=== PATIENT | male | born 1945 | race Caucasian/White ===

== ENCOUNTER 2020-11-02 14:18 | Outpatient (REF) | payer OTHER, SELFPAY ==
--- NOTE | ~2020-11-02 | US_ITS ---
EXAMINATION: US VENOUS ULTRASOUND WITH DOPPLER LOWER EXTREMITY, RIGHT CLINICAL INFORMATION: I83.90 - Asymptomatic varicose veins of unspecified lower extremity COMPARISON: None TECHNIQUE: Ultrasound of the deep veins is performed from the hip to the calf with compression sonography and color and pulse Doppler assessment. Spectral analysis with color-flow imaging is performed. FINDINGS: There is normal venous compression and respiratory variation and augmented flow. The visualized common femoral vein, superficial femoral vein, profunda femoral vein, popliteal vein, and the trifurcation region shows no evidence of deep venous thrombosis. There are prominent varicose veins right calf which are compressible and show intraluminal color flow. No superficial thrombophlebitis. No popliteal fossa cyst or fluid tracking in soft tissue planes. US/US venous duplex LE RT IMPRESSION: 1. No DVT right lower extremity. 2. Varicose veins calf. No superficial thrombophlebitis.
== END 2020-11-02 14:19 | disposition home or self-care (01) ==
LOC: HO.US 14:18
PROVIDERS: Visit Provider Nurse Practitioner Family
DX: I83.90 Asymptomatic varicose veins of unspecified lower extremity (principal)
CPT/HCPCS: 93971

== ENCOUNTER → 2020-11-07 13:51 | Outpatient (BNVA) | payer OTHER, SELFPAY | PROVIDERS: PCP Internal Medicine; Visit Provider Internal Medicine | DX: Q23.1 Congenital insufficiency of aortic valve (principal); I71.2 Thoracic aortic aneurysm, without rupture; I10 Essential (primary) hypertension; D68.9 Coagulation defect, unspecified; T45.7X1A Poisoning by anticoagulant antagonists, vitamin K and other coagulants, accidental (unintentional), initial encounter | CPT/HCPCS: 93005 ==

== ENCOUNTER → 2020-12-14 09:22 | Outpatient (REF) | payer OTHER, SELFPAY ==
--- NOTE | 2020-12-14 09:29 | CA_ITS ---
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 - Normal right ventricular cavity size and systolic function. - There is a bicuspid aortic valve. - There is mild to moderate aortic valve stenosis. - There is mild dilatation of the sinuses of Valsalva measuring 4.40 cm and severe dilatation of the ascending aorta measuring 5.30 cm. Findings Left Ventricle Normal left ventricular size, thickness, and systolic function. The visually estimated ejection fraction is between 65-70%. There is no evidence of regional wall motion abnormalities. Diastolic function is normal for age. Right Ventricle Normal right ventricular cavity size and systolic function. Atria The left atrium is normal in size. Aortic Valve There is a bicuspid aortic valve. There is severe calcification of the aortic valve. There is moderate thickening of the aortic valve. There is mild to moderate aortic valve stenosis. There is no aortic valve regurgitation. Mitral Valve Normal mitral valve structure and function. There is trace mitral valve regurgitation. There is no mitral valve stenosis. Pulmonic Valve The pulmonic valve is likely normal. Tricuspid Valve Normal tricuspid valve structure and function. There is trace tricuspid valve regurgitation. Normal right atrial pressure. There is no evidence of pulmonary hypertension. Great Vessels The pulmonary artery was not well visualized. There is mild dilatation of the sinuses of Valsalva measuring 4.40 cm and severe dilatation of the ascending aorta measuring 5.30 cm. Venous The inferior vena cava is normal in size and collapses greater than 50% with inspiration. Pericardium/Pleural There is no evidence of pericardial effusion. Prior Study Comparison Significant changes compared to prior study dated: 05/02/2006. Ascending aorta size has increased to 5.3 cm. Bicuspid aortic valve with mild to moderate . Measurements 2D Linear Measurements IVSd: 1.00 0.6-0.9/0.6-1.0 cm LVIDd: 5.33 3.9-5.3/4.2-5.9 cm LVIDd Index: 3.05 2.4-3.2/2.2-3.1 cm/m2 LVIDs: 3.03 2.0-3.6 cm LVPWd: 1.02 0.7-1.1 cm Ao Root: 4.40 2.1-3.5 cm LA Diam: 3.80 2.7-3.8/3.0-4.0 cm LAIDs Index: 2.17 1.5-2.3 cm/m2 LV Mass: 255.47 67-162/88-224 g LV Mass Index: 145.98 43-95/49-115 g/m2 LVOT Diam: 2.40 3.0+(-)1.3 cm 2D Systolic Function EF 4C: 70.10 >55% EF 2C: 70.10 >55% EF BiP: 67.40 >55% Mitral Valve MV Pk E: 0.65 MV PK A: 0.80 MV Decel Time: 254.00 E/A: 0.80 E'Lateral: 9.68 E'Medial: 8.38 E/E' Med: 7.70 E/E' Lat: 6.70 PHT: 74.00 MVA PHT: 2.97 Decel Cassia: 2.56 Aortic Valve AoV Pk Cosme: 2.73 AoV Mn Cosme: 1.95 AoV VTI: 0.74 AoV Pk Grad: 30.00 Aov Mn Grad: 17.00 ANTONY Cont.VTI: 1.56 LVOT LVOT Pk Cosme: 0.97 LVOT Mn Cosme: 0.73 LVOT VTI: 0.25 LVOT Pk Grad: 4.00 LVOT Mn Grad: 3.00 LVOT Diam: 2.40 LVOT Area: 4.52 Diastolic Function MV Pk E: 0.65 MV Pk A: 0.80 E/A: 0.80 E'Medial: 8.38 E/E' Med: 7.70 E' Laterial: 9.68 E/E' Lat: 6.70 Tricuspid Valve TR Pk Cosme: 2.69 TR Pk Grad: 29.00 RVSP: 32.00 Great Vessels Aorta Ao Root-2D: 4.40 2.0-3.7 cm Sinus of Valsalva: 4.40 2.0-3.5 cm Ao Asc: 5.30 2.1-3.4 cm Ao Arch: 3.20 Updated in Other Vendor System with Status of Final Maykel Burk MD electronically signed on 12/17/2020 11:48:42 AM with status of Final
== END ==
LOC: HO.CARD 09:22
PROVIDERS: Visit Provider Internal Medicine
DX: I71.2 Thoracic aortic aneurysm, without rupture (principal); Q23.1 Congenital insufficiency of aortic valve
CPT/HCPCS: 93306

== ENCOUNTER → 2020-12-18 10:44 | Outpatient (BNVA) | payer OTHER, SELFPAY | PROVIDERS: PCP Internal Medicine; Visit Provider Internal Medicine ==

== ENCOUNTER 2021-01-25 07:52 | Outpatient (REF) | payer OTHER, SELFPAY ==
--- NOTE | ~2021-01-25 | US_ITS ---
EXAMINATION: US RETROPERITONEAL LIMITED (AORTA) CLINICAL INFORMATION: Abdominal aortic aneurysm, without rupture. COMPARISON: None. TECHNIQUE: Grayscale, color Doppler and spectral Doppler evaluation of the abdominal aorta. FINDINGS: There is scattered atherosclerotic plaque without evidence of abdominal aortic aneurysm. The measurements of the aorta in maximum AP and transverse dimensions respectively are as follows: PROXIMAL: 2.6 x 2.7 cm. MID: 2.1 x 1.9 cm. PSV: 88 cm/sec. DISTAL: 2.1 x 1.7 cm. The measurements of the common iliac arteries are as follows: AP: Right: 1.3 cm. Left: 1.3 cm. TRANS: Right: 1.3 cm. Left: 1.3 cm. US/US abdominal aortic aneurysm IMPRESSION: There is scattered atherosclerotic plaque without evidence of abdominal aortic aneurysm.
== END 2021-01-25 07:53 | disposition home or self-care (01) ==
LOC: HO.US 07:52
PROVIDERS: Visit Provider Internal Medicine
DX: I71.4 Abdominal aortic aneurysm, without rupture (principal)
CPT/HCPCS: 76706

== ENCOUNTER → 2021-01-29 12:42 | Outpatient (BNVA) | payer OTHER, SELFPAY | PROVIDERS: PCP Internal Medicine; Visit Provider Internal Medicine ==

== ENCOUNTER 2021-02-06 08:55 | Outpatient (REF) | payer OTHER, SELFPAY ==
--- NOTE | ~2021-02-06 | CT_ITS ---
EXAMINATION: CT ANGIOGRAM CHEST CLINICAL INFORMATION: Thoracic aortic aneurysm COMPARISON: None TECHNIQUE: Multiple axial images were obtained through the chest after the administration of 70 mL of Omnipaque 350 intravenous contrast. MIPS images were performed at the workstation. This CT examination was performed using dose optimization techniques as appropriate, variously including the following: *Automated exposure control *Adjustment of mA and/or kV according to patient size (this includes techniques or standardized protocols for targeted exams where dose is matched to indication/reason for exam; i.e. extremities or head) *Use of iterative reconstruction technique DLP: 123 mGy-cm FINDINGS: Heart/Aorta: The heart is globally normal in size. The coronary arteries arise from the expected coronary sinuses; there is no anomaly of coronary arterial origin. There are coronary artery calcifications. The thoracic aorta is enlarged measuring up to 5.3 cm. Aortic root is also dilated measuring up to 4.8 cm. There is minimal calcification of the aortic valve. The descending thoracic aorta is normal in caliber. There is no evidence of aortic dissection, intramural hematoma, or atherosclerotic penetrating ulcer. Other Cardiovascular: The main pulmonary artery is normal in caliber. The well opacified portions of the pulmonary arterial system are patent. There is no pericardial effusion or pericardial thickening. Mediastinum/Yolanda: There are no pathologically enlarged mediastinal or hilar lymph nodes. Pleura: The pleural surfaces are normal bilaterally. There is no pleural effusion. There is no pneumothorax. Lungs: The lung parenchyma is normal bilaterally. There is no pulmonary parenchymal mass, consolidation, ground-glass attenuation, or discrete suspicious pulmonary nodule. Airways: The central airways are patent. The peripheral airways are normal. There is no bronchiectasis. Upper Abdomen: The incompletely imaged upper abdomen is unremarkable. Musculoskeletal: There is no aggressive osseous lesion. The structures of the chest wall, including the bones, are normal for age. CT/CT angio chest IMPRESSION: 5.3 cm ascending thoracic aortic aneurysm with aortic root dilatation.
[2021-02-06 09:51] LABS: Anion Gap 13 (12-20); Blood Urea Nitrogen 19 mg/dL (9-16); Calcium 9.2 mg/dL (8.4-10.2); Carbon Dioxide 26 mmol/L (22-29); Chloride 104 mmol/L (96-108); Estimated Glomerular Filt Rate > 60; Glucose Random 94 mg/dL (60-115); Potassium 4.7 mmol/L (3.3-5.1); Sodium 138 mmol/L (135-145)
[2021-02-06] MEDS: iohexoL 350 MG/ML 100 ML INFUS..BTL IV (11:23)
== END 2021-02-06 08:56 | disposition home or self-care (01) ==
LOC: HO.CT 08:55
PROVIDERS: PCP Internal Medicine; Visit Provider Internal Medicine
DX: I71.2 Thoracic aortic aneurysm, without rupture (principal); Q23.1 Congenital insufficiency of aortic valve
CPT/HCPCS: 36415; 71275; 80048; Q9967

== ENCOUNTER → 2021-02-12 11:03 | Outpatient (BNVA) | payer OTHER, SELFPAY | PROVIDERS: PCP Internal Medicine; Referring Provider Internal Medicine; Visit Provider Internal Medicine ==

== ENCOUNTER 2021-02-27 12:22 | Outpatient (REF) | payer OTHER, SELFPAY ==
[2021-02-27 13:03] LABS: Hematocrit 33.9 % (42-52); Hemoglobin 11.4 g/dl (14.0-18.0); Mean Corpuscular HGB Conc 33.6 g/dl (31.0-36.0); Mean Corpuscular Hemoglobin 31.6 pg (27.0-33.0); Mean Corpuscular Volume 93.9 fL (80-98); Mean Platelet Volume 10.2 fL (9.4-12.4); Platelet Count 370 X10*3/uL (160-400); Red Blood Count 3.61 X10*6/uL (4.60-5.80); Red Cell Distribution Width 15.3 % (11.0-16.0); White Blood Count 7.7 X10*3/uL (4.8-10.8)
[2021-02-27 13:08] LABS: INTERNATIONAL NORM RATIO 0.8 (0.9-1.1)
[2021-02-27 13:27] LABS: Anion Gap 12 (12-20); Blood Urea Nitrogen 26 mg/dL (9-16); Calcium 9.1 mg/dL (8.4-10.2); Carbon Dioxide 25 mmol/L (22-29); Chloride 103 mmol/L (96-108); Estimated Glomerular Filt Rate > 60; Glucose Random 86 mg/dL (60-115); Potassium 4.7 mmol/L (3.3-5.1); Sodium 135 mmol/L (135-145)
== END 2021-02-27 12:23 | disposition home or self-care (01) ==
LOC: HO.LAB 12:22
PROVIDERS: PCP Internal Medicine; Visit Provider Internal Medicine
DX: I71.2 Thoracic aortic aneurysm, without rupture (principal)
CPT/HCPCS: 36415; 80048; 85027; 85610

== ENCOUNTER → 2021-03-20 13:55 | Outpatient (BNVA) | payer OTHER, SELFPAY | PROVIDERS: PCP Internal Medicine; Referring Provider Internal Medicine; Visit Provider Internal Medicine ==

== ENCOUNTER 2022-07-28 15:38 | Outpatient (REF) | payer BC, SELFPAY ==
--- NOTE | ~2022-07-28 | US_ITS ---
EXAMINATION: US EXTRACRANIAL CAROTID DUPLEX, BILATERAL CLINICAL INFORMATION: TIA COMPARISON: 09/26/2011 TECHNIQUE: Real-time ultrasound and Doppler techniques (integrating B-mode 2-D vascular images, Doppler spectral analysis and color-flow Doppler imaging) were utilized to interrogate the extracranial carotid arteries, the vertebral arteries and proximal subclavian arteries bilaterally. The degree of stenosis is determined by criteria similar to NASCET. FINDINGS: Right Side: 1. There is mild atherosclerotic plaque seen in the bifurcation/proximal ICA region. 2. The common carotid artery PSV proximally is 101 cm/s and distally 79 cm/s. 3. The proximal internal carotid artery velocities are 78 cm/s systolic and 28 cm/s diastolic. 4. The proximal external carotid artery PSV is 74 cm/s. 5. The vertebral artery shows after flow. 6. The subclavian artery waveforms are normal. Left Side: 1. There is mild atherosclerotic plaque seen in the bifurcation/proximal ICA region. 2. The common carotid artery PSV proximally is 98 cm/s and distally 82 cm/s. 3. The proximal internal carotid artery velocities are 107 cm/s systolic and 34 cm/s diastolic. 4. The proximal external carotid artery PSV is 57 cm/s. 5. The vertebral artery shows antegrade flow. 6. The subclavian artery waveforms are normal. US/US carotid duplex BI IMPRESSION: 1. RIGHT: Minimal, non-hemodynamically significant stenosis of the proximal right internal carotid artery corresponding to a 0-49% stenosis by velocity criteria. 2. LEFT: Minimal, non-hemodynamically significant stenosis of the proximal left internal carotid artery corresponding to a 0-49% stenosis by velocity criteria. 3. There is no change in the category severity of disease when compared to the previous study dated 09/26/2011.
== END 2022-07-28 15:39 | disposition home or self-care (01) ==
LOC: HO.US 15:38
PROVIDERS: Visit Provider Internal Medicine
DX: G45.9 Transient cerebral ischemic attack, unspecified (principal)
CPT/HCPCS: 93880

== ENCOUNTER 2022-08-14 16:12 | Outpatient (REF) | payer BC, SELFPAY ==
[2022-08-14 16:40] LABS: MANUAL DIFF FLAG NO
[2022-08-14 17:20] LABS: Basophils Absolute Auto 0.1 X10*3/uL (0.0-0.2); Basophils Percent Auto 1.3 % (0-2); Eosinophils Absolute Auto 0.2 X10*3/uL (0.0-0.4); Eosinophils Percent Auto 2.9 % (0-4); Hematocrit 33.2 % (42.0-52.0); Hemoglobin 11.2 g/dl (14.0-18.0); Imm Gran Abs Auto 0.01 X10*3/uL (0.00-0.03); Imm Gran Pct Auto 0.1 % (0.0-0.4); Lymphocytes Absolute Auto 0.9 X10*3/uL (1.2-4.9); Lymphocytes Percent Auto 12.4 % (20-40); Mean Corpuscular HGB Conc 33.7 g/dl (31.0-36.0); Mean Corpuscular Hemoglobin 32.4 pg (27.0-33.0); Mean Platelet Volume 10.2 fL (9.4-12.4); Monocytes Absolute Auto 1.1 X10*3/uL (0.1-1.2); Monocytes Percent Auto 16.2 % (2-11); Neutrophils Absolute Auto 4.6 x10*3/uL (2.0-8.3); Neutrophils Percent Auto 67.1 % (45-73); Platelet Count 376 X10*3/uL (160-400); Red Blood Count 3.46 X10*6/uL (4.60-5.80); Red Cell Distribution Width 13.5 % (11.0-16.0); White Blood Count 6.9 X10*3/uL (4.8-10.8)
[2022-08-14 17:21] LABS: Appearance Urine Clear; Color Urine Yellow; Glucose Urine UA Negative (Negative); Leukocyte Esterase Urine Negative (Negative); Nitrite Urine Negative (Negative); Urine Blood Negative (Negative); Urine Ketones Negative (Negative); Urine Protein Negative (Neg-Trace)
[2022-08-14 17:24] LABS: INTERNATIONAL NORM RATIO 0.9 (0.9-1.1); Prothrombin Time 10.1 SEC (10.0-13.1)
[2022-08-14 17:27] LABS: Estimated Average Glucose 94 mg/dL; Hemoglobin A1c % 4.9 %; Partial Thromboplastin Time 32.6 SEC (26.0-36.4)
[2022-08-14 17:49] LABS: Alanine Aminotransferase 16 U/L (0-40); Albumin Level 4.1 g/dL (3.5-5.0); Alkaline Phosphatase 82 U/L (39-117); Anion Gap 11 (12-20); Aspartate Amino Transferase 29 U/L (5-37); Bilirubin Total 0.5 mg/dL (0.0-1.0); Blood Urea Nitrogen 23 mg/dL (9-16); Calcium 9.4 mg/dL (8.4-10.2); Carbon Dioxide 26 mmol/L (22-29); Chloride 98 mmol/L (96-108); Estimated Glomerular Filt Rate > 60; Glucose Random 93 mg/dL (60-115); Magnesium 1.7 mg/dL (1.6-2.6); Potassium 5.1 mmol/L (3.3-5.1); Sodium 130 mmol/L (135-145); Total Protein 6.8 g/dL (6.5-8.0)
== END 2022-08-14 16:13 | disposition home or self-care (01) ==
LOC: HO.LAB 16:12
PROVIDERS: PCP Internal Medicine; Visit Provider Thoracic Surgery (Cardiothoracic Vascular Surgery)
DX: Z01.818 Encounter for other preprocedural examination (principal)
CPT/HCPCS: 36415; 80053; 81003; 83036; 83735; 84550; 85025; 85610; 85730; 87086

== ENCOUNTER → 2022-09-05 11:34 | Outpatient (BNVA) | payer BC, SELFPAY | PROVIDERS: PCP Internal Medicine; Visit Provider Internal Medicine Cardiovascular Disease | DX: I48.19 Other persistent atrial fibrillation (principal); Z98.890 Other specified postprocedural states; Z86.79 Personal history of other diseases of the circulatory system; Z95.2 Presence of prosthetic heart valve | CPT/HCPCS: 93005 ==

== ENCOUNTER → 2022-09-25 09:57 | Outpatient (BNVA) | payer OTHER, SELFPAY | PROVIDERS: PCP Internal Medicine; Visit Provider Internal Medicine | DX: Z95.2 Presence of prosthetic heart valve (principal); Z51.81 Encounter for therapeutic drug level monitoring; Z79.01 Long term (current) use of anticoagulants | CPT/HCPCS: 85610; 99202 ==

== ENCOUNTER → 2022-09-30 09:29 | Outpatient (BNVA) | payer OTHER, SELFPAY | PROVIDERS: PCP Internal Medicine; Visit Provider Internal Medicine | DX: Z95.2 Presence of prosthetic heart valve (principal); Z51.81 Encounter for therapeutic drug level monitoring; Z79.01 Long term (current) use of anticoagulants | CPT/HCPCS: 85610; 99211 ==

== ENCOUNTER → 2022-10-03 09:25 | Outpatient (BNVA) | payer OTHER, SELFPAY | PROVIDERS: PCP Internal Medicine; Visit Provider Internal Medicine | DX: Z95.2 Presence of prosthetic heart valve (principal); Z51.81 Encounter for therapeutic drug level monitoring; Z79.01 Long term (current) use of anticoagulants | CPT/HCPCS: 85610; 99211 ==

== ENCOUNTER → 2022-10-07 10:40 | Outpatient (BNVA) | payer OTHER, SELFPAY | PROVIDERS: PCP Internal Medicine; Visit Provider Internal Medicine | DX: Z95.2 Presence of prosthetic heart valve (principal); Z51.81 Encounter for therapeutic drug level monitoring; Z79.01 Long term (current) use of anticoagulants | CPT/HCPCS: 85610; 99211 ==

== ENCOUNTER → 2022-10-10 09:53 | Outpatient (BNVA) | payer OTHER, SELFPAY | PROVIDERS: PCP Internal Medicine; Visit Provider Internal Medicine | DX: Z95.2 Presence of prosthetic heart valve (principal); Z51.81 Encounter for therapeutic drug level monitoring; Z79.01 Long term (current) use of anticoagulants | CPT/HCPCS: 85610; 99211 ==

== ENCOUNTER → 2022-10-14 10:03 | Outpatient (BNVA) | payer OTHER, SELFPAY | PROVIDERS: PCP Internal Medicine; Visit Provider Internal Medicine | DX: Z95.2 Presence of prosthetic heart valve (principal); Z51.81 Encounter for therapeutic drug level monitoring; Z79.01 Long term (current) use of anticoagulants | CPT/HCPCS: 85610; 99211 ==

== ENCOUNTER → 2022-10-21 13:07 | Outpatient (BNVA) | payer OTHER, SELFPAY | PROVIDERS: PCP Internal Medicine; Visit Provider Internal Medicine | DX: Z95.2 Presence of prosthetic heart valve (principal); Z51.81 Encounter for therapeutic drug level monitoring; Z79.01 Long term (current) use of anticoagulants | CPT/HCPCS: 85610; 99211 ==

== ENCOUNTER → 2022-10-28 11:26 | Outpatient (BNVA) | payer OTHER, SELFPAY | PROVIDERS: PCP Internal Medicine; Visit Provider Internal Medicine | DX: Z95.2 Presence of prosthetic heart valve (principal); Z51.81 Encounter for therapeutic drug level monitoring; Z79.01 Long term (current) use of anticoagulants | CPT/HCPCS: 85610; 99211 ==

== ENCOUNTER → 2022-11-04 13:20 | Outpatient (BNVA) | payer OTHER, SELFPAY | PROVIDERS: PCP Internal Medicine; Visit Provider Internal Medicine | DX: Z95.2 Presence of prosthetic heart valve (principal); Z51.81 Encounter for therapeutic drug level monitoring; Z79.01 Long term (current) use of anticoagulants | CPT/HCPCS: 85610; 99211 ==

== ENCOUNTER → 2022-11-11 10:32 | Outpatient (BNVA) | payer OTHER, SELFPAY | PROVIDERS: PCP Internal Medicine; Visit Provider Internal Medicine | DX: Z95.2 Presence of prosthetic heart valve (principal); Z51.81 Encounter for therapeutic drug level monitoring; Z79.01 Long term (current) use of anticoagulants | CPT/HCPCS: 85610; 99211 ==

== ENCOUNTER → 2022-11-18 10:30 | Outpatient (BNVA) | payer OTHER, SELFPAY | PROVIDERS: PCP Internal Medicine; Visit Provider Internal Medicine | DX: Z95.2 Presence of prosthetic heart valve (principal); Z51.81 Encounter for therapeutic drug level monitoring; Z79.01 Long term (current) use of anticoagulants | CPT/HCPCS: 85610; 99211 ==

== ENCOUNTER → 2022-11-25 09:47 | Outpatient (BNVA) | payer OTHER, SELFPAY | PROVIDERS: PCP Internal Medicine; Visit Provider Internal Medicine | DX: Z95.2 Presence of prosthetic heart valve (principal); Z51.81 Encounter for therapeutic drug level monitoring; Z79.01 Long term (current) use of anticoagulants | CPT/HCPCS: 85610; 99211 ==

== ENCOUNTER → 2022-12-02 09:41 | Outpatient (BNVA) | payer OTHER, SELFPAY | PROVIDERS: PCP Internal Medicine; Visit Provider Internal Medicine | DX: Z95.2 Presence of prosthetic heart valve (principal); Z51.81 Encounter for therapeutic drug level monitoring; Z79.01 Long term (current) use of anticoagulants | CPT/HCPCS: 85610; 99211 ==

== ENCOUNTER → 2022-12-09 09:46 | Outpatient (BNVA) | payer OTHER, SELFPAY | PROVIDERS: PCP Internal Medicine; Visit Provider Internal Medicine | DX: Z95.2 Presence of prosthetic heart valve (principal); Z51.81 Encounter for therapeutic drug level monitoring; Z79.01 Long term (current) use of anticoagulants | CPT/HCPCS: 85610; 99211 ==

== ENCOUNTER → 2022-12-23 09:55 | Outpatient (BNVA) | payer OTHER, SELFPAY | PROVIDERS: PCP Internal Medicine; Visit Provider Internal Medicine | DX: Z95.2 Presence of prosthetic heart valve (principal); Z51.81 Encounter for therapeutic drug level monitoring; Z79.01 Long term (current) use of anticoagulants | CPT/HCPCS: 85610; 99211 ==

== ENCOUNTER → 2023-01-06 10:04 | Outpatient (BNVA) | payer OTHER, SELFPAY | PROVIDERS: PCP Internal Medicine; Visit Provider Internal Medicine | DX: Z95.2 Presence of prosthetic heart valve (principal); Z51.81 Encounter for therapeutic drug level monitoring; Z79.01 Long term (current) use of anticoagulants | CPT/HCPCS: 85610; 99211 ==

== ENCOUNTER → 2023-01-20 09:55 | Outpatient (BNVA) | payer OTHER, SELFPAY | PROVIDERS: PCP Internal Medicine; Visit Provider Internal Medicine | DX: Z95.2 Presence of prosthetic heart valve (principal); Z51.81 Encounter for therapeutic drug level monitoring; Z79.01 Long term (current) use of anticoagulants | CPT/HCPCS: 85610; 99211 ==

== ENCOUNTER → 2023-02-03 10:00 | Outpatient (BNVA) | payer OTHER, SELFPAY | PROVIDERS: PCP Internal Medicine; Visit Provider Internal Medicine | DX: Z51.81 Encounter for therapeutic drug level monitoring (principal); Z79.01 Long term (current) use of anticoagulants; Z95.2 Presence of prosthetic heart valve | CPT/HCPCS: 85610; 99211 ==

== ENCOUNTER → 2023-02-17 09:50 | Outpatient (BNVA) | payer OTHER, SELFPAY | PROVIDERS: PCP Internal Medicine; Visit Provider Internal Medicine | DX: Z51.81 Encounter for therapeutic drug level monitoring (principal); Z79.01 Long term (current) use of anticoagulants; Z95.2 Presence of prosthetic heart valve | CPT/HCPCS: 85610; 99211 ==

== ENCOUNTER → 2023-03-02 10:29 | Outpatient (BNVA) | payer OTHER, SELFPAY | PROVIDERS: PCP Internal Medicine; Visit Provider Internal Medicine | DX: Z95.2 Presence of prosthetic heart valve (principal); Z51.81 Encounter for therapeutic drug level monitoring; Z79.01 Long term (current) use of anticoagulants | CPT/HCPCS: 85610; 99211 ==

== ENCOUNTER 2023-03-23 14:11 | Outpatient (AMB) | payer OTHER, SELFPAY ==
--- NOTE | 2023-03-23 14:17 | MHC.OFFVISCO ---
Intake Intake Visit Reasons: Anticoagulation Allergies No Known Allergies Allergy (Verified 03/23/23 14:13) Medication List - Last Reconciled 03/23/23 by Lilian Qureshi RN acetaminophen 325 mg PO QID PRN allopurinol 150 mg (1/2 x 300 mg) PO DAILY aspirin 81 mg PO DAILY atorvastatin 20 mg PO DAILY dupilumab (Dupixent Pen) every 2 weeks furosemide 20 mg PO DAILY metoprolol succinate ER mg PO omeprazole 20 mg PO DAILY sildenafil mg PO triamcinolone acetonide 0.1% 1 appl topical BID-TID warfarin 2 mg See Protocol PO DAILY Nursing Note INR: 2.5- in therapeutic range Medications and supplements reviewed No changes in health, diet, medications, or supplements, Denies any signs and symptoms of bleeding or bruising or clotting. 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
[2023-03-24 15:40] LABS: ~PT, ~INR - Anti Coag Clinic 2.5 (0.9-1.1)
== END 2023-03-23 14:25 | disposition home or self-care (01) ==
LOC: HO.ACS 14:11
PROVIDERS: PCP Internal Medicine; Visit Provider Internal Medicine
DX: Z79.01 Long term (current) use of anticoagulants (principal)

== ENCOUNTER → 2023-03-23 14:11 | Outpatient (BNVA) | payer OTHER, SELFPAY | PROVIDERS: PCP Internal Medicine; Visit Provider Internal Medicine | DX: Z51.81 Encounter for therapeutic drug level monitoring (principal); Z79.01 Long term (current) use of anticoagulants; Z95.2 Presence of prosthetic heart valve | CPT/HCPCS: 85610; 99211 ==

== ENCOUNTER 2023-04-14 10:08 | Outpatient (AMB) | payer OTHER, SELFPAY ==
--- NOTE | 2023-04-14 10:14 | MHC.OFFVISCO ---
Intake Intake Visit Reasons: Anticoagulation Allergies No Known Allergies Allergy (Verified 04/14/23 10:11) Medication List - Last Reconciled 04/14/23 by Lilian Qureshi RN acetaminophen 325 mg PO QID PRN allopurinol 150 mg (1/2 x 300 mg) PO DAILY aspirin 81 mg PO DAILY atorvastatin 20 mg PO DAILY dupilumab (Dupixent Pen) every 2 weeks furosemide 20 mg PO DAILY metoprolol succinate ER mg PO omeprazole 20 mg PO DAILY sildenafil mg PO triamcinolone acetonide 0.1% 1 appl topical BID-TID warfarin 2 mg See Protocol PO DAILY Nursing Note INR: 2.7- in therapeutic range Medications and supplements reviewed No changes in health, diet, medications, or supplements, Denies any signs and symptoms of bleeding or bruising or clotting. 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 Illness/Depression: No Coding Level of Care Code Est Patient Level 1 Diagnoses Current use of anticoagulant therapy Z79.01 Assessment & Plan Assessment & Plan (1) Current use of anticoagulant therapy: Code(s): Z79.01 - skilled nursing (current) use of anticoagulants Category: Medical
[2023-04-14 10:16] LABS: Prothrombin Time Whole Bld POC 32.7 sec (11.1-13.5); ~PT, ~INR - Anti Coag Clinic 2.7 (0.9-1.1)
== END 2023-04-14 10:20 | disposition home or self-care (01) ==
LOC: HO.ACS 10:08
PROVIDERS: PCP Internal Medicine; Visit Provider Internal Medicine
DX: Z79.01 Long term (current) use of anticoagulants (principal)

== ENCOUNTER → 2023-04-14 10:08 | Outpatient (BNVA) | payer OTHER, SELFPAY | PROVIDERS: PCP Internal Medicine; Visit Provider Internal Medicine | DX: Z51.81 Encounter for therapeutic drug level monitoring (principal); Z79.01 Long term (current) use of anticoagulants; Z95.2 Presence of prosthetic heart valve | CPT/HCPCS: 85610; 99211 ==

== ENCOUNTER 2023-05-05 10:29 | Outpatient (AMB) | payer OTHER, SELFPAY ==
[2023-05-05 10:35] LABS: ~PT, ~INR - Anti Coag Clinic 3.2 (0.9-1.1)
--- NOTE | 2023-05-05 10:47 | MHC.OFFVISCO ---
Intake Intake Visit Reasons: Anticoagulation Allergies No Known Allergies Allergy (Verified 05/05/23 10:30) Medication List - Last Reconciled 05/05/23 by Marcia De Leon RN acetaminophen 325 mg PO QID PRN allopurinol 150 mg (1/2 x 300 mg) PO DAILY aspirin 81 mg PO DAILY atorvastatin 20 mg PO DAILY dupilumab (Dupixent Pen) every 2 weeks furosemide 20 mg PO DAILY metoprolol succinate ER mg PO omeprazole 20 mg PO DAILY sildenafil mg PO triamcinolone acetonide 0.1% 1 appl topical BID-TID warfarin 2 mg See Protocol PO DAILY Nursing Note NO CP,SOB,DIET/MED CHANGES,FALLS OR SX OF BBLEEDING. CONTINUE PRESENT DOSE AND FOLLOW-UP IN 3 WEEKS. GOOD UNDERSTANDING OFDOSING INSTR. 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
== END 2023-05-05 10:49 | disposition home or self-care (01) ==
LOC: HO.ACS 10:29
PROVIDERS: PCP Internal Medicine; Visit Provider Internal Medicine
DX: Z79.01 Long term (current) use of anticoagulants (principal)

== ENCOUNTER → 2023-05-05 10:29 | Outpatient (BNVA) | payer OTHER, SELFPAY | PROVIDERS: PCP Internal Medicine; Visit Provider Internal Medicine | DX: Z95.2 Presence of prosthetic heart valve (principal); Z51.81 Encounter for therapeutic drug level monitoring; Z79.01 Long term (current) use of anticoagulants | CPT/HCPCS: 85610; 99211 ==

== ENCOUNTER 2023-05-26 10:06 | Outpatient (AMB) | payer OTHER, SELFPAY ==
--- NOTE | 2023-05-26 10:19 | MHC.OFFVISCO ---
Intake Intake Visit Reasons: Anticoagulation Allergies No Known Allergies Allergy (Verified 05/26/23 10:14) Medication List - Last Reconciled 05/26/23 by Lilian Qureshi RN acetaminophen 325 mg PO QID PRN allopurinol 150 mg (1/2 x 300 mg) PO DAILY aspirin 81 mg PO DAILY atorvastatin 20 mg PO DAILY dupilumab (Dupixent Pen) every 2 weeks furosemide 20 mg PO DAILY metoprolol succinate ER mg PO omeprazole 20 mg PO DAILY sildenafil mg PO triamcinolone acetonide 0.1% 1 appl topical BID-TID warfarin 2 mg See Protocol PO DAILY Nursing Note INR: 2.9- in therapeutic range Medications and supplements reviewed No changes in health, diet, medications, or supplements, Denies any signs and symptoms of bleeding or bruising or clotting. Bleeding, bruising, clotting discussed - skin tear left forearm- dressing dry and intact. pt states had bleeding for several days. 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
[2023-05-26 10:20] LABS: Prothrombin Time Whole Bld POC 34.2 sec (11.1-13.5); ~PT, ~INR - Anti Coag Clinic 2.9 (0.9-1.1)
== END 2023-05-26 10:26 | disposition home or self-care (01) ==
LOC: HO.ACS 10:06
PROVIDERS: PCP Internal Medicine; Visit Provider Internal Medicine
DX: Z79.01 Long term (current) use of anticoagulants (principal)

== ENCOUNTER → 2023-05-26 10:06 | Outpatient (BNVA) | payer OTHER, SELFPAY | PROVIDERS: PCP Internal Medicine; Visit Provider Internal Medicine | DX: Z95.2 Presence of prosthetic heart valve (principal); Z51.81 Encounter for therapeutic drug level monitoring; Z79.01 Long term (current) use of anticoagulants | CPT/HCPCS: 85610; 99211 ==

== ENCOUNTER 2023-06-10 12:00 | Outpatient (REF) | payer OTHER, SELFPAY ==
[2023-06-10 12:20] LABS: MANUAL DIFF FLAG NO
[2023-06-10 12:42] LABS: Basophils Absolute Auto 0.1 X10*3/uL (0.0-0.2); Basophils Percent Auto 1.4 % (0-2); Eosinophils Absolute Auto 0.4 X10*3/uL (0.0-0.4); Eosinophils Percent Auto 5.2 % (0-4); Hematocrit 26.3 % (42.0-52.0); Hemoglobin 8.1 g/dl (14.0-18.0); Imm Gran Abs Auto 0.03 X10*3/uL (0.00-0.03); Imm Gran Pct Auto 0.4 % (0.0-0.4); Lymphocytes Absolute Auto 0.8 X10*3/uL (1.2-4.9); Lymphocytes Percent Auto 11.8 % (20-40); Mean Corpuscular HGB Conc 30.8 g/dl (31.0-36.0); Mean Corpuscular Hemoglobin 22.9 pg (27.0-33.0); Mean Corpuscular Volume 74.3 fL (80.0-98.0); Mean Platelet Volume 10.9 fL (9.4-12.4); Monocytes Absolute Auto 1.1 X10*3/uL (0.1-1.2); Monocytes Percent Auto 15.7 % (2-11); Neutrophils Absolute Auto 4.7 x10*3/uL (2.0-8.3); Neutrophils Percent Auto 65.5 % (45-73); Platelet Count 316 X10*3/uL (160-400); Red Blood Count 3.54 X10*6/uL (4.60-5.80); Red Cell Distribution Width 20.1 % (11.0-16.0)
[2023-06-10 12:43] LABS: White Blood Count 7.1 X10*3/uL (4.8-10.8)
== END 2023-06-10 12:01 | disposition home or self-care (01) ==
LOC: HO.LAB 12:00
PROVIDERS: PCP Internal Medicine; Visit Provider Internal Medicine
DX: D64.9 Anemia, unspecified (principal)
CPT/HCPCS: 36415; 85025

== ENCOUNTER 2023-06-16 10:08 | Outpatient (AMB) | payer OTHER, SELFPAY ==
--- NOTE | 2023-06-16 10:15 | MHC.OFFVISCO ---
Intake Intake Visit Reasons: Anticoagulation Allergies No Known Allergies Allergy (Verified 06/16/23 10:11) Medication List - Last Reconciled 06/16/23 by Lilian Qureshi RN acetaminophen 325 mg PO QID PRN allopurinol 150 mg (1/2 x 300 mg) PO DAILY aspirin 81 mg PO DAILY atorvastatin 20 mg PO DAILY dupilumab (Dupixent Pen) every 2 weeks furosemide 20 mg PO DAILY metoprolol succinate ER mg PO omeprazole 20 mg PO DAILY sildenafil mg PO triamcinolone acetonide 0.1% 1 appl topical BID-TID warfarin 2 mg See Protocol PO DAILY Nursing Note INR 3.3- out of therapeutic range Medications and supplements reviewed Patient status: no c.o Medications or supplements: no changes Diet: same Denies any signs and symptoms of bleeding or clotting or unusual bruising Bleeding, bruising, clotting discussed Nutritional guidance given: eat greens to lower inr pt has had peanut butter and fresh tomatoes Dose: 2mg today then cont 4mg x 2, 3mg x 5 F/U INR Date : 2 weeks?? Patient verbalizing understanding of instructions given. 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 Illness/Depression: No Coding Level of Care Code Est Patient Level 1 Diagnoses Current use of anticoagulant therapy Z79.01 Assessment & Plan Assessment & Plan (1) Current use of anticoagulant therapy: Code(s): Z79.01 - [facility] (current) use of anticoagulants Category: Medical
[2023-06-16 10:16] LABS: Prothrombin Time Whole Bld POC 39.5 sec (11.1-13.5); ~PT, ~INR - Anti Coag Clinic 3.3 (0.9-1.1)
== END 2023-06-16 10:22 | disposition home or self-care (01) ==
LOC: HO.ACS 10:08
PROVIDERS: PCP Internal Medicine; Visit Provider Internal Medicine
DX: Z79.01 Long term (current) use of anticoagulants (principal)

== ENCOUNTER → 2023-06-16 10:08 | Outpatient (BNVA) | payer OTHER, SELFPAY | PROVIDERS: PCP Internal Medicine; Visit Provider Internal Medicine | DX: Z95.2 Presence of prosthetic heart valve (principal); Z51.81 Encounter for therapeutic drug level monitoring; Z79.01 Long term (current) use of anticoagulants | CPT/HCPCS: 85610; 99211 ==

== ENCOUNTER 2023-06-22 08:29 | Outpatient (AMB) | payer OTHER, SELFPAY ==
[2023-06-22 08:35] VITALS: BP 106/62; PULSE 71; O2SAT 98; BMI 22.2
--- NOTE | 2023-06-22 08:35 | MHC.PC.OV ---
Vital Signs 06/22/23 08:35 Height 5 ft 8 in Weight 146 lb BMI 22.2 BP 106/62 Blood Pressure Location Lt brachial Position Sitting Pulse 71 Pulse Source Pulse Oximeter Pulse Oximetry (%) 98 Oxygen Delivery Method Room Air Intake Visit Reasons: F/u anemia Allergies No Known Allergies Allergy (Verified 06/22/23 08:35) Medication List - Last Reconciled 06/22/23 by Robbie Ferrer MD acetaminophen 325 mg PO QID PRN allopurinol 150 mg (1/2 x 300 mg) PO DAILY aspirin 81 mg PO DAILY atorvastatin 20 mg PO DAILY dupilumab (Dupixent Pen) every 2 weeks ferrous sulfate (FeroSul) 325 mg PO DAILY furosemide 20 mg PO DAILY metoprolol succinate ER mg PO omeprazole 20 mg PO DAILY sildenafil mg PO triamcinolone acetonide 0.1% 1 appl topical BID-TID warfarin 2 mg See Protocol PO DAILY Tobacco use date assessed: 09/29/22 Fall risk assessment: No Falls in past year Last assessed Fall Risk: 06/22/23 Dental Screening Dental Screen Date: 06/22/23 Did you have a dental visit in the last 12 months?: Yes Did you have a dental problem in the last 6 months where you did not have access to dental care?: No Was dental information given to patient?: Patient has dentist HPI F/u anemia HPI Details fatigue since his heart surgery last Aug; sees cardiology and doing well; has been anemic since surgery and last hct 26.4. No BM changes but on warfarin PFSH Medical History (Updated 06/22/23 @ 09:25 by Robbie Ferrer MD) Ascending aortic aneurysm Bicuspid aortic valve Varicose vein of leg Hemorrhage secondary to anti-coagulation Bleeding Hx of skin malignancy Gastroesophageal reflux disease Erectile dysfunction Carotid stenosis Allergic rhinitis Gout Hypertension Surgical History Aortic valve replaced History of inguinal hernia repair (~09/2019) History of tonsillectomy Status post ascending aortic aneurysm repair Family History Father No problems noted. Mother No problems noted. 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 1. Little interest or pleasure in doing things: not at all 2. Feeling down, depressed, or hopeless: not at all 3. Trouble falling or staying asleep, or sleeping too much: not at all 4. Feeling tired or having little energy: not at all 5. Poor appetite or overeating: not at all 6. Feeling bad about yourself - or that you are a failure or have let yourself or your family down: not at all 7. Trouble concentrating on things, such as reading the newspaper or watching television: not at all 8. Moving or speaking so slowly that other people could have noticed. Or the opposite - being so fidgety or restless that you have been moving around a lot more than usual: not at all 9. Thoughts that you would be better off or of hurting yourself in some way: not at all Total score: 0 Depression Screening Interpretation: Negative Depression Screening Done: Yes 57481 - PHQ-9 Billing: Yes Source: Developed by Drs. Jean Carlos Rodríguez, Mikala Way, Blas Scott and colleagues, with an educational erika from [employer]. Thrive Questionnaire Date Thrive assessed: 09/29/22 AUDIT C Alcohol Use Questionnaire (AUDIT-C) 1. How often do you have a drink containing alcohol?: 4 or more times a week 2. How many drinks containing alcohol do you have on a typical day when you are drinking?: 1 or 2 Total Score: 4 Score Reviewed/Action Taken: Yes ZA-7 AMB Questionnaire ZA-7 Date ZA - 7 assessed: 09/29/22 Source: Developed by Drs. Jean Carlos Rodríguez, Mikala Way, Blas Scott and colleagues, with an educational erika from [employer]. Review of Systems Const Denies chills, Denies headache(s) and Denies weight loss ENT Denies headache(s) Card Denies chest pain, Denies syncope, Denies irregular heart rhythm and Denies dyspnea Resp Denies chest congestion, Denies cough and Denies dyspnea GI Denies abdominal pain, Denies change in stool character, Denies nausea and Denies vomiting Musc Denies deformity and Denies joint swelling Neuro Denies syncope and Denies headache(s) Physical exam (Primary Care) Vital Signs: Last Vital Signs Pulse 71 06/22/23 08:35 BP 106/62 06/22/23 08:35 Pulse Ox 98 06/22/23 08:35 Oxygen Delivery Method Room Air 06/22/23 08:35 BMI result Body Mass Index 22.2 Tobacco/Smoking Status: Tobacco use Status Tobacco use date assessed 09/29/22 06/22/23 08:41 Patient Tobacco Use Status Never used Tobacco 06/22/23 08:41 e-Cigarette/Vaping Use Never Used 06/22/23 08:41 PHQ-9: PHQ-9 Score PHQ-9: Total score 0 06/22/23 08:42 Depression Screening Interpretation: Negative Thrive Assessment: Date of Thrive Assessment Date Thrive assessed 09/29/22 06/22/23 08:41 Const General: cooperative, comfortable, no acute distress and alert Neck Neck: Yes no lymphadenopathy Thyroid: Thyroid normal Resp Effort & Inspection: normal respiratory effort Auscultation: clear to auscultation bilaterally Percussion: percussion normal Cardio Jugular venous distension: no JVD Palpation: normal PMI Rate: regular rate Rhythm: regular rhythm Heart sounds: S1 normal heart sound present and S2 normal heart sound present GI Inspection: Yes normal to inspection Palpation (GI): No hepatosplenomegaly present Skin General skin exam: no rashes or lesions noted Extrem General: Yes no clubbing, cyanosis or edema Office Procedures Flu Questionnaire Does the patient have a severe egg allergy?: No Does the patient have severe life threatening allergies?: No Does the patient have a fever or illness today?: No Has the patient ever had Guillain-Lacassine Syndrome?: No Has the patient ever had any past reaction to a flu shot?: No Immunizations flu vacc [id number] 6mos up(PF) 60 mcg(15 mcgx4)/0.5 mL IM syringe Performing Provider: Robbie Ferrer MD [facility] Documented (not given) by: Abril Montero, WELFARE OFFICER on 06/22/23 08:42 Reason Not Given: Patient Refused Assessment and Plan Assessment & Plan (1) Anemia: Code(s): D64.9 - Anemia, unspecified Plan: has low mcv; prb fe def; will chech iron studies; will need gi w/u after Orders: Orders Influenza [id number] Immunization Today Z23 - Encounter for immunization Ferritin Today D64.9 - Anemia, unspecified IRON PROFILE Today E61.1 - Iron deficiency Coding Level of Care Code Est Pt Level 3 (82830) Diagnoses Anemia D64.9
== END 2023-06-22 09:05 | disposition home or self-care (01) ==
PROVIDERS: PCP Internal Medicine; Visit Provider Internal Medicine
DX: Z23 Encounter for immunization (principal); D64.9 Anemia, unspecified
CPT/HCPCS: 99213

== ENCOUNTER 2023-06-22 09:18 | Outpatient (REF) | payer OTHER, SELFPAY ==
[2023-06-22 10:30] LABS: Iron 18 mcg/dL (45-160); Percent Iron Saturation 6 % (15-50); Total Iron Binding Capacity 325 mcg/dL (228-428); Unsaturated Iron Binding 307 ug/dL
[2023-06-22 10:48] LABS: Ferritin 45 ng/mL (20-250)
== END 2023-06-22 09:19 | disposition home or self-care (01) ==
LOC: HO.LAB 09:18
PROVIDERS: PCP Internal Medicine; Visit Provider Internal Medicine
DX: D64.9 Anemia, unspecified (principal); E61.1 Iron deficiency
CPT/HCPCS: 36415; 82728; 83540

== ENCOUNTER 2023-06-29 14:53 | Outpatient (AMB) | payer OTHER, SELFPAY ==
[2023-06-29 15:11] LABS: Prothrombin Time Whole Bld POC 39.1 sec (11.1-13.5); ~PT, ~INR - Anti Coag Clinic 3.3 (0.9-1.1)
--- NOTE | 2023-06-29 15:24 | MHC.OFFVISCO ---
Intake Intake Visit Reasons: Anticoagulation Allergies No Known Allergies Allergy (Verified 06/22/23 08:35) Nursing Note INR 3.3?? out of therapeutic range Medications and supplements reviewed Patient status: States he is anemic, and started iron supplements, he was enc to take iron supplements with OJ or lemon water, and to eat green with a little lemon to abosrb the iron better, He states his stools are dark - possibly r/t to Iron to have a GI f/u appt He has a bioprosthetic valve question if breaking RBC's He has been on alf use of omeprazole - it is possible it could also be contributing to the Anemia Medications or supplements: started Iron about 2 weeks ago Diet: he has been eating less meat and less greens Denies any signs and symptoms of bleeding or clotting or unusual bruising Bleeding, bruising, clotting discussed Nutritional guidance given: increase protein and greens and take eat with citrus Dose: decrease slightly 2mg today then 4mg x 1 day/ 3mg x 6 days F/U INR Date : 10 days, 07/09/23 ?? do not take omeprazole with any of your medications and ask Md about contributing to Anemia Patient verbalizing understanding of instructions given. 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 Illness/Depression: No Coding Level of Care Code Est Patient Level 1 Diagnoses Current use of anticoagulant therapy Z79.01 Results AMB INR Fingerstick AMB INR Fingerstick 3.3 Last Edit by Gloria Villalobos RN on 06/29/23 15:40 delayed interfacing manual entry Assessment & Plan Assessment & Plan (1) Current use of anticoagulant therapy: Code(s): Z79.01 - [facility] (current) use of anticoagulants Category: Medical
== END 2023-06-29 15:46 | disposition home or self-care (01) ==
LOC: HO.ACS 14:53
PROVIDERS: PCP Internal Medicine; Visit Provider Internal Medicine
DX: Z79.01 Long term (current) use of anticoagulants (principal)

== ENCOUNTER → 2023-06-29 14:53 | Outpatient (BNVA) | payer OTHER, SELFPAY | PROVIDERS: PCP Internal Medicine; Visit Provider Internal Medicine | DX: Z95.2 Presence of prosthetic heart valve (principal); Z51.81 Encounter for therapeutic drug level monitoring; Z79.01 Long term (current) use of anticoagulants | CPT/HCPCS: 85610; 99211 ==

== ENCOUNTER 2023-07-07 09:22 | Outpatient (REF) | payer OTHER, SELFPAY ==
[2023-07-07 09:50] LABS: MANUAL DIFF FLAG NO
[2023-07-07 10:41] LABS: Basophils Absolute Auto 0.1 X10*3/uL (0.0-0.2); Eosinophils Absolute Auto 0.5 X10*3/uL (0.0-0.4); Eosinophils Percent Auto 8.1 % (0-4); Hematocrit 33.1 % (42.0-52.0); Hemoglobin 10.1 g/dl (14.0-18.0); Imm Gran Abs Auto 0.02 X10*3/uL (0.00-0.03); Imm Gran Pct Auto 0.4 % (0.0-0.4); Lymphocytes Absolute Auto 0.7 X10*3/uL (1.2-4.9); Lymphocytes Percent Auto 12.9 % (20-40); Mean Corpuscular HGB Conc 30.5 g/dl (31.0-36.0); Mean Corpuscular Hemoglobin 25.2 pg (27.0-33.0); Mean Corpuscular Volume 82.5 fL (80.0-98.0); Mean Platelet Volume 11.4 fL (9.4-12.4); Monocytes Absolute Auto 0.9 X10*3/uL (0.1-1.2); Monocytes Percent Auto 15.2 % (2-11); Neutrophils Absolute Auto 3.4 x10*3/uL (2.0-8.3); Neutrophils Percent Auto 61.4 % (45-73); Platelet Count 356 X10*3/uL (160-400); Red Blood Count 4.01 X10*6/uL (4.60-5.80); Red Cell Distribution Width 29.9 % (11.0-16.0); White Blood Count 5.6 X10*3/uL (4.8-10.8)
== END 2023-07-07 09:23 | disposition home or self-care (01) ==
LOC: HO.LAB 09:22
PROVIDERS: PCP Internal Medicine; Visit Provider Internal Medicine
DX: D50.9 Iron deficiency anemia, unspecified (principal)
CPT/HCPCS: 36415; 85025

== ENCOUNTER 2023-07-09 10:37 | Outpatient (AMB) | payer OTHER, SELFPAY ==
[2023-07-09 10:59] LABS: Prothrombin Time Whole Bld POC 34.7 sec (11.1-13.5); ~PT, ~INR - Anti Coag Clinic 2.9 (0.9-1.1)
--- NOTE | 2023-07-09 10:59 | MHC.OFFVISCO ---
Intake Intake Visit Reasons: Anticoagulation Allergies No Known Allergies Allergy (Verified 07/09/23 10:40) Medication List - Last Reconciled 07/09/23 by Gloria Villalobos RN acetaminophen 325 mg PO QID PRN allopurinol 150 mg (1/2 x 300 mg) PO DAILY aspirin 81 mg PO DAILY atorvastatin 20 mg PO DAILY dupilumab (Dupixent Pen) every 2 weeks ferrous sulfate (FeroSul) 325 mg PO DAILY furosemide 20 mg PO DAILY metoprolol succinate ER mg PO omeprazole 20 mg PO DAILY sildenafil mg PO triamcinolone acetonide 0.1% 1 appl topical BID-TID warfarin 2 mg See Protocol PO DAILY Nursing Note INR: 2.9 in therapeutic range Medications and supplements reviewed iron level improving now taking citrus with iron supplement and he stated he is only taking omeprazole prn - enc to discuss with PCP and his labs Denies any signs and symptoms of bleeding or bruising or clotting. 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 Illness/Depression: No Coding Level of Care Code Est Patient Level 1 Diagnoses Current use of anticoagulant therapy Z79.01 Results AMB INR Fingerstick AMB INR Fingerstick 2.9 Last Edit by Gloria Villalobos RN on 07/09/23 10:56 manual entry interface expanse failure Assessment & Plan Assessment & Plan (1) Current use of anticoagulant therapy: Code(s): Z79.01 - medical terminologist (current) use of anticoagulants Category: Medical
== END 2023-07-09 11:01 | disposition home or self-care (01) ==
LOC: HO.ACS 10:37
PROVIDERS: PCP Internal Medicine; Visit Provider Internal Medicine
DX: Z79.01 Long term (current) use of anticoagulants (principal)

== ENCOUNTER → 2023-07-09 10:37 | Outpatient (BNVA) | payer OTHER, SELFPAY | PROVIDERS: PCP Internal Medicine; Visit Provider Internal Medicine | DX: Z95.2 Presence of prosthetic heart valve (principal); Z51.81 Encounter for therapeutic drug level monitoring; Z79.01 Long term (current) use of anticoagulants | CPT/HCPCS: 85610; 99211 ==

== ENCOUNTER 2023-07-10 | Outpatient (REF) | payer OTHER, SELFPAY ==
[2023-07-13 15:45] LABS: OBS Int Ctl Valid YES; OBS1 NEGATIVE (NEGATIVE); OBS2 NEGATIVE (NEGATIVE); OBS3 NEGATIVE (NEGATIVE)
== END 2023-07-10 00:01 | disposition home or self-care (01) ==
LOC: HO.LNP
PROVIDERS: Visit Provider Internal Medicine
DX: D60.9 Acquired pure red cell aplasia, unspecified (principal)
CPT/HCPCS: 82270

== ENCOUNTER 2023-07-23 09:42 | Outpatient (AMB) | payer OTHER, SELFPAY ==
[2023-07-23 10:04] LABS: Prothrombin Time Whole Bld POC 36.4 sec (11.1-13.5)
--- NOTE | 2023-07-23 10:13 | MHC.OFFVISCO ---
Intake Intake Visit Reasons: Anticoagulation Allergies No Known Allergies Allergy (Verified 07/23/23 09:57) Medication List - Last Reconciled 07/23/23 by Gloria Villalobos RN acetaminophen 325 mg PO QID PRN allopurinol 150 mg (1/2 x 300 mg) PO DAILY aspirin 81 mg PO DAILY atorvastatin 20 mg PO DAILY dupilumab (Dupixent Pen) every 2 weeks ferrous sulfate (FeroSul) 325 mg PO DAILY furosemide 20 mg PO DAILY metoprolol succinate ER mg PO omeprazole 20 mg PO DAILY sildenafil mg PO triamcinolone acetonide 0.1% 1 appl topical BID-TID warfarin 2 mg See Protocol PO DAILY Nursing Note INR: 3.0 in therapeutic range Medications and supplements reviewed WANTS TO EAT MORE GRAPES FOR A SNACK Denies any signs and symptoms of bleeding or bruising or clotting. Bleeding, bruising, clotting discussed Nutritional guidance given INCREASE COOKED GREENS X 2 SERVINGS / WEEK Dose: KEEP SAME FOR NOW 4MG X 1 DAY3MG X 6 DAYS F/U INR: 2 WEEKS PRIOR TO LEAVING FOR VACATION Patient verbalizes understanding of instructions given Anti-Coag Initial Assessment Social Hx Patient Tobacco Use Status: Never used Tobacco alcohol intake: current Alcohol intake frequency: 0-2 drinks per day Cardiovascular Hx: HTN, Arrhythmias (AFIB, AORTIC VALVE REPLACEMENT ) and Varicose Veins (HX OF BLEEDING FROM VEINS ) Musculoskeletal Hx: Gout (X 1) Blood Disorder Hx: Hyperlipidemia Neurological Hx: 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 Illness/Depression: No Coding Level of Care Code Est Patient Level 1 Diagnoses Current use of anticoagulant therapy Z79.01 Assessment & Plan Assessment & Plan (1) Current use of anticoagulant therapy: Code(s): Z79.01 - [facility] (current) use of anticoagulants Category: Medical
== END 2023-07-23 10:15 | disposition home or self-care (01) ==
LOC: HO.ACS 09:42
PROVIDERS: PCP Internal Medicine; Visit Provider Internal Medicine
DX: Z79.01 Long term (current) use of anticoagulants (principal)

== ENCOUNTER → 2023-07-23 09:42 | Outpatient (BNVA) | payer OTHER, SELFPAY | PROVIDERS: PCP Internal Medicine; Visit Provider Internal Medicine | DX: Z95.2 Presence of prosthetic heart valve (principal); Z51.81 Encounter for therapeutic drug level monitoring; Z79.01 Long term (current) use of anticoagulants | CPT/HCPCS: 85610; 99211 ==

== ENCOUNTER 2023-08-03 10:08 | Outpatient (AMB) | payer OTHER, SELFPAY ==
[2023-08-03 10:50] LABS: ~PT, ~INR - Anti Coag Clinic 2.9 (0.9-1.1)
--- NOTE | 2023-08-03 10:55 | MHC.OFFVISCO ---
Intake Intake Visit Reasons: Anticoagulation Allergies No Known Allergies Allergy (Verified 08/03/23 10:41) Medication List - Last Reconciled 08/03/23 by Gloria Villalobos, RN acetaminophen 325 mg PO QID PRN allopurinol 150 mg (1/2 x 300 mg) PO DAILY aspirin 81 mg PO DAILY atorvastatin 20 mg PO DAILY dupilumab (Dupixent Pen) every 2 weeks ferrous sulfate (FeroSul) 325 mg PO DAILY furosemide 20 mg PO DAILY metoprolol succinate ER mg PO omeprazole 20 mg PO DAILY sildenafil mg PO triamcinolone acetonide 0.1% 1 appl topical BID-TID warfarin 2 mg See Protocol PO DAILY Nursing Note INR: 2.9 in therapeutic range Medications and supplements reviewed PT states occ feels so tiered - he wants md to chk his Iron levels to see if better and or other prn labs, he is on lasix- states he eats a banana daily, has not been taking potassium enc to stay hydrated Denies any signs and symptoms of bleeding or bruising or clotting. Bleeding, bruising, clotting discussed Nutritional guidance given cont to eat greens weekly,along with a mix of fruits and vegetables Dose: 4mg x 1 day/ 3mg x 6 days F/U INR: 2 weeks Patient verbalizes understanding of instructions given colonoscopy with Dr Kaur, will pt need lovneox bridge ? 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 Illness/Depression: No Coding Level of Care Code Est Patient Level 1
== END 2023-08-03 11:02 | disposition home or self-care (01) ==
LOC: HO.ACS 10:08
PROVIDERS: PCP Internal Medicine; Visit Provider Internal Medicine
DX: Z79.01 Long term (current) use of anticoagulants (principal)

== ENCOUNTER → 2023-08-03 10:08 | Outpatient (BNVA) | payer OTHER, SELFPAY | PROVIDERS: PCP Internal Medicine; Visit Provider Internal Medicine | DX: Z95.2 Presence of prosthetic heart valve (principal); Z51.81 Encounter for therapeutic drug level monitoring; Z79.01 Long term (current) use of anticoagulants | CPT/HCPCS: 85610; 99211 ==

== ENCOUNTER 2023-08-17 09:38 | Outpatient (REF) | payer OTHER, SELFPAY ==
[2023-08-17 09:53] LABS: MANUAL DIFF FLAG NO
[2023-08-17 10:34] LABS: Basophils Absolute Auto 0.1 X10*3/uL (0.0-0.2); Basophils Percent Auto 0.9 % (0-2); Eosinophils Absolute Auto 0.2 X10*3/uL (0.0-0.4); Eosinophils Percent Auto 2.6 % (0-4); Hematocrit 35.3 % (42.0-52.0); Hemoglobin 11.5 g/dl (14.0-18.0); Imm Gran Abs Auto 0.02 X10*3/uL (0.00-0.03); Imm Gran Pct Auto 0.2 % (0.0-0.4); Lymphocytes Absolute Auto 0.7 X10*3/uL (1.2-4.9); Lymphocytes Percent Auto 7.6 % (20-40); Mean Corpuscular HGB Conc 32.6 g/dl (31.0-36.0); Mean Corpuscular Hemoglobin 29.9 pg (27.0-33.0); Mean Corpuscular Volume 91.7 fL (80.0-98.0); Mean Platelet Volume 11.7 fL (9.4-12.4); Monocytes Absolute Auto 1.3 X10*3/uL (0.1-1.2); Monocytes Percent Auto 14.8 % (2-11); Neutrophils Absolute Auto 6.5 x10*3/uL (2.0-8.3); Neutrophils Percent Auto 73.9 % (45-73); Platelet Count 284 X10*3/uL (160-400); Red Blood Count 3.85 X10*6/uL (4.60-5.80); White Blood Count 8.8 X10*3/uL (4.8-10.8)
[2023-08-17 11:06] LABS: Iron 29 mcg/dL (45-160); Percent Iron Saturation 13 % (15-50); Total Iron Binding Capacity 225 mcg/dL (228-428); Unsaturated Iron Binding 196 ug/dL
[2023-08-17 11:22] LABS: Ferritin 136 ng/mL (20-250)
== END 2023-08-17 09:39 | disposition home or self-care (01) ==
LOC: HO.LAB 09:38
PROVIDERS: PCP Internal Medicine; Visit Provider Internal Medicine
DX: D50.9 Iron deficiency anemia, unspecified (principal); Z95.2 Presence of prosthetic heart valve; Z51.81 Encounter for therapeutic drug level monitoring; Z79.01 Long term (current) use of anticoagulants
CPT/HCPCS: 36415; 82728; 83540; 85025; 85610; 99211

== ENCOUNTER 2023-08-17 09:58 | Outpatient (AMB) | payer OTHER, SELFPAY ==
--- NOTE | 2023-08-17 10:11 | MHC.OFFVISCO ---
Intake Intake Visit Reasons: Anticoagulation Allergies No Known Allergies Allergy (Verified 08/17/23 10:05) Medication List - Last Reconciled 08/17/23 by Lilian Qureshi RN acetaminophen 325 mg PO QID PRN allopurinol 150 mg (1/2 x 300 mg) PO DAILY aspirin 81 mg PO DAILY atorvastatin 20 mg PO DAILY dupilumab (Dupixent Pen) every 2 weeks ferrous sulfate (FeroSul) 325 mg PO DAILY furosemide 20 mg PO DAILY metoprolol succinate ER mg PO omeprazole 20 mg PO DAILY sildenafil mg PO triamcinolone acetonide 0.1% 1 appl topical BID-TID warfarin 2 mg See Protocol PO DAILY Nursing Note INR 3.3-? out of therapeutic range of 2-3 Medications and supplements reviewed Patient status: pt to have colonoscopy with 5 day hold of warfarin- will check with cardiology re lovenox Medications or supplements: no changes, occ tylenol Diet: same Denies any signs and symptoms of bleeding or clotting or unusual bruising Bleeding, bruising, clotting discussed Nutritional guidance given: eat greens to lower inr Dose: 2mg today then cont reg 3mg x 6, 4mg x 1 F/U INR Date : 2 weeks?? Patient verbalizing understanding of instructions given. 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 Illness/Depression: No Coding Level of Care Code Est Patient Level 1 Diagnoses Current use of anticoagulant therapy Z79.01 Assessment & Plan Assessment & Plan (1) Current use of anticoagulant therapy: Code(s): Z79.01 - [facility] ([facility] use of anticoagulants Category: Medical
[2023-08-17 10:13] LABS: Prothrombin Time Whole Bld POC 39.3 sec (11.1-13.5); ~PT, ~INR - Anti Coag Clinic 3.3 (0.9-1.1)
== END 2023-08-17 10:19 | disposition home or self-care (01) ==
LOC: HO.ACS 09:58
PROVIDERS: PCP Internal Medicine; Visit Provider Internal Medicine
DX: Z79.01 Long term (current) use of anticoagulants (principal)

== ENCOUNTER 2023-08-20 11:25 | Outpatient (AMB) | payer OTHER, SELFPAY ==
[2023-08-20 11:27] VITALS: BP 132/74; PULSE 65; O2SAT 95
--- NOTE | 2023-08-20 11:27 | MHC.PC.OV ---
Vital Signs 08/20/23 11:27 Height 5 ft 8 in BP 132/74 Blood Pressure Location Lt brachial Position Sitting Pulse 65 Pulse Source Pulse Oximeter Pulse Oximetry (%) 95 Oxygen Delivery Method Room Air Intake Visit Reasons: feeling very tired lately Service Or Work Dispatcher Chief Required: No Clinic Nurse: Not Required per policy Accompanied by: Self / Same As Patient Allergies No Known Allergies Allergy (Verified 08/20/23 11:27) Tobacco use date assessed: 09/29/22 Fall risk assessment: No Falls in past year Last assessed Fall Risk: 08/20/23 Dental Screening Dental Screen Date: 08/20/23 Did you have a dental visit in the last 12 months?: Yes Did you have a dental problem in the last 6 months where you did not have access to dental care?: No Was dental information given to patient?: Patient has dentist HPI feeling very tired lately HPI Details less energetic than usual for a few weeks [facility] Medical History Ascending aortic aneurysm Bicuspid aortic valve Varicose vein of leg Hemorrhage secondary to anti-coagulation Bleeding Hx of skin malignancy Gastroesophageal reflux disease Erectile dysfunction Carotid stenosis Allergic rhinitis Gout Hypertension Surgical History Status post ascending aortic aneurysm repair Aortic valve replaced History of inguinal hernia repair (~09/2019) History of tonsillectomy Family History Father No problems noted. Mother No problems noted. 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 Jean Carlos Rodríguez, Mikala Way, Blas Scott and colleagues, with an educational erika from [employer]. Review of Systems Const Denies chills, Denies headache(s) and Denies weight loss ENT Denies headache(s) Card Denies chest pain, Denies syncope, Denies irregular heart rhythm and Denies dyspnea Resp Denies chest congestion, Denies cough and Denies dyspnea GI Denies abdominal pain, Denies change in stool character, Denies nausea and Denies vomiting Musc Denies deformity and Denies joint swelling Neuro Denies syncope and Denies headache(s) Physical exam (Primary Care) Vital Signs: Last Vital Signs Pulse 65 08/20/23 11:27 BP 132/74 08/20/23 11:27 Pulse Ox 95 08/20/23 11:27 Oxygen Delivery Method Room Air 08/20/23 11:27 Tobacco/Smoking Status: Tobacco use Status Tobacco use date assessed 09/29/22 08/20/23 11:29 Patient Tobacco Use Status Never used Tobacco 08/20/23 11:29 e-Cigarette/Vaping Use Never Used 08/20/23 11:29 Thrive Assessment: Date of Thrive Assessment Date Thrive assessed 09/29/22 08/20/23 11:29 Const General: cooperative, comfortable, no acute distress and alert Neck Neck: Yes no lymphadenopathy Thyroid: Thyroid normal Resp Effort & Inspection: normal respiratory effort Auscultation: clear to auscultation bilaterally Percussion: percussion normal Cardio Jugular venous distension: no JVD Palpation: normal PMI Rate: regular rate Rhythm: regular rhythm Heart sounds: S1 normal heart sound present and S2 normal heart sound present GI Inspection: Yes normal to inspection Palpation (GI): No hepatosplenomegaly present Skin General skin exam: no rashes or lesions noted Extrem General: Yes no clubbing, cyanosis or edema Assessment and Plan Assessment & Plan (1) Fatigue: Code(s): R53.83 - Other fatigue Plan: labbs ekg and cxr Orders: Orders Complete Blood Count Auto Diff Today D64.9 - Anemia, unspecified ECG 12 lead EKG Today R06.00 - Dyspnea, unspecified Basic Metabolic Panel Today R06.00 - Dyspnea, unspecified XR chest 2V Today R06.00 - Dyspnea, unspecified Coding Level of Care Code Est Pt Level 3 (05209) Diagnoses Fatigue R53.83
== END 2023-08-20 11:54 | disposition home or self-care (01) ==
PROVIDERS: PCP Internal Medicine; Visit Provider Internal Medicine
DX: R53.83 Other fatigue (principal)
CPT/HCPCS: 99213

== ENCOUNTER → 2023-08-20 14:59 | Outpatient (REF) | payer OTHER, SELFPAY ==
--- NOTE | 2023-08-20 15:05 | ECG_ITS ---
Test Reason : dyspnea Blood Pressure : / mmHG Vent. Rate : 064 BPM Atrial Rate : 256 BPM P-R Int : 000 ms QRS Dur : 080 ms QT Int : 410 ms P-R-T Axes : 083 048 -87 degrees QTc Int : 422 ms Atrial flutter with 4:1 A-V conduction Nonspecific ST and T wave abnormality Abnormal ECG When compared with ECG of 28-SEP-2019 14:49, Atrial flutter has replaced Sinus rhythm Referred By: Robbie Ferrer Electronically Signed By:LIONEL RANKIN
== END ==
LOC: HO.CARD 14:59
PROVIDERS: PCP Internal Medicine; Visit Provider Internal Medicine
DX: R06.00 Dyspnea, unspecified (principal)
CPT/HCPCS: 93005

== ENCOUNTER → 2023-08-20 15:05 | Outpatient (BNV) | payer OTHER, SELFPAY | PROVIDERS: PCP Internal Medicine; Visit Provider Internal Medicine | DX: I48.92 Unspecified atrial flutter (principal); R94.31 Abnormal electrocardiogram [ECG] [EKG] | CPT/HCPCS: 93010 ==

== ENCOUNTER 2023-08-24 13:59 | Outpatient (REF) | payer OTHER, SELFPAY ==
--- NOTE | ~2023-08-24 | XR_ITS ---
EXAMINATION: XR CHEST CLINICAL INFORMATION: Dyspnea, unspecified COMPARISON: Chest 10/06/2019 TECHNIQUE: 2 views of the chest were obtained. FINDINGS: The patient is status post median sternotomy for interval CABG surgery and cardiac valve replacement. The lungs are well expanded. No focal consolidation, interstitial pulmonary edema or pneumothorax. Interval enlargement of the cardiac silhouette which is now mildly enlarged. No pleural effusion. The bones are diffusely demineralized with mild compression of mid thoracic vertebral body. XR/XR chest 2V IMPRESSION: 1. No acute cardiopulmonary disease. 2. Interval enlargement of the cardiac silhouette which is now mildly enlarged.
[2023-08-24 14:11] LABS: MANUAL DIFF FLAG NO
[2023-08-24 14:35] LABS: Basophils Absolute Auto 0.1 X10*3/uL (0.0-0.2); Basophils Percent Auto 1.5 % (0-2); Eosinophils Absolute Auto 0.4 X10*3/uL (0.0-0.4); Eosinophils Percent Auto 5.4 % (0-4); Hematocrit 37.3 % (42.0-52.0); Hemoglobin 12.1 g/dl (14.0-18.0); Imm Gran Abs Auto 0.03 X10*3/uL (0.00-0.03); Imm Gran Pct Auto 0.5 % (0.0-0.4); Lymphocytes Absolute Auto 0.9 X10*3/uL (1.2-4.9); Mean Corpuscular HGB Conc 32.4 g/dl (31.0-36.0); Mean Corpuscular Hemoglobin 29.4 pg (27.0-33.0); Mean Corpuscular Volume 90.8 fL (80.0-98.0); Mean Platelet Volume 10.6 fL (9.4-12.4); Monocytes Absolute Auto 1.1 X10*3/uL (0.1-1.2); Monocytes Percent Auto 16.8 % (2-11); Neutrophils Absolute Auto 4.1 x10*3/uL (2.0-8.3); Neutrophils Percent Auto 61.8 % (45-73); Platelet Count 401 X10*3/uL (160-400); Red Blood Count 4.11 X10*6/uL (4.60-5.80); White Blood Count 6.7 X10*3/uL (4.8-10.8)
[2023-08-24 15:05] LABS: Anion Gap 15 (12-20); Blood Urea Nitrogen 25 mg/dL (9-16); Calcium 9.5 mg/dL (8.4-10.2); Carbon Dioxide 29 mmol/L (22-29); Chloride 100 mmol/L (96-108); Estimated Glomerular Filt Rate 57; Glucose Random 101 mg/dL (60-115); Potassium 3.8 mmol/L (3.3-5.1); Sodium 140 mmol/L (135-145)
== END 2023-08-24 14:00 | disposition home or self-care (01) ==
LOC: HO.XRAY 13:59
PROVIDERS: PCP Internal Medicine; Visit Provider Internal Medicine
DX: R06.00 Dyspnea, unspecified (principal); D64.9 Anemia, unspecified
CPT/HCPCS: 36415; 71046; 80048; 85025

== ENCOUNTER 2023-08-31 09:52 | Outpatient (AMB) | payer OTHER, SELFPAY ==
--- NOTE | 2023-08-31 10:22 | MHC.OFFVISCO ---
Intake Intake Visit Reasons: Anticoagulation Allergies No Known Allergies Allergy (Verified 08/31/23 10:04) Medication List - Last Reconciled 08/31/23 by Fariha Zuniga RN acetaminophen 325 mg PO QID PRN allopurinol 150 mg (1/2 x 300 mg) PO DAILY aspirin 81 mg PO DAILY atorvastatin 20 mg PO DAILY dupilumab (Dupixent Pen) every 2 weeks ferrous sulfate (FeroSul) 325 mg PO DAILY furosemide 20 mg PO DAILY metoprolol succinate ER mg PO omeprazole 20 mg PO DAILY sildenafil mg PO triamcinolone acetonide 0.1% 1 appl topical BID-TID warfarin 2 mg See Protocol PO DAILY Nursing Note Amb to [facility] feeling ok, tired sts he is back in Afib/flutter, colonoscopy for 09/09 has been cancelled and he is scheduled for cardioversion 09/03 Medications and supplements reviewed No other changes in health, diet, medications, or supplements Denies any unusual signs and symptoms of bruising, bleeding Denies any new Chest pain, SOB, or clotting INR: 4.1 above therapeutic range Nutritional guidance given: moderate green today then balance greens and reds in diet Dose: hold warfarin today only the continue usual dosing;3mg x 6 days and 4mg x 1 day F/U INR:CALL US WITH INR FROM PROCEDURE 09/03, CLINIC INR FOLLOW UP 09/08 Patient verbalizes understanding of instructions given with accurate read back/ teach back of dosing Anti-Coag Initial Assessment Social Hx Patient Tobacco Use Status: Never used Tobacco alcohol intake: current Alcohol intake frequency: 0-2 drinks per day Cardiovascular Hx: HTN, Arrhythmias and Varicose Veins Musculoskeletal Hx: Gout Blood Disorder Hx: Hyperlipidemia Neurological Hx: Stroke/TIA and Aneurysm Cancer HX: Yes (SKIN CANCER HX, 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 Illness/Depression: No Coding Level of Care Code Est Patient Level 1 Diagnoses Current use of anticoagulant therapy Z79.01 Time Spent (min) 15 Results AMB INR Fingerstick AMB INR Fingerstick 4.1 Last Edit by Fariha Zuniga RN on 08/31/23 10:19 interface failure Assessment & Plan Assessment & Plan (1) Current use of anticoagulant therapy: Code(s): Z79.01 - adjunct faculty for medical terminology (current) use of anticoagulants Category: Medical
[2023-08-31 12:12] LABS: Prothrombin Time Whole Bld POC 49.7 sec (11.1-13.5); ~PT, ~INR - Anti Coag Clinic 4.1 (0.9-1.1)
== END 2023-08-31 11:58 | disposition home or self-care (01) ==
LOC: HO.ACS 09:52
PROVIDERS: PCP Internal Medicine; Visit Provider Internal Medicine
DX: Z79.01 Long term (current) use of anticoagulants (principal)

== ENCOUNTER → 2023-08-31 09:52 | Outpatient (BNVA) | payer OTHER, SELFPAY | PROVIDERS: PCP Internal Medicine; Visit Provider Internal Medicine | DX: Z95.2 Presence of prosthetic heart valve (principal); Z51.81 Encounter for therapeutic drug level monitoring; Z79.01 Long term (current) use of anticoagulants | CPT/HCPCS: 85610; 99211 ==

== ENCOUNTER 2023-09-11 09:54 | Outpatient (AMB) | payer OTHER, SELFPAY ==
[2023-09-11 10:09] LABS: Prothrombin Time Whole Bld POC 39.9 sec (11.1-13.5); ~PT, ~INR - Anti Coag Clinic 3.3 (0.9-1.1)
--- NOTE | 2023-09-11 10:19 | MHC.OFFVISCO ---
Intake Intake Visit Reasons: Anticoagulation Allergies No Known Allergies Allergy (Verified 09/11/23 10:02) Medication List - Last Reconciled 09/11/23 by Marcia De Leon RN acetaminophen 325 mg PO QID PRN allopurinol 150 mg (1/2 x 300 mg) PO DAILY aspirin 81 mg PO DAILY atorvastatin 20 mg PO DAILY dupilumab (Dupixent Pen) every 2 weeks ferrous sulfate (FeroSul) 325 mg PO DAILY furosemide 20 mg PO DAILY metoprolol succinate ER mg PO omeprazole 20 mg PO DAILY sildenafil mg PO triamcinolone acetonide 0.1% 1 appl topical BID-TID warfarin 2 mg See Protocol PO DAILY Nursing Note PT.HAD SUCCESSFUL CARDIOVERSION ON 09/03. HE DENIES ANY CP,SOB OR SX OF BLEEDING. NO NEW MEDS. HOLD WARFARIN TODAY THEN REDUCE WEEKLY DOSE SLIGHTLY AND FOLLOW-UP IN 10 DAYS GOOD UNDERSTANDING OF DOSING INSTR. 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 Illness/Depression: No Coding Level of Care Code Est Patient Level 1 Diagnoses Current use of anticoagulant therapy Z79.01 Assessment & Plan Assessment & Plan (1) Current use of anticoagulant therapy: Code(s): Z79.01 - intermediate (current) use of anticoagulants Category: Medical
== END 2023-09-11 10:21 | disposition home or self-care (01) ==
LOC: HO.ACS 09:54
PROVIDERS: PCP Internal Medicine; Visit Provider Internal Medicine
DX: Z79.01 Long term (current) use of anticoagulants (principal)

== ENCOUNTER → 2023-09-11 09:54 | Outpatient (BNVA) | payer OTHER, SELFPAY | PROVIDERS: PCP Internal Medicine; Visit Provider Internal Medicine | DX: Z95.2 Presence of prosthetic heart valve (principal); Z51.81 Encounter for therapeutic drug level monitoring; Z79.01 Long term (current) use of anticoagulants | CPT/HCPCS: 85610; 99211 ==

== ENCOUNTER 2023-09-22 10:09 | Outpatient (AMB) | payer OTHER, SELFPAY ==
--- NOTE | 2023-09-22 10:19 | MHC.OFFVISCO ---
Intake Intake Visit Reasons: Anticoagulation Allergies No Known Allergies Allergy (Verified 09/22/23 10:12) Medication List - Last Reconciled 09/22/23 by Lilian Qureshi RN acetaminophen 325 mg PO QID PRN allopurinol 150 mg (1/2 x 300 mg) PO DAILY aspirin 81 mg PO DAILY atorvastatin 20 mg PO DAILY dupilumab (Dupixent Pen) every 2 weeks ferrous sulfate (FeroSul) 325 mg PO DAILY furosemide 20 mg PO DAILY metoprolol succinate ER mg PO omeprazole 20 mg PO DAILY sildenafil mg PO triamcinolone acetonide 0.1% 1 appl topical BID-TID warfarin 2 mg See Protocol PO DAILY Nursing Note INR: 3.0- in therapeutic range of 2-3 Medications and supplements reviewed no changes No changes in health, diet, medications, or supplements, Denies any signs and symptoms of bleeding or bruising or clotting. Bleeding, bruising, clotting discussed Nutritional guidance given - eat a green today Dose: 3mg daily F/U INR: 2 weeks Patient verbalizes understanding of instructions given Anti-Coag Initial Assessment Social Hx Patient Tobacco Use Status: Never used Tobacco alcohol intake: current Alcohol intake frequency: 0-2 drinks per day Cardiovascular Hx: HTN, Arrhythmias and Varicose Veins Musculoskeletal Hx: Gout Blood Disorder Hx: Hyperlipidemia Neurological Hx: Stroke/TIA and Aneurysm Cancer HX: Yes (SKIN CANCER HX, 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 Illness/Depression: No Coding Level of Care Code Est Patient Level 1 Diagnoses Current use of anticoagulant therapy Z79.01 Assessment & Plan Assessment & Plan (1) Current use of anticoagulant therapy: Code(s): Z79.01 - buttermaker (current) use of anticoagulants Category: Medical
[2023-09-22 10:20] LABS: Prothrombin Time Whole Bld POC 36.3 sec (11.1-13.5)
== END 2023-09-22 10:28 | disposition home or self-care (01) ==
LOC: HO.ACS 10:09
PROVIDERS: PCP Internal Medicine; Visit Provider Internal Medicine
DX: Z79.01 Long term (current) use of anticoagulants (principal)

== ENCOUNTER → 2023-09-22 10:09 | Outpatient (BNVA) | payer OTHER, SELFPAY | PROVIDERS: PCP Internal Medicine; Visit Provider Internal Medicine | DX: Z95.2 Presence of prosthetic heart valve (principal); Z51.81 Encounter for therapeutic drug level monitoring; Z79.01 Long term (current) use of anticoagulants | CPT/HCPCS: 85610; 99211 ==

== ENCOUNTER 2023-09-25 16:33 | Emergency (ER) | payer OTHER, SELFPAY ==
--- NOTE | ~2023-09-25 | XR_ITS ---
EXAMINATION: XR RIBS, LEFT CLINICAL INFORMATION: Fall, pain. COMPARISON: Chest radiograph 08/24/2023. TECHNIQUE: 3 views of the left ribs were obtained. FINDINGS: Stable prominence of the cardiomediastinal silhouette. Midline sternotomy wires. Cardiac valve replacement. Again noted hiatal hernia. Unchanged diffuse increased interstitial markings. No focal consolidation, pleural effusion or pneumothorax. No acute osseous findings. Visualized upper abdomen is within normal limits. XR/XR ribs LT min 3V w CXR1V IMPRESSION: 1. Stable nonspecific diffuse interstitial prominence. 2. No acutely displaced rib fractures. 3. Again noted hiatal hernia.
--- NOTE | ~2023-09-25 | CT_ITS ---
EXAMINATION: CT CERVICAL SPINE without contrast CLINICAL INFORMATION: Reason for Exam fall, head injury COMPARISON: No prior CT available, TECHNIQUE: Computed axial sagittal and coronal images acquired using department's standard protocol. This CT examination was performed using dose optimization techniques as appropriate, variously including the following: *Automated exposure control *Adjustment of mA and/or kV according to patient size (this includes techniques or standardized protocols for targeted exams where dose is matched to indication/reason for exam; i.e. extremities or head) *Use of iterative reconstruction technique CONTRAST: None DLP: 533 mGy-cm FINDINGS: SKULL BASE: Visualized structures at skull base are normal, Included facial sinuses are clear, CERVICAL VERTEBRAE: Seven cervical vertebrae identified maintaining proper height and alignment, DISCS: Loss of disc height and developed osteophyte from the edges of endplates suggest degenerative disc disease noticed at C3-C4, C4-C5, C5-C6 and C6-C7. C1-C2: No fracture or dislocation. C2-C3: No fracture or dislocation. C3-C4: No fracture or dislocation. Developed osteophyte from the edges of endplates cause narrowing of the right foramen at this level. C4-C5: No fracture or dislocation, osteophytes developed from the edges of endplates encroaching on the neural foramen bilaterally causing stenosis especially on the right. C5-C6: No fracture or dislocation. Foraminal stenosis bilaterally due to developed osteophyte from the edges of endplates encroaching on the neural foramen right more than left. There is possibly mild central stenosis. C6-C7: No fracture or dislocation. Bilateral foraminal stenosis due to developed facet hypertrophy and osteophyte protruding from the edges of endplates. C7-T1: No fracture or dislocation. PARAVERTEBRAL SOFT TISSUE: Paravertebral soft tissues unremarkable. CT/CT cervical spine wo IV con IMPRESSION: * No CT evidence of cervical spine fracture. * Loss of disc height and developed osteophyte from the edges of endplates suggest degenerative disc disease at multiple levels. * Combination of developed osteophyte from the edges of endplates encroaching on the neural foramen bilaterally at multiple levels as described above, if patient has neurological symptoms may consider correlation with MRI. * Developed osteophyte from the edges of endplates encroaching on the neural foramen bilaterally at C3-C4, C4-C5, C5-C6 and C6-C7. * Question mild central stenosis at C5-C6.
--- NOTE | ~2023-09-25 | CT_ITS ---
CT head/brain wo IV con CLINICAL INFORMATION: Reason for Exam head injury, +anticoag COMPARISON: No prior CT scan available for comparison. TECHNIQUE: Department standard protocol. This CT examination was performed using dose optimization techniques as appropriate, variously including the following: *Automated exposure control *Adjustment of mA and/or kV according to patient size (this includes techniques or standardized protocols for targeted exams where dose is matched to indication/reason for exam; i.e. extremities or head) *Use of iterative reconstruction technique DLP: 1222 mGy-cm FINDINGS: CEREBRAL HEMISPHERES: There is no evidence of intra-axial or extra-axial mass, hemorrhage or acute infarct. BRAIN PARENCHYMA: Deep white matter and paraventricular hypoattenuation, nonspecific; most likely changes secondary to chronic ischemia due to microvascular angiopathy. SUBDURAL SPACE: No bleed. BASAL GANGLIA AND PINEAL GLAND: Unremarkable VENTRICLES: Symmetric and normal in size. CEREBELLUM AND BRAINSTEM: No space-occupying mass, hemorrhage or acute infarct. CEREBELLOPONTINE ANGLES: No lesion found. ORBITS: No intraorbital mass. VESSELS: Unremarkable SKULL BASE: Unremarkable INCLUDED SINUSES AT SKULL BASE: Clear SKULL AND SKIN: No fracture or bone lesion found. 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 * No intracranial bleed.
[2023-09-25 16:36] VITALS: BP 107/83; PULSE 63; RESP 16; TEMP 36.2; O2SAT 92; BMI 23.0
--- NOTE | 2023-09-25 16:36 | ED.HEATRA ---
HPI - Head Injury General Chief complaint: Fall Stated complaint: fall, forehead lac Time Seen by Provider: 09/25/23 19:18 Source: patient Mode of arrival: ambulatory Limitations: no limitations History of Present Illness HPI Narrative: Patient is a 78-year-old male who presents to the emergency department for evaluation of a mechanical fall. States he was walking tripped on the sidewalk resulting in her left anterior chest striking the ground first followed by his head. Denies loss of consciousness. Laceration above the left brow. Anticoagulated with Coumadin. Denies dizziness, lightheadedness, headache, vision changes, neck pain, neck stiffness, chest pain, shortness of breath, difficulty breathing, numbness or tingling of the extremities. Related Data Home Medications Medication Instructions Recorded Confirmed acetaminophen 325 mg capsule 325 mg PO QID PRN 09/05/22 08/31/23 atorvastatin 20 mg tablet 20 mg PO DAILY 09/05/22 08/31/23 omeprazole 20 mg capsule,delayed 20 mg PO DAILY 09/05/22 08/31/23 release warfarin 2 mg tablet 2 mg PO DAILY 09/25/22 09/22/23 dupilumab [Dupixent Pen] subcut 10/21/22 08/31/23 aspirin 81 mg tablet,delayed 81 mg PO DAILY 11/25/22 08/31/23 release metoprolol succinate 25 mg mg PO 02/03/23 08/31/23 tablet,extended release 24 hr sildenafil 50 mg tablet mg PO 02/03/23 08/31/23 triamcinolone acetonide 0.1 % 1 appl topical BID-TID 02/03/23 08/31/23 topical cream furosemide 40 mg tablet 20 mg PO DAILY 02/17/23 08/31/23 ferrous sulfate 325 mg (65 mg 325 mg PO DAILY 06/22/23 08/31/23 iron) tablet (FeroSul) Previous Rx's Medication Instructions Recorded allopurinol 300 mg tablet 150 mg (1/2 x 300 mg) PO DAILY #90 08/16/23 tabs Allergies Allergy/AdvReac Type Severity Reaction Status Date / Time No Known Allergies Allergy Verified 09/25/23 16:36 Review of Systems Review of Systems: Yes all other systems are reviewed and are negative PMFSH Past Medical History Attestation statement: The following information was validated with the patient. Source: old records reviewed Onset Date is defined in the Problem List Problems that require an onset date and time if occurred within 24 hrs of arrival to the ED Aortic Dissection and Rupture; Neurologic impairment; Cardiopulmonary Arrest; Endotracheal Intubation; Insertion or Replacement of Mechanical Circulatory Assist Device Medical History Ascending aortic aneurysm Bicuspid aortic valve Varicose vein of leg Hemorrhage secondary to anti-coagulation Bleeding Hx of skin malignancy Gastroesophageal reflux disease Erectile dysfunction Carotid stenosis Allergic rhinitis Gout Hypertension Surgical History Status post ascending aortic aneurysm repair Aortic valve replaced History of inguinal hernia repair (~09/2019) History of tonsillectomy Family History Family History Father No problems noted. Mother No problems noted. 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 No acute distress.?Normal affect. Head: Normocephalic Eyes: Pupils equal, round and reactive to light. EOMI. Conjunctiva and sclera normal? No Elaine sign noted. No raccoon eyes noted ENT: No septal hematoma, nares patent bilaterally. External auditory canal normal tympanic membrane pearly aguiar and intact bilaterally. Dentition normal, no fractured teeth. No lesions or lacerations of oropharynx. Uvula midline. Moist mucous membranes. Neck: Normal inspection.? Neck supple.??No palpable tenderness, step-off, deformities. CVS: Heart sounds normal. Normal heart rate and rhythm.? Pulses normal.?? Respiratory: No respiratory distress.? Lung sounds clear to auscultation bilaterally?? Abdomen: Soft and non-tender. Normoactive bowel sounds. ?? Skin: Skin warm and dry.? Normal skin color.? Laceration to the left lateral brow 3 cm, irregular Extremities: No lower extremity edema.? Neuro: Moves all extremities spontaneously. Sensation intact bilaterally. CN II-XII intact. No focal neuro deficits. Ambulatory with steady gait Course Course Course Narrative: This is an RME: Additional HPI, ROS, PE not included below will be deferred to primary provider. Patient is a 78-year-old male who presents to the emergency department for evaluation of a mechanical fall. States he was walking tripped on the sidewalk resulting in her left anterior chest striking the ground first followed by his head. Denies loss of consciousness. Laceration above the left brow. Anticoagulated with Coumadin. Plan: CT head/ cervical spine, labs, CXR Medications Administered Discontinued Medications Generic Name Dose Route Start Last Admin Trade Name Freq PRN Reason Stop Dose Admin Diphtheria/Tetanus/Acell Pertussis 0.5 ml 09/25/23 16:41 09/25/23 19:14 Diphth,Pertus(Acell),Tet Adult 0.5 Ml Syringe IM 09/25/23 16:42 0.5 ml .ONCE ONE Administration Medical Decision Making Medical Decision Making [facility] Narrative: Patient is a 78-year-old male who presents emergency department for evaluation after mechanical fall with head injury and laceration to the left brow as per HPI and physical examination portion of this note. Has no focal neurological deficits upon examination. CT of the head and cervical spine is without evidence of ICH, SDH, fracture, subluxation. CT of the cervical spine reveals osteophyte formation encroaching on the neural form and bilaterally at multiple levels, has no neurological symptoms on examination, no indication for emergent MRI, can follow-up outpatient.. XR of the chest/ribs reveals no evidence of acute pulmonary abnormality nor rib fracture. Laceration was repaired with sutures as per procedure section of this note. His Tdap is updated today. He is anticoagulated chronically, INR is within therapeutic range. Stable for discharge home, discussed outpatient follow-up with primary care provider, suture removal in 5 days. Reviewed worrisome signs and symptoms that would warrant re-evaluation emergency department. All questions answered. Stable for discharge. Differential Diagnosis Differential Diagnoses: The differential diagnosis associated with the presentation includes (As noted above) Admission/Observation Consideration of admission/observation: Escalation of care including admission/observation considered (As noted above) Lab Data MDM Lab Attestation statement: I reviewed the patient's lab results. 09/25/23 17:21 09/25/23 17:21 Labs: Lab Results 09/25/23 Range/Units 17:21 WBC 7.7 (4.8-10.8) X10*3/uL RBC 4.16 L (4.60-5.80) X10*6/uL Hgb 13.2 L (14.0-18.0) g/dl Hct 39.6 L (42.0-52.0) % MCV 95.2 (80.0-98.0) fL MCH 31.7 (27.0-33.0) pg MCHC 33.3 (31.0-36.0) g/dl RDW 19.0 H (11.0-16.0) % Plt Count 309 (160-400) X10*3/uL MPV 10.5 (9.4-12.4) fL Immature Gran % (Auto) 1.6 H (0.0-0.4) % Neut % (Auto) 67.8 (45-73) % Lymph % (Auto) 11.8 L (20-40) % Norman % (Auto) 12.6 H (2-11) % Eos % (Auto) 4.9 H (0-4) % Baso % (Auto) 1.3 (0-2) % Lymph # (Auto) 0.9 L (1.2-4.9) X10*3/uL Norman # (Auto) 1.0 (0.1-1.2) X10*3/uL Eos # (Auto) 0.4 (0.0-0.4) X10*3/uL Baso # (Auto) 0.1 (0.0-0.2) X10*3/uL Abs Immat Gran (auto) 0.12 H (0.00-0.03) X10*3/uL Absolute Neuts (auto) 5.2 (2.0-8.3) x10*3/uL Absolute Nucleated RBC 0.000 (0.0-0.012) X10*3/uL Nucleated RBC % (auto) 0.0 (0.0-0.2) /100WBC PT 29.2 H (11.1-13.3) SEC INR 2.4 H (0.9-1.1) Sodium 141 (135-145) mmol/L Potassium 3.5 (3.3-5.1) mmol/L Chloride 102 (96-108) mmol/L Carbon Dioxide 29 (22-29) mmol/L Anion Gap 14 (12-20) BUN 29 H (9-16) mg/dL Creatinine 0.99 (0.5-1.4) mg/dL Estim Creat Clear Calc 58.4 Estimated GFR > 60 Random Glucose 111 (60-115) mg/dL Calcium 9.7 (8.4-10.2) mg/dL Total Bilirubin 0.7 (0.0-1.0) mg/dL AST 100 H (5-37) U/L ALT 80 H (0-40) U/L Alkaline Phosphatase 333 H (39-117) U/L Total Protein 8.0 (6.5-8.0) g/dL Albumin 4.2 (3.5-5.0) g/dL Independent Interpretation I performed an independent interpretation of an: Plain X-Ray (I personally interpreted XR imaging and agree with radiologist impression, see narrative above) and CT Scan Radiology Impression Discussion of test interpretation with radiology: I have reviewed the radiologist's reading. Radiologist Impression: XR/XR ribs LT min 3V w CXR1V IMPRESSION: 1. Stable nonspecific diffuse interstitial prominence. 2. No acutely displaced rib fractures. 3. Again noted hiatal hernia. CT/CT cervical spine wo IV con IMPRESSION: * No CT evidence of cervical spine fracture. * Loss of disc height and developed osteophyte from the edges of endplates suggest degenerative disc disease at multiple levels. * Combination of developed osteophyte from the edges of endplates encroaching on the neural foramen bilaterally at multiple levels as described above, if patient has neurological symptoms may consider correlation with MRI. * Developed osteophyte from the edges of endplates encroaching on the neural foramen bilaterally at C3-C4, C4-C5, C5-C6 and C6-C7. * Question mild central stenosis at C5-C6. 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 * No intracranial bleed. Procedures Laceration Laceration 1: Site: other (forehead) Side (If applicable): left Size (cm): 3 Description: irregular Depth: simple, single layer Local Anesthetic: lidocaine 1% Amount of anesthesia used (mL): 2 Pre-repair: wound explored, irrigated extensively and deep structures intact Skin layer closed with: nylon Size (cm): 5-0 Number of sutures: 6 Technique: simple, interrupted Discharge Plan Discharge Clinical Impression: Acute head injury without loss of consciousness Qualifiers: Encounter type: initial encounter Qualified Code(s): S09.90XA - Unspecified injury of head, initial encounter Forehead laceration Qualifiers: Encounter type: initial encounter Qualified Code(s): S01.81XA - Laceration without foreign body of other part of head, initial encounter Patient Disposition: Home, Self-Care Instructions: Laceration (ED), Head Injury (ED) Additional Instructions: The CT scan of your head did not reveal any traumatic injury which is very reassuring. X-ray reveals no evidence of fractured ribs. The CT Scan of your neck revealed some abnormalities, though this is likely chronic in nature and not due to your fall. Please contact your primary care provider to make them aware of these findings. Developed osteophyte from the edges of endplates encroaching on the neural foramen bilaterally at C3-C4, C4-C5, C5-C6 and C6-C7 Your tetanus vaccine was updated today. Stitches will need to be removed in 5 days you may return back to the emergency department or follow-up with your primary care provider for removal. INR today was 2.4. Return back to emergency department any new or worsening symptoms or concerns. Prescriptions: No Action allopurinol 300 mg tablet 150 mg PO DAILY Qty: 90 8RF ferrous sulfate [FeroSul] 325 mg (65 mg iron) tablet 325 mg PO DAILY warfarin 2 mg tablet 2 mg PO DAILY Protocol: Dose Management Condition: Thursday ( One) Dose/Route: 3 mg Instruction: 1.5 x 2 mg tablets Condition: Thursday Dose/Route: 3 mg Instruction: 1.5 x 2 mg tablets Condition: Thursday Dose/Route: 3 mg Instruction: 1.5 x 2 mg tablets Condition: Thursday Dose/Route: 3 mg Instruction: 1.5 x 2 mg tablets Condition: Dose/Route: 3 mg Instruction: 1.5 x 2 mg tablets Condition: Thursday Dose/Route: 3 mg Instruction: 1.5 x 2 mg tablets Condition: Thursday Dose/Route: 3 mg Instruction: 1.5 x 2 mg tablets Condition: Thursday ( Two) Dose/Route: 3 mg Instruction: 1.5 x 2 mg tablets Condition: Thursday Dose/Route: 3 mg Instruction: 1.5 x 2 mg tablets Condition: Thursday Dose/Route: 3 mg Instruction: 1.5 x 2 mg tablets Condition: Thursday Dose/Route: 3 mg Instruction: 1.5 x 2 mg tablets Condition: Dose/Route: 3 mg Instruction: 1.5 x 2 mg tablets Condition: Thursday Dose/Route: 3 mg Instruction: 1.5 x 2 mg tablets Condition: Thursday Dose/Route: 3 mg Instruction: 1.5 x 2 mg tablets Protocol Text: Adjustment Start Date: Thursday09/22/23 INR Value: Pending INR Date: 09/22/23 Recheck Date: 10/06/23 Additional Instructions: cont prev dosing eat greens today call with any changes in medication aspirin 81 mg tablet,delayed release (DR/EC) 81 mg PO DAILY atorvastatin 20 mg tablet 20 mg PO DAILY omeprazole 20 mg capsule,delayed release(DR/EC) 20 mg PO DAILY acetaminophen 325 mg capsule 325 mg PO QID PRN dupilumab [Dupixent Pen] subcut Rx Instructions: every 2 weeks metoprolol succinate 25 mg tablet extended release 24 hr PO sildenafil 50 mg tablet PO triamcinolone acetonide 0.1 % cream 1 appl topical BID-TID furosemide 40 mg tablet 20 mg PO DAILY Referrals: Rich Amaral DO [Primary Care Provider] -
[2023-09-25 17:31] LABS: MANUAL DIFF FLAG NO
[2023-09-25 17:37] LABS: Basophils Absolute Auto 0.1 X10*3/uL (0.0-0.2); Basophils Percent Auto 1.3 % (0-2); Eosinophils Absolute Auto 0.4 X10*3/uL (0.0-0.4); Eosinophils Percent Auto 4.9 % (0-4); Hematocrit 39.6 % (42.0-52.0); Hemoglobin 13.2 g/dl (14.0-18.0); Imm Gran Abs Auto 0.12 X10*3/uL (0.00-0.03); Imm Gran Pct Auto 1.6 % (0.0-0.4); Lymphocytes Absolute Auto 0.9 X10*3/uL (1.2-4.9); Lymphocytes Percent Auto 11.8 % (20-40); Mean Corpuscular HGB Conc 33.3 g/dl (31.0-36.0); Mean Corpuscular Hemoglobin 31.7 pg (27.0-33.0); Mean Corpuscular Volume 95.2 fL (80.0-98.0); Mean Platelet Volume 10.5 fL (9.4-12.4); Monocytes Percent Auto 12.6 % (2-11); Neutrophils Absolute Auto 5.2 x10*3/uL (2.0-8.3); Neutrophils Percent Auto 67.8 % (45-73); Platelet Count 309 X10*3/uL (160-400); Red Blood Count 4.16 X10*6/uL (4.60-5.80); White Blood Count 7.7 X10*3/uL (4.8-10.8)
[2023-09-25 17:43] LABS: INTERNATIONAL NORM RATIO 2.4 (0.9-1.1); Prothrombin Time 29.2 SEC (11.1-13.3)
[2023-09-25 17:51] LABS: Alanine Aminotransferase 80 U/L (0-40); Albumin Level 4.2 g/dL (3.5-5.0); Alkaline Phosphatase 333 U/L (39-117); Anion Gap 14 (12-20); Aspartate Amino Transferase 100 U/L (5-37); Bilirubin Total 0.7 mg/dL (0.0-1.0); Blood Urea Nitrogen 29 mg/dL (9-16); Calcium 9.7 mg/dL (8.4-10.2); Carbon Dioxide 29 mmol/L (22-29); Chloride 102 mmol/L (96-108); Creatinine Clr Calc Pharmacy 58.4; Estimated Glomerular Filt Rate > 60; Glucose Random 111 mg/dL (60-115); Potassium 3.5 mmol/L (3.3-5.1); Sodium 141 mmol/L (135-145)
[2023-09-25] MEDS: Diphth,Pertus(ACell),Tet Adult 0.5 ML SYRINGE IM (19:14)
[2023-09-25] MEDS: Lidocaine HCl 1 % MPF 5 ML VIAL SUBCUT (19:30)
[2023-09-25] MEDS: Bacitracin Oint 0.9 GM PACKET 1 APPL TOPICAL (20:30)
[2023-09-25] MEDS: Acetaminophen 325 MG TABLET 975 MG PO (20:31)
--- NOTE | 2023-09-25 20:35 | PC.NURSE ---
pt a+ox4 ambulatory at discharge. pt medicated according to mar for 03/23 pain. pt at bedside for discharge. pt and provided with discharge packet. pt verbalized understanding of discharge plan
== END 2023-09-25 20:37 | disposition home or self-care (01) ==
PROVIDERS: Nurse Practitioner Family; Emergency Provider Student in an Organized Health Care Education/Training Program; PCP Family Medicine
DX: S21.112A Laceration without foreign body of left front wall of thorax without penetration into thoracic cavity, initial encounter (principal); M54.2 Cervicalgia; R07.81 Pleurodynia; R51.9 Headache, unspecified; W01.10XA Fall on same level from slipping, tripping and stumbling with subsequent striking against unspecified object, initial encounter; Y93.9 Activity, unspecified; Y92.9 Unspecified place or not applicable; Y99.9 Unspecified external cause status; Z79.899 Other long term (current) drug therapy; Z23 Encounter for immunization
CPT/HCPCS: 12052; 36415; 70450; 71101; 72125; 80053; 85025; 85610; 90471; 90715; 99284

== ENCOUNTER 2023-10-06 10:04 | Outpatient (AMB) | payer MEDICARE, SELFPAY ==
[2023-10-06 10:20] LABS: Prothrombin Time Whole Bld POC 53.4 sec (11.1-13.5); ~PT, ~INR - Anti Coag Clinic 4.5 (0.9-1.1)
--- NOTE | 2023-10-06 10:23 | MHC.OFFVISCO ---
Intake Intake Visit Reasons: Anticoagulation Allergies No Known Allergies Allergy (Verified 10/06/23 10:14) Medication List - Last Reconciled 10/06/23 by Fariha Barron, MICHI acetaminophen 325 mg PO QID PRN allopurinol 150 mg (1/2 x 300 mg) PO DAILY aspirin 81 mg PO DAILY atorvastatin 20 mg PO DAILY dupilumab (Dupixent Pen) every 2 weeks ferrous sulfate (FeroSul) 325 mg PO DAILY furosemide 20 mg PO DAILY metoprolol succinate ER mg PO omeprazole 20 mg PO DAILY sildenafil mg PO triamcinolone acetonide 0.1% 1 appl topical BID-TID warfarin 2 mg See Protocol PO DAILY Nursing Note PT S/P FALL ON 09/25/23 WITH FACIAL LAC ABOVE LEFT EYE (SUTURES D/C'D 10/05), LEFT FACIAL BRUISING, AND PT STATES SMALL AMOUNT OF LEFT CHEST BRUISING AND RIB BRUISING. WAS SEEN IN ED 09/[address] NEG PER PT. HE HAS BEEN TAKING TYLENOL AROUND THE CLOCK. NO OTHER MED CHANGED. INR 4.5 ABOVE TR. WILL HOLD TODAY'S DOSE AND DECREASE TOMORROW'S DOSE TO 1 MG INCREASE GREENS AND HOLD REDS. PT INSTRUCTED WITH INCREASED TYLENOL USE HE MUST INCREASE DARK GREENS. F/U IN 2 DAYS, 10/08. VERBALIZES UNDERSTANDING OF INSTRUCTIONS. 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
== END 2023-10-06 10:36 | disposition home or self-care (01) ==
LOC: HO.ACS 10:04
PROVIDERS: PCP Family Medicine; Visit Provider Internal Medicine
DX: Z79.01 Long term (current) use of anticoagulants (principal)

== ENCOUNTER → 2023-10-06 10:04 | Outpatient (BNVA) | payer OTHER, SELFPAY | PROVIDERS: PCP Family Medicine; Visit Provider Internal Medicine | DX: Z95.2 Presence of prosthetic heart valve (principal); Z51.81 Encounter for therapeutic drug level monitoring; Z79.01 Long term (current) use of anticoagulants | CPT/HCPCS: 85610; 99211 ==

== ENCOUNTER 2023-10-08 10:08 | Outpatient (AMB) | payer OTHER, SELFPAY ==
--- NOTE | 2023-10-08 10:17 | MHC.OFFVISCO ---
Intake Intake Visit Reasons: Anticoagulation Allergies No Known Allergies Allergy (Verified 10/08/23 10:12) Medication List - Last Reconciled 10/08/23 by Lilian Qureshi RN acetaminophen 325 mg PO QID PRN allopurinol 150 mg (1/2 x 300 mg) PO DAILY aspirin 81 mg PO DAILY atorvastatin 20 mg PO DAILY dupilumab (Dupixent Pen) every 2 weeks ferrous sulfate (FeroSul) 325 mg PO DAILY furosemide 20 mg PO DAILY metoprolol succinate ER mg PO omeprazole 20 mg PO DAILY sildenafil mg PO triamcinolone acetonide 0.1% 1 appl topical BID-TID warfarin 2 mg See Protocol PO DAILY Nursing Note INR: 2.7- in therapeutic range- of 2-3 Medications and supplements reviewed- no changes, taking less tylenol No changes in health, diet, medications, or supplements, Denies any signs and symptoms of bleeding or bruising or clotting. Bleeding, bruising, clotting discussed Nutritional guidance given Dose: cont 3mg x 7 F/U INR: 1 week Patient verbalizes understanding of instructions given pt s/p fall approx 09/25/23- sutures out of left eyebrow, ecchymosis below left eye fading. 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 Illness/Depression: No Coding Level of Care Code Est Patient Level 1 Diagnoses Current use of anticoagulant therapy Z79.01 Assessment & Plan Assessment & Plan (1) Current use of anticoagulant therapy: Code(s): Z79.01 - longterm (current) use of anticoagulants Category: Medical
[2023-10-08 10:18] LABS: Prothrombin Time Whole Bld POC 32.6 sec (11.1-13.5); ~PT, ~INR - Anti Coag Clinic 2.7 (0.9-1.1)
== END 2023-10-08 10:23 | disposition home or self-care (01) ==
LOC: HO.ACS 10:08
PROVIDERS: PCP Family Medicine; Visit Provider Internal Medicine
DX: Z79.01 Long term (current) use of anticoagulants (principal)

== ENCOUNTER → 2023-10-08 10:08 | Outpatient (BNVA) | payer OTHER, SELFPAY | PROVIDERS: PCP Family Medicine; Visit Provider Internal Medicine | DX: Z95.2 Presence of prosthetic heart valve (principal); Z51.81 Encounter for therapeutic drug level monitoring; Z79.01 Long term (current) use of anticoagulants | CPT/HCPCS: 85610; 99211 ==

== ENCOUNTER 2023-10-14 11:17 | Outpatient (AMB) | payer OTHER, SELFPAY ==
--- NOTE | 2023-10-14 11:32 | MHC.OFFVISCO ---
Intake Intake Visit Reasons: Anticoagulation Allergies No Known Allergies Allergy (Verified 10/14/23 11:29) Medication List - Last Reconciled 10/14/23 by Lilian Qureshi RN acetaminophen 325 mg PO QID PRN allopurinol 150 mg (1/2 x 300 mg) PO DAILY aspirin 81 mg PO DAILY atorvastatin 20 mg PO DAILY dupilumab (Dupixent Pen) every 2 weeks ferrous sulfate (FeroSul) 325 mg PO DAILY furosemide 20 mg PO DAILY metoprolol succinate ER mg PO omeprazole 20 mg PO DAILY sildenafil mg PO triamcinolone acetonide 0.1% 1 appl topical BID-TID warfarin 2 mg See Protocol PO DAILY Nursing Note INR: 2.6- in therapeutic range of 2-3 Medications and supplements reviewed- no changes, taking less tylenol No changes in health, diet, medications, or supplements, Denies any signs and symptoms of bleeding or bruising or clotting. 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
[2023-10-14 11:34] LABS: Prothrombin Time Whole Bld POC 31.6 sec (11.1-13.5); ~PT, ~INR - Anti Coag Clinic 2.6 (0.9-1.1)
== END 2023-10-14 11:40 | disposition home or self-care (01) ==
LOC: HO.ACS 11:18
PROVIDERS: PCP Family Medicine; Visit Provider Internal Medicine
DX: Z79.01 Long term (current) use of anticoagulants (principal)

== ENCOUNTER → 2023-10-14 11:17 | Outpatient (BNVA) | payer OTHER, SELFPAY | PROVIDERS: PCP Family Medicine; Visit Provider Internal Medicine | DX: Z95.2 Presence of prosthetic heart valve (principal); Z51.81 Encounter for therapeutic drug level monitoring; Z79.01 Long term (current) use of anticoagulants | CPT/HCPCS: 85610; 99211 ==

== ENCOUNTER 2023-10-28 10:08 | Outpatient (AMB) | payer OTHER, SELFPAY ==
[2023-10-28 10:16] LABS: Prothrombin Time Whole Bld POC 29.7 sec (11.1-13.5); ~PT, ~INR - Anti Coag Clinic 2.5 (0.9-1.1)
--- NOTE | 2023-10-28 10:23 | MHC.OFFVISCO ---
Intake Intake Visit Reasons: Anticoagulation Allergies No Known Allergies Allergy (Verified 10/28/23 10:10) Nursing Note INR: 2.5 in therapeutic range Medications and supplements reviewed No changes in health, diet, medications, or supplements, Denies any signs and symptoms of bleeding or bruising or clotting. Bleeding, bruising, clotting discussed Nutritional guidance given Pt states he is finally feeling better and taking much less tylenol after falling 1 month ago Dose: continue usual dose F/U INR: 3 weeks Patient verbalizes understanding of instructions given Anti-Coag Initial Assessment Social Hx Patient Tobacco Use Status: Never used Tobacco alcohol intake: current Alcohol intake frequency: 0-2 drinks per day Cardiovascular Hx: HTN, Arrhythmias and Varicose Veins Musculoskeletal Hx: Gout Blood Disorder Hx: Hyperlipidemia Neurological Hx: Stroke/TIA and Aneurysm Cancer HX: Yes (SKIN CANCER HX, 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 Illness/Depression: No Coding Level of Care Code Est Patient Level 1 Diagnoses Current use of anticoagulant therapy Z79.01 Assessment & Plan Assessment & Plan (1) Current use of anticoagulant therapy: Code(s): Z79.01 - group home (current) use of anticoagulants Category: Medical
== END 2023-10-28 10:26 | disposition home or self-care (01) ==
LOC: HO.ACS 10:08
PROVIDERS: PCP Family Medicine; Visit Provider Internal Medicine
DX: Z79.01 Long term (current) use of anticoagulants (principal)

== ENCOUNTER → 2023-10-28 10:08 | Outpatient (BNVA) | payer OTHER, SELFPAY | PROVIDERS: PCP Family Medicine; Visit Provider Internal Medicine | DX: Z95.2 Presence of prosthetic heart valve (principal); Z51.81 Encounter for therapeutic drug level monitoring; Z79.01 Long term (current) use of anticoagulants | CPT/HCPCS: 85610; 99211 ==

== ENCOUNTER 2023-11-18 10:11 | Outpatient (AMB) | payer OTHER, SELFPAY ==
[2023-11-18 10:21] LABS: Prothrombin Time Whole Bld POC 36.3 sec (11.1-13.5)
--- NOTE | 2023-11-18 10:26 | MHC.OFFVISCO ---
Intake Intake Visit Reasons: Anticoagulation Allergies No Known Allergies Allergy (Verified 11/18/23 10:15) Medication List - Last Reconciled 11/18/23 by Marcia De Leon RN acetaminophen 325 mg PO QID PRN allopurinol 150 mg (1/2 x 300 mg) PO DAILY aspirin 81 mg PO DAILY atorvastatin 20 mg PO DAILY dupilumab (Dupixent Pen) every 2 weeks ferrous sulfate (FeroSul) 325 mg PO DAILY furosemide 20 mg PO DAILY metoprolol succinate ER mg PO omeprazole 20 mg PO DAILY sildenafil mg PO triamcinolone acetonide 0.1% 1 appl topical BID-TID warfarin 2 mg See Protocol PO DAILY Nursing Note PT.STATES THAT HE HAS HAD SOME INCREASED AFIB THIS PAST WEEK WITH INCREASED SOB UPON EXERTION 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 HE DENIES ANY SOB OR CP TODAY. THERE ARE NO DIET OR MED CHANGES OR SX OF BLEEDING. WILL CONTINUE PRESENT DOSE ANDF FOLLOW-UP IN 3 WEEKS. GOOD UNDERSTANDING OF DOSING INSTR. 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 Illness/Depression: No Coding Level of Care Code Est Patient Level 1 Diagnoses Current use of anticoagulant therapy Z79.01 Assessment & Plan Assessment & Plan (1) Current use of anticoagulant therapy: Code(s): Z79.01 - snf (current) use of anticoagulants Category: Medical
== END 2023-11-18 10:30 | disposition home or self-care (01) ==
LOC: HO.ACS 10:11
PROVIDERS: PCP Family Medicine; Visit Provider Internal Medicine
DX: Z79.01 Long term (current) use of anticoagulants (principal)

== ENCOUNTER → 2023-11-18 10:11 | Outpatient (BNVA) | payer OTHER, SELFPAY | PROVIDERS: PCP Family Medicine; Visit Provider Internal Medicine | DX: Z95.2 Presence of prosthetic heart valve (principal); Z51.81 Encounter for therapeutic drug level monitoring; Z79.01 Long term (current) use of anticoagulants | CPT/HCPCS: 85610; 99211 ==

== ENCOUNTER 2023-12-09 10:23 | Outpatient (AMB) | payer OTHER, SELFPAY ==
[2023-12-09 10:52] LABS: Prothrombin Time Whole Bld POC 35.6 sec (11.1-13.5)
--- NOTE | 2023-12-09 11:07 | MHC.OFFVISCO ---
Intake Intake Visit Reasons: Anticoagulation Allergies No Known Allergies Allergy (Verified 12/09/23 10:34) Medication List - Last Reconciled 12/09/23 by Gloria Villalobos RN acetaminophen 325 mg PO QID PRN allopurinol 150 mg (1/2 x 300 mg) PO DAILY amiodarone 200 mg PO BID aspirin 81 mg PO DAILY atorvastatin 20 mg PO DAILY dupilumab (Dupixent Pen) every 2 weeks ferrous sulfate (FeroSul) 325 mg PO DAILY furosemide 20 mg PO DAILY metoprolol succinate ER mg PO omeprazole 20 mg PO DAILY sildenafil mg PO triamcinolone acetonide 0.1% 1 appl topical BID-TID warfarin 2 mg See Protocol PO DAILY Nursing Note Afib - Cardioversion 12/23/23 and then Ablation 02/04 INR: 3.0 in therapeutic range Medications and supplements reviewed Has increase AFib, started on multaq - states it did not make him feel well, changed to amiodarone 2 days ago, 200mg po bid, explained interaction with wararin- needs frequent INR monitoring, Enc slow deep breathing through out the day, and activity and walking as tolerated and discuss with MD ( maybe cardiac rehab) he asked about Eliquis- explained used for non valvular Afib but has been used by some people with bioprosthetic vlaves and to discuss with his cardiology team. has had some lower leg edema - enc to discuss with md and try compression socks, elevating feet during the day, perform ankle pumps during the day Denies any signs and symptoms of bleeding or bruising or clotting. Bleeding, bruising, clotting discussed Nutritional guidance given- eat a mix of fruits and vegetables to have a little more stronger greens like broccoli over the weekend Dose: decrease warfarin dose starting thursday 2mg / 3mg all other days F/U INR: 1 week - may request sooner - to call pt stating due to already INR in upper range chk INR thursday12/14/23. 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
== END 2023-12-09 11:14 | disposition home or self-care (01) ==
LOC: HO.ACS 10:23
PROVIDERS: PCP Family Medicine; Visit Provider Internal Medicine
DX: Z79.01 Long term (current) use of anticoagulants (principal)

== ENCOUNTER → 2023-12-09 10:23 | Outpatient (BNVA) | payer OTHER, SELFPAY | PROVIDERS: PCP Family Medicine; Visit Provider Internal Medicine | DX: Z95.2 Presence of prosthetic heart valve (principal); Z51.81 Encounter for therapeutic drug level monitoring; Z79.01 Long term (current) use of anticoagulants | CPT/HCPCS: 85610; 99211 ==

== ENCOUNTER 2023-12-16 10:17 | Outpatient (AMB) | payer OTHER, SELFPAY ==
[2023-12-16 10:40] LABS: ~PT, ~INR - Anti Coag Clinic 2.7 (0.9-1.1)
--- NOTE | 2023-12-16 10:50 | MHC.OFFVISCO ---
Intake Intake Visit Reasons: Anticoagulation Allergies No Known Allergies Allergy (Verified 12/16/23 10:35) Medication List - Last Reconciled 12/16/23 by Marcia De Leon RN acetaminophen 325 mg PO QID PRN allopurinol 150 mg (1/2 x 300 mg) PO DAILY amiodarone 200 mg PO BID aspirin 81 mg PO DAILY atorvastatin 20 mg PO DAILY dupilumab (Dupixent Pen) every 2 weeks ferrous sulfate (FeroSul) 325 mg PO DAILY furosemide 20 mg PO DAILY metoprolol succinate ER mg PO omeprazole 20 mg PO DAILY sildenafil mg PO triamcinolone acetonide 0.1% 1 appl topical BID-TID warfarin 2 mg See Protocol PO DAILY Nursing Note CARDIOVERSION IS PLANNED FOR 12/22. PT.DENIES ANY CP,MED CHANGES OR SX OF BLEEDING. HE CONTINUES TO HAVE SOME SOB WITH EXERTION WILL CONTINUE PRESENT WARFARIN DOSE AND RECHECK INR ON 12/21 GOOD UNDERSTANDING OF DOSING INSTR. 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 Illness/Depression: No Coding Level of Care Code Est Patient Level 1 Diagnoses Current use of anticoagulant therapy Z79.01 Assessment & Plan Assessment & Plan (1) Current use of anticoagulant therapy: Code(s): Z79.01 - alf (current) use of anticoagulants Category: Medical
== END 2023-12-16 10:53 | disposition home or self-care (01) ==
LOC: HO.ACS 10:18
PROVIDERS: PCP Family Medicine; Visit Provider Internal Medicine
DX: Z79.01 Long term (current) use of anticoagulants (principal)

== ENCOUNTER → 2023-12-16 10:17 | Outpatient (BNVA) | payer OTHER, SELFPAY | PROVIDERS: PCP Family Medicine; Visit Provider Internal Medicine | DX: Z95.2 Presence of prosthetic heart valve (principal); Z51.81 Encounter for therapeutic drug level monitoring; Z79.01 Long term (current) use of anticoagulants | CPT/HCPCS: 85610; 99211 ==

== ENCOUNTER 2023-12-22 11:25 | Outpatient (AMB) | payer OTHER, SELFPAY ==
[2023-12-22 11:53] LABS: Prothrombin Time Whole Bld POC 43.4 sec (11.1-13.5); ~PT, ~INR - Anti Coag Clinic 3.6 (0.9-1.1)
--- NOTE | 2023-12-22 12:03 | MHC.OFFVISCO ---
Intake Intake Visit Reasons: Anticoagulation Allergies No Known Allergies Allergy (Verified 12/22/23 11:45) Medication List - Last Reconciled 12/22/23 by Fariha Barron, MICHI acetaminophen 325 mg PO QID PRN allopurinol 150 mg (1/2 x 300 mg) PO DAILY amiodarone 200 mg PO BID aspirin 81 mg PO DAILY atorvastatin 20 mg PO DAILY dupilumab (Dupixent Pen) every 2 weeks ferrous sulfate (FeroSul) 325 mg PO DAILY furosemide 20 mg PO DAILY metoprolol succinate ER mg PO omeprazole 20 mg PO DAILY sildenafil mg PO triamcinolone acetonide 0.1% 1 appl topical BID-TID warfarin 2 mg See Protocol PO DAILY Nursing Note INR: 3.6 out of therapeutic range of 2-3 Pt started on amiodarone 12/07/23. High INR d/t med. Pt scheduled for cardioversion tomorrow. Medications and supplements reviewed No changes in health, diet, medications, or supplements. Pt states he has had symptoms of SOB with the afib. Denies any signs and symptoms of bleeding or bruising or clotting. Bleeding, bruising, clotting discussed Nutritional guidance given: only light greens today Dose: cont 3mg daily with 2mg X 1 day but day after colonoscopy decrease dose to 1mg (12/24/23) F/U INR: 1 week Patient verbalizes understanding of instructions given Anti-Coag Initial Assessment Social Hx Patient Tobacco Use Status: Never used Tobacco alcohol intake: current Alcohol intake frequency: 0-2 drinks per day Cardiovascular Hx: HTN, Arrhythmias and Varicose Veins Musculoskeletal Hx: Gout Blood Disorder Hx: Hyperlipidemia Neurological Hx: Stroke/TIA and Aneurysm Cancer HX: Yes (SKIN CANCER HX, 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 Illness/Depression: No Coding Level of Care Code Est Patient Level 1 Diagnoses Current use of anticoagulant therapy Z79.01 Assessment & Plan Assessment & Plan (1) Current use of anticoagulant therapy: Code(s): Z79.01 - intermediate card tender (current) use of anticoagulants Category: Medical
== END 2023-12-22 12:24 | disposition home or self-care (01) ==
LOC: HO.ACS 11:25
PROVIDERS: PCP Family Medicine; Visit Provider Internal Medicine
DX: Z79.01 Long term (current) use of anticoagulants (principal)

== ENCOUNTER → 2023-12-22 11:25 | Outpatient (BNVA) | payer OTHER, SELFPAY | PROVIDERS: PCP Family Medicine; Visit Provider Internal Medicine | DX: Z95.2 Presence of prosthetic heart valve (principal); Z51.81 Encounter for therapeutic drug level monitoring; Z79.01 Long term (current) use of anticoagulants | CPT/HCPCS: 85610; 99211 ==

== ENCOUNTER 2023-12-25 10:06 | Outpatient (AMB) | payer OTHER, SELFPAY ==
--- NOTE | 2023-12-25 10:19 | MHC.OFFVISCO ---
Intake Intake Visit Reasons: Anticoagulation Allergies No Known Allergies Allergy (Verified 12/25/23 10:14) Medication List - Last Reconciled 12/25/23 by Lilian Qureshi RN acetaminophen 325 mg PO QID PRN allopurinol 150 mg (1/2 x 300 mg) PO DAILY amiodarone 200 mg PO BID aspirin 81 mg PO DAILY atorvastatin 20 mg PO DAILY dupilumab (Dupixent Pen) every 2 weeks ferrous sulfate (FeroSul) 325 mg PO DAILY furosemide 20 mg PO DAILY metoprolol succinate ER mg PO omeprazole 20 mg PO DAILY sildenafil mg PO triamcinolone acetonide 0.1% 1 appl topical BID-TID warfarin 2 mg See Protocol PO DAILY Nursing Note INR 3.7-?? out of therapeutic range of 2-3 Medications and supplements reviewed Patient status: pt s/p cardioversion on thu this pt states ablation scheduled for 02/04/24 Medications or supplements: pt cont on amiodarone 200mg bid Diet: same Denies any signs and symptoms of bleeding or clotting or unusual bruising Bleeding, bruising, clotting discussed Nutritional guidance given: greens to lower inr, no reds for 2-3 days Dose: 1mg today then reduce weekly dosing 3mg x 3, 2mg x 4 F/U INR Date : 12/29/23 Patient verbalizing understanding of instructions given. 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 Illness/Depression: No Coding Level of Care Code Est Patient Level 1 Diagnoses Current use of anticoagulant therapy Z79.01 Assessment & Plan Assessment & Plan (1) Current use of anticoagulant therapy: Code(s): Z79.01 - [facility] (current) use of anticoagulants Category: Medical
[2023-12-25 10:20] LABS: Prothrombin Time Whole Bld POC 44.8 sec (11.1-13.5); ~PT, ~INR - Anti Coag Clinic 3.7 (0.9-1.1)
== END 2023-12-25 10:54 | disposition home or self-care (01) ==
LOC: HO.ACS 10:06
PROVIDERS: PCP Family Medicine; Visit Provider Internal Medicine
DX: Z79.01 Long term (current) use of anticoagulants (principal)

== ENCOUNTER → 2023-12-25 10:06 | Outpatient (BNVA) | payer OTHER, SELFPAY | PROVIDERS: PCP Family Medicine; Visit Provider Internal Medicine | DX: Z95.2 Presence of prosthetic heart valve (principal); Z51.81 Encounter for therapeutic drug level monitoring; Z79.01 Long term (current) use of anticoagulants | CPT/HCPCS: 85610; 99211 ==

== ENCOUNTER 2023-12-29 09:56 | Outpatient (AMB) | payer OTHER, SELFPAY ==
[2023-12-29 10:22] LABS: Prothrombin Time Whole Bld POC 35.5 sec (11.1-13.5)
--- NOTE | 2023-12-29 10:25 | MHC.OFFVISCO ---
Intake Intake Visit Reasons: Anticoagulation Allergies No Known Allergies Allergy (Verified 12/29/23 10:15) Medication List - Last Reconciled 12/29/23 by Fariha Zuniga, RN acetaminophen 325 mg PO QID PRN allopurinol 150 mg (1/2 x 300 mg) PO DAILY amiodarone 200 mg PO BID aspirin 81 mg PO DAILY atorvastatin 20 mg PO DAILY dupilumab (Dupixent Pen) every 2 weeks ferrous sulfate (FeroSul) 325 mg PO DAILY furosemide 20 mg PO DAILY metoprolol succinate ER mg PO omeprazole 20 mg PO DAILY sildenafil mg PO triamcinolone acetonide 0.1% 1 appl topical BID-TID warfarin 2 mg See Protocol PO DAILY Nursing Note Amb to [facility] feeling better , sts he finds if he takes meds with food (amiodarone and iron) he feels better pt is S/P cardioversion of 12/22 and has been started on Amiodarone (increases INR) weekly warfarin dose decreased Medications and supplements reviewed No other changes in health, diet, medications, or supplements Denies any unusual signs and symptoms of bruising, bleeding Denies any new Chest pain, SOB, or clotting INR: 3.0 in therapeutic range Nutritional guidance given: balance greens and reds in diet Dose: continue new dosing;3mg x 3 days and 2mg x 4 days F/U INR: Wednesday 01/03 Patient verbalizes understanding of instructions given with accurate read back/ teach back of dosing Anti-Coag Initial Assessment Social Hx Patient Tobacco Use Status: Never used Tobacco alcohol intake: current Alcohol intake frequency: 0-2 drinks per day Cardiovascular Hx: HTN, Arrhythmias and Varicose Veins Musculoskeletal Hx: Gout Blood Disorder Hx: Hyperlipidemia Neurological Hx: Stroke/TIA and Aneurysm Cancer HX: Yes (SKIN CANCER HX, 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 Illness/Depression: No Coding Level of Care Code Est Patient Level 1 Diagnoses Current use of anticoagulant therapy Z79.01 Time Spent (min) 15 Assessment & Plan Assessment & Plan (1) Current use of anticoagulant therapy: Code(s): Z79.01 - [facility] (current) use of anticoagulants Category: Medical
== END 2023-12-29 10:38 | disposition home or self-care (01) ==
LOC: HO.ACS 09:56
PROVIDERS: PCP Family Medicine; Visit Provider Internal Medicine
DX: Z79.01 Long term (current) use of anticoagulants (principal)

== ENCOUNTER → 2023-12-29 09:56 | Outpatient (BNVA) | payer OTHER, SELFPAY | PROVIDERS: PCP Family Medicine; Visit Provider Internal Medicine | DX: Z95.2 Presence of prosthetic heart valve (principal); Z51.81 Encounter for therapeutic drug level monitoring; Z79.01 Long term (current) use of anticoagulants | CPT/HCPCS: 85610; 99211 ==

== ENCOUNTER 2024-01-04 10:13 | Outpatient (AMB) | payer OTHER, SELFPAY ==
[2024-01-04 10:27] LABS: Prothrombin Time Whole Bld POC 39.4 sec (11.1-13.5); ~PT, ~INR - Anti Coag Clinic 3.3 (0.9-1.1)
--- NOTE | 2024-01-04 10:33 | MHC.OFFVISCO ---
Intake Intake Visit Reasons: Anticoagulation Allergies No Known Allergies Allergy (Verified 01/04/24 10:18) Medication List - Last Reconciled 01/04/24 by Fariha Barron RN acetaminophen 325 mg PO QID PRN allopurinol 150 mg (1/2 x 300 mg) PO DAILY amiodarone 200 mg PO BID aspirin 81 mg PO DAILY atorvastatin 20 mg PO DAILY dupilumab (Dupixent Pen) every 2 weeks ferrous sulfate (FeroSul) 325 mg PO DAILY furosemide 20 mg PO DAILY metoprolol succinate ER mg PO omeprazole 20 mg PO DAILY sildenafil mg PO triamcinolone acetonide 0.1% 1 appl topical BID-TID warfarin 2 mg See Protocol PO DAILY Nursing Note INR: 3.3 out of therapeutic range of 2-3 Medications and supplements reviewed: no changes No changes in health, diet, medications, or supplements, Denies any signs and symptoms of bleeding or bruising or clotting. 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
== END 2024-01-04 10:35 | disposition home or self-care (01) ==
LOC: HO.ACS 10:13
PROVIDERS: PCP Family Medicine; Visit Provider Internal Medicine
DX: Z79.01 Long term (current) use of anticoagulants (principal)

== ENCOUNTER → 2024-01-04 10:13 | Outpatient (BNVA) | payer OTHER, SELFPAY | PROVIDERS: PCP Family Medicine; Visit Provider Internal Medicine | DX: Z95.2 Presence of prosthetic heart valve (principal); Z51.81 Encounter for therapeutic drug level monitoring; Z79.01 Long term (current) use of anticoagulants | CPT/HCPCS: 85610; 99211 ==

== ENCOUNTER 2024-01-12 10:53 | Outpatient (AMB) | payer OTHER, SELFPAY ==
[2024-01-12 11:05] LABS: Prothrombin Time Whole Bld POC 31.9 sec (11.1-13.5); ~PT, ~INR - Anti Coag Clinic 2.7 (0.9-1.1)
--- NOTE | 2024-01-12 11:15 | MHC.OFFVISCO ---
Intake Intake Visit Reasons: Anticoagulation Allergies No Known Allergies Allergy (Verified 01/12/24 10:56) Medication List - Last Reconciled 01/12/24 by Gloria Villalobos, RN acetaminophen 325 mg PO QID PRN allopurinol 150 mg (1/2 x 300 mg) PO DAILY amiodarone 200 mg PO BID aspirin 81 mg PO DAILY atorvastatin 20 mg PO DAILY dupilumab (Dupixent) mg subcut ferrous sulfate (FeroSul) 325 mg PO DAILY furosemide 20 mg PO DAILY metoprolol succinate ER mg PO omeprazole 20 mg PO DAILY sildenafil mg PO triamcinolone acetonide 0.1% 1 appl topical BID-TID warfarin 2 mg See Protocol PO DAILY Nursing Note INR: 2.7 in therapeutic range Medications and supplements reviewed Amiodarone dose remains the same post cardioversion, states still feels tiered, to have cardiology f/u apt next week 01/18/24 to have cardiac ablation 02/04/24 - will call for warfarin and INR instructions Denies any signs and symptoms of bleeding or bruising or clotting. Bleeding, bruising, clotting discussed Nutritional guidance given - cont to eat a mix of fruits and vegetables Dose: keep same 3mg x 3 days/ 2mg x 4 days F/U INR: 1 week Patient verbalizes understanding of instructions given t/c to Dr Givens office - left msg with cardiology triage regarding his 02/04/24 procedure- and how many days he needs to hold his warfarin and if INR check needed by [facility] prior procedure. 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 Illness/Depression: No Coding Level of Care Code Est Patient Level 1 Diagnoses Current use of anticoagulant therapy Z79.01 Results AMB INR Fingerstick AMB INR Fingerstick 2.7 Last Edit by Gloria Villalobos RN on 01/12/24 11:06 manual entry Assessment & Plan Assessment & Plan (1) Current use of anticoagulant therapy: Code(s): Z79.01 - longterm (current) use of anticoagulants Category: Medical
== END 2024-01-12 11:35 | disposition home or self-care (01) ==
LOC: HO.ACS 10:53
PROVIDERS: PCP Family Medicine; Visit Provider Internal Medicine
DX: Z79.01 Long term (current) use of anticoagulants (principal)

== ENCOUNTER → 2024-01-12 10:53 | Outpatient (BNVA) | payer OTHER, SELFPAY | PROVIDERS: PCP Family Medicine; Visit Provider Internal Medicine | DX: Z95.2 Presence of prosthetic heart valve (principal); Z51.81 Encounter for therapeutic drug level monitoring; Z79.01 Long term (current) use of anticoagulants | CPT/HCPCS: 85610; 99211 ==

== ENCOUNTER 2024-01-21 09:44 | Outpatient (AMB) | payer OTHER, SELFPAY ==
[2024-01-21 10:03] LABS: Prothrombin Time Whole Bld POC 29.4 sec (11.1-13.5); ~PT, ~INR - Anti Coag Clinic 2.5 (0.9-1.1)
--- NOTE | 2024-01-21 10:06 | MHC.OFFVISCO ---
Intake Intake Visit Reasons: Anticoagulation Allergies No Known Allergies Allergy (Verified 01/21/24 09:55) Medication List - Last Reconciled 01/21/24 by Fariha Barron, RN acetaminophen 325 mg PO QID PRN allopurinol 150 mg (1/2 x 300 mg) PO DAILY amiodarone 200 mg PO BID aspirin 81 mg PO DAILY atorvastatin 20 mg PO DAILY dupilumab (Dupixent) mg subcut ferrous sulfate (FeroSul) 325 mg PO DAILY furosemide 20 mg PO DAILY metoprolol succinate ER mg PO omeprazole 20 mg PO DAILY sildenafil mg PO triamcinolone acetonide 0.1% 1 appl topical BID-TID warfarin 2 mg See Protocol PO DAILY Nursing Note INR: 2.5 in therapeutic range 2-3 Medications and supplements reviewed No changes in health, diet, medications, or supplements, PT SCHEDULED FOR CARDIAC ABLATION 02/04/24 AT [facility] TO HOLD WARFARIN DAY BEFORE AND DAY OF PROCEDURE Denies any signs and symptoms of bleeding or bruising or clotting. 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 Illness/Depression: No Coding Level of Care Code Est Patient Level 1 Diagnoses Current use of anticoagulant therapy Z79.01 Assessment & Plan Assessment & Plan (1) Current use of anticoagulant therapy: Code(s): Z79.01 - alf (current) use of anticoagulants Category: Medical
== END 2024-01-21 10:16 | disposition home or self-care (01) ==
LOC: HO.ACS 09:44
PROVIDERS: PCP Family Medicine; Visit Provider Internal Medicine
DX: Z79.01 Long term (current) use of anticoagulants (principal)

== ENCOUNTER → 2024-01-21 09:44 | Outpatient (BNVA) | payer OTHER, SELFPAY | PROVIDERS: PCP Family Medicine; Visit Provider Internal Medicine | DX: Z95.2 Presence of prosthetic heart valve (principal); Z51.81 Encounter for therapeutic drug level monitoring; Z79.01 Long term (current) use of anticoagulants | CPT/HCPCS: 85610; 99211 ==

== ENCOUNTER 2024-02-05 10:49 | Outpatient (REF) | payer OTHER, SELFPAY ==
[2024-02-05 11:42] LABS: Prothrombin Time 67.1 SEC (11.1-13.3)
[2024-02-05 11:44] LABS: INTERNATIONAL NORM RATIO 5.5 (0.9-1.1)
== END 2024-02-05 10:50 | disposition home or self-care (01) ==
LOC: HO.LAB 10:49
PROVIDERS: PCP Family Medicine; Visit Provider Internal Medicine
DX: Z79.01 Long term (current) use of anticoagulants (principal)
CPT/HCPCS: 36415; 85610; 99212

== ENCOUNTER 2024-02-05 10:49 | Outpatient (AMB) | payer OTHER, SELFPAY ==
[2024-02-05 11:09] LABS: Prothrombin Time Whole Bld POC 71.4 sec (11.1-13.5)
--- NOTE | 2024-02-05 11:47 | MHC.OFFVISCO ---
Intake Intake Visit Reasons: Anticoagulation Allergies No Known Allergies Allergy (Verified 01/21/24 09:55) Medication List - Last Reconciled 02/05/24 by Fariha Barron RN acetaminophen 325 mg PO QID PRN allopurinol 150 mg (1/2 x 300 mg) PO DAILY amiodarone 200 mg PO BID aspirin 81 mg PO DAILY atorvastatin 20 mg PO DAILY dupilumab (Dupixent) mg subcut ferrous sulfate (FeroSul) 325 mg PO DAILY furosemide 20 mg PO DAILY metoprolol succinate ER mg PO omeprazole 20 mg PO DAILY sildenafil mg PO triamcinolone acetonide 0.1% 1 appl topical BID-TID warfarin 2 mg See Protocol PO DAILY Nursing Note Pt to [facility] s/p illness pos for Strep and on antibiotics Amoxicillan started on 02/02/24. Pt not sure if it is Amox-Clav but will check bottle when gets home and call [facility]. INR 6.0?? out of therapeutic range of 2-3 Medications and supplements reviewed: as above Patient status: feeling much better but lost 6 lbs as he had no appetite Diet: appetite is better and he is slowly resuming usual diet Denies any signs and symptoms of bleeding or clotting or unusual bruising Bleeding, bruising, clotting discussed Nutritional guidance given: food list reviewed and to have a serving of food from the [employer] list today and tomorrow Dose: hold today and tomorrow then 2mg the next 2 days then return for testing F/U INR Date : 02/09/24?? Patient verbalizing understanding of instructions given. 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 Illness/Depression: No Coding Level of Care Code Est Patient Level 2 Diagnoses Current use of anticoagulant therapy Z79.01 Results AMB INR Fingerstick AMB INR Fingerstick 5.5 Last Edit by Fariha Barron RN on 02/05/24 11:49 LAB DRAW TO CONFIRM [facility] POC Assessment & Plan Assessment & Plan (1) Current use of anticoagulant therapy: Code(s): Z79.01 - jail (current) use of anticoagulants Category: Medical Orders: Orders Prothrombin Time INR Today Z79.01 - jail (current) use of anticoagulants
== END 2024-02-05 16:04 | disposition home or self-care (01) ==
LOC: HO.ACS 10:49
PROVIDERS: PCP Family Medicine; Visit Provider Internal Medicine
DX: Z79.01 Long term (current) use of anticoagulants (principal)

== ENCOUNTER 2024-02-09 09:55 | Outpatient (AMB) | payer OTHER, SELFPAY ==
[2024-02-09 10:06] LABS: Prothrombin Time Whole Bld POC 21.6 sec (11.1-13.5); ~PT, ~INR - Anti Coag Clinic 1.8 (0.9-1.1)
--- NOTE | 2024-02-09 10:12 | MHC.OFFVISCO ---
Intake Intake Visit Reasons: Anticoagulation Allergies No Known Allergies Allergy (Verified 02/09/24 10:01) Medication List - Last Reconciled 02/09/24 by Fariha Barron RN acetaminophen 325 mg PO QID PRN allopurinol 150 mg (1/2 x 300 mg) PO DAILY amiodarone 200 mg PO BID aspirin 81 mg PO DAILY atorvastatin 20 mg PO DAILY dupilumab (Dupixent) mg subcut ferrous sulfate (FeroSul) 325 mg PO DAILY furosemide 20 mg PO DAILY metoprolol succinate ER mg PO omeprazole 20 mg PO DAILY sildenafil mg PO triamcinolone acetonide 0.1% 1 appl topical BID-TID warfarin 2 mg See Protocol PO DAILY Nursing Note INR 1.8??out of therapeutic range of 2-3 Medications and supplements reviewed: no changes, continues on Amoxicillan for Strep throat. Patient status: feels better Medications or supplements: no change Diet: has been eating greens everyday due to high INR 5.5 last visit Denies any signs and symptoms of bleeding or clotting or unusual bruising Bleeding, bruising, clotting discussed Nutritional guidance given: to avoid greens today and have a serving of food from the list that raises the INR Dose: increase today to 3mg (2mg) then resume usual dose of 3mg X 3 days and 2mg X 4 days F/U INR Date : 1 week?? Patient verbalizing understanding of instructions given. 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
== END 2024-02-09 10:15 | disposition home or self-care (01) ==
LOC: HO.ACS 09:55
PROVIDERS: PCP Family Medicine; Visit Provider Internal Medicine
DX: Z79.01 Long term (current) use of anticoagulants (principal)

== ENCOUNTER → 2024-02-09 09:55 | Outpatient (BNVA) | payer OTHER, SELFPAY | PROVIDERS: PCP Family Medicine; Visit Provider Internal Medicine | DX: Z95.2 Presence of prosthetic heart valve (principal); Z51.81 Encounter for therapeutic drug level monitoring; Z79.01 Long term (current) use of anticoagulants | CPT/HCPCS: 85610; 99211 ==

== ENCOUNTER 2024-02-16 11:21 | Outpatient (AMB) | payer OTHER, SELFPAY ==
[2024-02-16 11:32] LABS: Prothrombin Time Whole Bld POC 43.1 sec (11.1-13.5); ~PT, ~INR - Anti Coag Clinic 3.6 (0.9-1.1)
--- NOTE | 2024-02-16 11:38 | MHC.OFFVISCO ---
Intake Intake Visit Reasons: Anticoagulation Allergies No Known Allergies Allergy (Verified 02/16/24 11:23) Medication List - Last Reconciled 02/16/24 by Fariha Barron, RN acetaminophen 325 mg PO QID PRN allopurinol 150 mg (1/2 x 300 mg) PO DAILY amiodarone 200 mg PO BID aspirin 81 mg PO DAILY atorvastatin 20 mg PO DAILY dupilumab (Dupixent) mg subcut ferrous sulfate (FeroSul) 325 mg PO DAILY furosemide 20 mg PO DAILY metoprolol succinate ER mg PO omeprazole 20 mg PO DAILY sildenafil mg PO triamcinolone acetonide 0.1% 1 appl topical BID-TID warfarin 2 mg See Protocol PO DAILY Nursing Note INR 3.6?out of therapeutic range of 2-3 Medications and supplements reviewed Patient status: feels better Medications or supplements: completed course of antibiotics, 02/12/24 for Strep infection (amoxicillan) To have Ablation sceduled 02/25/24, Dr Givens ditch cleaner. [facility] to call Rukhsana GHOTRA [phone] with INR result on 02/22 Diet: usual diet for pt Denies any signs and symptoms of bleeding or clotting or unusual bruising Bleeding, bruising, clotting discussed Nutritional guidance given: to have greens today and tomorrow then balance Dose: 3mg X 3 days and 2 mg X 4 days F/U INR Date : 1 week?? Patient verbalizing understanding of instructions given. 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 Illness/Depression: No Coding Level of Care Code Est Patient Level 1 Diagnoses Current use of anticoagulant therapy Z79.01 Assessment & Plan Assessment & Plan (1) Current use of anticoagulant therapy: Code(s): Z79.01 - terminal carman (current) use of anticoagulants Category: Medical
== END 2024-02-16 12:16 | disposition home or self-care (01) ==
LOC: HO.ACS 11:21
PROVIDERS: PCP Family Medicine; Visit Provider Internal Medicine
DX: Z79.01 Long term (current) use of anticoagulants (principal)

== ENCOUNTER → 2024-02-16 11:21 | Outpatient (BNVA) | payer OTHER, SELFPAY | PROVIDERS: PCP Family Medicine; Visit Provider Internal Medicine | DX: Z95.2 Presence of prosthetic heart valve (principal); Z51.81 Encounter for therapeutic drug level monitoring; Z79.01 Long term (current) use of anticoagulants | CPT/HCPCS: 85610; 99211 ==

== ENCOUNTER 2024-02-23 10:17 | Outpatient (REF) | payer OTHER, SELFPAY ==
[2024-02-23 10:54] LABS: Prothrombin Time 60.3 SEC (11.1-13.3)
[2024-02-23 11:07] LABS: INTERNATIONAL NORM RATIO 4.9 (0.9-1.1)
== END 2024-02-23 10:18 | disposition home or self-care (01) ==
LOC: HO.LAB 10:17
PROVIDERS: PCP Family Medicine; Visit Provider Internal Medicine
DX: Z79.01 Long term (current) use of anticoagulants (principal)
CPT/HCPCS: 36415; 85610; 99211

== ENCOUNTER 2024-02-23 10:17 | Outpatient (AMB) | payer OTHER, SELFPAY ==
[2024-02-23 10:31] LABS: Prothrombin Time Whole Bld POC 63.9 sec (11.1-13.5); ~PT, ~INR - Anti Coag Clinic 5.3 (0.9-1.1)
--- NOTE | 2024-02-23 10:43 | MHC.OFFVISCO ---
Intake Intake Visit Reasons: Anticoagulation Allergies No Known Allergies Allergy (Verified 02/23/24 10:22) Medication List - Last Reconciled 02/23/24 by Gloria Villalobos RN acetaminophen 325 mg PO QID PRN allopurinol 150 mg (1/2 x 300 mg) PO DAILY amiodarone 200 mg PO BID aspirin 81 mg PO DAILY atorvastatin 20 mg PO DAILY dupilumab (Dupixent) mg subcut ferrous sulfate (FeroSul) 325 mg PO DAILY furosemide 20 mg PO DAILY metoprolol succinate ER mg PO omeprazole 20 mg PO DAILY sildenafil mg PO triamcinolone acetonide 0.1% 1 appl topical BID-TID warfarin 2 mg See Protocol PO DAILY Nursing Note INR >5.0 ON METER out of therapeutic range- SENT TO LAB FOR VERIFICATION, had other lab work at [facility] yesterday for procedure on 02/25/24 Medications and supplements reviewed Patient status: states feels fine, had chapped lip that bled few min when he pulled the piece of dried skin, he is to have a cardiac ablation 02/25/24 and INR is elevated, he completed antbx last week, plus amiodarone 11/2023 Medications or supplements: no other changes Diet: good Denies any signs and symptoms of bleeding or clotting or unusual bruising Bleeding, bruising, clotting discussed Nutritional guidance given: dark greens for lunch and dinner today and breakfast and lunch tomorrow and INR in afternoon Dose: hold warfarin F/U INR Date: tomorrow For any unusual bleeding or bruising or injury apply cold compress and go to ER especially if you bump your head ?? Patient verbalizing understanding of instructions given. 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 Illness/Depression: No Coding Level of Care Code Est Patient Level 1 Diagnoses Current use of anticoagulant therapy Z79.01 Assessment & Plan Assessment & Plan (1) Current use of anticoagulant therapy: Code(s): Z79.01 - long term care social worker (current) use of anticoagulants Category: Medical Orders: Orders Prothrombin Time INR Today Z79.01 - nursing home (current) use of anticoagulants
== END 2024-02-23 11:09 | disposition home or self-care (01) ==
LOC: HO.ACS 10:17
PROVIDERS: PCP Family Medicine; Visit Provider Internal Medicine
DX: Z79.01 Long term (current) use of anticoagulants (principal)

== ENCOUNTER 2024-02-24 13:54 | Outpatient (AMB) | payer OTHER, SELFPAY ==
[2024-02-24 14:15] LABS: Prothrombin Time Whole Bld POC 44.4 sec (11.1-13.5); ~PT, ~INR - Anti Coag Clinic 3.7 (0.9-1.1)
--- NOTE | 2024-02-24 14:25 | MHC.OFFVISCO ---
Intake Intake Visit Reasons: Anticoagulation Allergies No Known Allergies Allergy (Verified 02/24/24 14:10) Medication List - Last Reconciled 02/24/24 by Marcia De Leon RN acetaminophen 325 mg PO QID PRN allopurinol 150 mg (1/2 x 300 mg) PO DAILY amiodarone 200 mg PO BID aspirin 81 mg PO DAILY atorvastatin 20 mg PO DAILY dupilumab (Dupixent) mg subcut ferrous sulfate (FeroSul) 325 mg PO DAILY furosemide 20 mg PO DAILY metoprolol succinate ER mg PO omeprazole 20 mg PO DAILY sildenafil mg PO triamcinolone acetonide 0.1% 1 appl topical BID-TID warfarin 2 mg See Protocol PO DAILY Nursing Note PT.TO HAVE CARDIAC ABLATION TOMORROW(02/24) HOLD WARFARIN TODAY INR REPORTED TO [facility]) PER MD(CHON): PT.TO REPORT TO APPT. SCHEDULED ON 02/24 AND THEY WILL CHECK INR PRIOR TO PROCEDURE. PT.IS AWARE OF THE ABOVE. PT.DENIES ANY CP,SOB OR SX OF BLEEDING. AMIODARONE REMAINS AT 200MGM BID PT.TO RESUME WARFARIN AT USUAL DOSE WHEN DIRECTED BY MD AFTER PROCEDURE. PT.VERB.GOOD UNDERSTANDING OF DOSING INSTR. 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 Illness/Depression: No Coding Level of Care Code Est Patient Level 1 Diagnoses Current use of anticoagulant therapy Z79.01 Assessment & Plan Assessment & Plan (1) Current use of anticoagulant therapy: Code(s): Z79.01 - longterm (current) use of anticoagulants Category: Medical
== END 2024-02-24 15:44 | disposition home or self-care (01) ==
LOC: HO.ACS 13:54
PROVIDERS: PCP Family Medicine; Visit Provider Internal Medicine
DX: Z79.01 Long term (current) use of anticoagulants (principal)

== ENCOUNTER → 2024-02-24 13:54 | Outpatient (BNVA) | payer OTHER, SELFPAY | PROVIDERS: PCP Family Medicine; Visit Provider Internal Medicine | DX: Z95.2 Presence of prosthetic heart valve (principal); Z51.81 Encounter for therapeutic drug level monitoring; Z79.01 Long term (current) use of anticoagulants | CPT/HCPCS: 85610; 99211 ==

== ENCOUNTER 2024-03-02 10:12 | Outpatient (AMB) | payer OTHER, SELFPAY ==
--- NOTE | 2024-03-02 10:44 | MHC.OFFVISCO ---
Intake Intake Visit Reasons: Anticoagulation Allergies No Known Allergies Allergy (Verified 03/02/24 10:40) Medication List - Last Reconciled 03/02/24 by Lilian Qureshi RN acetaminophen 325 mg PO QID PRN allopurinol 150 mg (1/2 x 300 mg) PO DAILY amiodarone 200 mg PO BID aspirin 81 mg PO DAILY atorvastatin 20 mg PO DAILY dupilumab (Dupixent) mg subcut ferrous sulfate (FeroSul) 325 mg PO DAILY furosemide 20 mg PO DAILY metoprolol succinate ER mg PO omeprazole 20 mg PO DAILY sildenafil mg PO tamsulosin 0.4 mg PO BEDTIME triamcinolone acetonide 0.1% 1 appl topical BID-TID warfarin 2 mg See Protocol PO DAILY Nursing Note INR3.4-?? out of therapeutic range of 2-3 Medications and supplements reviewed Patient status: s/p ablation on 02/25/24, held warfarin 2 days prior and states took 1.5mg on 02/25/24 pt states inr 2.5 day of discharge [facility] pt had to stay overnight at [facility] after ablation/general anestesia due to urinary retention, now on tamsulosin and voiding pt c.o shortness breath with walking- has appt with pcp today and will discuss Medications or supplements: tamsulosin 0.4mg daily- no interaction with warfarin per [facility] Diet: same Denies any signs and symptoms of bleeding or clotting or unusual bruising Bleeding, bruising, clotting discussed - pt with bruising upper extrem and groin from hospitalization Nutritional guidance given: eat greens to lower Dose: 1mg today then cont reg 3mg x 2, 2mg x 5 F/U INR Date : 1 week? Patient verbalizing understanding of instructions given. 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 Illness/Depression: No Coding Level of Care Code Est Patient Level 1 Diagnoses Current use of anticoagulant therapy Z79.01 Assessment & Plan Assessment & Plan (1) Current use of anticoagulant therapy: Code(s): Z79.01 - custodial (current) use of anticoagulants Category: Medical
[2024-03-02 10:46] LABS: Prothrombin Time Whole Bld POC 40.4 sec (11.1-13.5); ~PT, ~INR - Anti Coag Clinic 3.4 (0.9-1.1)
== END 2024-03-02 10:57 | disposition home or self-care (01) ==
LOC: HO.ACS 10:12
PROVIDERS: PCP Family Medicine; Visit Provider Internal Medicine
DX: Z79.01 Long term (current) use of anticoagulants (principal)

== ENCOUNTER → 2024-03-02 10:12 | Outpatient (BNVA) | payer OTHER, SELFPAY | PROVIDERS: PCP Family Medicine; Visit Provider Internal Medicine | DX: Z95.2 Presence of prosthetic heart valve (principal); Z51.81 Encounter for therapeutic drug level monitoring; Z79.01 Long term (current) use of anticoagulants | CPT/HCPCS: 85610; 99211 ==

== ENCOUNTER 2024-03-09 10:10 | Outpatient (AMB) | payer OTHER, SELFPAY ==
[2024-03-09 10:29] LABS: Prothrombin Time Whole Bld POC 45.2 sec (11.1-13.5); ~PT, ~INR - Anti Coag Clinic 3.8 (0.9-1.1)
--- NOTE | 2024-03-09 10:40 | MHC.OFFVISCO ---
Intake Intake Visit Reasons: Anticoagulation Allergies No Known Allergies Allergy (Verified 03/09/24 10:22) Medication List - Last Reconciled 03/09/24 by Marcia De Leon RN acetaminophen 325 mg PO QID PRN allopurinol 150 mg (1/2 x 300 mg) PO DAILY amiodarone 200 mg PO BID aspirin 81 mg PO DAILY atorvastatin 20 mg PO DAILY dupilumab (Dupixent) mg subcut ferrous sulfate (FeroSul) 325 mg PO DAILY furosemide 20 mg PO DAILY metoprolol succinate ER mg PO omeprazole 20 mg PO DAILY sildenafil mg PO tamsulosin 0.4 mg PO BEDTIME triamcinolone acetonide 0.1% 1 appl topical BID-TID warfarin 2 mg See Protocol PO DAILY Nursing Note PT.HAS NOTED BILAT.ANKLE EDEMA. PT.AGREES TO ADDRESS THIS WITH MD ON 03/14 AT SCHEDULED APPT. HE DENIES ANY CP,SOB OR SX OF BLEEDING. NO MEDICATION CHANGES. IN MEANTIME WILL HOLD WARFARIN TODAY THEN REDUCE WEEKLY DOSE AND FOLLOW-UP IN 1 WEEK. [place] TODAY AND 2-3X WEEKLY GOOD UNDERSTANDING OF DOSING INSTR.VERB. 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
== END 2024-03-09 10:44 | disposition home or self-care (01) ==
LOC: HO.ACS 10:10
PROVIDERS: PCP Family Medicine; Visit Provider Internal Medicine
DX: Z79.01 Long term (current) use of anticoagulants (principal)

== ENCOUNTER → 2024-03-09 10:10 | Outpatient (BNVA) | payer OTHER, SELFPAY | PROVIDERS: PCP Family Medicine; Visit Provider Internal Medicine | DX: Z95.2 Presence of prosthetic heart valve (principal); Z51.81 Encounter for therapeutic drug level monitoring; Z79.01 Long term (current) use of anticoagulants | CPT/HCPCS: 85610; 99211 ==

== ENCOUNTER 2024-03-16 14:58 | Outpatient (AMB) | payer OTHER, SELFPAY ==
[2024-03-16 15:12] LABS: Prothrombin Time Whole Bld POC 44.3 sec (11.1-13.5); ~PT, ~INR - Anti Coag Clinic 3.7 (0.9-1.1)
--- NOTE | 2024-03-16 15:20 | MHC.OFFVISCO ---
Intake Intake Visit Reasons: Anticoagulation Allergies No Known Allergies Allergy (Verified 03/16/24 15:05) Medication List - Last Reconciled 03/16/24 by Marcia De Leon RN acetaminophen 325 mg PO QID PRN allopurinol 150 mg (1/2 x 300 mg) PO DAILY amiodarone 200 mg PO BID aspirin 81 mg PO DAILY atorvastatin 20 mg PO DAILY dupilumab (Dupixent) mg subcut ferrous sulfate (FeroSul) 325 mg PO DAILY furosemide 20 mg PO DAILY metoprolol succinate ER mg PO omeprazole 20 mg PO DAILY sildenafil mg PO tamsulosin 0.4 mg PO BEDTIME triamcinolone acetonide 0.1% 1 appl topical BID-TID warfarin 2 mg See Protocol PO DAILY Nursing Note NO CP,SOB,DIET CHNAGES,FALLS OR SX OF BLEEDING. PT.STATES THAT HE WILL BE STARTING A HIGHER DOSE OF WARFARIN DUE TO ANKLE EDEMA. HE WILL INFORM OF DOSE AT NEXT [facility] VISIT. WILL TRY TEDS FOR EDEMA. PT.STATES THAT HE FEELS MUCH BETTER AND HAS PLAYED GOLF X2 THIS WEEK. HOLD WARFARIN TODAY THEN REDUCE WEEKLY DOSE AND FOLLOW-UP IN 1 WEEK. GOOD UNDERSTANDING VERB. 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 Illness/Depression: No Coding Level of Care Code Est Patient Level 1 Diagnoses Current use of anticoagulant therapy Z79.01 Assessment & Plan Assessment & Plan (1) Current use of anticoagulant therapy: Code(s): Z79.01 - custodial (current) use of anticoagulants Category: Medical
== END 2024-03-16 15:28 | disposition home or self-care (01) ==
LOC: HO.ACS 14:58
PROVIDERS: PCP Family Medicine; Visit Provider Internal Medicine
DX: Z79.01 Long term (current) use of anticoagulants (principal)

== ENCOUNTER → 2024-03-16 14:58 | Outpatient (BNVA) | payer OTHER, SELFPAY | PROVIDERS: PCP Family Medicine; Visit Provider Internal Medicine | DX: Z95.2 Presence of prosthetic heart valve (principal); Z51.81 Encounter for therapeutic drug level monitoring; Z79.01 Long term (current) use of anticoagulants | CPT/HCPCS: 85610; 99211 ==

== ENCOUNTER 2024-03-23 09:27 | Outpatient (AMB) | payer OTHER, SELFPAY ==
[2024-03-23 09:41] LABS: ~PT, ~INR - Anti Coag Clinic 4.3 (0.9-1.1)
--- NOTE | 2024-03-23 09:51 | MHC.OFFVISCO ---
Intake Intake Visit Reasons: Anticoagulation Allergies No Known Allergies Allergy (Verified 03/23/24 09:34) Medication List - Last Reconciled 03/23/24 by Gloria Villalobos RN acetaminophen 325 mg PO QID PRN allopurinol 150 mg (1/2 x 300 mg) PO DAILY amiodarone 200 mg PO BID aspirin 81 mg PO DAILY atorvastatin 20 mg PO DAILY dupilumab (Dupixent) mg subcut ferrous sulfate (FeroSul) 325 mg PO DAILY furosemide 60mg orally daily; metoprolol succinate ER mg PO omeprazole 20 mg PO DAILY sildenafil mg PO tamsulosin 0.4 mg PO BEDTIME triamcinolone acetonide 0.1% 1 appl topical BID-TID warfarin 2 mg See Protocol PO DAILY Nursing Note INR: 4.3 in therapeutic range Medications and supplements reviewed Furosemide increased to 60mg daily, edema gone, played golf yesterday Denies any signs and symptoms of bleeding or bruising or clotting. 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 Illness/Depression: No Coding Level of Care Code Est Patient Level 1 Diagnoses Current use of anticoagulant therapy Z79.01 Results AMB INR Fingerstick AMB INR Fingerstick 4.3 Last Edit by Gloria Villalobos RN on 03/23/24 09:41 manual entry Assessment & Plan Assessment & Plan (1) Current use of anticoagulant therapy: Code(s): Z79.01 - [facility] (current) use of anticoagulants Category: Medical
== END 2024-03-23 09:56 | disposition home or self-care (01) ==
LOC: HO.ACS 09:27
PROVIDERS: PCP Family Medicine; Visit Provider Internal Medicine
DX: Z79.01 Long term (current) use of anticoagulants (principal)

== ENCOUNTER → 2024-03-23 09:27 | Outpatient (BNVA) | payer OTHER, SELFPAY | PROVIDERS: PCP Family Medicine; Visit Provider Internal Medicine | DX: Z95.2 Presence of prosthetic heart valve (principal); Z51.81 Encounter for therapeutic drug level monitoring; Z79.01 Long term (current) use of anticoagulants | CPT/HCPCS: 85610; 99211 ==

== ENCOUNTER 2024-03-28 09:38 | Outpatient (AMB) | payer OTHER, SELFPAY ==
[2024-03-28 09:43] LABS: Prothrombin Time Whole Bld POC 33.4 sec (11.1-13.5); ~PT, ~INR - Anti Coag Clinic 2.8 (0.9-1.1)
--- NOTE | 2024-03-28 09:52 | MHC.OFFVISCO ---
Intake Intake Visit Reasons: Anticoagulation Allergies No Known Allergies Allergy (Verified 03/28/24 09:39) Medication List - Last Reconciled 03/28/24 by Fariha Barron, RN acetaminophen 325 mg PO QID PRN allopurinol 150 mg (1/2 x 300 mg) PO DAILY amiodarone 200 mg PO BID aspirin 81 mg PO DAILY atorvastatin 20 mg PO DAILY dupilumab (Dupixent) mg subcut ferrous sulfate (FeroSul) 325 mg PO DAILY furosemide 60mg orally daily; metoprolol succinate ER mg PO omeprazole 20 mg PO DAILY sildenafil mg PO tamsulosin 0.4 mg PO BEDTIME triamcinolone acetonide 0.1% 1 appl topical BID-TID warfarin 2 mg See Protocol PO DAILY Nursing Note INR: 2.8 in therapeutic range of 2-3 Medications and supplements reviewed No changes in health, diet, medications, or supplements, Denies any signs and symptoms of bleeding or bruising or clotting. 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 Illness/Depression: No Coding Level of Care Code Est Patient Level 1 Diagnoses Current use of anticoagulant therapy Z79.01 Assessment & Plan Assessment & Plan (1) Current use of anticoagulant therapy: Code(s): Z79.01 - long-term (current) use of anticoagulants Category: Medical
== END 2024-03-28 09:57 | disposition home or self-care (01) ==
LOC: HO.ACS 09:38
PROVIDERS: PCP Family Medicine; Visit Provider Internal Medicine
DX: Z79.01 Long term (current) use of anticoagulants (principal)

== ENCOUNTER → 2024-03-28 09:38 | Outpatient (BNVA) | payer OTHER, SELFPAY | PROVIDERS: PCP Family Medicine; Visit Provider Internal Medicine | DX: Z95.2 Presence of prosthetic heart valve (principal); Z51.81 Encounter for therapeutic drug level monitoring; Z79.01 Long term (current) use of anticoagulants | CPT/HCPCS: 85610; 99211 ==

== ENCOUNTER 2024-04-05 10:11 | Outpatient (AMB) | payer OTHER, SELFPAY ==
[2024-04-05 10:25] LABS: Prothrombin Time Whole Bld POC 32.5 sec (11.1-13.5); ~PT, ~INR - Anti Coag Clinic 2.7 (0.9-1.1)
--- NOTE | 2024-04-05 10:31 | MHC.OFFVISCO ---
Intake Intake Visit Reasons: Anticoagulation Allergies No Known Allergies Allergy (Verified 04/05/24 10:19) Medication List - Last Reconciled 04/05/24 by Fariha Barron, RN acetaminophen 325 mg PO QID PRN allopurinol 150 mg (1/2 x 300 mg) PO DAILY amiodarone 200 mg PO BID aspirin 81 mg PO DAILY atorvastatin 20 mg PO DAILY dupilumab (Dupixent) mg subcut ferrous sulfate (FeroSul) 325 mg PO DAILY furosemide 60mg orally daily; metoprolol succinate ER mg PO omeprazole 20 mg PO DAILY sildenafil mg PO tamsulosin 0.4 mg PO BEDTIME triamcinolone acetonide 0.1% 1 appl topical BID-TID warfarin 2 mg See Protocol PO DAILY Nursing Note INR: 2.7 in therapeutic range of 2-3 Medications and supplements reviewed No changes in health, diet, medications, or supplements, Denies any signs and symptoms of bleeding or bruising or clotting. 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 Illness/Depression: No Coding Level of Care Code Est Patient Level 1 Diagnoses Current use of anticoagulant therapy Z79.01 Assessment & Plan Assessment & Plan (1) Current use of anticoagulant therapy: Code(s): Z79.01 - terminal manager (current) use of anticoagulants Category: Medical
== END 2024-04-05 10:35 | disposition home or self-care (01) ==
LOC: HO.ACS 10:11
PROVIDERS: PCP Family Medicine; Visit Provider Internal Medicine
DX: Z79.01 Long term (current) use of anticoagulants (principal)

== ENCOUNTER → 2024-04-05 10:11 | Outpatient (BNVA) | payer OTHER, SELFPAY | PROVIDERS: PCP Family Medicine; Visit Provider Internal Medicine | DX: Z95.2 Presence of prosthetic heart valve (principal); Z51.81 Encounter for therapeutic drug level monitoring; Z79.01 Long term (current) use of anticoagulants | CPT/HCPCS: 85610; 99211 ==

== ENCOUNTER 2024-04-12 10:08 | Outpatient (AMB) | payer OTHER, SELFPAY ==
[2024-04-12 10:15] LABS: Prothrombin Time Whole Bld POC 45.8 sec (11.1-13.5); ~PT, ~INR - Anti Coag Clinic 3.8 (0.9-1.1)
--- NOTE | 2024-04-12 10:17 | MHC.OFFVISCO ---
Intake Intake Visit Reasons: Anticoagulation Allergies No Known Allergies Allergy (Verified 04/12/24 10:09) Medication List - Last Reconciled 04/12/24 by Lilian Qureshi RN acetaminophen 325 mg PO QID PRN allopurinol 150 mg (1/2 x 300 mg) PO DAILY amiodarone 100 mg PO DAILY aspirin 81 mg PO DAILY atorvastatin 20 mg PO DAILY dupilumab (Dupixent) mg subcut ferrous sulfate (FeroSul) 325 mg PO DAILY furosemide 60mg orally daily; metoprolol succinate ER mg PO omeprazole 20 mg PO DAILY sildenafil mg PO tamsulosin 0.4 mg PO BEDTIME triamcinolone acetonide 0.1% 1 appl topical BID-TID warfarin 2 mg See Protocol PO DAILY Nursing Note INR 3.8-?? out of therapeutic range of 2-3 Medications and supplements reviewed Patient status: pt saw measurer machine yesterday- le edema discussed Medications or supplements: amiodarone reduced to 100mg daily, furosemide increased to 60mg bid Diet: fair Denies any signs and symptoms of bleeding or clotting or unusual bruising Bleeding, bruising, clotting discussed Nutritional guidance given: eat greens today, no reds for 2 days Dose: hold today then cont reg 1mg x 2, 2mg x 5 F/U INR Date : 1 week? Patient verbalizing understanding of instructions given pt with c.o constipation. 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 Illness/Depression: No Coding Level of Care Code Est Patient Level 1 Diagnoses Current use of anticoagulant therapy Z79.01 Assessment & Plan Assessment & Plan (1) Current use of anticoagulant therapy: Code(s): Z79.01 - longterm (current) use of anticoagulants Category: Medical Medications: Changed From furosemide 60mg orally daily; To furosemide 60 mg PO BID
== END 2024-04-12 10:29 | disposition home or self-care (01) ==
LOC: HO.ACS 10:08
PROVIDERS: PCP Family Medicine; Visit Provider Internal Medicine
DX: Z79.01 Long term (current) use of anticoagulants (principal)

== ENCOUNTER → 2024-04-12 10:08 | Outpatient (BNVA) | payer OTHER, SELFPAY | PROVIDERS: PCP Family Medicine; Visit Provider Internal Medicine | DX: Z95.2 Presence of prosthetic heart valve (principal); Z51.81 Encounter for therapeutic drug level monitoring; Z79.01 Long term (current) use of anticoagulants | CPT/HCPCS: 85610; 99211 ==

== ENCOUNTER 2024-04-20 10:13 | Outpatient (AMB) | payer OTHER, SELFPAY ==
[2024-04-20 10:27] LABS: Prothrombin Time Whole Bld POC 31.3 sec (11.1-13.5); ~PT, ~INR - Anti Coag Clinic 2.6 (0.9-1.1)
--- NOTE | 2024-04-20 10:34 | MHC.OFFVISCO ---
Intake Intake Visit Reasons: Anticoagulation Allergies No Known Allergies Allergy (Verified 04/20/24 10:18) Medication List - Last Reconciled 04/20/24 by Marcia De Leon RN acetaminophen 325 mg PO QID PRN allopurinol 150 mg (1/2 x 300 mg) PO DAILY amiodarone 100 mg PO DAILY aspirin 81 mg PO DAILY atorvastatin 20 mg PO DAILY dupilumab (Dupixent) mg subcut ferrous sulfate (FeroSul) 325 mg PO DAILY furosemide 60 mg PO BID metoprolol succinate ER mg PO omeprazole 20 mg PO DAILY sildenafil mg PO tamsulosin 0.4 mg PO BEDTIME triamcinolone acetonide 0.1% 1 appl topical BID-TID warfarin 2 mg See Protocol PO DAILY Nursing Note NO CP,SOB,DIET/MED CHANGES,FALLS OR SX OF BLEEDING. PT.NOTES LESS EDEMA IN LEGS SINCE MED CHANGES LAST WEEK. CONTINUE PRESENT WARFARIN DOSE AND FOLLOW-UP IN 1 WEEK GOOD UNDERSTANDING OF DOSING INSTR. 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 Illness/Depression: No Coding Level of Care Code Est Patient Level 1 Diagnoses Current use of anticoagulant therapy Z79.01 Assessment & Plan Assessment & Plan (1) Current use of anticoagulant therapy: Code(s): Z79.01 - snf (current) use of anticoagulants Category: Medical
== END 2024-04-20 10:37 | disposition home or self-care (01) ==
LOC: HO.ACS 10:13
PROVIDERS: PCP Family Medicine; Visit Provider Internal Medicine
DX: Z79.01 Long term (current) use of anticoagulants (principal)

== ENCOUNTER → 2024-04-20 10:13 | Outpatient (BNVA) | payer OTHER, SELFPAY | PROVIDERS: PCP Family Medicine; Visit Provider Internal Medicine | DX: Z95.2 Presence of prosthetic heart valve (principal); Z51.81 Encounter for therapeutic drug level monitoring; Z79.01 Long term (current) use of anticoagulants | CPT/HCPCS: 85610; 99211 ==

== ENCOUNTER 2024-04-27 10:03 | Outpatient (AMB) | payer OTHER, SELFPAY ==
[2024-04-27 10:24] LABS: Prothrombin Time Whole Bld POC 26.1 sec (11.1-13.5); ~PT, ~INR - Anti Coag Clinic 2.2 (0.9-1.1)
--- NOTE | 2024-04-27 10:31 | MHC.OFFVISCO ---
Intake Intake Visit Reasons: Anticoagulation Allergies No Known Allergies Allergy (Verified 04/27/24 10:17) Medication List - Last Reconciled 04/27/24 by Fariha Barron RN acetaminophen 325 mg PO QID PRN allopurinol 150 mg (1/2 x 300 mg) PO DAILY amiodarone 100 mg PO DAILY aspirin 81 mg PO DAILY atorvastatin 20 mg PO DAILY dupilumab (Dupixent) mg subcut ferrous sulfate (FeroSul) 325 mg PO DAILY furosemide 60 mg PO BID metoprolol succinate ER mg PO omeprazole 20 mg PO DAILY sildenafil mg PO tamsulosin 0.4 mg PO BEDTIME triamcinolone acetonide 0.1% 1 appl topical BID-TID warfarin 2 mg See Protocol PO DAILY Nursing Note INR: 2.2 in therapeutic range of 2-3 Medications and supplements reviewed No changes in health, diet, medications, or supplements, Denies any signs and symptoms of bleeding or bruising or clotting. Bleeding, bruising, clotting discussed Nutritional guidance given to avoid greens today. Amiodarone dose was decreased in March and INR could go down. Pt to have a serving of foods from the list that raises the INR. Food list reviewed. 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
== END 2024-04-27 10:34 | disposition home or self-care (01) ==
LOC: HO.ACS 10:03
PROVIDERS: PCP Family Medicine; Visit Provider Internal Medicine
DX: Z79.01 Long term (current) use of anticoagulants (principal)

== ENCOUNTER → 2024-04-27 10:03 | Outpatient (BNVA) | payer OTHER, SELFPAY | PROVIDERS: PCP Family Medicine; Visit Provider Internal Medicine | DX: Z95.2 Presence of prosthetic heart valve (principal); Z51.81 Encounter for therapeutic drug level monitoring; Z79.01 Long term (current) use of anticoagulants | CPT/HCPCS: 85610; 99211 ==

== ENCOUNTER 2024-05-04 10:23 | Outpatient (AMB) | payer OTHER, SELFPAY ==
--- NOTE | 2024-05-04 10:49 | MHC.OFFVISCO ---
Intake Intake Visit Reasons: Anticoagulation Allergies No Known Allergies Allergy (Verified 05/04/24 10:45) Medication List - Last Reconciled 05/04/24 by Lilian Qureshi RN acetaminophen 325 mg PO QID PRN allopurinol 150 mg (1/2 x 300 mg) PO DAILY amiodarone 100 mg PO DAILY aspirin 81 mg PO DAILY atorvastatin 20 mg PO DAILY dupilumab (Dupixent) mg subcut ferrous sulfate (FeroSul) 325 mg PO DAILY furosemide 60 mg PO BID metoprolol succinate ER mg PO omeprazole 20 mg PO DAILY sildenafil mg PO tamsulosin 0.4 mg PO BEDTIME triamcinolone acetonide 0.1% 1 appl topical BID-TID warfarin 2 mg See Protocol PO DAILY Nursing Note INR: 2.9- in therapeutic range of 2-3 Medications and supplements reviewed No changes in health, diet, medications, or supplements, Denies any signs and symptoms of bleeding or bruising or clotting. 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 Illness/Depression: No Coding Level of Care Code Est Patient Level 1 Diagnoses Current use of anticoagulant therapy Z79.01 Results AMB INR Fingerstick AMB INR Fingerstick 2.9 Last Edit by Lilian Qureshi RN on 05/04/24 10:51 Assessment & Plan Assessment & Plan (1) Current use of anticoagulant therapy: Code(s): Z79.01 - USP (current) use of anticoagulants Category: Medical
[2024-05-05 09:49] LABS: Prothrombin Time Whole Bld POC 34.6 sec (11.1-13.5); ~PT, ~INR - Anti Coag Clinic 2.9 (0.9-1.1)
== END 2024-05-04 11:18 | disposition home or self-care (01) ==
LOC: HO.ACS 10:23
PROVIDERS: PCP Family Medicine; Visit Provider Internal Medicine
DX: Z79.01 Long term (current) use of anticoagulants (principal)

== ENCOUNTER → 2024-05-04 10:23 | Outpatient (BNVA) | payer OTHER, SELFPAY | PROVIDERS: PCP Family Medicine; Visit Provider Internal Medicine | DX: Z95.2 Presence of prosthetic heart valve (principal); Z51.81 Encounter for therapeutic drug level monitoring; Z79.01 Long term (current) use of anticoagulants | CPT/HCPCS: 85610; 99211 ==

== ENCOUNTER 2024-05-18 10:29 | Outpatient (AMB) | payer OTHER, SELFPAY ==
[2024-05-18 10:44] LABS: Prothrombin Time Whole Bld POC 32.2 sec (11.1-13.5); ~PT, ~INR - Anti Coag Clinic 2.7 (0.9-1.1)
--- NOTE | 2024-05-18 10:54 | MHC.OFFVISCO ---
Intake Intake Visit Reasons: Anticoagulation Allergies No Known Allergies Allergy (Verified 05/18/24 10:39) Medication List - Last Reconciled 05/18/24 by Marcia De Leon RN acetaminophen 325 mg PO QID PRN allopurinol 150 mg (1/2 x 300 mg) PO DAILY amiodarone 100 mg PO DAILY aspirin 81 mg PO DAILY atorvastatin 20 mg PO DAILY dupilumab (Dupixent) mg subcut ferrous sulfate (FeroSul) 325 mg PO DAILY furosemide 60 mg PO BID metoprolol succinate ER mg PO omeprazole 20 mg PO DAILY sildenafil mg PO tamsulosin 0.4 mg PO BEDTIME triamcinolone acetonide 0.1% 1 appl topical BID-TID warfarin 2 mg See Protocol PO DAILY Nursing Note NO CP,SOB,DIET/MED CHANGES,FALLS OR SX OF BLEEDING. CONTINUE PRESENT DOSE AND FOLLOW-UP IN 3 WQEEKS. GOOD UNDERSTANDING OF DOSING INSTR. 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
== END 2024-05-18 10:56 | disposition home or self-care (01) ==
LOC: HO.ACS 10:29
PROVIDERS: PCP Family Medicine; Visit Provider Internal Medicine
DX: Z79.01 Long term (current) use of anticoagulants (principal)

== ENCOUNTER → 2024-05-18 10:29 | Outpatient (BNVA) | payer OTHER, SELFPAY | PROVIDERS: PCP Family Medicine; Visit Provider Internal Medicine | DX: Z95.2 Presence of prosthetic heart valve (principal); Z79.01 Long term (current) use of anticoagulants; Z51.81 Encounter for therapeutic drug level monitoring | CPT/HCPCS: 85610; 99211 ==

== ENCOUNTER 2024-06-08 10:29 | Outpatient (AMB) | payer OTHER, SELFPAY ==
--- NOTE | 2024-06-08 10:44 | MHC.OFFVISCO ---
Intake Intake Visit Reasons: Anticoagulation Allergies No Known Allergies Allergy (Verified 06/08/24 10:38) Medication List - Last Reconciled 06/08/24 by Lilian Qureshi RN acetaminophen 325 mg PO QID PRN allopurinol 150 mg (1/2 x 300 mg) PO DAILY amiodarone 100 mg PO DAILY aspirin 81 mg PO DAILY atorvastatin 20 mg PO DAILY dupilumab (Dupixent) mg subcut ferrous sulfate (FeroSul) 325 mg PO DAILY furosemide 60 mg PO BID metoprolol succinate ER mg PO omeprazole 20 mg PO DAILY sildenafil mg PO tamsulosin 0.4 mg PO BEDTIME triamcinolone acetonide 0.1% 1 appl topical BID-TID warfarin 2 mg See Protocol PO DAILY Nursing Note INR: 2.7- in therapeutic range of 2-3 Medications and supplements reviewed No changes in health, diet, medications, or supplements, Denies any signs and symptoms of bleeding or bruising or clotting. 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 Illness/Depression: No Coding Level of Care Code Est Patient Level 1 Diagnoses Current use of anticoagulant therapy Z79.01 Assessment & Plan Assessment & Plan (1) Current use of anticoagulant therapy: Code(s): Z79.01 - terminologist (current) use of anticoagulants Category: Medical
[2024-06-08 10:45] LABS: Prothrombin Time Whole Bld POC 32.2 sec (11.1-13.5); ~PT, ~INR - Anti Coag Clinic 2.7 (0.9-1.1)
== END 2024-06-08 10:50 | disposition home or self-care (01) ==
LOC: HO.ACS 10:29
PROVIDERS: PCP Family Medicine; Visit Provider Internal Medicine
DX: Z79.01 Long term (current) use of anticoagulants (principal)

== ENCOUNTER → 2024-06-08 10:29 | Outpatient (BNVA) | payer OTHER, SELFPAY | PROVIDERS: PCP Family Medicine; Visit Provider Internal Medicine | DX: Z95.2 Presence of prosthetic heart valve (principal); Z79.01 Long term (current) use of anticoagulants; Z51.81 Encounter for therapeutic drug level monitoring | CPT/HCPCS: 85610; 99211 ==

== ENCOUNTER 2024-06-29 10:04 | Outpatient (AMB) | payer OTHER, SELFPAY ==
--- NOTE | 2024-06-29 10:10 | MHC.OFFVISCO ---
Intake Intake Visit Reasons: Anticoagulation Allergies No Known Allergies Allergy (Verified 06/29/24 10:06) Medication List - Last Reconciled 06/29/24 by Lilian Qureshi RN acetaminophen 325 mg PO QID PRN allopurinol 150 mg (1/2 x 300 mg) PO DAILY aspirin 81 mg PO DAILY atorvastatin 20 mg PO DAILY dupilumab (Dupixent) mg subcut ferrous sulfate (FeroSul) 325 mg PO DAILY furosemide 60 mg PO BID metoprolol succinate ER mg PO omeprazole 20 mg PO DAILY sildenafil mg PO tamsulosin 0.4 mg PO BEDTIME triamcinolone acetonide 0.1% 1 appl topical BID-TID warfarin 2 mg See Protocol PO DAILY Nursing Note INR 1.6-?? out of therapeutic range of 2-3 Medications and supplements reviewed Patient status: pt with c.o weakness and fatigue and sob, pt states has anemia amb with cane, wears compression stockings has had cxr. 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 pt req 07/05/24 Patient verbalizing understanding of instructions given. 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 Illness/Depression: No Coding Level of Care Code Est Patient Level 1 Diagnoses Current use of anticoagulant therapy Z79.01 Assessment & Plan Assessment & Plan (1) Current use of anticoagulant therapy: Code(s): Z79.01 - detention (current) use of anticoagulants Category: Medical
[2024-06-29 10:11] LABS: Prothrombin Time Whole Bld POC 18.7 sec (11.1-13.5); ~PT, ~INR - Anti Coag Clinic 1.6 (0.9-1.1)
== END 2024-06-29 10:20 | disposition home or self-care (01) ==
LOC: HO.ACS 10:04
PROVIDERS: PCP Family Medicine; Visit Provider Internal Medicine
DX: Z79.01 Long term (current) use of anticoagulants (principal)

== ENCOUNTER → 2024-06-29 10:04 | Outpatient (BNVA) | payer OTHER, SELFPAY | PROVIDERS: PCP Family Medicine; Visit Provider Internal Medicine | DX: Z95.2 Presence of prosthetic heart valve (principal); Z79.01 Long term (current) use of anticoagulants; Z51.81 Encounter for therapeutic drug level monitoring | CPT/HCPCS: 85610; 99211 ==

== ENCOUNTER 2024-07-04 10:34 | Outpatient (AMB) | payer OTHER, SELFPAY ==
--- NOTE | 2024-07-04 10:54 | MHC.OFFVISCO ---
Intake Intake Visit Reasons: Anticoagulation Allergies No Known Allergies Allergy (Verified 07/04/24 10:50) Medication List - Last Reconciled 07/04/24 by Lilian Qureshi RN acetaminophen 325 mg PO QID PRN allopurinol 150 mg (1/2 x 300 mg) PO DAILY aspirin 81 mg PO DAILY atorvastatin 20 mg PO DAILY dupilumab (Dupixent) mg subcut ferrous sulfate (FeroSul) 325 mg PO DAILY furosemide 60 mg PO BID metoprolol succinate ER mg PO omeprazole 20 mg PO DAILY sildenafil mg PO tamsulosin 0.4 mg PO BEDTIME triamcinolone acetonide 0.1% 1 appl topical BID-TID warfarin 2 mg See Protocol PO DAILY Nursing Note INR: 2.3- in therapeutic range of 2-3 Medications and supplements reviewed- recent d/c amiodarone No changes in health, diet, medications, or supplements, Denies any signs and symptoms of bleeding or bruising or clotting. 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
[2024-07-04 10:55] LABS: Prothrombin Time Whole Bld POC 27.7 sec (11.1-13.5); ~PT, ~INR - Anti Coag Clinic 2.3 (0.9-1.1)
== END 2024-07-04 11:35 | disposition home or self-care (01) ==
LOC: HO.ACS 10:34
PROVIDERS: PCP Family Medicine; Visit Provider Internal Medicine
DX: Z79.01 Long term (current) use of anticoagulants (principal)

== ENCOUNTER → 2024-07-04 10:34 | Outpatient (BNVA) | payer OTHER, SELFPAY | PROVIDERS: PCP Family Medicine; Visit Provider Internal Medicine | DX: Z95.2 Presence of prosthetic heart valve (principal); Z79.01 Long term (current) use of anticoagulants; Z51.81 Encounter for therapeutic drug level monitoring | CPT/HCPCS: 85610; 99211 ==

== ENCOUNTER 2024-07-11 11:08 | Outpatient (AMB) | payer OTHER, SELFPAY ==
[2024-07-11 11:18] LABS: Prothrombin Time Whole Bld POC 28.5 sec (11.1-13.5); ~PT, ~INR - Anti Coag Clinic 2.4 (0.9-1.1)
--- NOTE | 2024-07-11 11:28 | MHC.OFFVISCO ---
Intake Intake Visit Reasons: Anticoagulation Allergies No Known Allergies Allergy (Verified 07/11/24 11:10) Medication List - Last Reconciled 07/11/24 by Fariha Barron RN acetaminophen 325 mg PO QID PRN allopurinol 150 mg (1/2 x 300 mg) PO DAILY aspirin 81 mg PO DAILY atorvastatin 20 mg PO DAILY dupilumab (Dupixent) mg subcut ferrous sulfate (FeroSul) 325 mg PO DAILY furosemide 60 mg PO BID metoprolol succinate ER mg PO omeprazole 20 mg PO DAILY sildenafil mg PO tamsulosin 0.4 mg PO BEDTIME triamcinolone acetonide 0.1% 1 appl topical BID-TID warfarin 2 mg See Protocol PO DAILY Nursing Note INR: 2.4 in therapeutic range of 2-3 Medications and supplements reviewed. Pt states he feels great but he has weakness. He has received 3 doses of im B12. States iron level was good but B12 was low. States he has difficulty getting out of a sitting position and difficulty with stairs due to weakness. No changes in health, diet, medications, or supplements, Denies any signs and symptoms of bleeding or bruising or clotting. 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 Illness/Depression: No Coding Level of Care Code Est Patient Level 1 Diagnoses Current use of anticoagulant therapy Z79.01 Results AMB INR Fingerstick AMB INR Fingerstick 2.4 Last Edit by Fariha Barron RN on 07/11/24 11:19 interface delay Assessment & Plan Assessment & Plan (1) Current use of anticoagulant therapy: Code(s): Z79.01 - [facility] (current) use of anticoagulants Category: Medical
== END 2024-07-11 11:39 | disposition home or self-care (01) ==
LOC: HO.ACS 11:08
PROVIDERS: PCP Family Medicine; Visit Provider Internal Medicine
DX: Z79.01 Long term (current) use of anticoagulants (principal)

== ENCOUNTER → 2024-07-11 11:08 | Outpatient (BNVA) | payer OTHER, SELFPAY | PROVIDERS: PCP Family Medicine; Visit Provider Internal Medicine | DX: Z95.2 Presence of prosthetic heart valve (principal); Z79.01 Long term (current) use of anticoagulants; Z51.81 Encounter for therapeutic drug level monitoring | CPT/HCPCS: 85610; 99211 ==

== ENCOUNTER 2024-07-25 11:12 | Outpatient (AMB) | payer OTHER, SELFPAY ==
[2024-07-25 11:26] LABS: Prothrombin Time Whole Bld POC 21.7 sec (11.1-13.5); ~PT, ~INR - Anti Coag Clinic 1.8 (0.9-1.1)
--- NOTE | 2024-07-25 11:37 | MHC.OFFVISCO ---
Intake Intake Visit Reasons: Anticoagulation Allergies No Known Allergies Allergy (Verified 07/25/24 11:14) Medication List - Last Reconciled 07/25/24 by Fariha Zuniga, RN acetaminophen 325 mg PO QID PRN allopurinol 150 mg (1/2 x 300 mg) PO DAILY aspirin 81 mg PO DAILY atorvastatin 20 mg PO DAILY ferrous sulfate (FeroSul) 325 mg PO DAILY furosemide 60 mg PO BID metoprolol succinate ER mg PO sildenafil mg PO triamcinolone acetonide 0.1% 1 appl topical BID-TID warfarin 2 mg See Protocol PO DAILY Nursing Note Amb to [facility] using trekking/hiking pole sts he saw Dr Amaral today as he noticed a lot of weeping coming from Right lower leg waldrop wound yesterday and through the night sts his sheets were wet under his right leg, sts no blood clear and damp pt is wearing compression socks bilat and no edema noted small less than 2x2 wound dressing in place from Drs office pt sts he has been referred to [facility] and is waiting for appointment sts has appointment with cardiology today Medications and supplements reviewed and EMAR updated, has not been taking flomax (I only took 1 day in February) Omeprazole (havent taken in a while) and is off Dupixent (insurance stopped covering- no noted warfarin reaction per [facility]) No other changes in health, diet, medications, or supplements, Continues with multiple ecchymotic areas to arms, chest, neck, however pt sts this is better than it usually is Bleeding, bruising, clotting discussed INR: 1.8 below therapeutic range Dose: increase dose today to 3mg (vs 2) then resume usual dosing F/U INR: 2 weeks, call if needs rescheduling for wound management or any new medications Patient verbalizes understanding of instructions given Anti-Coag Initial Assessment Social Hx Patient Tobacco Use Status: Never used Tobacco alcohol intake: current Alcohol intake frequency: 0-2 drinks per day Cardiovascular Hx: HTN, Arrhythmias and Varicose Veins Musculoskeletal Hx: Gout Blood Disorder Hx: Hyperlipidemia Neurological Hx: Stroke/TIA and Aneurysm Cancer HX: Yes (SKIN CANCER HX, 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
== END 2024-07-25 12:18 | disposition home or self-care (01) ==
LOC: HO.ACS 11:12
PROVIDERS: PCP Family Medicine; Visit Provider Internal Medicine
DX: Z79.01 Long term (current) use of anticoagulants (principal)

== ENCOUNTER → 2024-07-25 11:12 | Outpatient (BNVA) | payer OTHER, SELFPAY | PROVIDERS: PCP Family Medicine; Visit Provider Internal Medicine | DX: Z95.2 Presence of prosthetic heart valve (principal); Z79.01 Long term (current) use of anticoagulants; Z51.81 Encounter for therapeutic drug level monitoring | CPT/HCPCS: 85610; 99211 ==

== ENCOUNTER 2024-08-08 14:09 | Outpatient (AMB) | payer OTHER, SELFPAY ==
[2024-08-08 14:27] LABS: ~PT, ~INR - Anti Coag Clinic 1.8 (0.9-1.1)
--- NOTE | 2024-08-08 14:31 | MHC.OFFVISCO ---
Intake Intake Visit Reasons: Anticoagulation Allergies No Known Allergies Allergy (Verified 08/08/24 14:15) Medication List - Last Reconciled 08/08/24 by Fariha Barron RN acetaminophen 325 mg PO QID PRN allopurinol 150 mg (1/2 x 300 mg) PO DAILY aspirin 81 mg PO DAILY atorvastatin 20 mg PO DAILY ferrous sulfate (FeroSul) 325 mg PO DAILY furosemide 60 mg PO BID metoprolol succinate ER mg PO sildenafil mg PO triamcinolone acetonide 0.1% 1 appl topical BID-TID warfarin 2 mg See Protocol PO DAILY Nursing Note INR 1.8?out of therapeutic range of 2-3 Medications and supplements reviewed Patient status: feels better. Has anemia and tired but on Iron tabs. Does daily exercise. Wound right waldrop healing. Pt states it is now closed and not weeping since lasix has increased. Medications or supplements: Lasix 80mg Bid now instead of 60mg Bid Diet: usual diet for pt Denies any signs and symptoms of bleeding or clotting or unusual bruising Bleeding, bruising, clotting discussed Nutritional guidance given: to avoid greens today Dose: weekly dose increased to 2mg daily (an increase of 1mg) F/U INR Date : 2 weeks Patient verbalizing understanding of instructions given. 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 Illness/Depression: No Coding Level of Care Code Est Patient Level 1 Diagnoses Current use of anticoagulant therapy Z79.01 Results AMB INR Fingerstick AMB INR Fingerstick 1.8 Last Edit by Fariha Barron RN on 08/08/24 14:27 interface delay Assessment & Plan Assessment & Plan (1) Current use of anticoagulant therapy: Code(s): Z79.01 - prison (current) use of anticoagulants Category: Medical
== END 2024-08-08 14:46 | disposition home or self-care (01) ==
LOC: HO.ACS 14:09
PROVIDERS: PCP Family Medicine; Visit Provider Internal Medicine
DX: Z79.01 Long term (current) use of anticoagulants (principal)

== ENCOUNTER → 2024-08-08 14:09 | Outpatient (BNVA) | payer OTHER, SELFPAY | PROVIDERS: PCP Family Medicine; Visit Provider Internal Medicine | DX: Z95.2 Presence of prosthetic heart valve (principal); Z79.01 Long term (current) use of anticoagulants; Z51.81 Encounter for therapeutic drug level monitoring | CPT/HCPCS: 85610; 99211 ==

== ENCOUNTER 2024-08-22 14:05 | Outpatient (AMB) | payer OTHER, SELFPAY ==
[2024-08-22 14:14] LABS: Prothrombin Time Whole Bld POC 24.6 sec (11.1-13.5); ~PT, ~INR - Anti Coag Clinic 2.1 (0.9-1.1)
--- NOTE | 2024-08-22 14:18 | MHC.OFFVISCO ---
Intake Intake Visit Reasons: Anticoagulation Allergies No Known Allergies Allergy (Verified 08/22/24 14:07) Medication List - Last Reconciled 08/22/24 by Fariha Barron RN acetaminophen 325 mg PO QID PRN allopurinol 150 mg (1/2 x 300 mg) PO DAILY aspirin 81 mg PO DAILY atorvastatin 20 mg PO DAILY ferrous sulfate (FeroSul) 325 mg PO DAILY furosemide 80 mg PO BID metoprolol succinate ER mg PO sildenafil mg PO triamcinolone acetonide 0.1% 1 appl topical BID-TID warfarin 2 mg See Protocol PO DAILY Nursing Note INR: 2.1 in therapeutic range of 2-3 Medications and supplements reviewed No changes in health, diet, medications, or supplements, Denies any signs and symptoms of bleeding or bruising or clotting. Bleeding, bruising, clotting discussed. 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 Illness/Depression: No Questionnaires HAS-BLED Does the patient had uncontrolled Hypertension?: No Does the patient have renal disease?: No Does the patient have liver disease?: No Does the patient have a history of stroke?: No Has the patient had major bleeding or predisposition to bleeding?: No Does the patient have labile INRs?: Yes Is the patient over 65 years of age?: Yes Is the patient on medications that gives them a predisposition to bleeding?: Yes Does the patient use alcohol?: Yes HAS-BLED Score: 4 CHADSVASC Age: 75 or over Gender: Male Does the patient have a history of CHF?: No Does the patient have a history of Hypertension?: Yes Does the patient have a history of Stroke/TIA/Thromboembolism?: No Does the patient have a history of Vascular Disease (prior [place], PAD or aortic plaque)?: Yes Does the patient have a history of Diabetes?: No CHADS VACS Score: 4 Britton Prediction Score Rsk VTE Active Cancer: No Previous VTE, excluding superficial vein thrombosis: No Reduced mobility: No Already known Thrombophilic Condition: No With-in last month Trauma and/or Surgery: No Elderly 70 year or older: Yes Heart and/or Respiratory Failure: No Acute Myocardial infarction and/or Ischemic Stroke: No Acute Infection and/or Rheumatologic Disorder: No Obesity (BMI 30 or greater): No Ongoing Hormonal Treatment: No Score: 1 Britton Score less than 4; Low Risk of VTE Britton Score 4 or greater; High Risk of VTE Coding Level of Care Code Est Patient Level 1 Diagnoses Current use of anticoagulant therapy Z79.01 Results AMB INR Fingerstick AMB INR Fingerstick 2.1 Last Edit by Fariha Barron RN on 08/22/24 14:12 interface delay Assessment & Plan Assessment & Plan (1) Current use of anticoagulant therapy: Code(s): Z79.01 - intermission 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
--- OUTSIDE RECORDS SUMMARY | 2024-08-24 16:02 | XMS_ITS | Continuity of Care Document ---
Author Organization [facility] Address [address] [place] [address]- Care Team Providers Care Crew Manager Name Role Phone Rich Amaral DO Primary Care Physician [phone] Encounter [facility] Date(s): 07/04/24 - 08/03/24 [facility] [address], [place] [address] Encounter Type: Triage Allergies, Adverse Reactions, Alerts Substance Criticality Severity Reaction Reaction Severity Status Ancef Active Immunizations Given and Recorded Vaccine Date Status Refusal Reason tetanus/diphtheria/pertussis, acel(Tdap) 09/25/23 Recorded SARS-CoV-2 mRNA ([id number]) vax 12/19/21 Recorded SARS-CoV-2 (COVID-19) mRNA BNT-162b2 vac 08/02/21 Recorded SARS-CoV-2 (COVID-19) mRNA BNT-162b2 vac 11/12/20 Recorded SARS-CoV-2 (COVID-19) mRNA BNT-162b2 vac 10/22/20 Recorded Medications Allopurinol 150 mg, By Mouth, Daily, Refills 0, Maintenance, 12/04/20 10:56:00 AM EDT, Partial fill upon patientrequest if the prescription is for a schedule II opioid drug. Start Date: 12/04/20 Status: Ordered Repeat number: 1 amiodarone 200 mg oral tablet 200 mg, 1, tablet, By Mouth, 2 times a day, # 60 tablet, Refills 0, Tot. Refills 0, Maintenance, 02/02/24 2:17:00 PM EDT, Print Requisition, Partial fill upon patient request if the prescription is for a schedule II opioid drug. Start Date: 02/02/24 Status: Ordered Quantity: 60.0 Unit: tablet Repeat number: 1 aspirin 81 mg oral capsule 1 capsule = 81 mg, By Mouth, Daily, do not exceed 48 capsules in 24 hours, # 30 capsule, 0 Refills,Maintenance, 02/25/24 9:49:00 AM EDT, Capsule, Partial fill upon patient request if the prescriptionis for a schedule II opioid drug. Start Date: 02/25/24 Status: Ordered Quantity: 30.0 Unit: capsule Repeat number: 1 atorvastatin 20 mg oral tablet 1 tablet = 20 mg, By Mouth, Daily, 0 Refills, Maintenance, 09/22/23 7:56:00 AM EST, Partial fill uponpatient request if the prescription is for a schedule II opioid drug. Start Date: 09/22/23 Status: Ordered Repeat number: 1 Coumadin Tablet By Mouth, Daily, 0 Refills, Maintenance, 09/22/23 7:56:00 AM EST Start Date: 09/22/23 Status: Ordered Repeat number: 1 Cyanocobalamin = 1,000 mcg, Subcutaneous Injection, Once, administered left upper arm. pt jaison well, administered without incident. LOT: [id number] EXP: [facility]: 70162-034-15, 0 Refills, Maintenance, 07/08/24 10:30:00 AM EDT, Partial fill upon patient request if the prescription is for a schedule II opioid drug. Start Date: 07/08/24 Status: Ordered Repeat number: 1 cyanocobalamin 1000 mcg/ml injectable solution 1 mL = 1,000 mcg, Intramuscular, Every 30 days, 1ml IM to left Deltoid, well tolerated, Lot # [id number] exp 01/2026, # 1 mL, 0 Refills, Maintenance, 07/18/24 10:23:00 AM EST, Solution, Partial fill uponpatient request if the prescription is for a schedule II opioid drug. Start Date: 07/18/24 Status: Ordered Quantity: 1.0 Unit: mL Repeat number: 1 cyanocobalamin 1000 mcg/ml injectable solution 1 mL = 1,000 mcg, Intramuscular, Once, 1ml IM to left Deltoid. Well tolerated. Lot # [id number], exp 01/2027, # 1 mL, 0 Refills, Maintenance, 07/11/24 10:43:00 AM EDT, Solution, Partial fill upon patient request if the prescription is for a schedule II opioid drug. Start Date: 07/11/24 Status: Ordered Quantity: 1.0 Unit: mL Repeat number: 1 cyanocobalamin 1000 mcg/ml injectable solution 1 mL = 1,000 mcg, Intramuscular, Once, 1ml to left Deltoid IM well tolerated. Lot # [id number] exp 01/2025, # 1 mL, 0 Refills, Maintenance, 08/01/24 10:19:00 AM EST, Solution, Partial fill upon patient request if the prescription is for a schedule II opioid drug. Start Date: 08/01/24 Status: Ordered Quantity: 1.0 Unit: mL Repeat number: 1 cyanocobalamin 1000 mcg/ml injectable solution 1 mL = 1,000 mcg, Intramuscular, Once, 1 ml IM to right Deltoid, well tolerated. Lot #[id number]. exp 01/2026, # 1 mL, 0 Refills, Maintenance, 07/25/24 10:39:00 AM EST, Solution, Partial fill upon patient request if the prescription is for a schedule II opioid drug. Start Date: 07/25/24 Status: Ordered Quantity: 1.0 Unit: mL Repeat number: 1 Iron Iron, Refills 0, Maintenance, 06/28/24 9:44:00 AM EDT, Supply Start Date: 06/28/24 Status: Ordered Repeat number: 1 Lasix 40 mg oral tablet 40 mg, 1, tablet, By Mouth, Daily, Refills 0, Maintenance, 09/22/23 7:56:00 AM EST, Partial fill uponpatient request if the prescription is for a schedule II opioid drug. Start Date: 09/22/23 Status: Ordered Repeat number: 1 metoprolol 25 mg oral tablet 12.5 mg, 0.5, tablet, By Mouth, 2 times a day, # 180 tablet, Refills 0, Maintenance, 09/22/23 7:56:00AM EST, Partial fill upon patient request if the prescription is for a schedule II opioid drug. Start Date: 09/22/23 Status: Ordered Quantity: 180.0 Unit: tablet Repeat number: 1 tamsulosin 0.4 mg oral capsule 0.4 mg, 1, capsule, By Mouth, Daily at bedtime, # 90 capsule, Refills 2, Tot. Refills 2, Maintenance, 03/02/24 3:20:00 PM EDT, Route to Pharmacy Electronically, [facility], Partial fill upon patient request if the prescription is for a schedule II opioid drug., 169, cm, 03/02/24 15:05:00 EDT, Height Start Date: 03/02/24 Status: Ordered Quantity: 90.0 Unit: capsule Repeat number: 3 Viagra 100 mg oral tablet 1 tablet = 100 mg, By Mouth, Daily, 1 hour before sexual activity, # 5 tablet, 0 Refills, Maintenance, 04/10/21 3:59:00 PM EDT, Tablet, Partial fill upon patient request if the prescription is for a schedule II opioid drug. Start Date: 04/10/21 Status: Ordered Quantity: 5.0 Unit: tablet Repeat number: 1 Vitamin B12 = 1,000 mcg, Intramuscular, 0 Refills, Maintenance, 07/05/24 12:53:00 PM EDT, Partial fill upon patient request if the prescription is for a schedule II opioid drug. 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 Iron deficiency anemia Confirmed Active Melanoma Confirmed Active Moderate aortic stenosis Confirmed Active Atrial fibrillation Confirmed Active Urinary retention Confirmed Active Social History Social History Type Response Smoking Status Former smoker, quit more than 30 days ago entered on: 09/22/23 Sex Sex Representation Male (finding) Patient Care team information Care Team Personnel Name: Aysha Dow RN Position: [facility] RN Member Role: Primary Care Nurse Name: Rich Amaral DO Position: S Physician - Primary Care Member Role: PCP Address: [address] [place] [address] Telecom: Name: Sheila May RN Position: S RN Member Role: Primary Care Nurse Care Team Related Persons Name: FRANCK JIMÉNEZ Insurance Providers Guarantor name: ASHLEY TINO Health Plan Information #: 1 Payer: MEDICARE PART B OUTPT Member Number: NA Policy Number: NA Group Number: NA Health Plan Information #: 2 Payer: SID LINARES Member Number: NA Policy Number: NA Group Number: NA
--- OUTSIDE RECORDS SUMMARY | 2024-08-24 16:02 | XMS_ITS | Continuity of Care Document ---
Author Organization [facility] Address [address] [place] [address]- Care Team Providers Care Kiln Transfer Operator Name Role Phone Rich Amaral DO Primary Care Physician Encounter [facility] Date(s): 07/01/24 - 07/31/24 [facility] [address] [place] [address]- Encounter Type: Triage Allergies, Adverse Reactions, Alerts Substance Criticality Severity Reaction Reaction Severity Status Ancef Active Immunizations Given and Recorded Vaccine Date Status Refusal Reason tetanus/diphtheria/pertussis, acel(Tdap) 09/25/23 Recorded SARS-CoV-2 mRNA ([id number]) vax 12/19/21 Recorded SARS-CoV-2 (COVID-19) mRNA BNT-162b2 [...] pt jaison well, administered without incident. LOT: [id number] EXP: [facility]: [id number], 0 Refills, Maintenance, 07/08/24 10:30:00 AM EDT, Partial fill upon patient request if the prescription is for a schedule II opioid drug. Start Date: 07/08/24 Status: Ordered Repeat number: 1 cyanocobalamin 1000 mcg/ml injectable solution 1 mL = 1,000 mcg, Intramuscular, Every 30 days, 1ml IM to left Deltoid, well tolerated, Lot # [id number] exp 01/2026, # 1 mL, 0 Refills, Maintenance, 07/18/24 10:23:00 AM EST, Solution, Partial fill uponpatient request if the prescription is for a schedule II opioid drug. Start Date: 07/18/24 Status: Ordered Quantity: 1.0 Unit: mL Repeat number: 1 cyanocobalamin 1000 mcg/ml injectable solution 1 mL = 1,000 mcg, Intramuscular, Once, 1ml IM to left Deltoid. Well tolerated. Lot # [id number], exp 01/2027, # 1 mL, 0 Refills, Maintenance, 07/11/24 10:43:00 AM EDT, Solution, Partial fill upon patient request if the prescription is for a schedule II opioid drug. Start Date: 07/11/24 Status: Ordered Quantity: 1.0 Unit: mL Repeat number: 1 cyanocobalamin 1000 mcg/ml injectable solution 1 mL = 1,000 mcg, Intramuscular, Once, 1 ml IM to right Deltoid, well tolerated. Lot #[id number]. exp 01/2026, # 1 mL, 0 Refills, [...] 3:20:00 PM EDT, Route to Pharmacy Electronically, [facility], Partial fill upon patient request if [...] Team Personnel Name: Aysha Dow RN Position: [facility] RN Member Role: Primary Care Nurse Name: Rich Amaral DO Position: [facility] Physician - Primary Care Member Role: PCP Address: [address] [place] [address] Telecom: Name: Sheila May RN Position: [facility] RN Member Role: Primary Care Nurse Care Team Related Persons Name: FRANCK JIMÉNEZ Insurance Providers Guarantor name: ASHLEY JIMÉNEZ Health Plan Information #: 1 Payer: MEDICARE PART B OUTPT Member Number: NA Policy Number: NA Group Number: NA Health Plan Information #: 2 Payer: SID GOLD SUP Member Number: NA Policy Number: NA Group Number: NA
--- OUTSIDE RECORDS SUMMARY | 2024-08-24 16:02 | XMS_ITS | Continuity of Care Document ---
Author Organization [facility] Address [address] [place] [address]- Care Team Providers Care Fruit Or Nut Crops Farm Manager Name Role Phone Rich Amaral DO Primary Care Physician [id number]): [facility] - 08[facility] [address] [place] [address]- Encounter Diagnosis Senile purpura(Discharge Diagnosis) - 08/08/24 Iron deficiency anemia(Discharge Diagnosis) - 08/08/24 Erectile dysfunction(Discharge Diagnosis) - 08/08/24 Attending Physician: Rich Amaral DO Encounter Type: Office Visit Allergies, Adverse Reactions, Alerts Substance Criticality Severity Reaction Reaction Severity Status Ancef Active Immunizations Given and Recorded Vaccine Date Status Refusal Reason tetanus/diphtheria/pertussis, acel(Tdap) 09/25/23 Recorded SARS-CoV-2 mRNA (jqkyihq-[id number]) vax 12/19/21 Recorded SARS-CoV-2 (COVID-19) mRNA BNT-162b2 [...] pt jaison well, administered without incident. LOT: [id number] EXP: [facility]: 48189-770-17, 0 Refills, Maintenance, 07/08/24 10:30:00 AM EDT, Partial fill upon patient request if the prescription is for a schedule II opioid drug. Start Date: 07/08/24 Status: Ordered Repeat number: 1 cyanocobalamin 1000 mcg/ml injectable solution 1 mL = 1,000 mcg, Intramuscular, Every 30 days, 1ml IM to left Deltoid, well tolerated, Lot # [id number] exp 01/2026, # 1 mL, 0 Refills, Maintenance, 07/18/24 10:23:00 AM EST, Solution, Partial fill uponpatient request if the prescription is for a schedule II opioid drug. Start Date: 07/18/24 Status: Ordered Quantity: 1.0 Unit: mL Repeat number: 1 cyanocobalamin 1000 mcg/ml injectable solution 1 mL = 1,000 mcg, Intramuscular, Once, 1ml IM to left Deltoid. Well tolerated. Lot # [id number], exp 01/2027, # 1 mL, 0 Refills, Maintenance, 07/11/24 10:43:00 AM EDT, Solution, Partial fill upon patient request if the prescription is for a schedule II opioid drug. Start Date: 07/11/24 Status: Ordered Quantity: 1.0 Unit: mL Repeat number: 1 cyanocobalamin 1000 mcg/ml injectable solution 1 mL = 1,000 mcg, Intramuscular, Once, 1ml to left Deltoid IM well tolerated. Lot # [id number] exp 01/2025, # 1 mL, 0 Refills, Maintenance, 08/01/24 10:19:00 AM EST, Solution, Partial fill upon patient request if the prescription is for a schedule II opioid drug. Start Date: 08/01/24 Status: Ordered Quantity: 1.0 Unit: mL Repeat number: 1 cyanocobalamin 1000 mcg/ml injectable solution 1 mL = 1,000 mcg, Intramuscular, Once, 1 ml IM to right Deltoid, well tolerated. Lot #[id number]. exp 01/2026, # 1 mL, 0 Refills, [...] 3:20:00 PM EDT, Route to Pharmacy Electronically, [facility], Partial fill upon patient request if the prescription is for a schedule II opioid drug., 169, cm, 03/02/24 15:05:00 EDT, Height Start Date: 03/02/24 Status: Ordered Quantity: 90.0 Unit: capsule Repeat number: 3 Viagra 100 mg oral tablet 1 tablet = 100 mg, By Mouth, Daily, 1 hour before sexual activity, # 30 tablet, 0 Refills, Maintenance, 08/08/24 10:50:00 AM EST, Tablet, [facility][id number], Partial fill upon patient request if the prescription is for a schedule II opioid drug., 169, cm, 08/08/24 10:15:00 EST, Height Start Date: 08/08/24 Status: Ordered Quantity: 30.0 Unit: tablet Repeat number: 1 Vitamin B12 [...] lower extremity Confirmed Active Eczema Confirmed Active Erectile dysfunction Confirmed Active Fall Confirmed Active Gout Confirmed Active 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 Iron deficiency anemia Confirmed Active Melanoma Confirmed Active Moderate aortic stenosis Confirmed Active Atrial fibrillation Confirmed Active Urinary retention Confirmed Active Senile purpura Confirmed Active Diagnosis Diagnosis Type Effective Dates Health Status Clinical Service Informant Senile purpura Discharge Diagnosis 08/08/24 Iron deficiency anemia Discharge Diagnosis 08/08/24 Erectile dysfunction Discharge Diagnosis 08/08/24 Vital Signs Most recent to oldest [Reference Range]: 1 Height 169 cm (08/08/24 10:15 AM) Weight 61.7 kg (08/08/24 10:15 AM) Oxygen Saturation [94-100 %] 98 % (08/08/24 10:15 AM) Pulse Rate [55-90 bpm] 76 bpm (08/08/24 10:15 AM) Body Mass Index [18.5-24.99 kg/m2] 21.6 kg/m2 (08/08/24 10:15 AM) Blood Pressure [90-138/55-84 mm Hg] 139/ 76mm Hg *H* (08/08/24 10:15 AM) Mode of Delivery (Oxygen) Room air (08/08/24 10:15 AM) Blood pressure sites Arm, right (08/08/24 10:15 AM) Weight Obtained Via Standing scale (08/08/24 10:15 AM) Social History Social History Type Response Smoking Status Former smoker, quit more than 30 days ago entered on: 09/22/23 Sex Sex Representation Male (finding) Note * Zuleyka Sherman: PERFORM Event Display: Patient Education/Instruction Authored Date: [id number] Ambulatory Adult Visit Summary [address] [address] Name: ASHLEY JIMÉNEZ : 1945?? Visit: 08/08/2024 10:05?? Ambulatory Visit Instructions ?? Your Care Team Primary Care Provider Rich Amaral DO? This Visit Provider Rich Amaral DO Your Diagnosis Senile purpura Iron deficiency anemia Erectile dysfunction Vitals Signs Pulse Rate: 76 bpm Height: 169 cm Systolic Blood Pressure:??139 mm Hg??High Weight: 61.7 kg Diastolic Blood Pressure: 76 mm Hg Body Mass Index: 21.6 kg/m2 Oxygen Saturation: 98 % Body surface area: 1.7 What to do next Instructions From Your Provider Start taking 1000mcg a day of oral vitamin B12 Future Orders CBC w/ Differential - Once, *Est. 09/22/23, Order for Today?? Comprehensive Metabolic Panel - Once, *Est. 09/22/23, Order for Today?? Lipid Panel - Once, *Est. 09/22/23, Order for Today?? Fecal Occult Blood Immunochemical (Fecal Occult Blood Immunochemical FIT) - Routine, Once, 248:34:00 EDT, [facility], Stool?? CBC w/ Differential - Routine, Once, 07/25/24 9:35:00 EST, Order for Today, [facility], Blood?? Ferritin - Routine, Once, 07/25/24 9:35:00 EST, Order for Today, [facility], Blood?? Folate Level - Routine, Once, 07/25/24 9:35:00 EST, Order for Today, [facility], Blood?? Iron + Iron Binding Capacity - Routine, Once, 07/25/24 9:35:00 EST, Order for Today, [facility], Blood?? Vitamin B12 Level - Routine, Once, 07/25/24 9:35:00 EST, Order for Today, [facility], Blood?? Medications The list below reflects the information in our records and provided by you today along with any changes made during this visit. Please continue your medications until treatment is completed or stopped by your provider. If this is different from the information you have or there are other questions,please contact the prescribing provider. What How Much When Instructions Unchanged Allopurinol 150 Milligram Oral Daily Unchanged amiODARONE (amiodarone 200 mg oral tablet) 1 tab(s) Oral Twice a day Unchanged Aspirin (aspirin 81 mg oral capsule) 1 capsule Oral Daily do not exceed 48 capsules in 24 hours ?? Unchanged Atorvastatin (atorvastatin 20 mg oral tablet) 1 tab(s) Oral Daily Unchanged Cyanocobalamin 1,000 Microgram Subcutaneous Injection Once administered left upper arm. pt jaison well, administered without incident. LOT: [id number] EXP: [facility]: 65265-429-69 ?? Unchanged Cyanocobalamin (cyanocobalamin 1000 mcg/ ml injectable solution) 1 Milliliter Intramuscular Every 30 days 1ml IM to left Deltoid, well tolerated, Lot # [id number] exp 2025 ?? Unchanged Cyanocobalamin (cyanocobalamin 1000 mcg/ ml injectable solution) 1 Milliliter Intramuscular Once 1ml to left Deltoid IM well tolerated. ??Lot # [id number] exp 2024 ?? Unchanged Cyanocobalamin (cyanocobalamin 1000 mcg/ ml injectable solution) 1 Milliliter Intramuscular Once 1ml IM to left Deltoid. Well tolerated. Lot # [id number], exp 2026 ?? Unchanged Cyanocobalamin (cyanocobalamin 1000 mcg/ ml injectable solution) 1 Milliliter Intramuscular Once 1 ml IM to right Deltoid, well tolerated. ??Lot #[id number]. exp 2025 ?? Unchanged Cyanocobalamin (Vitamin B12) 1,000 Microgram Intramuscular Unchanged Furosemide (Lasix 40 mg oral tablet) 1 tab(s) Oral Daily Unchanged Metoprolol (metoprolol 25 mg oral tablet) 0.5 tab(s) Oral Twice a day Unchanged Miscellaneous Rx (Iron) Unchanged Sildenafil (Viagra 100 mg oral tablet) 1 tab(s) Oral Daily 1 hour before sexual activity ?? Pickup at [facility]acy [facility][id number] Unchanged Tamsulosin (tamsulosin 0.4 mg oral capsule) 1 capsule Oral Daily at Bedtime Unchanged Warfarin (Coumadin Tablet) Oral Daily Pharmacy Information [facility]acy #[id number]: [address] [place], [place] [id number] [phone] Medications and Immunizations Administered Medications Given During Visit No medications given during this visit.?? Allergies (NKA means No Known Allergies) Ancef Common Emergency Awareness Tips IS IT A STROKE? Act FAST and Check for these signs: FACE Does the face look uneven? ARM Does one arm drift down? SPEECH Does their speech sound strange? TIME Call at any sign of stroke ?? Heart Attack Signs Chest discomfort: Most heart attacks involve discomfort in the center of the chest and lasts more than a few minutes, or goes away and comes back. It can feel like uncomfortable pressure, squeezing, fullness or pain. Discomfort in upper body: Symptoms can include pain or discomfort in one or both arms, back, neck, jaw or stomach. Shortness of breath: With or without discomfort. Other signs: Breaking out in a cold sweat, nausea, or lightheaded. Remember, MINUTES DO MATTER. If you experience any of these heart attack warning signs, call to get immediate medical attention! ?? Smoking can increase your chances of developing chronic health problems and can cause harmful effects to other family members in your house. If you smoke, you are strongly encouraged to quit. Please call [employer] [facility] at [phone] or [phone] ([phone]) or log in to [email or web address] for referrals to smoking cessation programs. ?? The National Suicide Prevention Hotline is available 06/04 if you or someone you know needs to find a reason to keep living. By calling 6-248-628-exxy (5950) you'll be connected to a skilled, trained counselor at a crisis center in your area. [facility] Portal You can view and manage your care through the patient portal or by using a health care owen of your choosing. [employer] is a website that allows you to securely view your medical information including your hospital discharge summary, office visit summaries, medications and follow-up visits. You can also request appointments, renew medications, and request access to your medical information using a health care owen of your choosing, or just ask a question. You can enroll at [email or web address] or register during your next office visit. [facility], in keeping with [facility] guidance, no longer requires face masks for staff, patientsor visitors in most situations. Similiar to time spent indoors at other locations, there is the chance that you were exposed to repiratory viruses during your time with us (such as flu or COVID-19). If you develop symptoms concerning for a viral respiratory infection, please seek testing (and treatment if indicated) from your medical provider or home test kit. ?? Disclaimer: The information provided is of a general nature and is intended to be used in conjunction with the recommendations and advice of your health care practitioner. Every effort has been made to ensure that the information provided is accurate and complete at the time it is provided to you however, as your needs change, or, as new information becomes available, different or additional instructions may be required. ?? If you have questions, please consult with your primary care provider or pharmacist, as appropriate. This information is not intended to serve as substitution for assessment and evaluation by a qualified health care provider. If you do not have a primary care provider, you may find a [facility] provider by calling [facility] Link at [phone]. Patient Care team information Care Team Personnel Name: Aysha Dow RN Position: [facility] RN Member Role: Primary Care Nurse Name: Rich Amaral DO Position: S Physician - Primary Care Member Role: PCP Address: [address] [place] [address] Telecom: Name: Sheila May RN Position: S RN Member Role: Primary Care Nurse Care Team Related Persons Name: FRANCK JIMÉNEZ Insurance Providers Guarantor name: ASHLEY JIMÉNEZ Health Plan Information #: 2 Payer: SID LINARES Member Number: [id number] Policy Number: NA Group Number: NA Health Plan Information #: 1 Payer: MEDICARE PART B OUTPT Member Number: [id number] Policy Number: NA Group Number: NA
--- OUTSIDE RECORDS SUMMARY | 2024-08-24 16:02 | XMS_ITS | Patient Health Record ---
Author Organization [facility] Address [address] [place] [address] [place] [address] Care Team Providers Care Weeder Name Role Phone Robbie Ferrer MD Primary Care Provider Jean Carlos Cordova [phone] ALLERGIES No Known Allergies REASON FOR REFERRAL No Information MEDICATIONS Medication SIG (Take, Route, Frequency, Duration) Notes Start Date End Date Status Furosemide 40 MG 1/2 tab Oral Once a day Active Warfarin Sodium 2 MG Oral for 90 Active Allopurinol 300 MG Oral for 90 Active Atorvastatin Calcium 20 MG Oral for 90 Active Aspirin Low Dose 81 MG Oral for 90 Active Metoprolol Succinate ER 25 MG Oral for 90 Active SOCIAL HISTORY Tobacco Use: Social History Observation Description Date Details (start date - stop date) Never Smoker NA - NA Sex Assigned At : Social History Observation Description Sex Assigned At Unknown Tobacco Use/Smoking Question Answer Notes Patient is a nonsmoker Alcohol Screen Question Answer Notes Did you have a drink contain ing alcohol in the past year? Yes How often did you have a dri nk containing alcohol in the past year? 4 or more times a week (4 points) How many drinks did you have on a typical day when you were drinking in the past year? 1 or 2 drinks (0 point) Points 4 Interpretation Positive PROBLEMS Problem Type ICD Code Onset Dates Problem Status W/U Status Risk SNOMED Code Notes Problem Iron deficiency anemia, unspecified iron deficiency anemia type (D50.9) Active confirmed 82258395 Problem Gastroesophageal reflux disease, unspecified whether esophagitis present (K21.9) Active confirmed [id number] Encounters Encounter Location Date Provider Diagnosis [facility] [place] Out[place] [address] [place], [place] [id number] 10/14/2023 Jean Carlos Kaur [facility] [place] Out[place] [address] [place], [place] [id number] 08/27/2023 Jean Carlos Kaur [facility] [place] [address] [facility] [place] [id number] 09/09/2023 [facility] [address] [place] [address] 10/21/2023 Jean Carlos Kaur [facility] [address] [place] [address] 08/28/2023 Jean Carlos Kaur PLAN OF TREATMENT Pending Test Test Name Order Date Hemoccult Cards (Non-Screening) 07/07/20 IRON + IBC (FE) 07/28/2023 CBC w DIFF 07/28/2023 CBC w DIFF 07/07/2023 Ferritin 07/28/2023 Future Test Test Name Order Date UPPER GI ENDOSCOPY 07/07/2023 COLONOSCOPY 07/07/2023 Insurance Providers Payer Name Payer Address Payer Phone Subscriber Number Group Number Insured Name Patient Relationship to Insured Coverage Start Date Coverage End Date [facility] [address] [place], [place] [phone] [id number] ASHLEY JIMÉNEZ Self - patient is the insured MEDICAL (GENERAL) HISTORY Medical History History ICD Code Afib--on Coumadin--sees Dr. Martini at [facility]-s/p cardioversion earlier this year Hypertension Denies NM,DM,CVA,Lung disease,renal dise ase TIA-transient left eye visual loss GERD--on longstanding omeprazole Gout Hyperlipidemia Iron deficiency anemia 2022 Surgical History Surgery Date(Month/Year) Thoracic aortic aneurysm wit h a bioprosthetic valve at [facility] _Dr. Bella 08/19/2022 Melanoma(on back) and Basal cells
--- OUTSIDE RECORDS SUMMARY | 2024-08-24 16:02 | XMS_ITS | Continuity of Care Document ---
Author Organization [facility] Address [address] [place] [address]- Care Team Providers Care Client Business Manager Name Role Phone Rich Amaral DO Primary Care Physician [phone] [place] [facility] 08/[place]/24 [facility] [address] [place], [place] [address] Encounter Type: Triage Allergies, Adverse Reactions, Alerts Substance Criticality Severity Reaction Reaction Severity Status Ancef Active Immunizations Given and Recorded Vaccine Date Status Refusal Reason tetanus/diphtheria/pertussis, acel(Tdap) 09/25/23 Recorded SARS-CoV-2 mRNA (mkocint-vnzn-nbvvt) vax 12/19/21 Recorded SARS-CoV-2 (COVID-19) mRNA BNT-162b2 [...] pt jaison well, administered without incident. LOT: [id number] EXP: [facility]: [id number], 0 Refills, Maintenance, 07/08/24 10:30:00 AM EDT, Partial fill upon patient request if the prescription is for a schedule II opioid drug. Start Date: 07/08/24 Status: Ordered Repeat number: 1 cyanocobalamin 1000 mcg/ml injectable solution 1 mL = 1,000 mcg, Intramuscular, Every 30 days, 1ml IM to left Deltoid, well tolerated, Lot # [id number] exp 01/2026, # 1 mL, 0 Refills, Maintenance, 07/18/24 10:23:00 AM EST, Solution, Partial fill uponpatient request if the prescription is for a schedule II opioid drug. Start Date: 07/18/24 Status: Ordered Quantity: 1.0 Unit: mL Repeat number: 1 cyanocobalamin 1000 mcg/ml injectable solution 1 mL = 1,000 mcg, Intramuscular, Once, 1ml IM to left Deltoid. Well tolerated. Lot # [id number], exp 01/2027, # 1 mL, 0 Refills, Maintenance, 07/11/24 10:43:00 AM EDT, Solution, Partial fill upon patient request if the prescription is for a schedule II opioid drug. Start Date: 07/11/24 Status: Ordered Quantity: 1.0 Unit: mL Repeat number: 1 cyanocobalamin 1000 mcg/ml injectable solution 1 mL = 1,000 mcg, Intramuscular, Once, 1ml to left Deltoid IM well tolerated. Lot # [id number] exp 01/2025, # 1 mL, 0 Refills, Maintenance, 08/01/24 10:19:00 AM EST, Solution, Partial fill upon patient request if the prescription is for a schedule II opioid drug. Start Date: 08/01/24 Status: Ordered Quantity: 1.0 Unit: mL Repeat number: 1 cyanocobalamin 1000 mcg/ml injectable solution 1 mL = 1,000 mcg, Intramuscular, Once, 1 ml IM to right Deltoid, well tolerated. Lot #[id number]. exp 01/2026, # 1 mL, 0 Refills, [...] 3:20:00 PM EDT, Route to Pharmacy Electronically, [facility], Partial fill upon patient [...] Refills, Maintenance, 08/08/24 10:50:00 AM EST, Tablet, [facility] #[id number], Partial fill upon patient request if [...] retention Confirmed Active Senile purpura Confirmed Active Social History Social History Type Response Smoking Status Former smoker, quit more than 30 days ago entered on: 09/22/23 Sex Sex Representation Male (finding) Patient Care team information Care Team Personnel Name: Aysha Dow RN Position: [facility] RN Member Role: Primary Care Nurse Name: Rich Amaral DO Position: [facility] Physician - Primary Care Member Role: PCP Address: [address] [place] [id number] Telecom: Name: Sheila May RN Position: S [...]
--- OUTSIDE RECORDS SUMMARY | 2024-08-24 16:02 | XMS_ITS | Continuity of Care Document ---
Author Organization [facility] Address [address] [place] [address]- Care Team Providers Care Garment Manufacturing Supervisor Name Role Phone Rich Amaral DO Primary Care Physician En[place] [facility] [place](s): 07/06/24 - 08/05/24 [facility] [address] [place] [id number] Attending Physician: Yaquelin Stevens Admitting Physician: Yaquelin Stevens Referring Physician: Yaquelin Stevens Encounter Type: Triage Allergies, Adverse Reactions, Alerts Substance Criticality Severity Reaction Reaction Severity Status Ancef Active Immunizations Given and Recorded Vaccine Date Status Refusal Reason tetanus/diphtheria/pertussis, acel(Tdap) 09/25/23 Recorded SARS-CoV-2 mRNA (vklijnj-cvuc-ywprs) vax 12/19/21 Recorded SARS-CoV-2 (COVID-19) mRNA BNT-162b2 [...] pt jaison well, administered without incident. LOT: [id number] EXP: [facility]: [id number], 0 Refills, Maintenance, 07/08/24 10:30:00 AM EDT, Partial fill upon patient request if the prescription is for a schedule II opioid drug. Start Date: 07/08/24 Status: Ordered Repeat number: 1 cyanocobalamin 1000 mcg/ml injectable solution 1 mL = 1,000 mcg, Intramuscular, Every 30 days, 1ml IM to left Deltoid, well tolerated, Lot # [id number] exp 01/2026, # 1 mL, 0 Refills, Maintenance, 07/18/24 10:23:00 AM EST, Solution, Partial fill uponpatient request if the prescription is for a schedule II opioid drug. Start Date: 07/18/24 Status: Ordered Quantity: 1.0 Unit: mL Repeat number: 1 cyanocobalamin 1000 mcg/ml injectable solution 1 mL = 1,000 mcg, Intramuscular, Once, 1ml IM to left Deltoid. Well tolerated. Lot # [id number], exp 01/2027, # 1 mL, 0 Refills, Maintenance, 07/11/24 10:43:00 AM EDT, Solution, Partial fill upon patient request if the prescription is for a schedule II opioid drug. Start Date: 07/11/24 Status: Ordered Quantity: 1.0 Unit: mL Repeat number: 1 cyanocobalamin 1000 mcg/ml injectable solution 1 mL = 1,000 mcg, Intramuscular, Once, 1ml to left Deltoid IM well tolerated. Lot # [id number] exp 01/2025, # 1 mL, 0 Refills, Maintenance, 08/01/24 10:19:00 AM EST, Solution, Partial fill upon patient request if the prescription is for a schedule II opioid drug. Start Date: 08/01/24 Status: Ordered Quantity: 1.0 Unit: mL Repeat number: 1 cyanocobalamin 1000 mcg/ml injectable solution 1 mL = 1,000 mcg, Intramuscular, Once, 1 ml IM to right Deltoid, well tolerated. Lot #[id number]. exp 01/2026, # 1 mL, 0 Refills, [...] 3:20:00 PM EDT, Route to Pharmacy Electronically, [facility], Partial fill upon patient request if [...] Team Personnel Name: Aysha Dow RN Position: [facility] RN Member Role: Primary Care Nurse Name: Rich Amaral DO Position: [facility] Physician - Primary Care Member Role: PCP Address: [address] [place] [id number] Telecom: Name: Sheila May RN Position: S [...]
--- OUTSIDE RECORDS SUMMARY | 2024-08-24 16:02 | XMS_ITS ---
Author Organization [facility] Address [address] [place] [address] Care Team Providers Care Commercial Plumber Name Role Phone Robbie Ferrer MD Primary Care Provider Jean Carlos Cordova Unavailable [phone] REASON FOR VISIT iron def anemia, gerd Encounters Encounter Location Date Provider Diagnosis [facility] [place] Out[place] [address], [place] [id number] 10/14/2023 Jean Carlos Kaur PLAN OF TREATMENT No Information
--- OUTSIDE RECORDS SUMMARY | 2024-08-24 16:02 | XMS_ITS ---
Author Organization [facility] Address [address] [place] [address] Care Team Providers Care Human Capital Consultant Name Role Phone Robbie Ferrer MD Primary Care Provider Jean Carlos Cordova Unavailable [phone] REASON FOR VISIT anemia Encounters Encounter Location Date Provider Diagnosis [facility] [address] [place] [address] 10/21/2023 Jean Carlos Kaur PLAN OF TREATMENT No Information
--- OUTSIDE RECORDS SUMMARY | 2024-08-24 16:02 | XMS_ITS | Continuity of Care Document ---
Author Organization [facility] Address [address] [place] [address]- Care Team Providers Care Administrative Office Clerk Name Role Phone Rich Amaral DO Primary Care Physician [phone] Encounter [facility] [place] Date(s): 07/18/24 - 07/25/24 [facility] [address] [place] [address]- Attending Physician: Not on Staff, Attending MD Allergies, Adverse Reactions, Alerts Substance Reaction Severity Status Ancef Active Immunizations Given and Recorded Vaccine Date Status Refusal Reason tetanus/diphtheria/pertussis, acel(Tdap) 09/25/23 Recorded SARS-CoV-2 mRNA (lcpykrm-yqnj-rwwbg) vax 12/19/21 Recorded SARS-CoV-2 (COVID-19) mRNA BNT-162b2 vac 08/02/21 Recorded SARS-CoV-2 (COVID-19) mRNA BNT-162b2 vac 11/12/20 Recorded SARS-CoV-2 (COVID-19) mRNA BNT-162b2 vac 10/22/20 Recorded Medications Allopurinol 150 mg, By Mouth, Daily, Refills 0, Maintenance, 12/04/20 10:56:00 EDT, Partial fill upon patient request if the prescription is for a schedule II opioid drug. Start Date: 12/04/20 Status: Ordered amiodarone 200 mg oral tablet 200 mg, 1, tablet, By Mouth, 2 times a day, # 60 tablet, Refills 0, Tot. Refills 0, Maintenance, 02/02/24 14:17:00 EDT, Print Requisition, Partial fill upon patient request if the prescription is fora schedule II opioid drug. Start Date: 02/02/24 Status: Ordered aspirin 81 mg oral capsule 1 capsule = 81 mg, By Mouth, Daily, do not exceed 48 capsules in 24 hours, # 30 capsule, 0 Refills,Maintenance, 02/25/24 9:49:00 EDT, Capsule, Partial fill upon patient request if the prescription is for a schedule II opioid drug. Start Date: 02/25/24 Status: Ordered atorvastatin 20 mg oral tablet 1 tablet = 20 mg, By Mouth, Daily, 0 Refills, Maintenance, 09/22/23 7:56:00 EST, Partial fill upon patient request if the prescription is for a schedule II opioid drug. Start Date: 09/22/23 Status: Ordered Coumadin Tablet By Mouth, Daily, 0 Refills, Maintenance, 09/22/23 7:56:00 EST Start Date: 09/22/23 Status: Ordered Cyanocobalamin = 1,000 mcg, Subcutaneous Injection, Once, administered left upper arm. pt jaison well, administered without incident. LOT: [id number] EXP: [facility]: [id number], 0 Refills, Maintenance, 07/08/24 10:30:00 EDT, Partial fill upon patient request if the... Start Date: 07/08/24 Status: Ordered cyanocobalamin 1000 mcg/ml injectable solution 1 mL = 1,000 mcg, Intramuscular, Every 30 days, 1ml IM to left Deltoid, well tolerated, Lot # [id number] exp 01/2026, # 1 mL, 0 Refills, Maintenance, 07/18/24 10:23:00 EST, Solution, Partial fill upon patient request if the prescription is for a schedule... Start Date: 07/18/24 Status: Ordered cyanocobalamin 1000 mcg/ml injectable solution 1 mL = 1,000 mcg, Intramuscular, Once, 1ml IM to left Deltoid. Well tolerated. Lot # [id number], exp 01/2027, # 1 mL, 0 Refills, Maintenance, 07/11/24 10:43:00 EDT, Solution, Partial fill upon patient request if the prescription is for a schedule II opio... Start Date: 07/11/24 Status: Ordered cyanocobalamin 1000 mcg/ml injectable solution 1 mL = 1,000 mcg, Intramuscular, Once, 1 ml IM to right Deltoid, well tolerated. Lot #[id number]. exp 01/2026, # 1 mL, 0 Refills, Maintenance, 07/25/24 10:39:00 EST, Solution, Partial fill upon patient request if the prescription is for a schedule II op... Start Date: 07/25/24 Status: Ordered Iron Iron, Refills 0, Maintenance, 06/28/24 9:44:00 EDT, Supply Start Date: 06/28/24 Status: Ordered Lasix 40 mg oral tablet 40 mg, 1, tablet, By Mouth, Daily, Refills 0, Maintenance, 09/22/23 7:56:00 EST, Partial fill upon patient request if the prescription is for a schedule II opioid drug. Start Date: 09/22/23 Status: Ordered metoprolol 25 mg oral tablet 12.5 mg, 0.5, tablet, By Mouth, 2 times a day, # 180 tablet, Refills 0, Maintenance, 09/22/23 7:56:00 EST, Partial fill upon patient request if the prescription is for a schedule II opioid drug. Start Date: 09/22/23 Status: Ordered tamsulosin 0.4 mg oral capsule 0.4 mg, 1, capsule, By Mouth, Daily at bedtime, # 90 capsule, Refills 2, Tot. Refills 2, Maintenance, 03/02/24 15:20:00 EDT, Route to Pharmacy Electronically, [facility], Partial fill upon patient request if the prescription is for a caren... Start Date: 03/02/24 Status: Ordered Viagra 100 mg oral tablet 1 tablet = 100 mg, By Mouth, Daily, 1 hour before sexual activity, # 5 tablet, 0 Refills, Maintenance, 04/10/21 15:59:00 EDT, Tablet, Partial fill upon patient request if the prescription is for a schedule II opioid drug. Start Date: 04/10/21 Status: Ordered Vitamin B12 = 1,000 mcg, Intramuscular, 0 Refills, Maintenance, 07/05/24 12:53:00 EDT, Partial fill upon patient request if the prescription is for a schedule II opioid drug. Start Date: 07/05/24 Status: Ordered Problem List Condition Confirmation Course Effective Dates [...] 30 days ago entered on: 09/22/23 Sex Patient Care team information Care Team Personnel Name: Aysha Dow RN Position: S RN Member Role: Primary Care Nurse Name: Rich Amaral DO Position: S Physician - Primary Care Member Role: PCP Address: Address: [address] [place] [id number] Name: Sheila May RN Position: S RN Member Role: Primary Care Nurse Care Team Related Persons Name: FRANCK JIMÉNEZ Address: home [address] [place] [address]
--- OUTSIDE RECORDS SUMMARY | 2024-08-24 16:02 | XMS_ITS | Continuity of Care Document ---
Author Organization [facility] Address [address] [place] [address]- Care Team Providers Care Dishcloth Folder Name Role Phone Rich Amaral DO Primary Care Physician Encounter [facility] [place] Date(s): 08/01/24 - 08/08/24 [facility] [address] [place], [place] [address] Attending Physician: Not on Staff, Attending MD Encounter Type: Office Visit Allergies, Adverse Reactions, Alerts Substance Criticality Severity Reaction Reaction Severity Status Ancef Active Immunizations Given and Recorded Vaccine Date Status Refusal Reason tetanus/diphtheria/pertussis, acel(Tdap) 09/25/23 Recorded SARS-CoV-2 mRNA (yynylvt-kcvu-fcmvt) vax 12/19/21 Recorded SARS-CoV-2 (COVID-19) mRNA BNT-162b2 [...] pt jaison well, administered without incident. LOT: [id number] EXP: [facility]: [id number], 0 Refills, Maintenance, 07/08/24 10:30:00 AM EDT, Partial fill upon patient request if the prescription is for a schedule II opioid drug. Start Date: 07/08/24 Status: Ordered Repeat number: 1 cyanocobalamin 1000 mcg/ml injectable solution 1 mL = 1,000 mcg, Intramuscular, Every 30 days, 1ml IM to left Deltoid, well tolerated, Lot # [id number] exp 01/2026, # 1 mL, 0 Refills, Maintenance, 07/18/24 10:23:00 AM EST, Solution, Partial fill uponpatient request if the prescription is for a schedule II opioid drug. Start Date: 07/18/24 Status: Ordered Quantity: 1.0 Unit: mL Repeat number: 1 cyanocobalamin 1000 mcg/ml injectable solution 1 mL = 1,000 mcg, Intramuscular, Once, 1ml IM to left Deltoid. Well tolerated. Lot # [id number], exp 01/2027, # 1 mL, 0 Refills, Maintenance, 07/11/24 10:43:00 AM EDT, Solution, Partial fill upon patient request if the prescription is for a schedule II opioid drug. Start Date: 07/11/24 Status: Ordered Quantity: 1.0 Unit: mL Repeat number: 1 cyanocobalamin 1000 mcg/ml injectable solution 1 mL = 1,000 mcg, Intramuscular, Once, 1ml to left Deltoid IM well tolerated. Lot # [id number] exp 01/2025, # 1 mL, 0 Refills, Maintenance, 08/01/24 10:19:00 AM EST, Solution, Partial fill upon patient request if the prescription is for a schedule II opioid drug. Start Date: 08/01/24 Status: Ordered Quantity: 1.0 Unit: mL Repeat number: 1 cyanocobalamin 1000 mcg/ml injectable solution 1 mL = 1,000 mcg, Intramuscular, Once, 1 ml IM to right Deltoid, well tolerated. Lot #[id number]. exp 01/2026, # 1 mL, 0 Refills, [...] 3:20:00 PM EDT, Route to Pharmacy Electronically, [facility], Partial fill upon patient [...] Refills, Maintenance, 08/08/24 10:50:00 AM EST, Tablet, [id number], Partial fill upon patient request if [...] Care Nurse Name: Rich Amaral DO Position: [facility] Physician - Primary Care Member Role: PCP Address: [address] [place] [id number] Telecom: Name: Sheila May RN Position: [facility] RN Member Role: Primary Care Nurse Care Team Related Persons Name: FRANCK JIMÉNEZ Insurance Providers Guarantor name: ASHLEY JIMÉNEZ Health Plan Information #: 1 Payer: MEDICARE PART B OUTPT Member Number: [id number] Policy Number: NA Group Number: NA Health Plan Information #: 4 Payer: MEDICARE PART B OUTPT Member Number: [id number] Policy Number: NA Group Number: NA Health Plan Information #: 2 Payer: [employer] Member Number: [id number] Policy Number: NA Group Number: NA Health Plan Information #: 3 Payer: [employer] Member Number: [id number] Policy Number: NA Group Number: NA
--- OUTSIDE RECORDS SUMMARY | 2024-08-24 16:02 | XMS_ITS | Continuity of Care Document ---
Author Organization [facility] Address [address] [place] [address]- Care Team Providers Care Balance Truing Inspector Name Role Phone Rich Amaral DO Primary Care Physician Encounter [facility] [place] Date(s): 07/22/24 - 08/21/24 [facility] [address] [place], [place] [address] Encounter Type: Triage Allergies, Adverse Reactions, Alerts Substance Criticality Severity Reaction Reaction Severity Status Ancef Active Immunizations Given and Recorded Vaccine Date Status Refusal Reason tetanus/diphtheria/pertussis, acel(Tdap) 09/25/23 Recorded SARS-CoV-2 mRNA (ravglso-zvhh-inqff) vax 12/19/21 Recorded SARS-CoV-2 (COVID-19) mRNA BNT-162b2 [...] pt jaison well, administered without incident. LOT: [id number] EXP: [facility]: [id number], 0 Refills, Maintenance, 07/08/24 10:30:00 AM EDT, Partial fill upon patient request if the prescription is for a schedule II opioid drug. Start Date: 07/08/24 Status: Ordered Repeat number: 1 cyanocobalamin 1000 mcg/ml injectable solution 1 mL = 1,000 mcg, Intramuscular, Every 30 days, 1ml IM to left Deltoid, well tolerated, Lot # [id number] exp 01/2026, # 1 mL, 0 Refills, Maintenance, 07/18/24 10:23:00 AM EST, Solution, Partial fill uponpatient request if the prescription is for a schedule II opioid drug. Start Date: 07/18/24 Status: Ordered Quantity: 1.0 Unit: mL Repeat number: 1 cyanocobalamin 1000 mcg/ml injectable solution 1 mL = 1,000 mcg, Intramuscular, Once, 1ml IM to left Deltoid. Well tolerated. Lot # [id number], exp 01/2027, # 1 mL, 0 Refills, Maintenance, 07/11/24 10:43:00 AM EDT, Solution, Partial fill upon patient request if the prescription is for a schedule II opioid drug. Start Date: 07/11/24 Status: Ordered Quantity: 1.0 Unit: mL Repeat number: 1 cyanocobalamin 1000 mcg/ml injectable solution 1 mL = 1,000 mcg, Intramuscular, Once, 1ml to left Deltoid IM well tolerated. Lot # [id number] exp 01/2025, # 1 mL, 0 Refills, Maintenance, 08/01/24 10:19:00 AM EST, Solution, Partial fill upon patient request if the prescription is for a schedule II opioid drug. Start Date: 08/01/24 Status: Ordered Quantity: 1.0 Unit: mL Repeat number: 1 cyanocobalamin 1000 mcg/ml injectable solution 1 mL = 1,000 mcg, Intramuscular, Once, 1 ml IM to right Deltoid, well tolerated. Lot #[id number]. exp 01/2026, # 1 mL, 0 Refills, [...] 3:20:00 PM EDT, Route to Pharmacy Electronically, [facility], Partial fill upon patient request [...] Refills, Maintenance, 08/08/24 10:50:00 AM EST, Tablet, [id number], Partial fill upon patient request if [...] Team Personnel Name: Aysha Dow RN Position: [facility] RN Member Role: Primary Care Nurse Name: Rich Amaral DO Position: [facility] Physician - Primary Care Member Role: PCP Address: [address] [place] [id number] Telecom: Name: Sheila May RN [...]
--- OUTSIDE RECORDS SUMMARY | 2024-08-24 16:02 | XMS_ITS | Continuity of Care Document ---
Author Organization [facility] Address [address] [place] [address]- Care Team Providers Care Channel Cementer Name Role Phone Rich Amaral DO Primary Care Physician Encounter [facility] Date(s): 07/22/24 - 08/21/24 [facility] [address] [place], [place] [address] Encounter Type: Triage Allergies, Adverse Reactions, Alerts Substance Criticality Severity Reaction Reaction Severity Status Ancef Active Immunizations Given and Recorded Vaccine Date Status Refusal Reason tetanus/diphtheria/pertussis, acel(Tdap) 09/25/23 Recorded SARS-CoV-2 mRNA (ohzatyl-yett-ywobi) vax 12/19/21 Recorded SARS-CoV-2 (COVID-19) mRNA BNT-162b2 [...] pt jaison well, administered without incident. LOT: [id number] EXP: [facility]: 15935-064-38, 0 Refills, Maintenance, 07/08/24 10:30:00 AM EDT, Partial fill upon patient request if the prescription is for a schedule II opioid drug. Start Date: 07/08/24 Status: Ordered Repeat number: 1 cyanocobalamin 1000 mcg/ml injectable solution 1 mL = 1,000 mcg, Intramuscular, Every 30 days, 1ml IM to left Deltoid, well tolerated, Lot # [id number] exp 01/2026, # 1 mL, 0 Refills, Maintenance, 07/18/24 10:23:00 AM EST, Solution, Partial fill uponpatient request if the prescription is for a schedule II opioid drug. Start Date: 07/18/24 Status: Ordered Quantity: 1.0 Unit: mL Repeat number: 1 cyanocobalamin 1000 mcg/ml injectable solution 1 mL = 1,000 mcg, Intramuscular, Once, 1ml IM to left Deltoid. Well tolerated. Lot # [id number], exp 01/2027, # 1 mL, 0 Refills, Maintenance, 07/11/24 10:43:00 AM EDT, Solution, Partial fill upon patient request if the prescription is for a schedule II opioid drug. Start Date: 07/11/24 Status: Ordered Quantity: 1.0 Unit: mL Repeat number: 1 cyanocobalamin 1000 mcg/ml injectable solution 1 mL = 1,000 mcg, Intramuscular, Once, 1ml to left Deltoid IM well tolerated. Lot # [id number] exp 01/2025, # 1 mL, 0 Refills, Maintenance, 08/01/24 10:19:00 AM EST, Solution, Partial fill upon patient request if the prescription is for a schedule II opioid drug. Start Date: 08/01/24 Status: Ordered Quantity: 1.0 Unit: mL Repeat number: 1 cyanocobalamin 1000 mcg/ml injectable solution 1 mL = 1,000 mcg, Intramuscular, Once, 1 ml IM to right Deltoid, well tolerated. Lot #[id number]. exp 01/2026, # 1 mL, 0 Refills, [...] 3:20:00 PM EDT, Route to Pharmacy Electronically, [facility], Partial fill upon patient [...] Refills, Maintenance, 08/08/24 10:50:00 AM EST, Tablet, [facility]/pharmacy #[id number], Partial fill upon patient [...] Team Personnel Name: Aysha Dow RN Position: [facility] RN Member Role: Primary Care Nurse Name: Rich Amaral DO Position: [facility] Physician - Primary Care Member Role: PCP Address: [address] [place] [id number] Telecom: Name: Sheila May RN Position: [...]
--- OUTSIDE RECORDS SUMMARY | 2024-08-24 16:02 | XMS_ITS ---
Author Organization [facility] Address [address] [place] [address] Care Team Providers Care Dumping Machine Operator Name Role Phone Robbie Ferrer MD Primary Care Provider Jean Carlos Cordova Unavailable [phone] REASON FOR VISIT fe def anemia Encounters Encounter Location Date Provider Diagnosis [facility] [place] [address] [place], [place] [id number] 09/09/2023 Jean Carlos Kaur PLAN OF TREATMENT No Information
--- OUTSIDE RECORDS SUMMARY | 2024-08-24 16:02 | XMS_ITS | Continuity of Care Document ---
Author Organization [facility] Address [address] [place] [address]- Care Team Providers Care Threshing Department Supervisor Name Role Phone Rich Amaral DO Primary Care Physician Encounter [facility] Date(s): 07/25/24 - 08/01/24 [facility] [address] [place] [address]- Encounter Diagnosis Bilateral edema of lower extremity(Discharge Diagnosis) - 07/25/24 Iron deficiency anemia, unspecified(Discharge Diagnosis) - 07/25/24 Attending Physician: Rich Amaral DO Encounter Type: Office Visit Allergies, Adverse Reactions, Alerts Substance Criticality Severity Reaction Reaction Severity Status Ancef Active Immunizations Given and Recorded Vaccine Date Status Refusal Reason tetanus/diphtheria/pertussis, acel(Tdap) 09/25/23 Recorded SARS-CoV-2 mRNA (lzcezyg-iszt-tprlp) vax 12/19/21 Recorded SARS-CoV-2 (COVID-19) mRNA BNT-162b2 [...] pt jaison well, administered without incident. LOT: [id number] EXP: [facility]: [id number], 0 Refills, Maintenance, 07/08/24 10:30:00 AM EDT, Partial fill upon patient request if the prescription is for a schedule II opioid drug. Start Date: 07/08/24 Status: Ordered Repeat number: 1 cyanocobalamin 1000 mcg/ml injectable solution 1 mL = 1,000 mcg, Intramuscular, Every 30 days, 1ml IM to left Deltoid, well tolerated, Lot # [id number] exp 01/2026, # 1 mL, 0 Refills, Maintenance, 07/18/24 10:23:00 AM EST, Solution, Partial fill uponpatient request if the prescription is for a schedule II opioid drug. Start Date: 07/18/24 Status: Ordered Quantity: 1.0 Unit: mL Repeat number: 1 cyanocobalamin 1000 mcg/ml injectable solution 1 mL = 1,000 mcg, Intramuscular, Once, 1ml IM to left Deltoid. Well tolerated. Lot # [id number], exp 01/2027, # 1 mL, 0 Refills, Maintenance, 07/11/24 10:43:00 AM EDT, Solution, Partial fill upon patient request if the prescription is for a schedule II opioid drug. Start Date: 07/11/24 Status: Ordered Quantity: 1.0 Unit: mL Repeat number: 1 cyanocobalamin 1000 mcg/ml injectable solution 1 mL = 1,000 mcg, Intramuscular, Once, 1ml to left Deltoid IM well tolerated. Lot # [id number] exp 01/2025, # 1 mL, 0 Refills, Maintenance, 08/01/24 10:19:00 AM EST, Solution, Partial fill upon patient request if the prescription is for a schedule II opioid drug. Start Date: 08/01/24 Status: Ordered Quantity: 1.0 Unit: mL Repeat number: 1 cyanocobalamin 1000 mcg/ml injectable solution 1 mL = 1,000 mcg, Intramuscular, Once, 1 ml IM to right Deltoid, well tolerated. Lot #[id number]. 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 Iron deficiency anemia Confirmed Active Melanoma Confirmed Active Moderate aortic stenosis Confirmed Active Atrial fibrillation Confirmed Active Urinary retention Confirmed Active Diagnosis Diagnosis Type Effective Dates Health Status Clinical Service Informant Bilateral edema of lower extremity Discharge Diagnosis 07/25/24 Iron deficiency anemia, unspecified Discharge Diagnosis 07/25/24 Vital Signs Most recent to oldest [Reference Range]: 1 Height 169 cm (07/25/24 8:55 AM) Weight 64.3 kg (07/25/24 8:55 AM) Oxygen Saturation [94-100 %] 98 % (07/25/24 8:55 AM) Pulse Rate [55-90 bpm] 54 bpm *L* (07/25/24 8:55 AM) Body Mass Index [18.5-24.99 kg/m2] 22.51 kg/m2 (07/25/24 8:55 AM) Blood Pressure [90-138/55-84 mm Hg] 120/ 53mm Hg (07/25/24 8:55 AM) Blood pressure sites Arm, left (07/25/24 8:55 AM) Weight Obtained Via Standing scale (07/25/24 8:55 AM) Social History Social History Type Response Smoking Status Former smoker, quit more than 30 days ago entered on: 09/22/23 Sex Sex Representation Male (finding) Note * Zuleyka Sherman: PERFORM Event Display: Patient Education/Instruction Authored Date: [id number] Ambulatory Adult Visit Summary [address] [address] Name: ASHLEY JIMÉNEZ : 1945?? Visit: 07/25/2024 08:40?? Ambulatory Visit Instructions ?? Your Care Team Primary Care Provider Munir DO, Rich? This Visit Provider Rich Amaral DO Your Diagnosis Bilateral edema of lower extremity Iron deficiency anemia, unspecified Vitals Signs Pulse Rate:??54 bpm??Low Height: 169 cm Systolic Blood Pressure: 120 mm Hg Weight: 64.3 kg Diastolic Blood Pressure:??53 mm Hg??Low Body Mass Index: 22.51 kg/m2 Oxygen Saturation: 98 % Body surface area: 1.74 What to do next Scheduled Follow-Up Appointments Thursday 10:00 AM EST ?? Where: [address] [address]- Status: Pending Future Orders CBC w/ Differential - Once, [...] pt jaison well, administered without incident. LOT: [id number] EXP: [facility]: 45473-409-94 ?? Unchanged Cyanocobalamin (cyanocobalamin 1000 mcg/ ml injectable solution) 1 Milliliter Intramuscular Every 30 days 1ml IM to left Deltoid, well tolerated, Lot # [id number] exp 2025 ?? Unchanged Cyanocobalamin (cyanocobalamin 1000 mcg/ ml injectable solution) 1 Milliliter Intramuscular Once 1ml IM to left Deltoid. Well tolerated. Lot # [id number], exp 2026 ?? Unchanged Cyanocobalamin (cyanocobalamin 1000 mcg/ ml injectable solution) 1 Milliliter Intramuscular Once 1 ml IM to right Deltoid, well tolerated. ??Lot #[id number]. exp 2025 ?? Unchanged Cyanocobalamin (Vitamin B12) 1,000 Microgram Intramuscular Unchanged Furosemide (Lasix 40 mg oral tablet) 1 tab(s) Oral Daily Unchanged Metoprolol (metoprolol 25 mg oral tablet) 0.5 tab(s) Oral Twice a day Unchanged Miscellaneous Rx (Iron) Unchanged Sildenafil (Viagra 100 mg oral tablet) 1 tab(s) Oral Daily 1 hour before sexual activity ?? Unchanged Tamsulosin (tamsulosin 0.4 mg oral capsule) 1 capsule Oral Daily at Bedtime Unchanged Warfarin (Coumadin Tablet) Oral Daily Test Performed Below is a partial list of the tests performed during your Visit. You may have had other tests and procedures not included in this list. Please discuss all test results with your provider. CBC w/ Differential?-- Results Pending -- Ferritin?-- Results Pending -- Folate Level?-- Results Pending -- Iron + Iron Binding Capacity?-- Results Pending -- Vitamin B12 Level?-- Results Pending -- Medications and Immunizations Administered Medications Given During [...] are strongly encouraged to quit. Please call [facility] [employer] Link at [phone] or [phone] ([phone]) or log in to [email or web address] for referrals to smoking cessation programs. ?? The National Suicide Prevention Hotline is available 06/04 if you or someone you know needs to find a reason to keep living. By calling 1-643-962-fzjb ([phone]) you'll be connected to a skilled, trained counselor at a crisis center in your area. [facility] [employer] Portal You can view and manage your care through the patient portal or by using a health care owen of your choosing. [employer] is a website that allows you to securely view your medical information including your hospital discharge summary, office visit summaries, medications and follow-up visits. You can also request appointments, renew medications, and request access to your medical information using a health care owen of your choosing, or just ask a question. You can enroll at [email or web address] or register during your next office visit. [facility], in keeping with [facility] guidance, no longer requires face masks [...] primary care provider, you may find a [facility] provider by calling [facility] [employer] Link at [phone]. Patient Care team information Care Team Personnel Name: Aysha Dow RN Position: S RN Member Role: Primary Care Nurse Name: Rich Amaral DO Position: S Physician - Primary Care Member Role: PCP Address: [address] [place] [address] Telecom: Name: Sheila May RN Position: S RN Member Role: Primary Care Nurse Care Team Related Persons Name: TINO FRANCK Insurance Providers Guarantor name: ASHLEY JIMÉNEZ Health Plan Information #: 1 Payer: MEDICARE PART B OUTPT Member Number: [id number] Policy Number: NA Group Number: NA Health Plan Information #: 2 Payer: SID LINARES Member Number: [id number] Policy Number: NA Group Number: NA
--- OUTSIDE RECORDS SUMMARY | 2024-08-24 16:02 | XMS_ITS | Continuity of Care Document ---
Author Organization [facility] Address [address] [place] [address]- Care Team Providers Care Net Mobile Developer Name Role Phone iRch Amaral DO Primary Care Physician Encounter [facility] Date(s): 07/08/24 - 08/07/24 [facility] [address] [place], [place] [address] Encounter Type: Triage Allergies, Adverse Reactions, Alerts Substance Criticality Severity Reaction Reaction Severity Status Ancef Active Immunizations Given and Recorded Vaccine Date Status Refusal Reason tetanus/diphtheria/pertussis, acel(Tdap) 09/25/23 Recorded SARS-CoV-2 mRNA (agyrbwk-mube-axaom) vax 12/19/21 Recorded SARS-CoV-2 (COVID-19) mRNA BNT-162b2 [...] pt jaison well, administered without incident. LOT: [id number] EXP: [facility]: 62265-612-59, 0 Refills, Maintenance, 07/08/24 10:30:00 AM EDT, Partial fill upon patient request if the prescription is for a schedule II opioid drug. Start Date: 07/08/24 Status: Ordered Repeat number: 1 cyanocobalamin 1000 mcg/ml injectable solution 1 mL = 1,000 mcg, Intramuscular, Every 30 days, 1ml IM to left Deltoid, well tolerated, Lot # [id number] exp 01/2026, # 1 mL, 0 Refills, Maintenance, 07/18/24 10:23:00 AM EST, Solution, Partial fill uponpatient request if the prescription is for a schedule II opioid drug. Start Date: 07/18/24 Status: Ordered Quantity: 1.0 Unit: mL Repeat number: 1 cyanocobalamin 1000 mcg/ml injectable solution 1 mL = 1,000 mcg, Intramuscular, Once, 1ml IM to left Deltoid. Well tolerated. Lot # [id number], exp 01/2027, # 1 mL, 0 Refills, Maintenance, 07/11/24 10:43:00 AM EDT, Solution, Partial fill upon patient request if the prescription is for a schedule II opioid drug. Start Date: 07/11/24 Status: Ordered Quantity: 1.0 Unit: mL Repeat number: 1 cyanocobalamin 1000 mcg/ml injectable solution 1 mL = 1,000 mcg, Intramuscular, Once, 1ml to left Deltoid IM well tolerated. Lot # [id number] exp 01/2025, # 1 mL, 0 Refills, Maintenance, 08/01/24 10:19:00 AM EST, Solution, Partial fill upon patient request if the prescription is for a schedule II opioid drug. Start Date: 08/01/24 Status: Ordered Quantity: 1.0 Unit: mL Repeat number: 1 cyanocobalamin 1000 mcg/ml injectable solution 1 mL = 1,000 mcg, Intramuscular, Once, 1 ml IM to right Deltoid, well tolerated. Lot #[id number]. exp 01/2026, # 1 mL, 0 Refills, [...] 3:20:00 PM EDT, Route to Pharmacy Electronically, [facility], Partial fill upon patient [...] Team Personnel Name: Aysha Dow RN Position: [facility] RN Member Role: Primary Care Nurse Name: Rich Amaral DO Position: [facility] Physician - Primary Care Member Role: PCP Address: [address] [place] [address] Telecom: Name: Sheila May RN Position: S [...]
== END 2024-08-22 14:32 | disposition home or self-care (01) ==
LOC: HO.ACS 14:05
PROVIDERS: PCP Family Medicine; Visit Provider Internal Medicine
DX: Z79.01 Long term (current) use of anticoagulants (principal)

== ENCOUNTER → 2024-08-22 14:05 | Outpatient (BNVA) | payer OTHER, SELFPAY | PROVIDERS: PCP Family Medicine; Visit Provider Internal Medicine | DX: Z95.2 Presence of prosthetic heart valve (principal); Z79.01 Long term (current) use of anticoagulants; Z51.81 Encounter for therapeutic drug level monitoring | CPT/HCPCS: 85610; 99211 ==

== ENCOUNTER 2024-08-29 10:17 | Outpatient (AMB) | payer OTHER, SELFPAY ==
[2024-08-29 10:37] LABS: Prothrombin Time Whole Bld POC 30.4 sec (11.1-13.5); ~PT, ~INR - Anti Coag Clinic 2.5 (0.9-1.1)
--- NOTE | 2024-08-29 10:39 | MHC.OFFVISCO ---
Intake Intake Visit Reasons: Anticoagulation Allergies No Known Allergies Allergy (Verified 08/29/24 10:18) Medication List - Last Reconciled 08/29/24 by Gloria Villalobos RN acetaminophen 325 mg PO QID PRN allopurinol 150 mg (1/2 x 300 mg) PO DAILY aspirin 81 mg PO DAILY atorvastatin 20 mg PO DAILY dupilumab (Dupixent) mg subcut ferrous sulfate (FeroSul) 325 mg PO DAILY furosemide 80 mg PO BID metoprolol succinate ER mg PO potassium chloride ER (Klor-Con M) 20 mEq PO DAILY sildenafil 100 mg PO DAILY sildenafil mg PO triamcinolone acetonide 0.1% 1 appl topical BID-TID warfarin 2 mg See Protocol PO DAILY Nursing Note INR: 2.5 in therapeutic range Medications and supplements reviewed No changes in health, diet, medications, or supplements, Denies any signs and symptoms of bleeding or bruising or clotting. Bleeding, bruising, clotting discussed Nutritional guidance given - keep up weekly greens, cooked greens lower your INR more than raw greens Dose: keep same dose 3mg x 1 day/ 2mg x 6 days F/U INR: 2 weeks Patient verbalizes understanding of instructions given Anti-Coag Initial Assessment Social Hx Patient Tobacco Use Status: Never used Tobacco alcohol intake: current Alcohol intake frequency: 0-2 drinks per day Cardiovascular Hx: HTN, Arrhythmias and Varicose Veins Musculoskeletal Hx: Gout Blood Disorder Hx: Hyperlipidemia Neurological Hx: Stroke/TIA and Aneurysm Cancer HX: Yes (SKIN CANCER HX, 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 Illness/Depression: No Coding Level of Care Code Est Patient Level 1 Diagnoses Current use of anticoagulant therapy Z79.01 Results AMB INR Fingerstick AMB INR Fingerstick 2.5 Last Edit by Gloria Villalobos RN on 08/29/24 10:32 manual entry Assessment & Plan Assessment & Plan (1) Current use of anticoagulant therapy: Code(s): Z79.01 - terminal operations supervisor (current) use of anticoagulants Category: Medical Medications: New cyanocobalamin (vitamin B-12) PO
== END 2024-08-29 10:44 | disposition home or self-care (01) ==
LOC: HO.ACS 10:17
PROVIDERS: PCP Family Medicine; Visit Provider Internal Medicine
DX: Z79.01 Long term (current) use of anticoagulants (principal)

== ENCOUNTER → 2024-08-29 10:17 | Outpatient (BNVA) | payer OTHER, SELFPAY | PROVIDERS: PCP Family Medicine; Visit Provider Internal Medicine | DX: Z95.2 Presence of prosthetic heart valve (principal); Z79.01 Long term (current) use of anticoagulants; Z51.81 Encounter for therapeutic drug level monitoring | CPT/HCPCS: 85610; 99211 ==

== ENCOUNTER 2024-09-12 10:28 | Outpatient (AMB) | payer OTHER, SELFPAY ==
--- OUTSIDE RECORDS SUMMARY | 2024-09-12 10:32 | XMS_ITS | Continuity of Care Document ---
Author Organization [facility] Address [address] [place] [address]- Care Team Providers Care Plant Taxonomy Teacher Name Role Phone Rich Amaral DO Primary Care Physician Encounter [facility] Date(s): 07/05/24 - 08/24/24 [facility] [address] [place] [address]- Attending Physician: Not on Staff, Attending MD Encounter Type: Pre Office Visit Allergies, Adverse Reactions, Alerts Substance Criticality Severity Reaction Reaction Severity Status Ancef Active Immunizations Given and Recorded Vaccine Date Status Refusal Reason tetanus/diphtheria/pertussis, acel(Tdap) 09/25/23 Recorded SARS-CoV-2 mRNA (egpqbee-oqdg-tayqt) vax 12/19/21 Recorded SARS-CoV-2 (COVID-19) mRNA BNT-162b2 [...] pt jaison well, administered without incident. LOT: [id number] EXP: [facility]: 43005-970-06, 0 Refills, Maintenance, 07/08/24 10:30:00 AM EDT, Partial fill upon patient request if the prescription is for a schedule II opioid drug. Start Date: 07/08/24 Status: Ordered Repeat number: 1 cyanocobalamin 1000 mcg/ml injectable solution 1 mL = 1,000 mcg, Intramuscular, Every 30 days, 1ml IM to left Deltoid, well tolerated, Lot # [id number] exp 01/2026, # 1 mL, 0 Refills, Maintenance, 07/18/24 10:23:00 AM EST, Solution, Partial fill uponpatient request if the prescription is for a schedule II opioid drug. Start Date: 07/18/24 Status: Ordered Quantity: 1.0 Unit: mL Repeat number: 1 cyanocobalamin 1000 mcg/ml injectable solution 1 mL = 1,000 mcg, Intramuscular, Once, 1ml IM to left Deltoid. Well tolerated. Lot # [id number], exp 01/2027, # 1 mL, 0 Refills, Maintenance, 07/11/24 10:43:00 AM EDT, Solution, Partial fill upon patient request if the prescription is for a schedule II opioid drug. Start Date: 07/11/24 Status: Ordered Quantity: 1.0 Unit: mL Repeat number: 1 cyanocobalamin 1000 mcg/ml injectable solution 1 mL = 1,000 mcg, Intramuscular, Once, 1ml to left Deltoid IM well tolerated. Lot # [id number] exp 01/2025, # 1 mL, 0 Refills, Maintenance, 08/01/24 10:19:00 AM EST, Solution, Partial fill upon patient request if the prescription is for a schedule II opioid drug. Start Date: 08/01/24 Status: Ordered Quantity: 1.0 Unit: mL Repeat number: 1 cyanocobalamin 1000 mcg/ml injectable solution 1 mL = 1,000 mcg, Intramuscular, Once, 1 ml IM to right Deltoid, well tolerated. Lot #[id number]. exp 01/2026, # 1 mL, 0 Refills, [...] 3:20:00 PM EDT, Route to Pharmacy Electronically, [facility], Partial fill upon patient [...] Refills, Maintenance, 08/08/24 10:50:00 AM EST, Tablet, [id number], Partial fill upon patient request [...] Team Personnel Name: Aysha Dow RN Position: [facility] RN Member Role: Primary Care Nurse Name: Rich Amaral DO Position: [facility] Physician - Primary Care Member Role: PCP Address: [address] [place] [address]- Telecom: Name: Sheila May RN Position: [facility] RN Member Role: Primary Care Nurse Care Team Related Persons Name: FRANCK JIMÉNEZ Insurance Providers Guarantor name: ASHLEY JIMÉNEZ Health Plan Information #: 1 Payer: MEDICARE PART B OUTPT Member Number: [id number] Policy Number: NA Group Number: NA Health Plan Information #: 4 Payer: MEDICARE PART B OUTPT Member Number: [id number] Policy Number: NA Group Number: NA Health Plan Information #: 2 Payer: SID GOLD SUP Member Number: [id number] Policy Number: NA Group Number: NA Health Plan Information #: 3 Payer: SID G[employer]P Member Number: [id number] Policy Number: NA Group Number: NA
--- OUTSIDE RECORDS SUMMARY | 2024-09-12 10:32 | XMS_ITS ---
Author Organization [facility] Address [address] [place] [address] Care Team Providers Care Drivers License Examiner Name Role Phone Robbie Ferrer MD Primary Care Provider Jean Carlos Cordova Unavailable [phone] REASON FOR VISIT anemia Encounters Encounter Location Date Provider Diagnosis [facility] [address] [place] [address] 10/21/2023 Jean Carlos Kaur PLAN OF TREATMENT No Information
--- OUTSIDE RECORDS SUMMARY | 2024-09-12 10:32 | XMS_ITS ---
Author Organization [facility] Address [address] [place] [address] Care Team Providers Care Bi Lead Name Role Phone Robbie Ferrer MD Primary Care Provider Jean Carlos Cordova Unavailable [phone] REASON FOR VISIT fe def anemia Encounters Encounter Location Date Provider Diagnosis [facility] Outpatient [address] [place], [place] [id number] 09/09/2023 Jean Carlos Kaur PLAN OF TREATMENT No Information
--- OUTSIDE RECORDS SUMMARY | 2024-09-12 10:32 | XMS_ITS ---
Author Organization [facility] Address [address] [place] [address] Care Team Providers Care Ecology Professor Name Role Phone Robbie Ferrer MD Primary Care Provider Jean Carlos Cordova Unavailable [phone] REASON FOR VISIT iron def anemia, gerd Encounters Encounter Location Date Provider Diagnosis [facility] Outpatient [address] [place], [place] [id number] 10/14/2023 Jean Carlos Kaur PLAN OF TREATMENT No Information
--- OUTSIDE RECORDS SUMMARY | 2024-09-12 10:32 | XMS_ITS | Patient Health Record ---
Author Organization [facility] Address [address] [place], [place] [address] [address] Care Team Providers Care Rib Trim Separator Name Role Phone Robbie Ferrer MD Primary Care Provider Jean Carlos Cordova [phone] ALLERGIES No Known Allergies REASON FOR REFERRAL [...] iron deficiency anemia type (D50.9) Active confirmed [id number] Problem Gastroesophageal reflux disease, unspecified whether esophagitis present (K21.9) Active confirmed [id number] Encounters Encounter Location Date Provider [place] [facility] [place] [address] [facility] [place] [id number] 10/14/2023 [facility] [address] [place] [address] 10/21/2023 Jean Carlos Kaur PLAN OF TREATMENT Pending Test Test Name Order Date Hemoccult Cards (Non-Screening) 07/07/20 23 IRON + IBC (FE) 07/28/2023 CBC w DIFF 07/28/2023 CBC w DIFF 07/07/2023 Ferritin 07/28/2023 Future Test Test Name Order Date UPPER GI ENDOSCOPY 07/07/2023 COLONOSCOPY 07/07/2023 Insurance Providers Payer Name Payer Address Payer Phone Subscriber Number Group Number Insured Name Patient Relationship to Insured Coverage Start Date Coverage End Date Cig [employer] [address] [place], [place] [id number] ASHLEY JIMÉNEZ Self - patient is the insured MEDICAL (GENERAL) HISTORY Medical History History ICD Code Afib--on Coumadin--sees Dr. Martini at [facility]-s/p cardioversion earlier this year Hypertension Denies [place],DM,CVA,Lung disease,renal dise ase TIA-transient left eye visual loss GERD--on longstanding omeprazole Gout Hyperlipidemia Iron deficiency anemia 2022 Surgical History Surgery Date(Month/Year) Thoracic aortic aneurysm wit h a bioprosthetic valve at [facility]_ _Dr. Bella 08/19/2022 Melanoma(on back) and Basal cells
--- OUTSIDE RECORDS SUMMARY | 2024-09-12 10:32 | XMS_ITS | Continuity of Care Document ---
Author Organization [facility] Address [address] [place] [address]- Care Team Providers Care Vortex Operator Name Role Phone Rich Amaral DO Primary Care Physician Encounter [facility] Date(s): 08/08/24 - 09/07/24 [facility] [address] [place] [address]- Attending Physician: Admtr, [id number] Admitting Physician: AdmtrYaquelin Referring Physician: Admtr, [id number] Encounter Type: Triage Allergies, Adverse Reactions, Alerts Substance Criticality Severity Reaction Reaction Severity Status Ancef Active Immunizations Given and Recorded Vaccine Date Status Refusal Reason tetanus/diphtheria/pertussis, acel(Tdap) 09/25/23 Recorded SARS-CoV-2 mRNA ([id number]) vax 12/19/21 Recorded SARS-CoV-2 (COVID-19) mRNA BNT-162b2 [...] tablet, Refills 0, Tot. Refills 0, Maintenance, 5/21/24 2:17:00 PM EDT, Print Requisition, Partial fill [...] pt jaison well, administered without incident. LOT: [id number] EXP: [facility]: [id number], 0 Refills, Maintenance, 07/08/24 10:30:00 AM EDT, Partial fill upon patient request if the prescription is for a schedule II opioid drug. Start Date: 07/08/24 Status: Ordered Repeat number: 1 cyanocobalamin 1000 mcg/ml injectable solution 1 mL = 1,000 mcg, Intramuscular, Every 30 days, 1ml IM to left Deltoid, well tolerated, Lot # [id number] exp 01/2026, # 1 mL, 0 Refills, Maintenance, 07/18/24 10:23:00 AM EST, Solution, Partial fill uponpatient request if the prescription is for a schedule II opioid drug. Start Date: 07/18/24 Status: Ordered Quantity: 1.0 Unit: mL Repeat number: 1 cyanocobalamin 1000 mcg/ml injectable solution 1 mL = 1,000 mcg, Intramuscular, Once, 1ml IM to left Deltoid. Well tolerated. Lot # [id number], exp 01/2027, # 1 mL, 0 Refills, Maintenance, 07/11/24 10:43:00 AM EDT, Solution, Partial fill upon patient request if the prescription is for a schedule II opioid drug. Start Date: 07/11/24 Status: Ordered Quantity: 1.0 Unit: mL Repeat number: 1 cyanocobalamin 1000 mcg/ml injectable solution 1 mL = 1,000 mcg, Intramuscular, Once, 1ml to left Deltoid IM well tolerated. Lot # [id number] exp 01/2025, # 1 mL, 0 Refills, Maintenance, 08/01/24 10:19:00 AM EST, Solution, Partial fill upon patient request if the prescription is for a schedule II opioid drug. Start Date: 08/01/24 Status: Ordered Quantity: 1.0 Unit: mL Repeat number: 1 cyanocobalamin 1000 mcg/ml injectable solution 1 mL = 1,000 mcg, Intramuscular, Once, 1 ml IM to right Deltoid, well tolerated. Lot #[id number]. exp 01/2026, # 1 mL, 0 Refills, [...] 3:20:00 PM EDT, Route to Pharmacy Electronically, [facility], Partial fill upon patient request [...] Refills, Maintenance, 08/08/24 10:50:00 AM EST, Tablet, [facility]/pharmacy #[id number], Partial fill upon patient [...] on: 09/22/23 Sex Sex Representation Male (finding) Cardiology * Event Display: Cardiovascular Result Scanned Authored Date: Laboratory * Event Display: Non BH Lab Results Authored Date: * Event Display: Non BH Lab Results Authored Date: * Event Display: PT/INR Laboratory Results Scanned Authored Date: * Event Display: Non BH Lab Results Authored Date: * Event Display: Non BH Lab Results Authored Date: Patient Care team information Care Team Personnel Name: Aysha Dow RN Position: [facility] RN Member Role: Primary Care Nurse Name: Rich Amaral DO Position: [facility] Physician - Primary Care Member Role: PCP Address: [address] [place] [address] Telecom: Name: Sheila May RN Position: [facility] [...]
--- NOTE | 2024-09-12 10:37 | MHC.OFFVISCO ---
Intake Intake Visit Reasons: Anticoagulation Allergies No Known Allergies Allergy (Verified 09/12/24 10:31) Medication List - Last Reconciled 09/12/24 by Lilian Qureshi RN acetaminophen 325 mg PO QID PRN allopurinol 150 mg (1/2 x 300 mg) PO DAILY aspirin 81 mg PO DAILY atorvastatin 20 mg PO DAILY cyanocobalamin (vitamin B-12) PO dupilumab (Dupixent) mg subcut ferrous sulfate (FeroSul) 325 mg PO DAILY furosemide 80 mg PO BID metoprolol succinate ER mg PO potassium chloride ER (Klor-Con M) 20 mEq PO DAILY sildenafil 100 mg PO DAILY sildenafil mg PO triamcinolone acetonide 0.1% 1 appl topical BID-TID warfarin 2 mg See Protocol PO DAILY Nursing Note INR: 2.7- in therapeutic range of 2-3 Medications and supplements reviewed No changes in health, diet, medications, or supplements, Denies any signs and symptoms of bleeding or bruising or clotting. 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
[2024-09-12 10:38] LABS: Prothrombin Time Whole Bld POC 32.5 sec (11.1-13.5); ~PT, ~INR - Anti Coag Clinic 2.7 (0.9-1.1)
== END 2024-09-12 10:41 | disposition home or self-care (01) ==
LOC: HO.ACS 10:28
PROVIDERS: PCP Family Medicine; Visit Provider Internal Medicine
DX: Z79.01 Long term (current) use of anticoagulants (principal)

== ENCOUNTER → 2024-09-12 10:28 | Outpatient (BNVA) | payer OTHER, SELFPAY | PROVIDERS: PCP Family Medicine; Visit Provider Internal Medicine | DX: Z95.2 Presence of prosthetic heart valve (principal); Z79.01 Long term (current) use of anticoagulants; Z51.81 Encounter for therapeutic drug level monitoring | CPT/HCPCS: 85610; 99211 ==

== ENCOUNTER → 2024-09-26 10:17 | Outpatient (BNVA) | payer OTHER, SELFPAY | PROVIDERS: PCP Family Medicine; Visit Provider Internal Medicine | DX: Z95.2 Presence of prosthetic heart valve (principal); Z79.01 Long term (current) use of anticoagulants; Z51.81 Encounter for therapeutic drug level monitoring | CPT/HCPCS: 85610; 99211 ==

== ENCOUNTER 2024-09-26 14:00 | Outpatient (AMB) | payer OTHER, SELFPAY ==
--- OUTSIDE RECORDS SUMMARY | 2024-09-26 11:46 | XMS_ITS ---
Author Organization [facility] Address [address] [place] [address] Care Team Providers Care Hand Lens Polisher Name Role Phone Robbie Ferrer MD Primary Care Provider Jean Carlos Cordova Unavailable [phone] REASON FOR VISIT anemia Encounters Encounter Location Date Provider Diagnosis [facility] [address] [place] [address] 10/21/2023 Jean Carlos Kaur PLAN OF TREATMENT No Information
--- OUTSIDE RECORDS SUMMARY | 2024-09-26 11:46 | XMS_ITS ---
Author Organization [facility] Address [address] [place] [address] Care Team Providers Care Duct Maker Name Role Phone Robbie Ferrer MD Primary Care Provider Jean Carlos Cordova Unavailable [phone] REASON FOR VISIT iron def anemia, gerd Encounters Encounter Location Date Provider Diagnosis [facility] [place] [address] [place], [place] [phone] 10/14/2023 Jean Carlos Kaur PLAN OF TREATMENT No Information
--- OUTSIDE RECORDS SUMMARY | 2024-09-26 11:47 | XMS_ITS | Patient Health Record ---
Author Organization [facility] Address [address] [place], [place] [address] [address] Care Team Providers Care Airplane Electrician Name Role Phone Robbie Ferrer MD Primary Care Provider Jean Carlos Cordova [phone] ALLERGIES No Known Allergies REASON FOR REFERRAL [...] iron deficiency anemia type (D50.9) Active confirmed [id number] Problem Gastroesophageal reflux disease, unspecified whether esophagitis present (K21.9) Active confirmed [id number] Encounters Encounter Location Date Provider Diagnosis [facility] [place] [address] [place] [phone] 10/14/2023 [facility] [address] [place] [address] 10/21/2023 Jean Carlos Kaur PLAN OF TREATMENT [...] Coverage Start Date Coverage End Date Cig [employer] [address] [place], [place] [id number] ASHLEY JIMÉNEZ Self - patient is the insured MEDICAL (GENERAL) HISTORY Medical History History ICD Code Afib--on Coumadin--sees Dr. Martini at [facility]-s/p cardioversion earlier this year Hypertension Denies [place],DM,CVA,Lung disease,renal dise ase TIA-transient left eye visual loss GERD--on longstanding omeprazole Gout Hyperlipidemia Iron deficiency anemia 2022 Surgical History Surgery Date(Month/Year) Thoracic aortic aneurysm wit h a bioprosthetic valve at [facility]_ _Dr. Bella 08/19/2022 Melanoma(on back) and Basal cells
--- OUTSIDE RECORDS SUMMARY | 2024-09-26 11:47 | XMS_ITS ---
Author Organization [facility] Address [address] [place] [address] Care Team Providers Care Oven Builder Name Role Phone Robbie Ferrer MD Primary Care Provider Jean Carlos Cordova Unavailable [phone] REASON FOR VISIT fe def anemia Encounters Encounter Location Date Provider Diagnosis [facility] Out[place] [address] [place], [place] [phone] 09/09/2023 Jean Carlos Kaur PLAN OF TREATMENT No Information
[2024-09-26 14:24] LABS: ~PT, ~INR - Anti Coag Clinic 2.4 (0.9-1.1)
--- NOTE | 2024-09-26 14:27 | MHC.OFFVISCO ---
Intake Intake Visit Reasons: Anticoagulation Allergies No Known Allergies Allergy (Verified 09/26/24 14:11) Medication List - Last Reconciled 09/26/24 by Fariha Barron RN acetaminophen 325 mg PO QID PRN allopurinol 150 mg (1/2 x 300 mg) PO DAILY aspirin 81 mg PO DAILY atorvastatin 20 mg PO DAILY cyanocobalamin (vitamin B-12) PO dupilumab (Dupixent) mg subcut ferrous sulfate (FeroSul) 325 mg PO DAILY furosemide 80 mg PO BID metoprolol succinate ER mg PO potassium chloride ER (Klor-Con M) 20 mEq PO DAILY sildenafil 100 mg PO DAILY sildenafil mg PO triamcinolone acetonide 0.1% 1 appl topical BID-TID warfarin 2 mg See Protocol PO DAILY Nursing Note INR: 2.4 in therapeutic range of 2-3 Medications and supplements reviewed No changes in health, diet, medications, or supplements, Denies any signs and symptoms of bleeding or bruising or clotting. 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
== END 2024-09-26 14:28 | disposition home or self-care (01) ==
PROVIDERS: PCP Family Medicine; Visit Provider Internal Medicine
DX: Z79.01 Long term (current) use of anticoagulants (principal)

== ENCOUNTER 2024-10-10 10:11 | Outpatient (AMB) | payer OTHER, SELFPAY ==
[2024-10-10 10:19] LABS: Prothrombin Time Whole Bld POC 26.1 sec (11.1-13.5); ~PT, ~INR - Anti Coag Clinic 2.2 (0.9-1.1)
--- NOTE | 2024-10-10 10:27 | MHC.OFFVISCO ---
Intake Intake Visit Reasons: Anticoagulation Allergies No Known Allergies Allergy (Verified 10/10/24 10:16) Medication List - Last Reconciled 10/10/24 by Fariha Barron, RN acetaminophen 325 mg PO QID PRN allopurinol 150 mg (1/2 x 300 mg) PO DAILY aspirin 81 mg PO DAILY atorvastatin 20 mg PO DAILY cyanocobalamin (vitamin B-12) PO dupilumab (Dupixent) mg subcut ferrous sulfate (FeroSul) 325 mg PO DAILY furosemide 80 mg PO BID metoprolol succinate ER mg PO potassium chloride ER (Klor-Con M) 20 mEq PO DAILY sildenafil 100 mg PO DAILY sildenafil mg PO triamcinolone acetonide 0.1% 1 appl topical BID-TID warfarin 2 mg See Protocol PO DAILY Nursing Note INR: 2.2 in therapeutic range of 2-3 Pt states he feels much better. His anemia is improving and he states he has more energy. States his weight went from 120lbs to 140'slbs. Medications and supplements reviewed No changes in health, diet, medications, or supplements, Denies any signs and symptoms of bleeding or bruising or clotting. 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 Illness/Depression: No Coding Level of Care Code Est Patient Level 1 Diagnoses Current use of anticoagulant therapy Z79.01 Assessment & Plan Assessment & Plan (1) Current use of anticoagulant therapy: Code(s): Z79.01 - [facility] (current) use of anticoagulants Category: Medical
--- OUTSIDE RECORDS SUMMARY | 2024-10-10 14:45 | XMS_ITS ---
Author Organization [facility] Address [address] [place] [address] Care Team Providers Care Custom Leather Products Maker Name Role Phone Robbie Ferrer MD Primary Care Provider Jean Carlos Cordova Unavailable [phone] REASON FOR VISIT iron def anemia, gerd Encounters Encounter Location Date Provider Diagnosis [facility] [place] [address] [place], [place] [phone] 10/14/2023 Jean Carlos Kaur PLAN OF TREATMENT No Information
--- OUTSIDE RECORDS SUMMARY | 2024-10-10 14:45 | XMS_ITS | Continuity of Care Document ---
Author Organization [facility] Address [address] [place] [address]- Care Team Providers Care Upholsterer Helper Name Role Phone Rich Amaral DO Primary Care Physician Encounter [facility] Date(s): 08/31/24 - 09/30/24 [facility] [address] [place] [address]- Encounter Type: Triage Allergies, Adverse Reactions, Alerts Substance Criticality Severity Reaction Reaction Severity Status Ancef Active Immunizations Given and Recorded Vaccine Date Status Refusal Reason tetanus/diphtheria/pertussis, acel(Tdap) 09/25/23 Recorded SARS-CoV-2 mRNA (ymfpjmb-edfo-qtiyk) vax 12/19/21 Recorded SARS-CoV-2 (COVID-19) mRNA BNT-162b2 [...] pt jaison well, administered without incident. LOT: [id number] EXP: [facility]: [id number], 0 Refills, Maintenance, 07/08/24 10:30:00 AM EDT, Partial fill upon patient request if the prescription is for a schedule II opioid drug. Start Date: 07/08/24 Status: Ordered Repeat number: 1 cyanocobalamin 1000 mcg/ml injectable solution 1 mL = 1,000 mcg, Intramuscular, Every 30 days, 1ml IM to left Deltoid, well tolerated, Lot # [id number] exp 01/2026, # 1 mL, 0 Refills, Maintenance, 07/18/24 10:23:00 AM EST, Solution, Partial fill uponpatient request if the prescription is for a schedule II opioid drug. Start Date: 07/18/24 Status: Ordered Quantity: 1.0 Unit: mL Repeat number: 1 cyanocobalamin 1000 mcg/ml injectable solution 1 mL = 1,000 mcg, Intramuscular, Once, 1ml IM to left Deltoid. Well tolerated. Lot # [id number], exp 01/2027, # 1 mL, 0 Refills, Maintenance, 07/11/24 10:43:00 AM EDT, Solution, Partial fill upon patient request if the prescription is for a schedule II opioid drug. Start Date: 07/11/24 Status: Ordered Quantity: 1.0 Unit: mL Repeat number: 1 cyanocobalamin 1000 mcg/ml injectable solution 1 mL = 1,000 mcg, Intramuscular, Once, 1ml to left Deltoid IM well tolerated. Lot # [id number] exp 01/2025, # 1 mL, 0 Refills, Maintenance, 08/01/24 10:19:00 AM EST, Solution, Partial fill upon patient request if the prescription is for a schedule II opioid drug. Start Date: 08/01/24 Status: Ordered Quantity: 1.0 Unit: mL Repeat number: 1 cyanocobalamin 1000 mcg/ml injectable solution 1 mL = 1,000 mcg, Intramuscular, Once, 1 ml IM to right Deltoid, well tolerated. Lot #[id number]. exp 01/2026, # 1 mL, 0 Refills, [...] 3:20:00 PM EDT, Route to Pharmacy Electronically, [facility], Partial fill upon patient request [...] Refills, Maintenance, 08/08/24 10:50:00 AM EST, Tablet, [facility]/pharmacy #[id number], Partial fill upon patient request if [...] Team Personnel Name: Aysha Dow RN Position: [facility] RN Member Role: Primary Care Nurse Name: Rich Amaral DO Position: [facility] Physician - Primary Care Member Role: PCP Address: [address] [place] [address] Telecom: Name: Sheila May RN Position: [facility] RN Member Role: Primary Care Nurse Care Team Related Persons Name: FRANCK JIMÉNEZ Insurance Providers Guarantor name: ASHLEY JIMÉNEZ Health Plan Information #: 1 Payer: MEDICARE PART B OUTPT Member Number: NA Policy Number: NA Group Number: NA Health Plan Information #: 2 Payer: SID LINARES Member Number: NA Policy Number: NA Group Number: NA
--- OUTSIDE RECORDS SUMMARY | 2024-10-10 14:45 | XMS_ITS ---
Author Organization [facility] Address [address] [place] [address] Care Team Providers Care News Clipping Cutter Name Role Phone Robbie Ferrer MD Primary Care Provider Jean Carlos Cordova Unavailable [phone] REASON FOR VISIT fe def anemia Encounters Encounter Location Date Provider Diagnosis [facility] [place] Out[place] [address] [place], [place] [phone] 09/09/2023 Jean Carlos Kaur PLAN OF TREATMENT No Information
--- OUTSIDE RECORDS SUMMARY | 2024-10-10 14:45 | XMS_ITS ---
Author Organization [facility] Address [address] [place] [address] Care Team Providers Care Cloth Doubling Machine Operator Name Role Phone Robbie Ferrer MD Primary Care Provider Jean Carlos Cordova Unavailable [phone] REASON FOR VISIT anemia Encounters Encounter Location Date Provider Diagnosis [facility] [address] [place] [address] 10/21/2023 Jean Carlos aKur PLAN OF TREATMENT No Information
--- OUTSIDE RECORDS SUMMARY | 2024-10-10 14:45 | XMS_ITS | Patient Health Record ---
Author Organization [facility] Address [address] [place], [place] [address] [place] [address] Care Team Providers Care Wildland Fire Fighter Name Role Phone Robbie Ferrer MD Primary Care Provider Jean Carlos Cordova [phone] ALLERGIES No Known Allergies REASON FOR REFERRAL [...] iron deficiency anemia type (D50.9) Active confirmed [id number] Problem Gastroesophageal reflux disease, unspecified whether esophagitis present (K21.9) Active confirmed [id number] Encounters Encounter Location Date Provider Diagnosis [facility] [place] Out[place] [address] [place], [place] [phone] 10/14/2023 [facility] [address] [place] [address] 10/21/2023 Jean Carlos Kaur PLAN OF TREATMENT [...] Coverage Start Date Coverage End Date Cig [employer] [address] [place], [place] [id number] ASHLEY JIMÉNEZ Self - patient is the insured MEDICAL (GENERAL) HISTORY Medical History History ICD Code Afib--on Coumadin--sees Dr. Martini at [facility]-s/p cardioversion earlier this year Hypertension Denies [place],DM,CVA,Lung disease,renal dise ase TIA-transient left eye visual loss GERD--on longstanding omeprazole Gout Hyperlipidemia Iron deficiency anemia 2022 Surgical History Surgery Date(Month/Year) Thoracic aortic aneurysm wit h a bioprosthetic valve at [facility]_ _Dr. Bella 08/19/2022 Melanoma(on back) and Basal cells
--- OUTSIDE RECORDS SUMMARY | 2024-10-10 14:45 | XMS_ITS | Continuity of Care Document ---
Author Organization [facility] Address [address] [place] [address]- Care Team Providers Care Supervisor Fitting Name Role Phone Rich Amaral DO Primary Care Physician Encounter [facility] [place] Date(s): 09/01/24 - 10/01/24 [facility] [address] [place] [address]- Encounter Type: Triage Allergies, Adverse Reactions, Alerts Substance Criticality Severity Reaction Reaction Severity Status Ancef Active Immunizations Given and Recorded Vaccine Date Status Refusal Reason tetanus/diphtheria/pertussis, acel(Tdap) 09/25/23 Recorded SARS-CoV-2 mRNA (taikaht-mlop-[id number]) vax 12/19/21 Recorded SARS-CoV-2 (COVID-19) mRNA BNT-162b2 [...] pt jaison well, administered without incident. LOT: [id number] EXP: [facility]: [id number], 0 Refills, Maintenance, 07/08/24 10:30:00 AM EDT, Partial fill upon patient request if the prescription is for a schedule II opioid drug. Start Date: 07/08/24 Status: Ordered Repeat number: 1 cyanocobalamin 1000 mcg/ml injectable solution 1 mL = 1,000 mcg, Intramuscular, Every 30 days, 1ml IM to left Deltoid, well tolerated, Lot # [id number] exp 01/2026, # 1 mL, 0 Refills, Maintenance, 07/18/24 10:23:00 AM EST, Solution, Partial fill uponpatient request if the prescription is for a schedule II opioid drug. Start Date: 07/18/24 Status: Ordered Quantity: 1.0 Unit: mL Repeat number: 1 cyanocobalamin 1000 mcg/ml injectable solution 1 mL = 1,000 mcg, Intramuscular, Once, 1ml IM to left Deltoid. Well tolerated. Lot # [id number], exp 01/2027, # 1 mL, 0 Refills, Maintenance, 07/11/24 10:43:00 AM EDT, Solution, Partial fill upon patient request if the prescription is for a schedule II opioid drug. Start Date: 07/11/24 Status: Ordered Quantity: 1.0 Unit: mL Repeat number: 1 cyanocobalamin 1000 mcg/ml injectable solution 1 mL = 1,000 mcg, Intramuscular, Once, 1ml to left Deltoid IM well tolerated. Lot # [id number] exp 01/2025, # 1 mL, 0 Refills, Maintenance, 08/01/24 10:19:00 AM EST, Solution, Partial fill upon patient request if the prescription is for a schedule II opioid drug. Start Date: 08/01/24 Status: Ordered Quantity: 1.0 Unit: mL Repeat number: 1 cyanocobalamin 1000 mcg/ml injectable solution 1 mL = 1,000 mcg, Intramuscular, Once, 1 ml IM to right Deltoid, well tolerated. Lot #[id number]. exp 01/2026, # 1 mL, 0 Refills, [...] 3:20:00 PM EDT, Route to Pharmacy Electronically, [facility], Partial fill upon patient request [...] Refills, Maintenance, 08/08/24 10:50:00 AM EST, Tablet, [facility] #[id number], Partial fill upon patient request if [...] Team Personnel Name: Aysha Dow RN Position: [facility] RN Member Role: Primary Care Nurse Name: Rich Amaral DO Position: [facility] Physician - Primary Care Member Role: PCP Address: [address] [place] [id number] Telecom: Name: Sheila May RN Position: [...]
== END 2024-10-10 10:30 | disposition home or self-care (01) ==
LOC: HO.ACS 10:11
PROVIDERS: PCP Family Medicine; Visit Provider Internal Medicine
DX: Z79.01 Long term (current) use of anticoagulants (principal)

== ENCOUNTER → 2024-10-10 10:11 | Outpatient (BNVA) | payer MEDICARE, SELFPAY | PROVIDERS: PCP Family Medicine; Visit Provider Internal Medicine | DX: Z95.2 Presence of prosthetic heart valve (principal); Z79.01 Long term (current) use of anticoagulants; Z51.81 Encounter for therapeutic drug level monitoring | CPT/HCPCS: 85610; 99211 ==

== ENCOUNTER 2024-10-26 09:12 | Outpatient (AMB) | payer MEDICARE, SELFPAY ==
[2024-10-26 09:26] LABS: ~PT, ~INR - Anti Coag Clinic 2.2 (0.9-1.1)
--- NOTE | 2024-10-26 09:33 | MHC.OFFVISCO ---
Intake Intake Visit Reasons: Anticoagulation Allergies No Known Allergies Allergy (Verified 10/26/24 09:20) Medication List - Last Reconciled 10/26/24 by Marcia De Leon RN acetaminophen 325 mg PO QID PRN allopurinol 150 mg (1/2 x 300 mg) PO DAILY aspirin 81 mg PO DAILY atorvastatin 20 mg PO DAILY cyanocobalamin (vitamin B-12) PO dupilumab (Dupixent) mg subcut ferrous sulfate (FeroSul) 325 mg PO DAILY furosemide 80 mg PO BID metoprolol succinate ER mg PO potassium chloride ER (Klor-Con M) 20 mEq PO DAILY sildenafil 100 mg PO DAILY sildenafil mg PO triamcinolone acetonide 0.1% 1 appl topical BID-TID warfarin 2 mg See Protocol PO DAILY Nursing Note NO CP,SOB,DIET/MED CHANGES,FALLS OR SX OF BLEEDING. CONTINUE PRESENT DOSE AND FOLLOW-UP IN 2 WEEKS GOOD UNDERSTANFING OF DOSING INSTR. 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
--- OUTSIDE RECORDS SUMMARY | 2024-10-26 10:11 | XMS_ITS ---
Author Organization [facility] Address [address] [place] [address] Care Team Providers Care Grocery Manager Name Role Phone Robbie Ferrer MD Primary Care Provider Jean Carlos Cordova Unavailable [phone] REASON FOR VISIT anemia Encounters Encounter Location Date Provider Diagnosis [facility] [address] [place] [address] 10/21/2023 Jean Carlos Kaur PLAN OF TREATMENT No Information
--- OUTSIDE RECORDS SUMMARY | 2024-10-26 10:11 | XMS_ITS ---
Author Organization [facility] Address [address] [place] [address] Care Team Providers Care Cutter Machine Name Role Phone Robbie Ferrer MD Primary Care Provider Jean Carlos Cordova Unavailable [phone] REASON FOR VISIT iron def anemia, gerd Encounters Encounter Location Date Provider Diagnosis [facility] Outpatient [address] [place], [place] [id number] 10/14/2023 Jean Carlos Kaur PLAN OF TREATMENT No Information
--- OUTSIDE RECORDS SUMMARY | 2024-10-26 10:11 | XMS_ITS ---
Author Organization [facility] Address [address] [place] [address] Care Team Providers Care Aircraft Systems Repairer Name Role Phone Robbie Ferrer MD Primary Care Provider Jean Carlos Cordova Unavailable [phone] REASON FOR VISIT fe def anemia Encounters Encounter Location Date Provider Diagnosis [facility] [place] [address] [place], [place] [phone] 09/09/2023 Jean Carlos Kaur PLAN OF TREATMENT No Information
--- OUTSIDE RECORDS SUMMARY | 2024-10-26 10:11 | XMS_ITS | Patient Health Record ---
Author Organization [facility] Address [address] [place] [address] Care Team Providers Care Multimedia Services Manager Name Role Phone Robbie Ferrer MD Primary Care Provider Jean Carlos Cordova Unavailable [phone] ALLERGIES No Known Allergies REASON FOR REFERRAL [...] iron deficiency anemia type (D50.9) Active confirmed [id number] Problem Gastroesophageal reflux disease, unspecified whether esophagitis present (K21.9) Active confirmed [id number] PLAN OF TREATMENT Pending Test Test Name [...] Insured Coverage Start Date Coverage End Date [employer] [facility] [address] [place], [place] [id number] ASHLEY JIMÉNEZ Self - patient is the insured MEDICAL (GENERAL) HISTORY Medical History History ICD Code Afib--on Coumadin--sees Dr. Martini at [facility]-s/p cardioversion earlier this year Hypertension Denies KS,DM,CVA,Lung disease,renal dise ase TIA-transient left eye visual loss GERD--on longstanding omeprazole Gout Hyperlipidemia Iron deficiency anemia 2022 Surgical History Surgery Date(Month/Year) Thoracic aortic aneurysm wit h a bioprosthetic valve at [facility] _Dr. Bella 08/19/2022 Melanoma(on back) and Basal cells
== END 2024-10-26 09:36 | disposition home or self-care (01) ==
LOC: HO.ACS 09:12
PROVIDERS: PCP Family Medicine; Visit Provider Internal Medicine
DX: Z79.01 Long term (current) use of anticoagulants (principal)

== ENCOUNTER → 2024-10-26 09:12 | Outpatient (BNVA) | payer MEDICARE, SELFPAY | PROVIDERS: PCP Family Medicine; Visit Provider Internal Medicine | DX: Z95.2 Presence of prosthetic heart valve (principal); Z79.01 Long term (current) use of anticoagulants; Z51.81 Encounter for therapeutic drug level monitoring | CPT/HCPCS: 85610; 99211 ==

== ENCOUNTER 2024-11-05 10:05 | Inpatient (IN) | payer MEDICARE, OTHER, SELFPAY ==
[2024-11-05] VITALS (10 sets, daily range): BP systolic 116–142; BP diastolic 60–92; PULSE 55–67; RESP 20–26; TEMP 36.6–38.8; O2SAT 84–97; BMI 23.4
--- NOTE | ~2024-11-05 | XR_ITS ---
CLINICAL HISTORY: upper resp sx 1 view chest x-ray Comparison: CR/SR - XR CHEST 2V - 08/24/23 14:[address] - CT ANGIO CHEST - 02/06/21 10:43 EDT Findings: Normal lung volumes. Increased interstitial markings suggesting vascular congestion with possible mild pulmonary edema. No consolidation. No pleural effusion or pneumothorax. Stable cardiomegaly and median sternotomy changes with aortic valve replacement. Stable mediastinal contour with aortic ectasia and uncoiling. Midline trachea. Bones unchanged. Upper abdomen unremarkable. Impression: Increased pulmonary vascular congestion and possible mild pulmonary edema. No consolidation. Stable cardiomegaly and OHS changes. This document has been electronically signed by: Deon Alba MD on 11/05/2024 12:17:21
--- NOTE | ~2024-11-05 | XR_ITS ---
CLINICAL HISTORY: fever, influenza 1 view chest x-ray Comparison: CR - XR CHEST 1V - 11/05/24 10:53 EST Findings: Right infrahilar patchy opacities, new. No pleural effusion. Cardiomegaly similar to prior. Osteopenia. No fracture. IMPRESSION: Right infrahilar pneumonia suspected. This document has been electronically signed by: Barrett Arevalo MD on 11/06/2024 02:25:12
--- NOTE | 2024-11-05 10:27 | ECG_ITS ---
Test Reason : FLU LIKE Blood Pressure : */* mmHG Vent. Rate : 61 BPM Atrial Rate : 241 BPM P-R Int : * ms QRS Dur : 92 ms QT Int : * ms P-R-T Axes : * 17 38 degrees QTcB Int : * ms Atrial fibrillation Nonspecific ST and T wave abnormality Abnormal ECG When compared with ECG of 20-Aug-2023 15:11, rhythm change Referred By: Huyen Singer Electronically Signed By: LIONEL RANKIN
--- NOTE | 2024-11-05 10:37 | ED_ITS ---
HPI - URI/Sore Throat General Chief Complaint: Upper Respiratory Symptoms Stated Complaint: + flu home test ; rattling cough Time Seen by Provider: 11/05/24 10:26 Source: patient and family () Mode of arrival: ambulatory Limitations: no limitations History of Present Illness ED Provider: BRENT CUNNINGHAM PA-C HPI Narrative: 79 year old male with pmhx significant for AAA, HTN, gout, GERD presents to the ED today for evaluation of upper respiratory symptoms including headache, fatigue, and cough x2-3 days. He reports waking up this morning with a congested cough making it difficult for him to breath. He reports taking a home flu tested which came back positive for influenza A. No known sick contacts. He denies hx of asthma/ COPD. He is not dependent on oxygen. He currently takes 40 mg lasix daily for LE edema and states his swelling has improved. He reports discontinuing his potassium supplementation as he began eating bananas instead. Denies fever, chills, sore throat, chest, pain, palpitations. Related Data Home Medications ?Medication ?Instructions ?Recorded ?Confirmed acetaminophen 325 mg capsule 650 mg PO QID PRN Pain 09/05/22 11/05/24 atorvastatin 20 mg tablet 20 mg PO BEDTIME 09/05/22 11/05/24 warfarin 2 mg tablet 2 mg PO SUTUWETHFRSA@1800 09/25/22 11/05/24 aspirin 81 mg tablet,delayed 81 mg PO BEDTIME 11/25/22 11/05/24 release metoprolol succinate 25 mg 25 mg PO DAILY 02/03/23 11/05/24 tablet,extended release 24 hr ferrous sulfate 325 mg (65 mg 325 mg PO DAILY 06/22/23 11/05/24 iron) tablet (FeroSul) furosemide 40 mg tablet 80 mg PO BID 08/08/24 11/05/24 dupilumab 300 mg/2 mL subcutaneous 300 mg subcut Q2W 08/29/24 11/05/24 pen injector (Dupixent) potassium chloride 20 mEq 20 meq PO DAILY 08/29/24 11/05/24 tablet,extended release(part/cryst) (Klor-Con M) allopurinol 300 mg tablet 150 mg PO BEDTIME 11/05/24 11/05/24 cyanocobalamin (vitamin B-12) 1,000 mcg PO DAILY 11/05/24 11/05/24 1,000 mcg tablet warfarin 2 mg tablet 3 mg PO MO@1800 11/05/24 11/05/24 Allergies Allergy/AdvReac Type Severity Reaction Status Date / Time No Known Allergies Allergy Verified 11/05/24 10:17 Review of Systems 2 Review of Systems: Constitutional: No fever, chills, fatigue, night sweats, weight changes ENT/Mouth: No ear pain, hearing loss, nasal congestion, sinus pain, rhinorrhea, sore throat Eyes: No eye pain, swelling, redness, vision changes, discharge Cardio: No chest pain, palpitations, LEDEZMA, orthopnea, peripheral edema Pulm: No wheezing, dyspnea, hemoptysis, +sob, +cough GI: No nausea, vomiting, hematemesis, abdominal pain, diarrhea, constipation, hematochezia, melena : No irregular bleeding, dysuria, frequency, urgency, hesitancy, hematuria, flank pain, urinary flow changes, urinary incontinence or retention MSK: No back pain, neck pain, joint pain, myalgias Skin: No lesions, rashes Neuro: No weakness, numbness, paresthesias, LOC, dizziness, +headache Psych: No anxiety/panic, depression, SI/HI, AH/VH All other systems reviewed and are negative. [facility] Past Medical History Attestation statement: The following information was validated with the patient. Source: old records reviewed and nursing notes reviewed Medical History CHF (congestive heart failure) Ascending aortic aneurysm Bicuspid aortic valve Varicose vein of leg Hemorrhage secondary to anti-coagulation Bleeding Hx of skin malignancy Gastroesophageal reflux disease Erectile dysfunction Carotid stenosis Allergic rhinitis Gout Hypertension Surgical History Status post ascending aortic aneurysm repair Aortic valve replaced History of inguinal hernia repair (~09/2019) History of tonsillectomy Family History Family History Father No problems noted. Mother No problems noted. 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 Skin: Warm, dry, intact. No rashes or lesions. Head: Normocephalic, atraumatic. EENT: Hearing is intact b/l. Conjunctiva clear. PERRLA. EOM intact. Moist mucous membranes.? Cardiac: Chest wall symmetric. RRR Lungs: normal respiratory effort. No tripoding. Congested cough. Rhonchi throughout. Abdomen: Soft, non-tender, non-distended. No rebound tenderness or guarding. Positive BS x4. Ext: 2+ pitting edema b/l Neuro: AOx3. Normal speech. Ambulating with steady gait. Psych: Appropriate mood and affect. Responds appropriately to questions. Course Course Course Narrative: CBC without leukocytosis or left shift. No anemia. H&H stable. Chemistry showing hypokalemia to 2.9, magnesium 1.8. No other acute electrolyte abnormalities requiring intervention. BUN 25 which appears to be around his baseline. Normal creatinine. Liver function appears to be around baseline. Troponin elevated to 78.2. No priors to compare to. Will repeat for delta. BNP elevated to 3280. Positive for influenza A. > hypokalemia likely secondary to diuretic use and noncompliance with potassium supplementation at home. Troponin likely elevated as a result of cardiac injury secondary to CHF/ influenza. > my interpretation of chest x-ray shows pulmonary edema without noted pleural effusion > concern for acute hypoxic respiratory failure in the setting of influenza a and congestive heart failure. > 80 of IV Lasix ordered, potassium and magnesium repletion ordered > discussed all results with patient. i have discussed case with hospitalist juana ortega who has accepted patient admission. him and his are agreeable. Medications Administered Generic Name Dose Route Start Last Admin Trade Name Freq PRN Reason Stop Dose Admin Albuterol/Ipratropium 3 ml 11/05/24 14:00 11/05/24 14:25 Albuterol/Iprat 2.5/0.5mg 3 Ml Ampul.Neb INHALE 3 ml RQ6H WHILE AWAKE ELENA Administration Oseltamivir Phosphate 75 mg 11/05/24 13:15 11/05/24 13:30 Oseltamivir Phosphate 75 Mg Capsule PO 11/09/24 09:01 75 mg BID ELENA Administration Discontinued Medications Generic Name Dose Route Start Last Admin Trade Name Freq PRN Reason Stop Dose Admin Albuterol Sulfate 2.5 mg/ 0 mg 11/05/24 10:58 11/05/24 11:01 Albuterol/Ipratropium 3 ml INHALE 11/05/24 10:59 5 dose ONCE ONE Administration Furosemide 80 mg 11/05/24 11:28 11/05/24 12:10 Furosemide 100 Mg/10 Ml Vial IVPUSH 11/05/24 11:29 80 mg ONCE ONE Administration Protocol Potassium Chloride 10 meq in 100 mls @ 100 mls/hr 11/05/24 11:30 11/05/24 16:19 Potassium Chloride/H20 IV 11/05/24 15:29 100 mls/hr Q1H ELENA Administration Magnesium Sulfate 2 gm in 50 mls @ 150 mls/hr 11/05/24 11:28 11/05/24 13:48 Magnesium Sulfate/H2o IV 11/05/24 11:47 Infused ONCE ONE Infusion Methylprednisolone Sodium Succinate 125 mg 11/05/24 10:26 11/05/24 10:55 Methylprednisolone Sod Succ 125 Mg/2 Ml Vial IVPUSH 11/05/24 10:27 125 mg ONCE ONE Administration Potassium Chloride 60 meq 11/05/24 11:28 11/05/24 12:09 Potassium Chloride Packet 20 Meq Packet PO 11/05/24 11:29 60 meq ONCE ONE Administration Medical Decision Making Medical Decision Making [facility] Narrative: 79 year old male with pmhx significant for AAA, HTN, gout, GERD presents to the ED today for evaluation of upper respiratory symptoms including headache, fatigue, and cough x2-3 days. Patient was hypoxic to 84% on room air on arrival. Vital signs otherwise stable. He is afebrile. He was immediately placed on 3 L nasal cannula with improvement to mid 90s. No increased effort of breathing. No tripoding. Congested cough. Rhonchi throughout. 2+ pitting edema to lower extremities. No JVD. Differential diagnosis includes anemia, electrolyte abnormality, bronchitis, pneumonia, viral syndrome, CHF, arrhthmyia, ACS. Lower suspicion for PE. Plan for labs, ekg, viral serology, cxr, ed bronch protocol, re-evaluation. Differential Diagnosis Differential Diagnoses: The differential diagnosis associated with the presentation includes As above Admission/Observation Consideration of admission/observation: Escalation of care including admission/observation considered Patient admitted to medicine for acute hypoxic respiratory failure in the setting of CHF and influenza a. Consult Healthcare Provider Management of the patient was discussed with: Hospitalist (Breana Ortega) Lab Data [facility] Lab Attestation statement: I reviewed the patient's lab results. As above 11/05/24 10:48 11/05/24 10:48 Labs: Lab Results 11/05/24 11/05/24 11/05/24 Range/Units 10:48 10:49 10:54 WBC 8.6 (4.8-10.8) X10*3/uL RBC 4.17 L (4.60-5.80) X10*6/uL Hgb 14.4 (14.0-18.0) g/dl Hct 42.5 (42.0-52.0) % MCV 101.9 H (80.0-98.0) fL MCH 34.5 H (27.0-33.0) pg MCHC 33.9 (31.0-36.0) g/dl RDW 15.2 (11.0-16.0) % Plt Count 240 (160-400) X10*3/uL MPV 11.9 (9.4-12.4) fL Immature Gran % (Auto) 0.6 H (0.0-0.4) % Neut % (Auto) 77.4 H (45-73) % Lymph % (Auto) 4.9 L (20-40) % Island % (Auto) 15.4 H (2-11) % Eos % (Auto) 0.9 (0-4) % Baso % (Auto) 0.8 (0-2) % Lymph # (Auto) 0.4 L (1.2-4.9) X10*3/uL Island # (Auto) 1.3 H (0.1-1.2) X10*3/uL Eos # (Auto) 0.1 (0.0-0.4) X10*3/uL Baso # (Auto) 0.1 (0.0-0.2) X10*3/uL Abs Immat Gran (auto) 0.05 H (0.00-0.03) X10*3/uL Absolute Neuts (auto) 6.7 (2.0-8.3) x10*3/uL Absolute Nucleated RBC 0.000 (0.0-0.012) X10*3/uL Nucleated RBC % (auto) 0.0 (0.0-0.2) /100WBC PT 18.7 H (10.9-12.4) SEC INR 1.6 H D (0.9-1.1) VBG pH 7.39 (7.32-7.43) VBG pCO2 56 mmHg VBG pO2 35 mmHg VBG HCO3 35 H (22-26) mmol/L VBG O2 Saturation 45.0 % VBG Base Excess 8.0 mmol/L Sodium 142 (135-145) mmol/L Potassium 2.9 L* (3.3-5.1) mmol/L Chloride 98 (96-108) mmol/L Carbon Dioxide 29 (22-29) mmol/L Anion Gap 18 (12-20) BUN 25 H (9-16) mg/dL Creatinine 0.99 (0.5-1.4) mg/dL Estim Creat Clear Calc 57.4 Estimated GFR > 60 Random Glucose 90 (60-115) mg/dL Calcium 9.3 (8.4-10.2) mg/dL Magnesium 1.8 (1.6-2.6) mg/dL Total Bilirubin 2.2 H (0.0-1.0) mg/dL AST 71 H (5-37) U/L ALT 41 H (0-40) U/L Alkaline Phosphatase 433 H (39-117) U/L Troponin I High Sens 78.2 H (<3.5-35.0) ng/L B-Natriuretic Peptide 3280 H (<100) pg/mL Total Protein 7.8 (6.5-8.0) g/dL Albumin 3.9 (3.5-5.0) g/dL Influenza Type A (PCR) POSITIVE A (Negative) Influenza Type B (PCR) NEGATIVE (Negative) RSV RNA Qual (PCR) NEGATIVE (Negative) SARS-CoV-2 RNA (RT-PCR) NEGATIVE (Negative) Independent Interpretation I performed an independent interpretation of an: Plain X-Ray Interpretation: On my interpretation of chest x-ray there is pulmonary edema without pleural effusion Radiology Impression Discussion of test interpretation with radiology: I have reviewed the radiologist's reading. Radiologist Impression: Procedure(s): XR chest 1V Accession Number(s): [id number] cc: Jeronimo Youssef MD; Rich Amaral DO~ CLINICAL HISTORY: upper resp sx 1 view chest x-ray Comparison: CR/SR - XR CHEST 2V - 08/24/23 14:[address] - CT ANGIO CHEST - 02/06/21 10:43 EDT Findings: Normal lung volumes. Increased interstitial markings suggesting vascular congestion with possible mild pulmonary edema. No consolidation. No pleural effusion or pneumothorax. Stable cardiomegaly and median sternotomy changes with aortic valve replacement. Stable mediastinal contour with aortic ectasia and uncoiling. Midline trachea. Bones unchanged. Upper abdomen unremarkable. Impression: Increased pulmonary vascular congestion and possible mild pulmonary edema. No consolidation. Stable cardiomegaly and OHS changes. This document has been electronically signed by: Deon Alba MD on 11/05/2024 12:17:21 External Record Review External record reviewed: Inpatient record, Office record, Outpatient record, Prior outpatient labs, Prior outpatient radiology, Primary care record and Outside ED record Chronic Conditions Patient?s care impacted by: Hypertension and Other (Atrial fibrillation) Social Determinants Patient?s care significantly limited by Social Determinants of Health including: Other Social Determinant of Health Critical Care Time Critical Care Time Critical Care Time: Yes Total Critical Care Time: 34 Attestation: Critical care time in the amount of 34 minutes has been provided to the patient in terms of direct patient care, frequent reevaluation, consultation with hospitalist, review and interpretation of medical data and results, and management of potentially life-threatening conditions. This is all outside of any medical procedures. Discharge Plan Discharge Clinical Impression: CHF (congestive heart failure), Influenza A, Elevated troponin, Hypokalemia Patient Disposition: Admitted As Inpatient
--- OUTSIDE RECORDS SUMMARY | 2024-11-05 10:39 | XMS_ITS ---
Author Organization [facility] Address [address] [place] [address] Care Team Providers Care Purchase Request Editor Name Role Phone Robbie Ferrer MD Primary Care Provider Jean Carlos Cordova Unavailable [phone] REASON FOR VISIT iron def anemia, gerd Encounters Encounter Location Date Provider [place] [facility] [place] [address] [place], [place] [phone] 10/14/2023 Jean Carlos Kaur PLAN OF TREATMENT No Information
--- OUTSIDE RECORDS SUMMARY | 2024-11-05 10:39 | XMS_ITS | Continuity of Care Document ---
Author Organization [facility] Address [address] [place] [address]- Care Team Providers Care Icebox Man Name Role Phone Rich Amaral DO Primary Care Physician Encounter [facility] Date(s): 09/30/24 - 10/30/24 [facility] [address], [place] [address] Encounter Type: Triage Allergies, Adverse Reactions, Alerts Substance Criticality Severity Reaction Reaction Severity Status Ancef High criticality Severe Seizure Act samantha Immunizations Given and Recorded Vaccine Date Status Refusal Reason tetanus/diphtheria/pertussis, acel(Tdap) 09/25/23 Recorded SARS-CoV-2 mRNA (qtxinmi-dcws-[id number]) vax 12/19/21 Recorded SARS-CoV-2 (COVID-19) mRNA BNT-162b2 [...] pt jaison well, administered without incident. LOT: [id number] EXP: [facility]: [id number], 0 Refills, Maintenance, 07/08/24 10:30:00 AM EDT, Partial fill upon patient request if the prescription is for a schedule II opioid drug. Start Date: 07/08/24 Status: Ordered Repeat number: 1 cyanocobalamin 1000 mcg/ml injectable solution 1 mL = 1,000 mcg, Intramuscular, Every 30 days, 1ml IM to left Deltoid, well tolerated, Lot # [id number] exp 01/2026, # 1 mL, 0 Refills, Maintenance, 07/18/24 10:23:00 AM EST, Solution, Partial fill uponpatient request if the prescription is for a schedule II opioid drug. Start Date: 07/18/24 Status: Ordered Quantity: 1.0 Unit: mL Repeat number: 1 cyanocobalamin 1000 mcg/ml injectable solution 1 mL = 1,000 mcg, Intramuscular, Once, 1ml IM to left Deltoid. Well tolerated. Lot # [id number], exp 01/2027, # 1 mL, 0 Refills, Maintenance, 07/11/24 10:43:00 AM EDT, Solution, Partial fill upon patient request if the prescription is for a schedule II opioid drug. Start Date: 07/11/24 Status: Ordered Quantity: 1.0 Unit: mL Repeat number: 1 cyanocobalamin 1000 mcg/ml injectable solution 1 mL = 1,000 mcg, Intramuscular, Once, 1ml to left Deltoid IM well tolerated. Lot # [id number] exp 01/2025, # 1 mL, 0 Refills, Maintenance, 08/01/24 10:19:00 AM EST, Solution, Partial fill upon patient request if the prescription is for a schedule II opioid drug. Start Date: 08/01/24 Status: Ordered Quantity: 1.0 Unit: mL Repeat number: 1 cyanocobalamin 1000 mcg/ml injectable solution 1 mL = 1,000 mcg, Intramuscular, Once, 1 ml IM to right Deltoid, well tolerated. Lot #[id number]. exp 01/2026, # 1 mL, 0 Refills, Maintenance, 07/25/24 10:39:00 AM EST, Solution, Partial fill upon patient request if the prescription is for a schedule II opioid drug. Start Date: 07/25/24 Status: Ordered Quantity: 1.0 Unit: mL Repeat number: 1 Dupixent See Instructions, 0 Refills, Maintenance, 10/20/24 1:23:00 PM EST, Partial fill upon patient request if the prescription is for a schedule II opioid drug. Start Date: 10/20/24 Status: Ordered Repeat number: 1 Iron Iron, Refills 0, [...] Quantity: 180.0 Unit: tablet Repeat number: 1 metoprolol 25 mg oral tablet 12.5 mg, 0.5, tablet, By Mouth, 2 times a day, # 90 tablet, Refills 3, Tot. Refills 3, Maintenance,10/26/24 3:19:00 PM EST, Route to Pharmacy Electronically, [facility]/pharmacy #[id number], Partial fill upon patient request if the prescription is for a schedule II opioid drug., 169, cm, 10/21/24 9:51:00 EST, Height Start Date: 10/26/24 Status: Ordered Quantity: 90.0 Unit: tablet Repeat number: 4 nystatin topical 115016 u/gm ointment 1 application, Topically, 4 times a day, for 10 days, # 30 Gm, 1 Refills, Acute 11/09/24 1:53:00 PM EST, 10/20/24 1:53:00 PM EST, Ointment, [facility]/pharmacy #[id number], Partial fill upon patient request if the prescription is for a schedule II opioid drug., 1 application Topically 4 times a day,x10 days, 169, cm, 10/20/24 13:10:00 EST, Height Start Date: 10/20/24 Stop Date: 11/09/24 Status: Ordered Quantity: 30.0 Unit: g Repeat number: 2 Indication: Other urogenital candidiasis Potassium Chloride (Bda-Kins-Fao M20) 20 mEq oral tablet, extended release 90 each, 0 Refill(s), TAKE 1 TABLET BY MOUTH EVERY DAY, 0 Refills, 10/20/24 1:22:00 PM EST, Partial fill upon patient request if the prescription is for a schedule II opioid drug. Start Date: 10/20/24 Status: Ordered Repeat number: 1 tamsulosin 0.4 mg oral capsule 0.4 mg, 1, capsule, By Mouth, Daily at bedtime, # 90 capsule, Refills 2, Tot. Refills 2, Maintenance, 03/02/24 3:20:00 PM EDT, Route to Pharmacy Electronically, [facility], Partial fill upon patient request if the prescription is for a schedule II opioid drug., 169, cm, 03/02/24 15:05:00 EDT, Height Start Date: 03/02/24 Status: Ordered Quantity: 90.0 Unit: capsule Repeat number: 3 triamcinolone 0.1% topical cream 80 Gm, 0 Refill(s), APPLY TO AFFECTED AREA TWICE A DAY NEEDED UP TO 14 DAYS IN A ROW., 0 Refills, 10/20/24 1:22:00 PM EST, Partial fill upon patient request if the prescription is for a schedule II opioid drug. Start Date: 10/20/24 Status: Ordered Repeat number: 1 Viagra 100 mg oral tablet 1 tablet [...] Bilateral edema of lower extremity Confirmed Active Candidiasis of scrotum Confirmed Active Eczema Confirmed Active Erectile dysfunction [...] Former smoker, quit more than 30 days ago; Other: Quit 1979; entered on: 10/20/24 Sex Sex Representation Male (finding) Patient Care team information Care Team Personnel Name: Aysha Dow RN Position: S RN Member Role: Primary Care Nurse Name: Rich Amaral DO Position: S Physician - Primary Care Member Role: PCP Address: [address] [place] [address] Telecom: Name: Sheila May RN Position: [facility] RN Member Role: Primary Care Nurse Care Team Related Persons Name: CHUCK JIMÉNEZYN Insurance Providers Guarantor name: ASHLEY JIMÉNEZ [facility] Plan Information #: 1 Payer: [facility] Member Number: NA Policy Number: NA Group Number: NA
--- OUTSIDE RECORDS SUMMARY | 2024-11-05 10:39 | XMS_ITS | Continuity of Care Document ---
Author Organization [facility] Address [address] [place] [address]- Care Team Providers Care Purification Supervisor Name Role Phone Rich Amaral DO Primary Care Physician [phone] Encounter [facility] [place] Date(s): 09/30/24 - 10/30/24 [facility] [address] [place], [place] [address] Encounter Type: Triage Allergies, Adverse Reactions, Alerts Substance Criticality Severity Reaction Reaction Severity Status Ancef High criticality Severe Seizure Act samantha Immunizations Given and Recorded Vaccine Date Status Refusal Reason tetanus/diphtheria/pertussis, acel(Tdap) 09/25/23 Recorded SARS-CoV-2 mRNA (tthoefw-dxtt-fmcfg) vax 12/19/21 Recorded SARS-CoV-2 (COVID-19) mRNA BNT-162b2 [...] pt jaison well, administered without incident. LOT: [id number] EXP: [facility]: [id number], 0 Refills, Maintenance, 07/08/24 10:30:00 AM EDT, Partial fill upon patient request if the prescription is for a schedule II opioid drug. Start Date: 07/08/24 Status: Ordered Repeat number: 1 cyanocobalamin 1000 mcg/ml injectable solution 1 mL = 1,000 mcg, Intramuscular, Every 30 days, 1ml IM to left Deltoid, well tolerated, Lot # [id number] exp 01/2026, # 1 mL, 0 Refills, Maintenance, 07/18/24 10:23:00 AM EST, Solution, Partial fill uponpatient request if the prescription is for a schedule II opioid drug. Start Date: 07/18/24 Status: Ordered Quantity: 1.0 Unit: mL Repeat number: 1 cyanocobalamin 1000 mcg/ml injectable solution 1 mL = 1,000 mcg, Intramuscular, Once, 1ml IM to left Deltoid. Well tolerated. Lot # [id number], exp 01/2027, # 1 mL, 0 Refills, Maintenance, 07/11/24 10:43:00 AM EDT, Solution, Partial fill upon patient request if the prescription is for a schedule II opioid drug. Start Date: 07/11/24 Status: Ordered Quantity: 1.0 Unit: mL Repeat number: 1 cyanocobalamin 1000 mcg/ml injectable solution 1 mL = 1,000 mcg, Intramuscular, Once, 1ml to left Deltoid IM well tolerated. Lot # [id number] exp 01/2025, # 1 mL, 0 Refills, Maintenance, 08/01/24 10:19:00 AM EST, Solution, Partial fill upon patient request if the prescription is for a schedule II opioid drug. Start Date: 08/01/24 Status: Ordered Quantity: 1.0 Unit: mL Repeat number: 1 cyanocobalamin 1000 mcg/ml injectable solution 1 mL = 1,000 mcg, Intramuscular, Once, 1 ml IM to right Deltoid, well tolerated. Lot #[id number]. exp 01/2026, # 1 mL, 0 Refills, [...] 3:19:00 PM EST, Route to Pharmacy Electronically, [facility]/pharmacy #[id number], Partial fill upon patient request if the prescription is for a schedule II opioid drug., 169, cm, 10/21/24 9:51:00 EST, Height Start Date: 10/26/24 Status: Ordered Quantity: 90.0 Unit: tablet Repeat number: 4 nystatin topical 397655 u/gm ointment 1 application, Topically, 4 times a day, for 10 days, # 30 Gm, 1 Refills, Acute 11/09/24 1:53:00 PM EST, 10/20/24 1:53:00 PM EST, Ointment, [facility]/pharmacy #[id number], Partial fill upon patient request if the prescription is for a schedule II opioid drug., 1 application Topically 4 times a day,x10 days, 169, cm, 10/20/24 13:10:00 EST, Height Start Date: 10/20/24 Stop Date: 11/09/24 Status: Ordered Quantity: 30.0 Unit: g Repeat number: 2 Indication: Other urogenital candidiasis Potassium Chloride (Iet-Qvje-Zfn M20) 20 mEq oral tablet, extended release [...] PM EDT, Route to Pharmacy Electronically, [facility] 3, Partial fill upon patient request [...] Refills, Maintenance, 08/08/24 10:50:00 AM EST, Tablet, [facility]/pharmacy #[id number], Partial fill upon patient request [...] Primary Care Member Role: PCP Address: [address] [place] [address] Telecom: Name: Sheila May RN Position: [facility] RN Member Role: Primary Care Nurse Care Team Related Persons Name: CHUCK JIMÉNEZYN Insurance Providers Guarantor name: ASHLEY JIMÉNEZ [facility] Plan Information #: 1 Payer: [facility] Member Number: NA Policy Number: NA Group Number: NA
--- OUTSIDE RECORDS SUMMARY | 2024-11-05 10:39 | XMS_ITS ---
Author Organization [facility] Address [address] [place] [address] Care Team Providers Care Data Coordinator Name Role Phone Robbie Ferrer MD Primary Care Provider Jean Carlos Cordova Unavailable [phone] REASON FOR VISIT anemia Encounters Encounter Location Date Provider Diagnosis [facility] [address] [place] [address] 10/21/2023 Jean Carlos Kaur PLAN OF TREATMENT No Information
--- OUTSIDE RECORDS SUMMARY | 2024-11-05 10:39 | XMS_ITS | Continuity of Care Document ---
Author Organization [facility] Address [address] [place] [address]- Care Team Providers Care Lead Software Developer Name Role Phone Rich Amaral DO Primary Care Physician Encounter [facility] Date(s): 09/27/24 - 10/27/24 [facility] [address] [place], [place] [address] Encounter Type: Triage Allergies, Adverse Reactions, Alerts Substance Criticality Severity Reaction Reaction Severity Status Ancef High criticality Severe Seizure Act samantha Immunizations Given and Recorded Vaccine Date Status Refusal Reason tetanus/diphtheria/pertussis, acel(Tdap) 09/25/23 Recorded SARS-CoV-2 mRNA (wvczwfo-ygyc-xfiqc) vax 12/19/21 Recorded SARS-CoV-2 (COVID-19) mRNA BNT-162b2 [...] pt jaison well, administered without incident. LOT: [id number] EXP: [facility]: [id number], 0 Refills, Maintenance, 07/08/24 10:30:00 AM EDT, Partial fill upon patient request if the prescription is for a schedule II opioid drug. Start Date: 07/08/24 Status: Ordered Repeat number: 1 cyanocobalamin 1000 mcg/ml injectable solution 1 mL = 1,000 mcg, Intramuscular, Every 30 days, 1ml IM to left Deltoid, well tolerated, Lot # [id number] exp 01/2026, # 1 mL, 0 Refills, Maintenance, 07/18/24 10:23:00 AM EST, Solution, Partial fill uponpatient request if the prescription is for a schedule II opioid drug. Start Date: 07/18/24 Status: Ordered Quantity: 1.0 Unit: mL Repeat number: 1 cyanocobalamin 1000 mcg/ml injectable solution 1 mL = 1,000 mcg, Intramuscular, Once, 1ml IM to left Deltoid. Well tolerated. Lot # [id number], exp 01/2027, # 1 mL, 0 Refills, Maintenance, 07/11/24 10:43:00 AM EDT, Solution, Partial fill upon patient request if the prescription is for a schedule II opioid drug. Start Date: 07/11/24 Status: Ordered Quantity: 1.0 Unit: mL Repeat number: 1 cyanocobalamin 1000 mcg/ml injectable solution 1 mL = 1,000 mcg, Intramuscular, Once, 1ml to left Deltoid IM well tolerated. Lot # [id number] exp 01/2025, # 1 mL, 0 Refills, Maintenance, 08/01/24 10:19:00 AM EST, Solution, Partial fill upon patient request if the prescription is for a schedule II opioid drug. Start Date: 08/01/24 Status: Ordered Quantity: 1.0 Unit: mL Repeat number: 1 cyanocobalamin 1000 mcg/ml injectable solution 1 mL = 1,000 mcg, Intramuscular, Once, 1 ml IM to right Deltoid, well tolerated. Lot #[id number]. exp 01/2026, # 1 mL, 0 Refills, [...] 3:19:00 PM EST, Route to Pharmacy Electronically, [facility]/pharmacy #[id number], Partial fill upon patient request if the prescription is for a schedule II opioid drug., 169, cm, 10/21/24 9:51:00 EST, Height Start Date: 10/26/24 Status: Ordered Quantity: 90.0 Unit: tablet Repeat number: 4 nystatin topical 991137 u/gm ointment 1 application, Topically, 4 times a day, for 10 days, # 30 Gm, 1 Refills, Acute 11/09/24 1:53:00 PM EST, 10/20/24 1:53:00 PM EST, Ointment, [facility]/pharmacy #[id number], Partial fill upon patient request if the prescription is for a schedule II opioid drug., 1 application Topically 4 times a day,x10 days, 169, cm, 10/20/24 13:10:00 EST, Height Start Date: 10/20/24 Stop Date: 11/09/24 Status: Ordered Quantity: 30.0 Unit: g Repeat number: 2 Indication: Other urogenital candidiasis Potassium Chloride (Wly-Guje-Lms M20) 20 mEq oral tablet, extended release [...] 3:20:00 PM EDT, Route to Pharmacy Electronically, [facility] 3, Partial fill upon patient request [...] Refills, Maintenance, 08/08/24 10:50:00 AM EST, Tablet, [facility]/pharmacy #[id number], Partial fill upon patient request if [...] Team Personnel Name: Aysha Dow RN Position: [facility] RN Member Role: Primary Care Nurse Name: Rich Amaral DO Position: S Physician - Primary Care Member Role: PCP Address: [address] [place] [address] Telecom: Name: Sheila May RN Position: [facility] RN Member Role: Primary Care Nurse Care Team Related Persons Name: CHUCK JIMÉNEZYN Insurance Providers Guarantor name: ASHLEY JIMÉNEZ [facility] Plan Information #: 1 Payer: [facility] Member Number: NA Policy Number: NA Group Number: NA
--- OUTSIDE RECORDS SUMMARY | 2024-11-05 10:39 | XMS_ITS ---
Author Organization [facility] Address [address] [place] [address] Care Team Providers Care Income Tax Preparer Name Role Phone Robbie Ferrer MD Primary Care Provider Jean Carlos Cordova Unavailable [phone] REASON FOR VISIT fe def anemia Encounters Encounter Location Date Provider Diagnosis [facility] [address] [place], [place] [id number] 09/09/2023 Jean Carlos Kaur PLAN OF TREATMENT No Information
--- OUTSIDE RECORDS SUMMARY | 2024-11-05 10:39 | XMS_ITS | Continuity of Care Document ---
Author Organization [facility] Address [address] [place] [address]- Care Team Providers Care Belt Builder Name Role Phone Rich Amaral DO Primary Care Physician [place] [facility] [place] 10[place] 10/28/24 [facility] [address] [place] [address]- Encounter Diagnosis Candidiasis of scrotum(Discharge Diagnosis) - 10/21/24 Atrial fibrillation(Discharge Diagnosis) - 10/21/24 Iron deficiency anemia(Discharge Diagnosis) - 10/21/24 Attending Physician: Rich Amaral DO Encounter Type: Office Visit Allergies, Adverse Reactions, Alerts Substance Criticality Severity Reaction Reaction Severity Status Ancef High criticality Severe Seizure Act samantha Immunizations Given and Recorded Vaccine Date Status Refusal Reason tetanus/diphtheria/pertussis, acel(Tdap) 09/25/23 Recorded SARS-CoV-2 mRNA (iequuzi-ngkx-padip) vax 12/19/21 Recorded SARS-CoV-2 (COVID-19) mRNA BNT-162b2 [...] pt jaison well, administered without incident. LOT: [id number] EXP: [facility]: 32643-156-00, 0 Refills, Maintenance, 07/08/24 10:30:00 AM EDT, Partial fill upon patient request if the prescription is for a schedule II opioid drug. Start Date: 07/08/24 Status: Ordered Repeat number: 1 cyanocobalamin 1000 mcg/ml injectable solution 1 mL = 1,000 mcg, Intramuscular, Every 30 days, 1ml IM to left Deltoid, well tolerated, Lot # [id number] exp 01/2026, # 1 mL, 0 Refills, Maintenance, 07/18/24 10:23:00 AM EST, Solution, Partial fill uponpatient request if the prescription is for a schedule II opioid drug. Start Date: 07/18/24 Status: Ordered Quantity: 1.0 Unit: mL Repeat number: 1 cyanocobalamin 1000 mcg/ml injectable solution 1 mL = 1,000 mcg, Intramuscular, Once, 1ml IM to left Deltoid. Well tolerated. Lot # [id number], exp 01/2027, # 1 mL, 0 Refills, Maintenance, 07/11/24 10:43:00 AM EDT, Solution, Partial fill upon patient request if the prescription is for a schedule II opioid drug. Start Date: 07/11/24 Status: Ordered Quantity: 1.0 Unit: mL Repeat number: 1 cyanocobalamin 1000 mcg/ml injectable solution 1 mL = 1,000 mcg, Intramuscular, Once, 1ml to left Deltoid IM well tolerated. Lot # [id number] exp 01/2025, # 1 mL, 0 Refills, Maintenance, 08/01/24 10:19:00 AM EST, Solution, Partial fill upon patient request if the prescription is for a schedule II opioid drug. Start Date: 08/01/24 Status: Ordered Quantity: 1.0 Unit: mL Repeat number: 1 cyanocobalamin 1000 mcg/ml injectable solution 1 mL = 1,000 mcg, Intramuscular, Once, 1 ml IM to right Deltoid, well tolerated. Lot #[id number]. exp 01/2026, # 1 mL, 0 Refills, [...] 3:19:00 PM EST, Route to Pharmacy Electronically, [facility]/pharmacy #[id number], Partial fill upon patient request if the prescription is for a schedule II opioid drug., 169, cm, 10/21/24 9:51:00 EST, Height Start Date: 10/26/24 Status: Ordered Quantity: 90.0 Unit: tablet Repeat number: 4 nystatin topical 759289 u/gm ointment 1 application, Topically, 4 times a day, for 10 days, # 30 Gm, 1 Refills, Acute 11/09/24 1:53:00 PM EST, 10/20/24 1:53:00 PM EST, Ointment, [facility]/pharmacy #[id number], Partial fill upon patient request if the prescription is for a schedule II opioid drug., 1 application Topically 4 times a day,x10 days, 169, cm, 10/20/24 13:10:00 EST, Height Start Date: 10/20/24 Stop Date: 11/09/24 Status: Ordered Quantity: 30.0 Unit: g Repeat number: 2 Indication: Other urogenital candidiasis Potassium Chloride (Asp-Alpm-Gni M20) 20 mEq oral tablet, extended release [...] PM EDT, Route to Pharmacy Electronically, [facility], Partial fill upon [...] Refills, Maintenance, 08/08/24 10:50:00 AM EST, Tablet, [facility]/pharmacy #[id number], Partial fill upon patient request [...] Effective Dates Health Status Clinical Service Informant Candidiasis of scrotum Discharge Diagnosis 10/21/24 Atrial fibrillation Discharge Diagnosis 10/21/24 Iron deficiency anemia Discharge Diagnosis 10/21/24 Vital Signs Most recent to oldest [Reference Range]: 1 Height 169 cm (10/21/24 9:51 AM) Weight 63 kg (10/21/24 9:51 AM) Oxygen Saturation [94-100 %] 96 % (10/21/24 9:51 AM) Pulse Rate [55-90 bpm] 54 bpm *L* (10/21/24 9:51 AM) Body Mass Index [18.5-24.99 kg/m2] 22.06 kg/m2 (10/21/24 9:51 AM) Blood Pressure [90-138/55-84 mm Hg] 131/ 83mm Hg (10/21/24 9:51 AM) Mode of Delivery (Oxygen) Room air (10/21/24 9:51 AM) Blood pressure sites Arm, left (10/21/24 9:51 AM) Weight Obtained Via Standing scale (10/21/24 9:51 AM) Social History Social History Type Response Smoking Status Former smoker, quit more than 30 days ago; Other: Quit 1979; entered on: 10/20/24 Sex Sex Representation Male (finding) Note * Indra Chiang: PERFORM Event Display: Patient Education/Instruction Authored Date: Ambulatory Adult Visit Summary [address] [address] Name: ASHLEY JIMÉENZ : 1945?? Visit: 10/21/2024 09:40?? Ambulatory Visit Instructions ?? Your Care Team Primary Care Provider Munir DO, Rich? This Visit Provider Munir DO, Rich Your Diagnosis Candidiasis of scrotum Atrial fibrillation Iron deficiency anemia Vitals Signs Pulse Rate:??54 bpm??Low Height: 169 cm Systolic Blood Pressure: 131 mm Hg Weight: 63 kg Diastolic Blood Pressure: 83 mm Hg Body Mass Index: 22.06 kg/m2 Oxygen Saturation: 96 % Body surface area: 1.72 What to do next Future Orders Fecal Occult Blood Immunochemical (Fecal Occult Blood Immunochemical FIT) - Routine, Once, 248:34:00 EDT, [facility], Stool?? CBC w/ Differential - Routine, Once, 10/21/24 10:31:00 EST, Order for Today, [facility], Blood?? Comprehensive Metabolic Panel - Routine, Once, 10/21/24 10:31:00 EST, Order for Today, [facility], Blood?? Medications [...] the prescribing provider. What How Much When Why Instructions Unchanged Allopurinol 150 Milligram Oral Daily [...] pt jaison well, administered without incident. LOT: [id number] EXP: [facility]: 48709-783-88 ?? Unchanged Cyanocobalamin (cyanocobalamin 1000 mcg/ ml injectable solution) 1 Milliliter Intramuscular Every 30 days 1ml IM to left Deltoid, well tolerated, Lot # [id number] exp 2025 ?? Unchanged Cyanocobalamin (cyanocobalamin 1000 mcg/ ml injectable solution) 1 Milliliter Intramuscular Once 1ml to left Deltoid IM well tolerated. ??Lot # [id number] exp 2024 ?? Unchanged Cyanocobalamin (cyanocobalamin 1000 mcg/ ml injectable solution) 1 Milliliter Intramuscular Once 1ml IM to left Deltoid. Well tolerated. Lot # [id number], exp 2026 ?? Unchanged Cyanocobalamin (cyanocobalamin 1000 mcg/ ml injectable solution) 1 Milliliter Intramuscular Once 1 ml IM to right Deltoid, well tolerated. ??Lot #[id number]. exp 2025 ?? Unchanged Cyanocobalamin (Vitamin B12) 1,000 Microgram Intramuscular Unchanged dupilumab (Dupixent) See instructions Unchanged Furosemide (Lasix 40 mg oral tablet) 1 tab(s) Oral Daily Unchanged Metoprolol (metoprolol 25 mg oral tablet) 0.5 tab(s) Oral Twice a day Unchanged Miscellaneous Rx (Iron) Unchanged Nystatin Topical (nystatin topical 025115 u/ gm ointment) 1 owen Topically 4 times a day Candidiasis of scrotum Duration: 10 Days Unchanged Potassium Chloride (Potassium Chloride (Qll-Jism-Phk M20) 20 mEq oral tablet, extended release) 90 each, 0 Refill(s), TAKE 1 TABLET BY MOUTH EVERY DAY ?? Unchanged Sildenafil (Viagra 100 mg oral tablet) 1 tab(s) Oral Daily 1 hour before sexual activity ?? Unchanged Tamsulosin (tamsulosin 0.4 mg oral capsule) 1 capsule Oral Daily at Bedtime Unchanged Triamcinolone Topical (triamcinolone 0.1% topical cream) 80 Gm, 0 Refill(s), APPLY TO AFFECTED AREA TWICE A DAY NEEDED UP TO 14 DAYS IN A ROW. ?? Unchanged Warfarin (Coumadin Tablet) Oral Daily Test Performed Below is a partial list of the tests performed during your Visit. You may have had other tests and procedures not included in this list. Please discuss all test results with your provider. CBC w/ Differential?-- Results Pending -- Comprehensive Metabolic Panel?-- Results Pending -- Medications and Immunizations Administered Medications Given During Visit No medications given during this visit.?? Allergies (NKA means No Known Allergies) Ancef??(Seizure) Common Emergency Awareness Tips IS IT A [...] are strongly encouraged to quit. Please call [employer] at [phone] or [phone] ([phone]) or log in to [email or web address] for referrals to smoking cessation programs. ?? The National Suicide Prevention Hotline is available 06/04 if you or someone you know needs to find a reason to keep living. By calling 6-336-163-boya (4486) you'll be connected to a skilled, trained counselor at a crisis center in your area. [facility] Health Portal You can view and manage your care through the patient portal or by using a health care owen of your choosing. [employer] is a website that allows you to securely view your medical information including your hospital discharge summary, office visit summaries, medications and follow-up visits. You can also request appointments, renew medications, and request access to your medical information using a health care owen of your choosing, or just ask a question. You can enroll at [email or web address] or register during your next office visit. [facility], in keeping with [facility] guidance, no longer requires face masks for [...] primary care provider, you may find a [facility] provider by calling [facility] [employer] Link at [phone]. Patient Care team information Care Team Personnel Name: Aysha Dow RN Position: S RN Member Role: Primary Care Nurse Name: Rich Amaral DO Position: S Physician - Primary Care Member Role: PCP Address: [address] [place] [address]- Telecom: Name: Sheila May RN Position: S RN Member Role: Primary Care Nurse Care Team Related Persons Name: FRANCK JIMÉNEZ Insurance Providers Guarantor name: ASHLEY JIMÉNEZ Health Plan Information #: 2 Payer: SID LINARES Member Number: [id number] Policy Number: NA Group Number: NA Health Plan Information #: 1 Payer: MEDICARE PART B OUTPT Member Number: [id number] Policy Number: NA Group Number: NA Health Plan Information #: 3 Payer: PRIME Member Number: NA Policy Number: NA Group Number: NA
--- OUTSIDE RECORDS SUMMARY | 2024-11-05 10:39 | XMS_ITS | Patient Health Record ---
Author Organization [facility] Address [address] [place] [address] Care Team Providers Care Rim Roller Operator Name Role Phone Robbie Ferrer MD Primary Care Provider Jean Carlos Cordova Unavailable [phone] ALLERGIES No Known Allergies REASON FOR REFERRAL [...] iron deficiency anemia type (D50.9) Active confirmed 14623341 Problem Gastroesophageal reflux disease, unspecified whether esophagitis present (K21.9) Active confirmed [id number] PLAN OF TREATMENT Pending Test Test Name [...] Coverage Start Date Coverage End Date Cigna mokono [facility] [address] [place], [place] [id number] ASHLEY JIMÉNEZ Self - patient is the insured MEDICAL (GENERAL) HISTORY Medical History History ICD Code Afib--on Coumadin--sees Dr. Martini at [facility]-s/p cardioversion earlier this year Hypertension Denies TX,DM,CVA,Lung disease,renal dise ase TIA-transient left eye visual loss GERD--on longstanding omeprazole Gout Hyperlipidemia Iron deficiency anemia 2022 Surgical History Surgery Date(Month/Year) Thoracic aortic aneurysm wit h a bioprosthetic valve at [facility] _Dr. Bella 08/19/2022 Melanoma(on back) and Basal cells
--- OUTSIDE RECORDS SUMMARY | 2024-11-05 10:39 | XMS_ITS | Continuity of Care Document ---
Author Organization [facility] Address [address] [place] [address]- Care Team Providers Care Permastone Mechanic Name Role Phone Rich Amaral DO Primary Care Physician [phone] Encounter [facility] Date(s): 10/20/24 - 10/27/24 [facility] [address] [place] [address]- Encounter Diagnosis Atrial fibrillation(Discharge Diagnosis) - 10/20/24 Candidiasis of scrotum(Discharge Diagnosis) - 10/20/24 Urinary retention(Discharge Diagnosis) - 10/20/24 Attending Physician: Lew ASHER, Zuri Jasso Encounter Type: Office Visit Allergies, Adverse Reactions, Alerts Substance Criticality Severity Reaction Reaction Severity Status Ancef High criticality Severe Seizure Act samantha Immunizations Given and Recorded Vaccine Date Status Refusal Reason tetanus/diphtheria/pertussis, acel(Tdap) 09/25/23 Recorded SARS-CoV-2 mRNA (rwrtcah-oyke-zqjkz) vax 12/19/21 Recorded SARS-CoV-2 (COVID-19) mRNA BNT-162b2 [...] pt jaison well, administered without incident. LOT: [id number] EXP: [facility]: 18132-344-75, 0 Refills, Maintenance, 07/08/24 10:30:00 AM EDT, Partial fill upon patient request if the prescription is for a schedule II opioid drug. Start Date: 07/08/24 Status: Ordered Repeat number: 1 cyanocobalamin 1000 mcg/ml injectable solution 1 mL = 1,000 mcg, Intramuscular, Every 30 days, 1ml IM to left Deltoid, well tolerated, Lot # [id number] exp 01/2026, # 1 mL, 0 Refills, Maintenance, 07/18/24 10:23:00 AM EST, Solution, Partial fill uponpatient request if the prescription is for a schedule II opioid drug. Start Date: 07/18/24 Status: Ordered Quantity: 1.0 Unit: mL Repeat number: 1 cyanocobalamin 1000 mcg/ml injectable solution 1 mL = 1,000 mcg, Intramuscular, Once, 1ml IM to left Deltoid. Well tolerated. Lot # [id number], exp 01/2027, # 1 mL, 0 Refills, Maintenance, 07/11/24 10:43:00 AM EDT, Solution, Partial fill upon patient request if the prescription is for a schedule II opioid drug. Start Date: 07/11/24 Status: Ordered Quantity: 1.0 Unit: mL Repeat number: 1 cyanocobalamin 1000 mcg/ml injectable solution 1 mL = 1,000 mcg, Intramuscular, Once, 1ml to left Deltoid IM well tolerated. Lot # [id number] exp 01/2025, # 1 mL, 0 Refills, Maintenance, 08/01/24 10:19:00 AM EST, Solution, Partial fill upon patient request if the prescription is for a schedule II opioid drug. Start Date: 08/01/24 Status: Ordered Quantity: 1.0 Unit: mL Repeat number: 1 cyanocobalamin 1000 mcg/ml injectable solution 1 mL = 1,000 mcg, Intramuscular, Once, 1 ml IM to right Deltoid, well tolerated. Lot #[id number]. exp 01/2026, # 1 mL, 0 Refills, [...] 3:19:00 PM EST, Route to Pharmacy Electronically, [facility]/pharmacy #[id number], Partial fill upon patient request if the prescription is for a schedule II opioid drug., 169, cm, 10/21/24 9:51:00 EST, Height Start Date: 10/26/24 Status: Ordered Quantity: 90.0 Unit: tablet Repeat number: 4 nystatin topical 234287 u/gm ointment 1 application, Topically, 4 times a day, for 10 days, # 30 Gm, 1 Refills, Acute 11/09/24 1:53:00 PM EST, 10/20/24 1:53:00 PM EST, Ointment, [facility]/pharmacy #[id number], Partial fill upon patient request if the prescription is for a schedule II opioid drug., 1 application Topically 4 times a day,x10 days, 169, cm, 10/20/24 13:10:00 EST, Height Start Date: 10/20/24 Stop Date: 11/09/24 Status: Ordered Quantity: 30.0 Unit: g Repeat number: 2 Indication: Other urogenital candidiasis Potassium Chloride (Xpd-Nouk-Hka M20) 20 mEq oral tablet, extended release [...] 3:20:00 PM EDT, Route to Pharmacy Electronically, [facility], Partial fill upon [...] Refills, Maintenance, 08/08/24 10:50:00 AM EST, Tablet, [facility]/pharmacy #[id number], Partial fill upon patient [...] Effective Dates Health Status Clinical Service Informant Atrial fibrillation Discharge Diagnosis 10/20/24 Candidiasis of scrotum Discharge Diagnosis 10/20/24 Urinary retention Discharge Diagnosis 10/20/24 Vital Signs Most recent to oldest [Reference Range]: 1 Height 169 cm (10/20/24 1:10 PM) Weight 69.8 kg (10/20/24 1:10 PM) Oxygen Saturation [94-100 %] 96 % (10/20/24 1:10 PM) Pulse Rate [55-90 bpm] 54 bpm *L* (10/20/24 1:10 PM) Body Mass Index [18.5-24.99 kg/m2] 24.44 kg/m2 (10/20/24 1:10 PM) Blood Pressure [90-138/55-84 mm Hg] 130/ 75mm Hg (10/20/24 1:10 PM) Blood pressure sites Arm, right (10/20/24 1:10 PM) Weight Obtained Via Standing scale (10/20/24 1:10 PM) Social History Social History Type Response Smoking Status Former smoker, quit more than 30 days ago; Other: Quit 1979; entered on: 10/20/24 Sex Sex Representation Male (finding) Note * Indra Chiang: PERFORM Event Display: Patient Education/Instruction Authored Date: Ambulatory Adult Visit Summary [address] [address] Name: ASHLEY JIMÉNEZ : 1945?? Visit: 10/20/2024 13:00?? Ambulatory Visit Instructions ?? Your Care Team Primary Care Provider Rich Amaral DO? This Visit Provider Lew ASHER, Zuri Jasso Your Diagnosis Atrial fibrillation Candidiasis of scrotum Urinary retention Vitals Signs Pulse Rate:??54 bpm??Low Height: 169 cm Systolic Blood Pressure: 130 mm Hg Weight: 69.8 kg Diastolic Blood Pressure: 75 mm Hg Body Mass Index: 24.44 kg/m2 Oxygen Saturation: 96 % Body surface area: 1.81 What to do next Scheduled Follow-Up Appointments Thursday 9:40 AM EST ?? With: Rich Amaral DO Where: [address] [address]- Status: Pending Future Orders Fecal Occult Blood Immunochemical (Fecal Occult Blood Immunochemical FIT) - Routine, Once, :34:00 EDT, [facility], Stool?? Medications The list below reflects the information in our records and provided by you today along with any changes made during this visit. Please continue your medications until treatment is completed or stopped by your provider. If this is different from the information you have or there are other questions,please contact the prescribing provider. What How Much When Why Instructions New Nystatin Topical (nystatin topical 396344 u/ gm ointment) 1 owen Topically 4 times a day Candidiasis of scrotum Duration: 10 Days Refills: 1 Pickup at [facility]/pharmacy #[id number] New Triamcinolone Topical (triamcinolone 0.1% topical cream) 80 Gm, 0 Refill(s), APPLY TO AFFECTED AREA TWICE A DAY NEEDED UP TO 14 DAYS IN A ROW. ?? Unchanged Allopurinol 150 Milligram Oral Daily Unchanged [...] pt jaison well, administered without incident. LOT: [id number] EXP: [facility]: 48201-073-79 ?? Unchanged Cyanocobalamin (cyanocobalamin 1000 mcg/ ml injectable solution) 1 Milliliter Intramuscular Every 30 days 1ml IM to left Deltoid, well tolerated, Lot # [id number] exp 2025 ?? Unchanged Cyanocobalamin (cyanocobalamin 1000 mcg/ ml injectable solution) 1 Milliliter Intramuscular Once 1ml to left Deltoid IM well tolerated. ??Lot # [id number] exp 2024 ?? Unchanged Cyanocobalamin (cyanocobalamin 1000 mcg/ ml injectable solution) 1 Milliliter Intramuscular Once 1ml IM to left Deltoid. Well tolerated. Lot # [id number], exp 2026 ?? Unchanged Cyanocobalamin (cyanocobalamin 1000 mcg/ ml injectable solution) 1 Milliliter Intramuscular Once 1 ml IM to right Deltoid, well tolerated. ??Lot #[id number]. exp 2025 ?? Unchanged Cyanocobalamin (Vitamin B12) 1,000 Microgram Intramuscular Unchanged dupilumab (Dupixent) See instructions Unchanged Furosemide (Lasix 40 mg oral tablet) 1 tab(s) Oral Daily Unchanged Metoprolol (metoprolol 25 mg oral tablet) 0.5 tab(s) Oral Twice a day Unchanged Miscellaneous Rx (Iron) Unchanged Potassium Chloride (Potassium Chloride (Okc-Jxxi-Ofw M20) 20 mEq oral tablet, extended release) 90 each, 0 Refill(s), TAKE 1 TABLET BY MOUTH EVERY DAY ?? Unchanged Sildenafil (Viagra 100 mg oral tablet) 1 tab(s) Oral Daily 1 hour before sexual activity ?? Unchanged Tamsulosin (tamsulosin 0.4 mg oral capsule) 1 capsule Oral Daily at Bedtime Unchanged Warfarin (Coumadin Tablet) Oral Daily Pharmacy Information [facility]/pharmacy #[id number]: [address] [place], [place] [phone] Medications and Immunizations Administered Medications Given During [...] are strongly encouraged to quit. Please call [employer] Link at [phone] or [phone] ([phone]) or log in to [email or web address] for referrals to smoking cessation programs. ?? The National Suicide Prevention Hotline is available 06/04 if you or someone you know needs to find a reason to keep living. By calling 1-887-039-kxws (8505) you'll be connected to a skilled, trained counselor at a crisis center in your area. [facility] [employer] Portal You can view and manage your care through the patient portal or by using a health care owen of your choosing. [employer] is a website that allows you to securely view your medical information including your hospital discharge summary, office visit summaries, medications and follow-up visits. You can also request appointments, renew medications, and request access to your medical information using a health care owen of your choosing, or just ask a question. You can enroll at [email or web address] or register during your next office visit. [facility], in keeping with [facility] guidance, no longer requires face [...] primary care provider, you may find a [facility] provider by calling [facility] [employer] Link at [phone]. Patient Care team information Care Team Personnel Name: Aysha Dow RN Position: [facility] RN Member Role: Primary Care Nurse Name: Rich Amaral DO Position: [facility] Physician - Primary Care Member Role: PCP Address: [address] [place] [address] Telecom: Name: Sheila May RN Position: S RN Member Role: Primary Care Nurse Care Team Related Persons Name: FRANCK JIMÉNEZ Insurance Providers Guarantor name: ASHLEY [facility] Plan Information #: 2 Payer: SID ALVAGE LINARES Member Number: [id number] Policy Number: NA Group Number: NA Health Plan Information #: 1 Payer: MEDICARE PART B OUTPT Member Number: [id number] Policy Number: NA Group Number: NA Health Plan Information #: 3 Payer: PRIME Member Number: NA Policy Number: NA Group Number: NA
[2024-11-05 10:54] LABS: MANUAL DIFF FLAG NO
[2024-11-05] MEDS: methylPREDNISolone Sod Succ 125 MG/2 ML VIAL IVPUSH (10:55)
[2024-11-05 10:58] LABS: VBG HCO3 35 mmol/L (22-26); VBG pCO2 56 mmHg; VBG pH 7.39 (7.32-7.43); VBG pO2 35 mmHg
[2024-11-05 10:58] LABS: Venous Blood Gas Refer to POC result
[2024-11-05 11:00] LABS: INTERNATIONAL NORM RATIO 1.6 (0.9-1.1); Prothrombin Time 18.7 SEC (10.9-12.4)
[2024-11-05] MEDS: Albuterol Sulfate 2.5 MG, Albuterol/Iprat 2.5/0.5MG 3 ML 3 ML INHALE (11:01)
[2024-11-05 11:11] LABS: Basophils Absolute Auto 0.1 X10*3/uL (0.0-0.2); Basophils Percent Auto 0.8 % (0-2); Eosinophils Absolute Auto 0.1 X10*3/uL (0.0-0.4); Eosinophils Percent Auto 0.9 % (0-4); Hematocrit 42.5 % (42.0-52.0); Hemoglobin 14.4 g/dl (14.0-18.0); Imm Gran Abs Auto 0.05 X10*3/uL (0.00-0.03); Imm Gran Pct Auto 0.6 % (0.0-0.4); Lymphocytes Absolute Auto 0.4 X10*3/uL (1.2-4.9); Lymphocytes Percent Auto 4.9 % (20-40); Mean Corpuscular HGB Conc 33.9 g/dl (31.0-36.0); Mean Corpuscular Hemoglobin 34.5 pg (27.0-33.0); Mean Corpuscular Volume 101.9 fL (80.0-98.0); Mean Platelet Volume 11.9 fL (9.4-12.4); Monocytes Absolute Auto 1.3 X10*3/uL (0.1-1.2); Monocytes Percent Auto 15.4 % (2-11); Neutrophils Absolute Auto 6.7 x10*3/uL (2.0-8.3); Neutrophils Percent Auto 77.4 % (45-73); Platelet Count 240 X10*3/uL (160-400); Red Blood Count 4.17 X10*6/uL (4.60-5.80); Red Cell Distribution Width 15.2 % (11.0-16.0); White Blood Count 8.6 X10*3/uL (4.8-10.8)
[2024-11-05 11:17] LABS: B Type Natriuretic Peptide 3280 pg/mL (<100)
[2024-11-05 11:22] LABS: Alanine Aminotransferase 41 U/L (0-40); Albumin Level 3.9 g/dL (3.5-5.0); Alkaline Phosphatase 433 U/L (39-117); Anion Gap 18 (12-20); Aspartate Amino Transferase 71 U/L (5-37); Bilirubin Total 2.2 mg/dL (0.0-1.0); Blood Urea Nitrogen 25 mg/dL (9-16); Calcium 9.3 mg/dL (8.4-10.2); Carbon Dioxide 29 mmol/L (22-29); Chloride 98 mmol/L (96-108); Creatinine Clr Calc Pharmacy 57.4; Estimated Glomerular Filt Rate > 60; Glucose Random 90 mg/dL (60-115); Magnesium 1.8 mg/dL (1.6-2.6); Potassium 2.9 mmol/L (3.3-5.1); Sodium 142 mmol/L (135-145); Total Protein 7.8 g/dL (6.5-8.0)
[2024-11-05 11:23] LABS: Troponin-I High Sensitivity 78.2 ng/L (<3.5-35.0)
[2024-11-05 11:31] LABS: Influenza A PCR POSITIVE (Negative); Influenza B PCR NEGATIVE (Negative); Resp Syncy Virus RNA Qual PCR NEGATIVE (Negative); SARS COV2 PCR INHOUSE NEGATIVE (Negative)
[2024-11-05] MEDS: Potassium Chloride Packet 20 MEQ PACKET 60 MEQ PO (12:09)
[2024-11-05] MEDS: Potassium Chloride/H20 10 MEQ/100 ML PIGGYBACK 100 MEQ IV ×4 (12:10→16:19)
[2024-11-05] MEDS: Furosemide 100 MG/10 ML VIAL 80 MG IVPUSH ×2 (12:10→17:27)
--- NOTE | 2024-11-05 12:12 | MHC.EDTECH ---
johnathon condom catheter in place per hospitalist verbal order
[2024-11-05] MEDS: Magnesium Sulfate/H2O 2 GM/50 ML PIGGYBACK IV (12:21)
--- NOTE | 2024-11-05 12:33 | PC.NURSE ---
Assumed care of this patient at 1100, [facility], admitted Breana at bedside speaking with patient, [facility] [place] cath applied, additional IV access started, IV K & Mg started per NOV. Patient now resting quietly on stretcher at this time.
--- NOTE | 2024-11-05 12:39 | PM.IMHP ---
History of Present Illness Date of Service: 11/05/24 <Breana Ortega NP - Last Filed: 11/05/24 13:06> Chief Complaint: Shortness of breath <Breana Ortega NP - Last Filed: 11/05/24 13:06> 79-year-old man with a history of atrial fibrillation, anemia, aortic valve replacement presenting to the ER with complaints of shortness of breath and cough. He reports over the last 2-3 days he has felt very tired and generally unwell. He reports a crackly cough. He denied recent fever, chills, nausea, vomiting, diarrhea, sick contacts, recent travel. He did not noticed that over some months he has had some progressive shortness breath but nothing that could not stop him from doing his day-to-day activities. Chest x-ray was noted to have pulmonary vascular congestion with stable cardiomegaly, BNP 3280, troponin 78.2, noted transaminitis. In the ER, patient was given IV Solu-Medrol, albuterol, IV Lasix, potassium, magnesium. He will be admitted for further management and treatment of acute congestive heart failure. <Breana Ortega NP - Last Filed: 11/05/24 13:06> Review of Systems Review of Systems: Denies any recent fever chills or decrease in appetite respiratory see HPI cardiovascular see HPI gastrointestinal denies any dysphagia abdominal pain nausea vomiting or diarrhea genitourinary denies any dysuria frequency or hematuria musculoskeletal denies any joint pain or swelling neuropsych denies any weakness or seizures all other systems reviewed are negative <Breana Ortega NP - Last Filed: 11/05/24 13:06> [facility] Medical History: Medical History CHF (congestive heart failure) Ascending aortic aneurysm Bicuspid aortic valve Varicose vein of leg Hemorrhage secondary to anti-coagulation Bleeding Hx of skin malignancy Gastroesophageal reflux disease Erectile dysfunction Carotid stenosis Allergic rhinitis Gout Hypertension <Breana Ortega NP - Last Filed: 11/05/24 13:06> Family History: Family History Father No problems noted. Mother No problems noted. 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 Current occupational exposures/hazards: No Cognitive needs: No Hearing needs: No Vision needs: No <Breana Ortega NP - Last Filed: 11/05/24 13:06> Meds Allergies/Adverse reactions: Allergies Allergy/AdvReac Type Severity Reaction Status Date / Time No Known Allergies Allergy Verified 11/05/24 10:17 <Breana Ortega NP - Last Filed: 11/05/24 13:06> Active Medications: Current Medications Potassium Chloride (Potassium Chloride/H20) 10 meq in 100 mls @ 100 mls/hr IV Q1H ELENA Stop: 11/05/24 15:29 Last Admin: 11/05/24 12:10 Dose: 100 mls/hr <Breana Ortega NP - Last Filed: 11/05/24 13:06> Home medications: Home Medications ?Medication ?Instructions ?Recorded ?Confirmed ?Last Taken ?Type acetaminophen 325 mg capsule 650 mg PO QID PRN Pain 09/05/22 11/05/24 Unknown History atorvastatin 20 mg tablet 20 mg PO BEDTIME 09/05/22 11/05/24 11/04/24 History warfarin 2 mg tablet 2 mg PO SUTUWETHFRSA@1800 09/25/22 11/05/24 11/04/24 History aspirin 81 mg tablet,delayed 81 mg PO BEDTIME 11/25/22 11/05/24 11/04/24 History release metoprolol succinate 25 mg 25 mg PO DAILY 02/03/23 11/05/24 11/04/24 History tablet,extended release 24 hr ferrous sulfate 325 mg (65 mg 325 mg PO DAILY 06/22/23 11/05/24 11/05/24 History iron) tablet (FeroSul) furosemide 40 mg tablet 80 mg PO BID 08/08/24 11/05/24 11/05/24 09:00 History dupilumab 300 mg/2 mL subcutaneous 300 mg subcut Q2W 08/29/24 11/05/24 3 Weeks Ago History pen injector (Dupixent) ~10/15/24 potassium chloride 20 mEq 20 meq PO DAILY 08/29/24 11/05/24 11/04/24 History tablet,extended release(part/cryst) (Klor-Con M) allopurinol 300 mg tablet 150 mg PO BEDTIME 11/05/24 11/05/24 11/04/24 History cyanocobalamin (vitamin B-12) 1,000 mcg PO DAILY 11/05/24 11/05/24 11/05/24 History 1,000 mcg tablet warfarin 2 mg tablet 3 mg PO MO@1800 11/05/24 11/05/24 10/31/24 History <Breana Ortega NP - Last Filed: 11/05/24 13:06> Physical Exam Vital Signs and Narrative: Vital Signs: Last Vital Signs Temp 97.9 F 11/05/24 10:16 Pulse 61 11/05/24 11:04 Resp 20 11/05/24 11:04 BP 131/69 11/05/24 10:16 Pulse Ox 95 11/05/24 10:58 O2 Del Method Nasal Cannula 11/05/24 10:58 O2 Flow Rate 3 11/05/24 10:24 Oxygen Flow Rate 2 11/05/24 10:58 BMI result Body Mass Index 23.4 <Breana Ortega NP - Last Filed: 11/05/24 13:06> Results Labs CBC and Chem 7: 11/06/24 05:46 11/06/24 05:46 <Breana Ortega NP - Last Filed: 11/05/24 13:06> Labs: Laboratory Results - last 24 hr 11/05/24 11/05/24 11/05/24 10:48 10:49 10:54 MCV 101.9 H MCH 34.5 H MCHC 33.9 RDW 15.2 Plt Count 240 MPV 11.9 Immature Gran % (Auto) 0.6 H Neut % (Auto) 77.4 H Lymph % (Auto) 4.9 L Daniels % (Auto) 15.4 H Eos % (Auto) 0.9 Baso % (Auto) 0.8 Lymph # (Auto) 0.4 L Daniels # (Auto) 1.3 H Eos # (Auto) 0.1 Baso # (Auto) 0.1 Abs Immat Gran (auto) 0.05 H Absolute Neuts (auto) 6.7 Absolute Nucleated RBC 0.000 Nucleated RBC % (auto) 0.0 PT 18.7 H INR 1.6 H D VBG pH 7.39 VBG pCO2 56 VBG pO2 35 VBG HCO3 35 H VBG O2 Saturation 45.0 VBG Base Excess 8.0 Anion Gap 18 Estim Creat Clear Calc 57.4 Estimated GFR > 60 Random Glucose 90 Calcium 9.3 Magnesium 1.8 Total Bilirubin 2.2 H AST 71 H ALT 41 H Alkaline Phosphatase 433 H B-Natriuretic Peptide 3280 H Total Protein 7.8 Albumin 3.9 Influenza Type A (PCR) POSITIVE A Influenza Type B (PCR) NEGATIVE RSV RNA Qual (PCR) NEGATIVE SARS-CoV-2 RNA (RT-PCR) NEGATIVE <Breana Ortega NP - Last Filed: 11/05/24 13:06> Assessment and Plan (1) CHF (congestive heart failure): Status: Acute <Breana Ortega NP - Last Filed: 11/05/24 13:06> 79-year-old man admitted with acute hypoxic respiratory failure secondary to acute congestive heart failure Acute hypoxic respiratory failure secondary to heart failure with preserved ejection fraction BNP 3280 Cardiology consultation IV Lasix 80 mg b.i.d. Daily weights Strict intake and output Influenza a Tamiflu DuoNebs Antitussives p.r.n. supportive care Elevated troponin Likely secondary to acute heart failure No complaints of chest pain Monitor in IMC Hypokalemia Normal magnesium Replete Transaminitis Likely secondary to volume overload Diurese and follow LFTs Atrial fibrillation Continue metoprolol and warfarin Iron-deficiency anemia Stable H&H DVT prophylaxis with warfarin Full code <Berana Ortega NP - Last Filed: 11/05/24 13:06> 79-year-old man admitted with acute hypoxic respiratory failure secondary to acute congestive heart failure Acute hypoxic respiratory failure secondary to heart failure with preserved ejection fraction BNP 3280 Cardiology consultation IV Lasix 80 mg b.i.d. Daily weights Strict intake and output Influenza a Tamiflu DuoNebs Antitussives p.r.n. supportive care Elevated troponin Likely secondary to acute heart failure No complaints of chest pain Monitor in IMC Hypokalemia Normal magnesium Replete Transaminitis-Likely secondary to volume overload Diurese and follow LFTs Atrial fibrillation Continue metoprolol and warfarin Iron-deficiency anemia Stable H&H DVT prophylaxis with warfarin Full code addm: patient seen and examined -Acute hypoxic respiratory failure (sob ,tachypnea)secondary to heart failure with preserved ejection fraction: continue iv lasix influenza A : has leuccocytosis . cxr negative . no sepsis present on admission continue tamiflu. <Elizabeth Fitzgerald MD - Last Filed: 11/06/24 12:27> Quality Stroke Does the patient have a stroke diagnosis?: No <Breana Ortega NP - Last Filed: 11/05/24 13:06> VTE Prior VTE?: No <Breana Ortega NP - Last Filed: 11/05/24 13:06> VTE Risk Level:: Medical - moderate - high <Breana Ortega NP - Last Filed: 11/05/24 13:06> VTE Device Contraindication: Treatment Not Indicated <Breana Ortega NP - Last Filed: 11/05/24 13:06> VTE Drug Contraindication: N/A - Med Ordered <Breana Ortega NP - Last Filed: 11/05/24 13:06>
--- NOTE | 2024-11-05 12:42 | PHA.MEDREC ---
Pharmacy Consult ? Medication Reconciliation Pharmacy has completed the medication reconciliation. Spoke to pt to confirm meds. Per pt, takes warfarin 3 mg MO and 2mg all other days. Does not take triamcinolone anymore.
[2024-11-05] MEDS: Oseltamivir Phosphate 75 MG CAPSULE PO (13:30)
[2024-11-05] MEDS: Albuterol/Iprat 2.5/0.5MG 3 ML AMPUL.NEB INHALE ×2 (14:25→19:42)
[2024-11-05 15:11] LABS: Troponin-I High Sensitivity 52.3 ng/L (<3.5-35.0)
--- NOTE | 2024-11-05 16:15 | MHC.EDTECH ---
pt attempted to leave ER, disoriented, pulled iv out and took off [place] catheter, another catheter was placed on pt. pt educated on the plan again and was told to not remove the new IV or [place] catheter. camera [address] to monitor pt and ensure he stays in bed.
--- NOTE | 2024-11-05 17:05 | PC.NURSE ---
Delayed note: Messaged provider Breana, Patient increasingly confused, he got up and attempted to elope from the department, we started a virtual sitter. The is back at beside and says he is more confused than his baseline, and can be a difficult patient but this is worse than anything she has seen. No new orders, virtual sitter in place.
--- NOTE | 2024-11-05 17:20 | PC.NURSE ---
PT continues to be beligerent in bed, attempting to get out, visibly upset, provider made aware, medication ordered.
[2024-11-05] MEDS: QUEtiapine Fumarate 50 MG TABLET PO (17:27)
[2024-11-05] MEDS: Loratadine 10 MG TABLET PO (18:43)
[2024-11-05] MEDS: Magnesium Oxide 400 MG TABLET PO (18:43)
[2024-11-05 18:50] LABS: Appearance Urine Clear; Color Urine Yellow; Glucose Urine UA Negative (Negative); Leukocyte Esterase Urine Negative (Negative); Nitrite Urine Negative (Negative); PH 6.5 (5.0-9.0); Urine Blood Negative (Negative); Urine Ketones Trace mg/dL (Negative); Urine Protein Negative (Neg-Trace)
[2024-11-05] MEDS: LORazepam 2 MG/ML VIAL 1 MG IVPUSH (18:52)
--- NOTE | 2024-11-05 19:27 | PC.NURSE ---
Patient out of control trying to climb out of bed, attempting to fight staff. Patient transferred onto hospital bed, continues to attempt to fight staff, calling staff fuckers . Patient unable to follow basic commands. silk screen printer machine Chelsea made aware patient will now need a 1:1, provider Breana made aware additional PRN meds ordered.
[2024-11-05] MEDS: Acetaminophen Supp 650 MG SUPP.RECT PR (23:22)
--- NOTE | 2024-11-05 23:36 | PC.NURSE ---
pt remains extremely confused and restless, unable to follow commands and although he is conversing freely he is rambling and appears to be experiencing visual hallucinations at this tiime. Pt noted to continue to reach for and attempt to mess with his [place] catheter with some redness noted to the penis where the catheter edge was in place. Pt remains restless however does appear to be more comfortable. Pt relocated to ed bed 9 for closer observation as there is a PO able to watch him for safety. Report provided to MICHI Weldon
[2024-11-06] VITALS (20 sets, daily range): BP systolic 74–132; BP diastolic 44–73; PULSE 58–80; RESP 19–36; TEMP 36.4–38.7; O2SAT 88–98
[2024-11-06 00:18] LABS: Anion Gap 20 (12-20); Carbon Dioxide 28 mmol/L (22-29); Chloride 100 mmol/L (96-108); Potassium 3.4 mmol/L (3.3-5.1); Sodium 145 mmol/L (135-145)
[2024-11-06 01:18] LABS: Hematocrit 42.9 % (42.0-52.0); Hemoglobin 14.4 g/dl (14.0-18.0); Mean Corpuscular HGB Conc 33.6 g/dl (31.0-36.0); Mean Corpuscular Hemoglobin 34.4 pg (27.0-33.0); Mean Corpuscular Volume 102.4 fL (80.0-98.0); Mean Platelet Volume 11.2 fL (9.4-12.4); Platelet Count 214 X10*3/uL (160-400); Red Blood Count 4.19 X10*6/uL (4.60-5.80); Red Cell Distribution Width 15.2 % (11.0-16.0); White Blood Count 18.5 X10*3/uL (4.8-10.8)
[2024-11-06 01:19] LABS: OBS Int Ctl Valid YES; OBS1 NEGATIVE (NEGATIVE)
[2024-11-06] MEDS: Pantoprazole Sodium 40 MG/10 ML VIAL IVPUSH (01:19)
--- NOTE | 2024-11-06 01:23 | PM.EVENT ---
Event Note Date of Service: 11/06/24 Event Note: admitted with influenza, chf. has been having temps of 101. There was report of black tarry stool, repeat H/H no drop, but WBC now 18K from 8K. Adding Abx Ceftriaxone and Azithromycin. Get blood cultures, lactic acid, repeat cxr Time Spent With Patient Time: Total time managing care of this patient today ____ minutes.
--- NOTE | 2024-11-06 01:24 | PC.NURSE ---
changed pt with EDT and pt was noted to have black tarry stool, MD Mckeon aware. Stool sample sent and labs drawn. pt medicated per nov.
[2024-11-06] MEDS: cefTRIAXone sodium 1 GM VIAL IVPUSH (02:38)
[2024-11-06] MEDS: Azithromycin 500 MG in 0.9 % Sodium Chloride 250 ML 125 MG IV (02:42)
[2024-11-06 03:02] LABS: Lactic Acid 3.4 mmol/L (0.5-2.0)
[2024-11-06 04:23] LABS: Reflex Lactate? Lactic Acid Added
--- NOTE | 2024-11-06 04:37 | PC.NURSE ---
pt incontinent of stool, pt noted to continue having black tarry stools, rectal temp taken 101.6, BP noted 108/54, MD Wilson aware.
[2024-11-06] MEDS: Acetaminophen 1,000 MG/100 ML PIGGYBACK 400 MG IV (04:49)
[2024-11-06 05:54] LABS: Hematocrit 38.4 % (42.0-52.0); Hemoglobin 12.8 g/dl (14.0-18.0); Mean Corpuscular HGB Conc 33.3 g/dl (31.0-36.0); Mean Corpuscular Hemoglobin 34.2 pg (27.0-33.0); Mean Corpuscular Volume 102.7 fL (80.0-98.0); Mean Platelet Volume 11.4 fL (9.4-12.4); Platelet Count 196 X10*3/uL (160-400); Red Blood Count 3.74 X10*6/uL (4.60-5.80); Red Cell Distribution Width 15.1 % (11.0-16.0)
[2024-11-06 06:00] LABS: INTERNATIONAL NORM RATIO 1.8 (0.9-1.1); Prothrombin Time 20.6 SEC (10.9-12.4)
[2024-11-06 06:08] LABS: ~Lactic Acid-LAB USE ONLY 1.6 mmol/L (0.5-2.0)
[2024-11-06 06:14] LABS: B Type Natriuretic Peptide 4471 pg/mL (<100)
[2024-11-06 06:16] LABS: Anion Gap 16 (12-20); Blood Urea Nitrogen 28 mg/dL (9-16); Calcium 8.2 mg/dL (8.4-10.2); Carbon Dioxide 30 mmol/L (22-29); Chloride 103 mmol/L (96-108); Creatinine Clr Calc Pharmacy 62.5; Estimated Glomerular Filt Rate > 60; Glucose Random 127 mg/dL (60-115); Iron 7 mcg/dL (45-160); Percent Iron Saturation 4 % (15-50); Potassium 2.7 mmol/L (3.3-5.1); Sodium 146 mmol/L (135-145); Total Iron Binding Capacity 199 mcg/dL (228-428); Unsaturated Iron Binding 192 ug/dL
--- NOTE | 2024-11-06 06:18 | PM.EVENT ---
Event Note Date of Service: 11/06/24 Event Note: K 2.7, IV K 20 meq, 40 meq PO, checking mag now Time Spent With Patient Time: Total time managing care of this patient today ____ minutes.
[2024-11-06 06:33] LABS: Magnesium 1.7 mg/dL (1.6-2.6)
[2024-11-06] MEDS: Potassium Chloride ER 20 MEQ TAB.ER.PRT 40 MEQ PO (06:33)
[2024-11-06] MEDS: Potassium Chloride/H20 10 MEQ/100 ML PIGGYBACK 100 MEQ IV ×6 (06:34→13:44)
[2024-11-06] MEDS: Albuterol/Iprat 2.5/0.5MG 3 ML AMPUL.NEB INHALE ×3 (08:24→19:33)
--- NOTE | 2024-11-06 08:51 | HO.PM.IMPN ---
Subjective Subjective Date of Service: 11/06/24 Interval History: AHRF, bodelrine bp, metbolic encephalopathy ,chf , pneumonia ,? black stool stool (please see night hospitalist note) Review of Systems still sob,confused fevers last night feels sleepy this morning Physical Exam Vital Signs: Vital Signs: Last Vital Signs Temp 99.8 F 11/06/24 05:39 Pulse 61 11/06/24 08:41 Resp 24 H 11/06/24 08:41 BP 109/59 L 11/06/24 05:39 Pulse Ox 92 11/06/24 05:39 O2 Del Method Nasal Cannula 11/06/24 05:39 O2 Flow Rate 4 11/06/24 05:39 Oxygen Flow Rate 2 11/05/24 10:58 BMI result Body Mass Index 23.4 Appearance: awake but feels sleepy cvs: rrr, [id number]. res: air entry dimished ,has few rales right>left abd:soft,nt , bs present. ext pulses present , no cyanosis. neuro: axo3 , nonfocal. Objective Data Active Medications Acetaminophen (Acetaminophen 325 Mg Tablet) 650 mg PO Q6H PRN PRN Reason: Pain, Mild 1-3,fever,headache Acetaminophen (Acetaminophen Supp 650 Mg Supp.Rect) 650 mg VT Q6H PRN PRN Reason: Fever >101 Last Admin: 11/05/24 23:22 Dose: 650 mg Documented By: RUDDY Albuterol/Ipratropium (Albuterol/Iprat 2.5/0.5mg 3 Ml Ampul.Neb) 3 ml INHALE RQ6H WHILE AWAKE [facility] Last Admin: 11/06/24 08:24 Dose: 3 ml Documented By: FERNANDO Allopurinol (Allopurinol 300 Mg Tablet) 150 mg PO BEDTIME [facility] Last Admin: 11/05/24 22:52 Dose: Not Given Documented By: RUDDY Non-Admin Reason: see note; pt too confused. NPO for safety Aspirin (Aspirin Enteric Coated 81 Mg Tablet.) 81 mg PO BEDTIME [facility] Last Admin: 11/05/24 22:52 Dose: Not Given Documented By: RUDDY Non-Admin Reason: see note; pt too confused. NPO for safety Atorvastatin Calcium (Atorvastatin Calcium 20 Mg Tablet) 20 mg PO BEDTIME [facility] Last Admin: 11/05/24 22:52 Dose: Not Given Documented By: RUDDY Non-Admin Reason: see note; pt too confused. NPO for safety Calcium Carbonate (Calcium Carbonate 750 Mg Tab.Chew) 750 mg PO Q4H PRN PRN Reason: Heartburn Ceftriaxone Sodium (Ceftriaxone Sodium 1 Gm Vial) 1 gm IVPUSH Q24H [facility] Last Admin: 11/06/24 02:38 Dose: 1 gm Documented By: JANET Cyanocobalamin (Cyanocobalamin (Vitamin B-12) 1,000 Mcg Tablet) 1,000 mcg PO DAILY [facility] Ferrous Sulfate (Ferrous Sulfate 324 Mg Tablet.) 324 mg PO DAILY [facility] Furosemide (Furosemide 100 Mg/10 Ml Vial) 40 mg IVPUSH BID@0900,1800 [facility]; Protocol Guaifenesin (Guaifenesin La 600 Mg Tab.Er.12h) 600 mg PO BID PRN PRN Reason: Cough Guaifenesin (Guaifenesin 200 Mg/10 Ml 10 Ml Liquid) 10 ml PO Q4H PRN PRN Reason: Cough Loratadine (Loratadine 10 Mg Tablet) 10 mg PO DAILY [facility] Last Admin: 11/05/24 18:43 Dose: 10 mg Documented By: DESIREE Magnesium Hydroxide (Milk Of Magnesia 30 Ml Oral.Susp) 30 ml PO DAILY PRN PRN Reason: Constipation Magnesium Oxide (Magnesium Oxide 400 Mg Tablet) 400 mg PO BIDPC [facility] Last Admin: 11/05/24 18:43 Dose: 400 mg Documented By: DESIREE Melatonin (Melatonin 3 Mg Tablet) 6 mg PO BEDTIME PRN PRN Reason: Insomnia Metoprolol Succinate (Metoprolol Succinate Er 25 Mg Tab.Er.24h) 25 mg PO DAILY [facility]; Protocol Omeprazole (Omeprazole 20 Mg Capsule.) 20 mg PO BID@0630,1630 [facility] Oseltamivir Phosphate (Oseltamivir Phosphate 75 Mg Capsule) 75 mg PO BID [facility] Stop: 11/09/24 09:01 Last Admin: 11/05/24 22:53 Dose: Not Given Documented By: RUDDY Non-Admin Reason: see note; pt too confused. NPO for safety Potassium Chloride (Potassium Chloride Er 20 Meq Tab.Er.Prt) 20 meq PO BID [facility] Sodium Chloride (0.9 % Sodium Chloride Flush 3 Ml Syringe) 3 ml IVFLUSH QSHIFT [facility] Last Admin: 11/06/24 01:13 Dose: Not Given Documented By: JANET Non-Admin Reason: 10 ml flush used Warfarin Sodium (Warfarin Sodium 2 Mg Tablet) 2 mg PO SUTUWETHFRSA@1800 [facility] Last Admin: 11/05/24 22:53 Dose: Not Given Documented By: RUDDY Non-Admin Reason: see note; pt too confused. NPO for safety Warfarin Sodium (Warfarin Sodium 3 Mg Tablet) 3 mg PO MO@1800 [facility] Labs 11/06/24 05:46 11/06/24 05:46 Labs: Laboratory Results - last 24 hr 11/05/24 11/05/24 11/05/24 10:48 10:49 10:54 MCV 101.9 H MCH 34.5 H MCHC 33.9 RDW 15.2 Plt Count 240 MPV 11.9 Immature Gran % (Auto) 0.6 H Neut % (Auto) 77.4 H Lymph % (Auto) 4.9 L Mingo % (Auto) 15.4 H Eos % (Auto) 0.9 Baso % (Auto) 0.8 Lymph # (Auto) 0.4 L Mingo # (Auto) 1.3 H Eos # (Auto) 0.1 Baso # (Auto) 0.1 Abs Immat Gran (auto) 0.05 H Absolute Neuts (auto) 6.7 Absolute Nucleated RBC 0.000 Nucleated RBC % (auto) 0.0 PT 18.7 H INR 1.6 H D VBG pH 7.39 VBG pCO2 56 VBG pO2 35 VBG HCO3 35 H VBG O2 Saturation 45.0 VBG Base Excess 8.0 Anion Gap 18 Estim Creat Clear Calc 57.4 Estimated GFR > 60 Random Glucose 90 Lactic Acid Lactic Acid F/U @ 2Hr Calcium 9.3 Magnesium 1.8 Iron TIBC % Saturation Unsat Iron Binding Total Bilirubin 2.2 H AST 71 H ALT 41 H Alkaline Phosphatase 433 H B-Natriuretic Peptide 3280 H Total Protein 7.8 Albumin 3.9 Urine Color Urine Appearance Urine pH Ur Specific Benn[place] Urine Protein Urine Glucose (UA) Urine Ketones Urine Blood Urine Nitrite Ur Leukocyte Esterase Stool Occult Blood Influenza Type A (PCR) POSITIVE A Influenza Type B (PCR) NEGATIVE RSV RNA Qual (PCR) NEGATIVE SARS-CoV-2 RNA (RT-PCR) NEGATIVE Blood Type Antibody Screen 11/05/24 11/05/24 11/06/24 18:39 23:36 01:05 MCV MCH MCHC RDW Plt Count MPV Immature Gran % (Auto) Neut % (Auto) Lymph % (Auto) Mingo % (Auto) Eos % (Auto) Baso % (Auto) Lymph # (Auto) Mingo # (Auto) Eos # (Auto) Baso # (Auto) Abs Immat Gran (auto) Absolute Neuts (auto) Absolute Nucleated RBC Nucleated RBC % (auto) PT INR VBG pH VBG pCO2 VBG pO2 VBG HCO3 VBG O2 Saturation VBG Base Excess Anion Gap 20 Estim Creat Clear Calc Estimated GFR Random Glucose Lactic Acid Lactic Acid F/U @ 2Hr Calcium Magnesium Iron TIBC % Saturation Unsat Iron Binding Total Bilirubin AST ALT Alkaline Phosphatase B-Natriuretic Peptide Total Protein Albumin Urine Color Yellow Urine Appearance Clear Urine pH 6.5 Ur Specific Bennet 1.010 Urine Protein Negative Urine Glucose (UA) Negative Urine Ketones Trace Urine Blood Negative Urine Nitrite Negative Ur Leukocyte Esterase Negative Stool Occult Blood NEGATIVE Influenza Type A (PCR) Influenza Type B (PCR) RSV RNA Qual (PCR) SARS-CoV-2 RNA (RT-PCR) Blood Type Antibody Screen 11/06/24 11/06/24 11/06/24 01:10 02:00 05:46 MCV 102.4 H 102.7 H MCH 34.4 H 34.2 H MCHC 33.6 33.3 RDW 15.2 15.1 Plt Count 214 196 MPV 11.2 11.4 Immature Gran % (Auto) Neut % (Auto) Lymph % (Auto) Mingo % (Auto) Eos % (Auto) Baso % (Auto) Lymph # (Auto) Mingo # (Auto) Eos # (Auto) Baso # (Auto) Abs Immat Gran (auto) Absolute Neuts (auto) Absolute Nucleated RBC 0.000 0.000 Nucleated RBC % (auto) 0.0 0.0 PT 20.6 H INR 1.8 H VBG pH VBG pCO2 VBG pO2 VBG HCO3 VBG O2 Saturation VBG Base Excess Anion Gap 16 Estim Creat Clear Calc 62.5 Estimated GFR > 60 Random Glucose 127 H Lactic Acid 3.4 H* Lactic Acid F/U @ 2Hr 1.6 Calcium 8.2 L D Magnesium 1.7 Iron 7 L TIBC 199 L % Saturation 4 L Unsat Iron Binding 192 Total Bilirubin AST ALT Alkaline Phosphatase B-Natriuretic Peptide 4471 H Total Protein Albumin Urine Color Urine Appearance Urine pH Ur Specific Benn[place] Urine Protein Urine Glucose (UA) Urine Ketones Urine Blood Urine Nitrite Ur Leukocyte Esterase Stool Occult Blood Influenza Type A (PCR) Influenza Type B (PCR) RSV RNA Qual (PCR) SARS-CoV-2 RNA (RT-PCR) Blood Type B Negative Antibody Screen NEGATIVE Assessment and Plan (1) Influenza: Status: Acute (2) Hypokalemia: Status: Acute Plan 79-year-old man admitted with acute hypoxic respiratory failure secondary to acute congestive heart failure Acute hypoxic respiratory failure multifactorial-secondary to heart failure with preserved ejection fraction,influenza, possible pneumonia fever last night ,leucocytosis improving-overnight has possible viral sepsis sec to influenza. tachypnea due to sob sec to chf. blood cultures sent last night cxr:? right sided pneumonia acute lactic acidosis sec to chf ,dehydration -not due to sepsis. Elevated troponin -Likely secondary to acute heart failure BNP [phone] plan: moniter on tele continue iv lasix 40 mg bid -bp is softer side ,antibiotics and tamiflu ,oxygen . consider cardiology eval. metabolic encephalopathy sec influenza/chf, electrolytic abormalities ,dec po intake: supprotive management -treatment of underlying conditions and electrolytic replacements. Influenza a Tamiflu DuoNebs Antitussives p.r.n. supportive care multiple electrolytic abnormalities -due to dec po intake . acute hypokalemia -added replacements. hypernatremia-? related to dec po intake. Transaminitis-thought to be sec Likely secondary to volume overload Diurese and follow LFTs Atrial fibrillation Continue metoprolol and warfarin Iron-deficiency anemia Stable H&H. ? black stool episode -but h/h is stable, moniter h/h closely ,hold asa and consider monitering h/h and ppi and gi eval if needed. due to multiple medical isisues as above -patient will benefit from icu level of care. Quality Stroke Does the patient have a stroke diagnosis?: No VTE Prior VTE?: No VTE Risk Level:: Medical - moderate - high VTE Device Contraindication: Treatment Not Indicated VTE Drug Contraindication: N/A - Med Ordered
--- NOTE | 2024-11-06 09:02 | P.PNCC_ITS ---
Subjective Subjective Date of Service: 11/06/24 Critical Care Time (minutes): 60 Physical Exam 2 Vital Signs: Vital Signs: Last Vital Signs Temp 99.8 F 11/06/24 05:39 Pulse 61 11/06/24 08:41 Resp 24 H 11/06/24 08:41 BP 109/59 L 11/06/24 05:39 Pulse Ox 92 11/06/24 05:39 O2 Del Method Nasal Cannula 11/06/24 05:39 O2 Flow Rate 4 11/06/24 05:39 Oxygen Flow Rate 2 11/05/24 10:58 BMI result Body Mass Index 23.4 Const: Other: appreciable increased work of breathing characterized by increased use of accessory muscles General: cooperative Orientation/consciousness: oriented to person, oriented to place and oriented to time HEENT: Head: Yes normal to inspection, Yes normocephalic and Yes atraumatic Eyes: General: appearance normal, both eyes and all related structures Neck: Neck: Yes normal visual inspection, Yes full ROM, Yes no meningeal signs, Yes trachea midline and Yes supple Chest: Chest palpation & inspection: normal inspection of the chest Resp: Other: appreciable rhonchi and rales throughout; no appreciable wheezing Effort & Inspection: normal respiratory effort Cardio: Rate: regular rate Rhythm: regular rhythm GI: Inspection: Yes normal to inspection, No Abdominal wall edema and No distended Palpation (GI): Soft to palpation, not firm, nontender, no guarding and not rigid Skin: General skin exam: no rashes or lesions noted Neuro: Other: alert, oriented to person, place, time, though at times has tangential thoughts General: oriented to person, oriented to place, oriented to time, tone normal, moves all extremities, no meningeal signs and no focal motor deficits Extrem: Other: appreciable 1+ pitting edema to bilateral shins General: Yes normal to inspection, Yes full ROM and Yes capillary refill normal Psych: Appearance: grossly normal Objective Data Labs 11/06/24 05:46 11/06/24 05:46 Labs: Laboratory Results - last 24 hr 11/05/24 11/05/24 11/05/24 10:48 10:49 10:54 WBC 8.6 RBC 4.17 L Hgb 14.4 Hct 42.5 MCV 101.9 H MCH 34.5 H MCHC 33.9 RDW 15.2 Plt Count 240 MPV 11.9 Immature Gran % (Auto) 0.6 H Neut % (Auto) 77.4 H Lymph % (Auto) 4.9 L [place] % (Auto) 15.4 H Eos % (Auto) 0.9 Baso % (Auto) 0.8 Lymph # (Auto) 0.4 L [place] # (Auto) 1.3 H Eos # (Auto) 0.1 Baso # (Auto) 0.1 Abs Immat Gran (auto) 0.05 H Absolute Neuts (auto) 6.7 Absolute Nucleated RBC 0.000 Nucleated RBC % (auto) 0.0 PT 18.7 H INR 1.6 H D VBG pH 7.39 VBG pCO2 56 VBG pO2 35 VBG HCO3 35 H VBG O2 Saturation 45.0 VBG Base Excess 8.0 Sodium 142 Potassium 2.9 L* Chloride 98 Carbon Dioxide 29 Anion Gap 18 BUN 25 H Creatinine 0.99 Estim Creat Clear Calc 57.4 Estimated GFR > 60 Random Glucose 90 Lactic Acid Lactic Acid F/U @ 2Hr Calcium 9.3 Magnesium 1.8 Iron TIBC % Saturation Unsat Iron Binding Total Bilirubin 2.2 H AST 71 H ALT 41 H Alkaline Phosphatase 433 H Troponin I High Sens 78.2 H B-Natriuretic Peptide 3280 H Total Protein 7.8 Albumin 3.9 Urine Color Urine Appearance Urine pH Ur Specific [place] Urine Protein Urine Glucose (UA) Urine Ketones Urine Blood Urine Nitrite Ur Leukocyte Esterase Stool Occult Blood Influenza Type A (PCR) POSITIVE A Influenza Type B (PCR) NEGATIVE RSV RNA Qual (PCR) NEGATIVE SARS-CoV-2 RNA (RT-PCR) NEGATIVE Blood Type Antibody Screen 11/05/24 11/05/24 11/05/24 14:33 18:39 23:36 WBC RBC Hgb Hct MCV MCH MCHC RDW Plt Count MPV Immature Gran % (Auto) Neut % (Auto) Lymph % (Auto) [place] % (Auto) Eos % (Auto) Baso % (Auto) Lymph # (Auto) [place] # (Auto) Eos # (Auto) Baso # (Auto) Abs Immat Gran (auto) Absolute Neuts (auto) Absolute Nucleated RBC Nucleated RBC % (auto) PT INR VBG pH VBG pCO2 VBG pO2 VBG HCO3 VBG O2 Saturation VBG Base Excess Sodium 145 Potassium 3.4 Chloride 100 Carbon Dioxide 28 Anion Gap 20 BUN Creatinine Estim Creat Clear Calc Estimated GFR Random Glucose Lactic Acid Lactic Acid F/U @ 2Hr Calcium Magnesium Iron TIBC % Saturation Unsat Iron Binding Total Bilirubin AST ALT Alkaline Phosphatase Troponin I High Sens 52.3 H B-Natriuretic Peptide Total Protein Albumin Urine Color Yellow Urine Appearance Clear Urine pH 6.5 Ur Specific [place] 1.010 Urine Protein Negative Urine Glucose (UA) Negative Urine Ketones Trace Urine Blood Negative Urine Nitrite Negative Ur Leukocyte Esterase Negative Stool Occult Blood Influenza Type A (PCR) Influenza Type B (PCR) RSV RNA Qual (PCR) SARS-CoV-2 RNA (RT-PCR) Blood Type Antibody Screen 11/06/24 11/06/24 11/06/24 01:05 01:10 02:00 WBC 18.5 H RBC 4.19 L Hgb 14.4 Hct 42.9 MCV 102.4 H MCH 34.4 H MCHC 33.6 RDW 15.2 Plt Count 214 MPV 11.2 Immature Gran % (Auto) Neut % (Auto) Lymph % (Auto) [place] % (Auto) Eos % (Auto) Baso % (Auto) Lymph # (Auto) [place] # (Auto) Eos # (Auto) Baso # (Auto) Abs Immat Gran (auto) Absolute Neuts (auto) Absolute Nucleated RBC 0.000 Nucleated RBC % (auto) 0.0 PT INR VBG pH VBG pCO2 VBG pO2 VBG HCO3 VBG O2 Saturation VBG Base Excess Sodium Potassium Chloride Carbon Dioxide Anion Gap BUN Creatinine Estim Creat Clear Calc Estimated GFR Random Glucose Lactic Acid 3.4 H* Lactic Acid F/U @ 2Hr Calcium Magnesium Iron TIBC % Saturation Unsat Iron Binding Total Bilirubin AST ALT Alkaline Phosphatase Troponin I High Sens B-Natriuretic Peptide Total Protein Albumin Urine Color Urine Appearance Urine pH Ur Specific [place] Urine Protein Urine Glucose (UA) Urine Ketones Urine Blood Urine Nitrite Ur Leukocyte Esterase Stool Occult Blood NEGATIVE Influenza Type A (PCR) Influenza Type B (PCR) RSV RNA Qual (PCR) SARS-CoV-2 RNA (RT-PCR) Blood Type B Negative Antibody Screen NEGATIVE 11/06/24 05:46 WBC 14.0 H RBC 3.74 L Hgb 12.8 L Hct 38.4 L MCV 102.7 H MCH 34.2 H MCHC 33.3 RDW 15.1 Plt Count 196 MPV 11.4 Immature Gran % (Auto) Neut % (Auto) Lymph % (Auto) [place] % (Auto) Eos % (Auto) Baso % (Auto) Lymph # (Auto) [place] # (Auto) Eos # (Auto) Baso # (Auto) Abs Immat Gran (auto) Absolute Neuts (auto) Absolute Nucleated RBC 0.000 Nucleated RBC % (auto) 0.0 PT 20.6 H INR 1.8 H VBG pH VBG pCO2 VBG pO2 VBG HCO3 VBG O2 Saturation VBG Base Excess Sodium 146 H Potassium 2.7 L* D Chloride 103 Carbon Dioxide 30 H Anion Gap 16 BUN 28 H Creatinine 0.91 Estim Creat Clear Calc 62.5 Estimated GFR > 60 Random Glucose 127 H Lactic Acid Lactic Acid F/U @ 2Hr 1.6 Calcium 8.2 L D Magnesium 1.7 Iron 7 L TIBC 199 L % Saturation 4 L Unsat Iron Binding 192 Total Bilirubin AST ALT Alkaline Phosphatase Troponin I High Sens B-Natriuretic Peptide 4471 H Total Protein Albumin Urine Color Urine Appearance Urine pH Ur Specific [place] Urine Protein Urine Glucose (UA) Urine Ketones Urine Blood Urine Nitrite Ur Leukocyte Esterase Stool Occult Blood Influenza Type A (PCR) Influenza Type B (PCR) RSV RNA Qual (PCR) SARS-CoV-2 RNA (RT-PCR) Blood Type Antibody Screen Progress Note: A&P Assessment and plan (1) CHF (congestive heart failure): Status: Acute (2) Pneumonia: Status: Acute (3) Influenza: Status: Acute Plan Patient is a 79 Y M w/ hypertension, hyperlipidemia, atrial fibrillation on warfarin, aortic valve replacement presenting initially to emergency department on 11/05 w/ dyspnea, cough, found to have work-up suggestive of influenza c/b pneumonia, as well as congestive heart failure, initially admitted to medicine, though developed intermittent hypotension, prompting ICU admission N: no acute issues CV: hypotension, possibly d/t sepsis, norepinephrine gtt as needed; c/f congestive heart failure, diuresis as tolerated; of note, IVF deferred d/t c/f congestive heart failure R: influenza c/b pneumonia GI: cardiac diet; transaminitis in setting of congestive heart failure : no acute issues; diuresis as tolerated; to closely monitor renal indices, electrolytes H: no acute issues; chemical DVT prophylaxis w/ heparin SQ ID: influenza c/b pneumonia, tamiflu; given hypotension, empiric vancomycin/zosyn E: to monitor hypo-/hyper-glycemia P: no acute issues Quality Stroke Does the patient have a stroke diagnosis?: No VTE Prior VTE?: No VTE Risk Level:: Medical - moderate - high VTE Device Contraindication: N/A - Device Ordered VTE Drug Contraindication: N/A - Med Ordered
--- NOTE | 2024-11-06 09:02 | PC.NURSE ---
Care of Pt assumed at 9am.
[2024-11-06] MEDS: 0.9 % Sodium Chloride Flush 3 ML SYRINGE IVFLUSH ×2 (09:15→17:29)
[2024-11-06] MEDS: Magnesium Sulfate/D5W 1 GM/100 ML PIGGYBACK IV (09:44)
[2024-11-06] MEDS: Calcium Gluconate/NaCl,Iso-Osm 1 GM/50 ML PLAST..BAG IV (09:44)
[2024-11-06] MEDS: Furosemide 200 MG in 0.9 % Sodium Chloride 80 ML IVCONT (10:01)
--- NOTE | 2024-11-06 10:14 | PC.NURSE ---
Pt will proceeding to ICU for on going care. Verbal report given to RN via phone.
--- NOTE | 2024-11-06 10:49 | MHC.CM.PN ---
Patient has been moved to ICU; CM spoke with /HCP/Racheal @ [phone] and addressed IMM with her (original will be mailed certified letter to Racheal and a copy will be placed on the chart). 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 DC plan is TBD pending hospital course (home self care vs new VNA vs STR); CM has initiated and will follow for dc planning. PCP is Dr. Rich Amaral and will transport if Patient is dc'd to home. has agreed to supply [facility] [place], [place] with a copy of the HCP.
[2024-11-06] MEDS: acetaZOLAMIDE sodium 500 MG VIAL IVPUSH (11:33)
--- NOTE | 2024-11-06 12:02 | HO.SKINPHOTO ---
Location: Buttock Location: right leg Location: Left leg
[2024-11-06 12:10] LABS: Glucose, Whole Blood 114 mg/dL (60-115)
--- NOTE | 2024-11-06 12:59 | W.MHC.ACPN ---
Advanced Care Planning Note Advanced Care Planning Note Discussed with: patient and family member(s) Time spent (in minutes): 30 Narrative: I met Mr. Story, his , and son at his bedside; we discussed Mr. Story's emergency department course and his clinical status; I offered any clarifications; we then discussed Mr. Story's code status; Mr. Story's discussed that they have discussed CPR many times; given Mr. Story has struggled with his recovery following his aortic aneurysm repair and values a high quality of life, Mr. Story has decided to be DNR; we then discussed intubation/ventilation, after which Mr. Story's felt that Mr. Stroy would not want to be intubated; given such, Mr. Story's code status was changed to DNR/DNI; lastly, we discussed comfort-focused care; Mr. Story's expressed that she and her family will maintain hope that Mr. Story can improve, though if Mr. Story appears to be suffering at a point in his admission, they feel that it would be appropriate to transition his philosophy of care to comfort-focused care Problems Discussed (1) CHF (congestive heart failure): (2) Pneumonia: (3) Influenza:
[2024-11-06] MEDS: Piperacillin Sodium/Tazobactam 4.5 GM in 0.9 % Sodium Chloride 100 ML IV ×2 (14:03→21:23)
[2024-11-06] MEDS: vancomycin HCL 1,000 MG, vancomycin HCL 750 MG in 0.9 % Sodium Chloride 500 ML 267.5 MG IV (14:59)
--- NOTE | 2024-11-06 15:19 | PHA.PROG ---
Admission Date/Time: November 05, 2024 12:52 Indication: respiratory infection Weight in k.9 kg Serum Creatinine - Last 168 Hours 11/05/24 11/06/24 10:48 05:46 Creatinine 0.99 0.91 Estimated CrCl and GFR - Last 168 Hours 11/05/24 11/06/24 10:48 05:46 Estim Creat Clear Calc 57.4 62.5 Estimated GFR > 60 > 60 Vancomycin Loading Dose: 1750 Current Vancomycin Dosing Regimen: 1250 Q24H Vancomycin Monitoring using AUC goal of 400 - 600 range with trough as surrogate marker: 458 Date and Time for next Vancomycin Level to be drawn: 11/08 @1300 Pharmacist Comments on Vancomycin Plan: Vancomycin dosing will take advantage of [employer] as a clinical decision support tool that uses Bayesian modeling to calculate individual patient's pharmacokinetic parameters and forecast the patient's drug concentration time course with the target goal AUC 24 range of 400 - 600 mg/L/hr.
--- NOTE | 2024-11-06 15:27 | MHC.CM.PN ---
CM met with Patient's /HCP/Racheal who is requesting a Hospice Informational for tomorrow. Racheal is agreeable to a referral to [facility]. CM will follow.
[2024-11-06 16:15] LABS: Glucose, Whole Blood 103 mg/dL (60-115)
[2024-11-06] MEDS: Warfarin Sodium 2 MG TABLET PO (17:37)
[2024-11-06] MEDS: Morphine Sulfate 2 MG/ML CARTRIDGE IVPUSH ×2 (18:20→23:02)
[2024-11-06 18:52] LABS: Anion Gap 19 (12-20); Blood Urea Nitrogen 35 mg/dL (9-16); Calcium 8.9 mg/dL (8.4-10.2); Carbon Dioxide 25 mmol/L (22-29); Chloride 107 mmol/L (96-108); Creatinine Clr Calc Pharmacy 44.8; Estimated Glomerular Filt Rate 55; Glucose Random 106 mg/dL (60-115); Magnesium 2.1 mg/dL (1.6-2.6); Phosphorus 3.9 mg/dL (2.7-4.5); Potassium 5.2 mmol/L (3.3-5.1); Sodium 146 mmol/L (135-145)
--- NOTE | 2024-11-06 19:07 | PC.NURSE ---
Patient arrived at the ICU approx. at 1030 from ED.? Drowsy, Disoriented, FONTAINE On 3L NC ?SpO2 90?s%,? RR up to? 40, morphine 2mg given per MAR. Rhonchurus breath sounds bilaterally. Junctional? Rhythm, Soft BPs,? Dr. Franco aware of above vitals. +bowel sounds,Poor PO intake. external catheter in place Impaired skin integrity,? see skin assessment for details (repositioning maintained)? ?peripheral IVs
[2024-11-06] MEDS: Norepinephrine Bitartrate/D5W 8 MG/250 ML PLAST..BAG 6.37 MG IVCONT (20:00)
--- NOTE | 2024-11-06 20:59 | PM.EVENT ---
Documented by User: Harika Paige NP 11/06/24 21:01 Event Note Date of Service: 11/06/24 Event Note: One set of blood cultures reported positive at 19 hours for Gram-positive cocci in clusters.? MRSA PCR positive. The patient presented with influenza, pneumonia, leukocytosis. I've ordered a repeat set of BCs and lactate. Will continue zosyn, vancomycin and repeat blood cultures and lactate.? .? Time Spent With Patient Time: Total time managing care of this patient today ____ minutes. Documented by User: Shelby Franco MD 11/07/24 07:39 Event Note Date of Service: 11/07/24
[2024-11-06 21:47] LABS: Lactic Acid 2.4 mmol/L (0.5-2.0)
--- NOTE | 2024-11-06 21:51 | PM.SEPBOLA4 ---
Sepsis Bolus Exclusion Sepsis Bolus Exclusion CHF/Renal Failure Date of Occurrence: 11/06/24 Time of Occurrence:: 21:52 This patient met severe sepsis criteria due to the following condition(s):: Hypotension and Documentation of septic shock In my clinical judgement the administration of 30 ml/kg of crystalloid would be detrimental to this patient due to the patient's following conditions:: Concern for fluid overload Replace the 30 mls/kg with (Zero amount not acceptable and all fluids for severe sepsis must be given at GREATER than 125 mls/hr) *Note: One of the esposito must be documented Colloids amount given in mls:: 200 At a rate of (must be > 125 cchr):: 133
[2024-11-06] MEDS: Albumin Human 25 % 100 ML 133.33 ML IV ×2 (22:32→23:23)
[2024-11-06 23:22] LABS: Reflex Lactate? Lactic Acid Added
[2024-11-07] VITALS (34 sets, daily range): BP systolic 81–123; BP diastolic 42–78; PULSE 71–123; RESP 18–38; TEMP 37.5–38.6; O2SAT 91–100; BMI 24.5
[2024-11-07 00:14] LABS: ~Lactic Acid-LAB USE ONLY 2.4 mmol/L (0.5-2.0)
[2024-11-07] MEDS: 0.9 % Sodium Chloride Flush 3 ML SYRINGE IVFLUSH ×3 (00:22→14:21)
[2024-11-07 01:52] LABS: Reflex Lactate? 2 Y
[2024-11-07 03:06] LABS: ~Lactic Acid-LAB USE ONLY 2.2 mmol/L (0.5-2.0)
[2024-11-07] MEDS: Piperacillin Sodium/Tazobactam 4.5 GM in 0.9 % Sodium Chloride 100 ML IV ×3 (04:18→20:13)
[2024-11-07 05:02] LABS: VBG Base Excess 4.1 mmol/L; VBG HCO3 30 mmol/L (22-26); VBG pCO2 55 mmHg; VBG pH 7.35 (7.32-7.43); VBG pO2 59 mmHg
[2024-11-07 05:15] LABS: Hematocrit 39.7 % (42.0-52.0); Hemoglobin 12.6 g/dl (14.0-18.0); Mean Corpuscular HGB Conc 31.7 g/dl (31.0-36.0); Mean Corpuscular Hemoglobin 33.6 pg (27.0-33.0); Mean Corpuscular Volume 105.9 fL (80.0-98.0); Mean Platelet Volume 11.5 fL (9.4-12.4); NRBC Pct Auto 0.5 /100WBC (0.0-0.2); Platelet Count 170 X10*3/uL (160-400); Red Blood Count 3.75 X10*6/uL (4.60-5.80); Red Cell Distribution Width 15.5 % (11.0-16.0)
[2024-11-07 05:16] LABS: WBC ABN SCTR FOR CBC 1
[2024-11-07 05:19] LABS: INTERNATIONAL NORM RATIO 3.4 (0.9-1.1); Prothrombin Time 39.8 SEC (10.9-12.4)
[2024-11-07 05:43] LABS: Acanthocytes 2+ (3-5) /OIF; Atypical Lymphs Percent Manual 2 % (0-6); Band Neutrophils Percent 8 % (3-5); Lymphocytes Percent Manual 14 % (20-40); Macrocytosis 2+ (15-30) /OIF; Metamyelocytes Percent 21 %; Monocytes Percent Manual 2 % (2-11); Myelocytes Percent 6 %; Neutrophils Percent Manual 47 % (45-73); Ovalocytes 2+ (15-30) /OIF; Platelet Estimate NORMAL (NORMAL); Platelet Morphology Comment NORMAL; RBC Morphology NOTED; Schistocytes 1+ (0-2) /OIF; Spherocytes 1+ (0-2) /OIF
[2024-11-07 05:44] LABS: Burr Cells 2+ (3-5) /OIF; Target Cells 1+ (5-14) /OIF
[2024-11-07 05:45] LABS: Atypical Lymph Absolute Manual 0.1 x10*3/uL; Basophilic Stippling 1+ (0-2) /OIF; Dohle Bodies PRESENT; Lymphocytes Absolute Manual 0.9 X10*3/uL (1.2-4.9); Metamyelocytes Absolute 1.3 X10*3/uL; Monocytes Absolute Manual 0.1 X10*3/uL (0.1-1.2); Myelocytes Absolute 0.4 X10*/uL; Neutrophils Absolute Manual 3.4 X10*3/uL (2.0-8.3); Polychromasia 2+ (3-5) /OIF; Toxic Granulation PRESENT; Toxic Vacuolation PRESENT; White Blood Count 6.1 X10*3/uL (4.8-10.8)
[2024-11-07 05:51] LABS: Anion Gap 19 (12-20); Blood Urea Nitrogen 38 mg/dL (9-16); Calcium 8.8 mg/dL (8.4-10.2); Carbon Dioxide 28 mmol/L (22-29); Chloride 105 mmol/L (96-108); Creatinine Clr Calc Pharmacy 38.7; Estimated Glomerular Filt Rate 46; Glucose Random 94 mg/dL (60-115); Potassium 3.6 mmol/L (3.3-5.1); Sodium 148 mmol/L (135-145)
--- NOTE | 2024-11-07 06:15 | PC.NURSE ---
Assumed care 1900- pt lethargic, unable to assess mentation, groans/FONTAINE to painful stimuli. MAP < 60, levophed started per emar. HR 60-70s SR/Junctional on tele. PO meds held d/t aspiration risk. SpO2 >92% on 3L oxymask.? Pt has coarse crackles throughout lung esposito with audible?congestion. NT suctioned by RT x3 - large amounts of?thick cowan secretions. Morphine 2 mg IVP given for increased restlessness and agitation - good effect. Garay catheter placed for urinary retention. 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 Oral care provided as needed, repositioned Q2H. Safety measures in place. at bedside - updated on plan of care.
--- NOTE | 2024-11-07 07:00 | CA_ITS ---
Transthoracic Echocardiogram Amended Patient (Last, First, Middle): Deon Story, Gender: Male Date of : 1945 Age: 79 Procedure Date: 11/07/2024 Procedure Type: Transthoracic Echocardiogram Location: ICU Height: 177.8 cm Weight: 79.38 kg BSA: 1.97 m2 Heart Rate: bpm BP: 101 / 53 mmHg Blending Kettle Tender: Referring MD: Shelby Franco MD Symptoms: HF, bacteremia Please Assess Cardiac Function Study Quality: Adequate ECG Rhythm: Atrial Fibrillation Conclusions: - The left ventricular systolic function is normal. The visually estimated ejection fraction is between 60-65%. - Moderately increased right ventricular cavity size. - The left atrium is severely dilated. - A bioprosthetic aortic valve is present. The prosthetic aortic valve appears to be functioning normally. - There is mild mitral valve regurgitation. - There is mild tricuspid valve regurgitation. - (due to technical issues, again signed today) Findings Left Ventricle Normal left ventricular cavity size. There is normal left ventricular wall thickness. The left ventricular systolic function is normal. The visually estimated ejection fraction is between 60-65%. There is no evidence of regional wall motion abnormalities. Diastolic function is indeterminate on the basis of available data. Right Ventricle Moderately increased right ventricular cavity size. There is low normal right ventricular systolic function. Atria The left atrium is severely dilated. The right atrium is moderately dilated. Aortic Valve A bioprosthetic aortic valve is present. The prosthetic aortic valve appears to be functioning normally. The mean gradient is 14 mmHg. There is no aortic valve regurgitation. (Outside study from 03/2023- peak gradient 35mmHg; mean 17mmHg). Mitral Valve The mitral valve appears normal. There is mild mitral valve regurgitation. There is no mitral valve stenosis. Pulmonic Valve The pulmonic valve is likely normal. Tricuspid Valve Normal tricuspid valve structure. There is mild tricuspid valve regurgitation. Mild pulmonary hypertension is present. Great Vessels The aorta was not well visualized. The asc aorta is normal in size. Venous The inferior vena cava is normal in size and collapses less than 50% with inspiration. Pericardium/Pleural There is no evidence of pericardial effusion. Prior Study Comparison Changes noted compared to prior study dated: 12/14/2020. s/p AVR, aortic root repair. Measurements 2D Linear Measurements IVSd: 0.99 0.6-0.9/0.6-1.0 cm LVIDd: 4.79 3.9-5.3/4.2-5.9 cm LVIDd Index: 2.43 2.4-3.2/2.2-3.1 cm/m2 LVIDs: 3.32 2.0-3.6 cm LVPWd: 0.96 0.7-1.1 cm Ao Root: 2.10 2.1-3.5 cm LA Diam: 5.00 2.7-3.8/3.0-4.0 cm LAIDs Index: 2.54 1.5-2.3 cm/m2 LV Mass: 204.41 67-162/88-224 g LV Mass Index: 103.76 43-95/49-115 g/m2 LVOT Diam: 2.00 3.0+(-)1.3 cm 2D Volumes LA Vol: 61.40 2D Systolic Function EF 4C: 63.40 >55% EF 2C: 70.70 >55% EF BiP: 66.90 >55% Mitral Valve MV Pk E: 1.19 MV PK A: 0.54 MV Decel Time: 177.00 E/A: 2.20 E'Lateral: 5.22 E'Medial: 4.79 E/E' Med: 24.80 E/E' Lat: 22.80 PHT: 52.00 MVA PHT: 4.23 Decel Linn: 6.73 Aortic Valve AoV Pk Cosme: 2.74 AoV Mn Cosme: 1.68 AoV VTI: 0.49 AoV Pk Grad: 30.00 Aov Mn Grad: 14.00 ANTONY Cont.VTI: 1.47 LVOT LVOT Pk Cosme: 1.24 LVOT Mn Cosme: 0.80 LVOT VTI: 0.23 LVOT Pk Grad: 6.00 LVOT Mn Grad: 3.00 LVOT Diam: 2.00 LVOT Area: 3.14 Diastolic Function MV Pk E: 1.19 MV Pk A: 0.54 E/A: 2.20 E'Medial: 4.79 E/E' Med: 24.80 E' Laterial: 5.22 E/E' Lat: 22.80 Right Ventricle TAPSE (mm): 21.00 TVS' Cosme: 10.00 Tricuspid Valve TR Pk Cosme: 3.18 TR Pk Grad: 40.00 RA Press: 8.00 RVSP: 48.00 Great Vessels Aorta Ao Root-2D: 2.10 2.0-3.7 cm Ao Asc: 2.40 2.1-3.4 cm Pulmonary Valve PV Pk Cosme: 1.28 Peak PV Grad: 7.00 Updated in Other Vendor System with Status of Final Fredo Canseco MD electronically signed on 11/08/2024 9:18:04 AM with status of Final
[2024-11-07] MEDS: Albuterol/Iprat 2.5/0.5MG 3 ML AMPUL.NEB INHALE ×2 (07:15→19:55)
[2024-11-07 08:31] LABS: Venous Blood Gas Refer to POC result
--- NOTE | 2024-11-07 11:07 | PM.CCPN ---
Subjective Subjective Date of Service: 11/07/24 Interval History: 79-year-old gentleman with underlying history of hypertension, hyperlipidemia, AFib on Coumadin, bioprosthetic AVR, ? severe mitral regurgitation, admitted on 11/05/2024 with dyspnea, cough, and hypoxia secondary to influenza and congestive heart failure exacerbation, initially admitted to the telemetry velez. Hospital course complicated by development of hypotension requiring pressor support and transferred to intensive care unit, also staphylococcal bacteremia MRSA PCR positive. No events overnight. Continues require pressor support. Continues with septic encephalopathy. Critical Care Time (minutes): 60 Physical Exam Vital Signs: Vital Signs: Last Vital Signs Temp 99.9 F 11/07/24 10:00 Pulse 81 11/07/24 10:00 Resp 30 H 11/07/24 10:00 BP 107/57 L 11/07/24 10:00 Pulse Ox 96 11/07/24 10:00 O2 Del Method Oxymask 11/07/24 10:00 O2 Flow Rate 3 11/07/24 10:00 Oxygen Flow Rate 2 11/05/24 10:58 BMI result Body Mass Index 24.5 Const: General: no acute distress and lethargic (Arousable) Orientation/consciousness: lethargic (Arousable) Eyes: Sclerae: sclerae normal EOM: EOMs intact bilaterally Neck: Neck: Yes no lymphadenopathy, Yes trachea midline and Yes supple Resp: Effort & Inspection: no respiratory distress and tachypneic Auscultation: crackles (Bilateral) Cardio: Rate: regular rate Rhythm: regular rhythm Heart sounds: no gallops, no murmurs and no rubs GI: Palpation (GI): Soft to palpation and Other GI palpation findings present ( Nontender) Auscultation: normal bowel sounds Extrem: General: No clubbing, No cyanosis and Yes edema (Trace bilateral) Objective Data Labs 11/07/24 04:58 11/07/24 04:58 Labs: Laboratory Results - last 24 hr 11/06/24 11/06/24 11/06/24 12:07 16:06 18:14 WBC RBC Hgb Hct MCV MCH MCHC RDW Plt Count MPV Immature Gran % (Auto) Neut % (Auto) Lymph % (Auto) [place] % (Auto) Eos % (Auto) Baso % (Auto) Lymph # (Auto) [place] # (Auto) Eos # (Auto) Baso # (Auto) Abs Immat Gran (auto) Absolute Neuts (auto) Absolute Nucleated RBC Nucleated RBC % (auto) Neutrophils % (Manual) Band Neutrophils % Lymphocytes % (Manual) Atypical Lymphs % (Man) Monocytes % (Manual) Metamyelocytes % Myelocytes % Abs Neuts (Manual) Lymphocytes # (Manual) Atyp Lymphs # (Manual) Monocytes # (Manual) Metamyelocytes # Myelocytes # Toxic Granulation Toxic Vacuolation Dohle Bodies Platelet Estimate Plt Morphology Comment RBC Morphology Polychromasia Basophilic Stippling Macrocytosis Spherocytes Target Cells Ovalocytes Velma Cells Acanthocytes (Spur) Schistocytes PT INR VBG pH VBG pCO2 VBG pO2 VBG HCO3 VBG O2 Saturation VBG Base Excess Sodium 146 H Potassium 5.2 H D Chloride 107 Carbon Dioxide 25 Anion Gap 19 BUN 35 H Creatinine 1.27 Estim Creat Clear Calc 44.8 Estimated GFR 55 POC Glucose 114 103 Random Glucose 106 Lactic Acid Lactic Acid F/U @ 2Hr Lactic Acid F/U @ 4Hr Calcium 8.9 D Phosphorus 3.9 Magnesium 2.1 11/06/24 11/06/24 11/07/24 21:18 23:44 02:19 WBC RBC Hgb Hct MCV MCH MCHC RDW Plt Count MPV Immature Gran % (Auto) Neut % (Auto) Lymph % (Auto) [place] % (Auto) Eos % (Auto) Baso % (Auto) Lymph # (Auto) [place] # (Auto) Eos # (Auto) Baso # (Auto) Abs Immat Gran (auto) Absolute Neuts (auto) Absolute Nucleated RBC Nucleated RBC % (auto) Neutrophils % (Manual) Band Neutrophils % Lymphocytes % (Manual) Atypical Lymphs % (Man) Monocytes % (Manual) Metamyelocytes % Myelocytes % Abs Neuts (Manual) Lymphocytes # (Manual) Atyp Lymphs # (Manual) Monocytes # (Manual) Metamyelocytes # Myelocytes # Toxic Granulation Toxic Vacuolation Dohle Bodies Platelet Estimate Plt Morphology Comment RBC Morphology Polychromasia Basophilic Stippling Macrocytosis Spherocytes Target Cells Ovalocytes Syl Cells Acanthocytes (Spur) Schistocytes PT INR VBG pH VBG pCO2 VBG pO2 VBG HCO3 VBG O2 Saturation VBG Base Excess Sodium Potassium Chloride Carbon Dioxide Anion Gap BUN Creatinine Estim Creat Clear Calc Estimated GFR POC Glucose Random Glucose Lactic Acid 2.4 H* Lactic Acid F/U @ 2Hr 2.4 H* Lactic Acid F/U @ 4Hr 2.2 H* Calcium Phosphorus Magnesium 11/07/24 04:58 WBC 6.1 RBC 3.75 L Hgb 12.6 L Hct 39.7 L MCV 105.9 H MCH 33.6 H MCHC 31.7 RDW 15.5 Plt Count 170 MPV 11.5 Immature Gran % (Auto) Cancelled Neut % (Auto) Cancelled Lymph % (Auto) Cancelled [place] % (Auto) Cancelled Eos % (Auto) Cancelled Baso % (Auto) Cancelled Lymph # (Auto) Cancelled [place] # (Auto) Cancelled Eos # (Auto) Cancelled Baso # (Auto) Cancelled Abs Immat Gran (auto) Cancelled Absolute Neuts (auto) Cancelled Absolute Nucleated RBC 0.030 H Nucleated RBC % (auto) 0.5 H Neutrophils % (Manual) 47 Band Neutrophils % 8 H Lymphocytes % (Manual) 14 L Atypical Lymphs % (Man) 2 Monocytes % (Manual) 2 Metamyelocytes % 21 Myelocytes % 6 Abs Neuts (Manual) 3.4 Lymphocytes # (Manual) 0.9 L Atyp Lymphs # (Manual) 0.1 Monocytes # (Manual) 0.1 Metamyelocytes # 1.3 Myelocytes # 0.4 Toxic Granulation PRESENT Toxic Vacuolation PRESENT Dohle Bodies PRESENT Platelet Estimate NORMAL Plt Morphology Comment NORMAL RBC Morphology NOTED Polychromasia 2+ (3-5) Basophilic Stippling 1+ (0-2) Macrocytosis 2+ (15-30) Spherocytes 1+ (0-2) Target Cells 1+ (5-14) Ovalocytes 2+ (15-30) Velma Cells 2+ (3-5) Acanthocytes (Spur) 2+ (3-5) Schistocytes 1+ (0-2) PT 39.8 H D INR 3.4 H VBG pH 7.35 VBG pCO2 55 VBG pO2 59 VBG HCO3 30 H VBG O2 Saturation 84.0 VBG Base Excess 4.1 Sodium 148 H Potassium 3.6 D Chloride 105 Carbon Dioxide 28 Anion Gap 19 BUN 38 H Creatinine 1.47 H Estim Creat Clear Calc 38.7 Estimated GFR 46 POC Glucose Random Glucose 94 Lactic Acid Lactic Acid F/U @ 2Hr Lactic Acid F/U @ 4Hr Calcium 8.8 Phosphorus 4.0 Magnesium 2.0 Microbiology Microbiology Results: Microbiology 11/06/24 02:00 Blood - Venous Blood Culture - Preliminary Prelim: GPC Gram Stain only 11/06/24 02:00 Blood - Venous Blood Culture - Preliminary Prelim: GPC Gram Stain only Progress Note: A&P Assessment and plan (1) Influenza A: Status: Acute (2) Bacteremia due to Staphylococcus: Status: Acute (3) Afib: Status: Acute (4) CHF (congestive heart failure): Status: Acute (5) Septic shock: Status: Acute (6) Acute renal failure: Status: Acute (7) Septic encephalopathy: Status: Acute Plan Assessment: 79-year-old gentleman with underlying bioprosthetic AVR and AFib admitted with dyspnea and hypoxia secondary to influenza a further complicated by MRSA bacteremia and acute renal failure with septic encephalopathy. Plan: Neuro: Septic encephalopathy, expect to improve with resolution of sepsis. Cardiac: Septic shock, continue to titrate off pressor support as tolerated. Staphylococcal bacteremia with underlying bioprosthetic AVR, 2D echo is pending. Acute on chronic diastolic congestive heart failure, improved with diuresis. Underlying AFib on Coumadin. Pulmonary: Acute hypoxic respiratory failure secondary to influenza a and acute on chronic diastolic congestive heart failure, continue to titrate off supplemental oxygen as tolerated. Renal: Acute renal failure on the background of septic shock, non oliguric. Continue to monitor renal indices and urine output. Endo: No acute issues. GI: No acute issues. ID: Staphylococcal bacteremia with positive MRSA PCR, continue broad-spectrum antibiotics. Heme/Onc: No acute issues. Psych: No acute issues. Miscellaneous: No acute issues. Prophylaxis: INR supratherapeutic Diet: Regular Critical care time spent: 60 minutes Quality Stroke Does the patient have a stroke diagnosis?: No VTE Prior VTE?: No VTE Risk Level:: Medical - moderate - high VTE Device Contraindication: N/A - Device Ordered VTE Drug Contraindication: N/A - Med Ordered
[2024-11-07] MEDS: vancomycin HCL 500 MG in 0.9 % Sodium Chloride 100 ML 110 MG IV (14:17)
--- NOTE | 2024-11-07 14:37 | MHC.CM.PN ---
Pt continues on pressors in ICU: will have an echo today to assess for vegetation in the setting of +bacteremia and pt's past hx of valve dz. Pt has been referred to [facility] for palliative consult. Family will be contacted by [facility] for informational meeting. CM to follow - d/c plan remains ongoing.
[2024-11-07] MEDS: Albumin Human 25 % 100 ML IV (20:18)
[2024-11-07] MEDS: Norepinephrine Bitartrate/D5W 8 MG/250 ML PLAST..BAG 21.64 MG IVCONT (20:27)
[2024-11-07] MEDS: Metoprolol Tartrate 5 MG/5 ML VIAL IVPUSH (21:58)
[2024-11-07] MEDS: Furosemide 40 MG/4 ML VIAL IVPUSH (22:08)
[2024-11-07 22:26] LABS: Hematocrit 42.3 % (42.0-52.0); Hemoglobin 13.2 g/dl (14.0-18.0); Mean Corpuscular HGB Conc 31.2 g/dl (31.0-36.0); Mean Platelet Volume 11.5 fL (9.4-12.4); NRBC Pct Auto 0.2 /100WBC (0.0-0.2); Platelet Count 189 X10*3/uL (160-400); Red Blood Count 3.88 X10*6/uL (4.60-5.80); Red Cell Distribution Width 15.7 % (11.0-16.0); WBC ABN SCTR FOR CBC 1
[2024-11-07 22:28] LABS: VBG Base Excess -0.4 mmol/L; VBG HCO3 24 mmol/L (22-26); VBG pCO2 41 mmHg; VBG pH 7.37 (7.32-7.43); VBG pO2 71 mmHg
[2024-11-07 22:44] LABS: Albumin Level 3.8 g/dL (3.5-5.0); Anion Gap 22 (12-20); Blood Urea Nitrogen 51 mg/dL (9-16); Calcium 9.4 mg/dL (8.4-10.2); Carbon Dioxide 25 mmol/L (22-29); Chloride 107 mmol/L (96-108); Creatinine Clr Calc Pharmacy 27.7; Estimated Glomerular Filt Rate 32; Glucose Random 101 mg/dL (60-115); Magnesium 2.4 mg/dL (1.6-2.6); Phosphorus 5.2 mg/dL (2.7-4.5); Potassium 3.9 mmol/L (3.3-5.1); Sodium 150 mmol/L (135-145)
[2024-11-07 22:48] LABS: Band Neutrophils Percent 51 % (3-5); Metamyelocytes Percent 4 %; Monocytes Percent Manual 3 % (2-11); Neutrophils Percent Manual 42 % (45-73); RBC Morphology NOTED
[2024-11-07 22:49] LABS: Acanthocytes 2+ (3-5) /OIF; Burr Cells 3+ (>5) /OIF; Polychromasia 1+ (0-2) /OIF; Toxic Vacuolation PRESENT
[2024-11-07 22:50] LABS: Dohle Bodies PRESENT; Large Platelet PRESENT; Ovalocytes 1+ (5-14) /OIF; Platelet Estimate NORMAL (NORMAL); Platelet Morphology Comment NOTED; Toxic Granulation PRESENT
[2024-11-07 23:47] LABS: Venous Blood Gas Refer to POC result
[2024-11-07 23:54] LABS: Metamyelocytes Absolute 0.7 X10*3/uL; Monocytes Absolute Manual 0.5 X10*3/uL (0.1-1.2); Neutrophils Absolute Manual 15.9 X10*3/uL (2.0-8.3); White Blood Count 17.1 X10*3/uL (4.8-10.8)
[2024-11-08] VITALS (10 sets, daily range): BP systolic 77–106; BP diastolic 44–69; PULSE 105–126; RESP 32–36; TEMP 37.9–38.5; O2SAT 94–99; BMI 24.5
[2024-11-08] MEDS: 0.9 % Sodium Chloride Flush 3 ML SYRINGE IVFLUSH ×2 (00:23→07:31)
[2024-11-08] MEDS: Albumin Human 25 % 100 ML IV (01:23)
[2024-11-08] MEDS: vancomycin HCL 500 MG in 0.9 % Sodium Chloride 100 ML 110 MG IV (02:47)
[2024-11-08] MEDS: Metoprolol Tartrate 5 MG/5 ML VIAL IVPUSH (03:49)
--- NOTE | 2024-11-08 04:22 | PM.EVENT ---
Documented by User: Henry Thompson NP 11/08/24 06:54 Event Note Date of Service: 11/08/24 Event Note: Overnight, patient having multiple episodes of aspiration despite frequent deep suctioning, patient unable to protect airway. Patient's / HCP, Racheal and son Abhishek at bedside. Informed of patient clinical status, request for no escalation of care at this time. Spiritual services offered and family accepted. At 0645 Family members at bedside, including patients /HCP Racheal, all in agreement to transition into comfort care Time Spent With Patient Time: Total time managing care of this patient today ____ minutes. Documented by User: Weston Garcia MD 11/08/24 09:35 Event Note Date of Service: 11/08/24
[2024-11-08] MEDS: Piperacillin Sodium/Tazobactam 4.5 GM in 0.9 % Sodium Chloride 100 ML IV (04:52)
[2024-11-08] MEDS: Acetaminophen 1,000 MG/100 ML PIGGYBACK 400 MG IV (06:31)
--- NOTE | 2024-11-08 06:38 | PC.NURSE ---
Assumed care at 1900, pt obtunded - only arousable to painful stimuli . HR 70-90s accelerated junctional on tele. MAP < 60, levophed titrated per emar.? Around 2100 pt HR 120-150s SVT/Junctional tachycardia? on tele. Lopressor 5 mg IVP?Q6H ordered and administered with no effect on HR. BLISTER PACK OPERATOR aware - no new orders. SpO2 dropped to 80% on 4L oxymask - placed on 15L? NRB. NT suctioned by RT- scant, thick secretions. BLISTER PACK OPERATOR at bedside. Lasix 40 mg IVP ordered and administered. Maintaining?spO2 > 95%, placed back on 15L oxymask. 0400 - and son at bedside, goals?of care discussion?with BLISTER PACK OPERATOR. Decision to not further escalate care. Manager Of Clinical called to bedside.
[2024-11-08 06:43] LABS: Venous Blood Gas Refer to POC result
[2024-11-08 06:44] LABS: VBG Base Excess 0.3 mmol/L; VBG HCO3 29 mmol/L (22-26); VBG pCO2 67 mmHg; VBG pH 7.24 (7.32-7.43); VBG pO2 97 mmHg
[2024-11-08 06:55] LABS: Hematocrit 40.8 % (42.0-52.0); Hemoglobin 12.4 g/dl (14.0-18.0); Mean Corpuscular HGB Conc 30.4 g/dl (31.0-36.0); Mean Corpuscular Hemoglobin 33.8 pg (27.0-33.0); Mean Platelet Volume 11.6 fL (9.4-12.4); NRBC Pct Auto 0.2 /100WBC (0.0-0.2); Platelet Count 203 X10*3/uL (160-400); Red Blood Count 3.67 X10*6/uL (4.60-5.80)
[2024-11-08 06:57] LABS: Mean Corpuscular Volume 111.2 fL (80.0-98.0); WBC ABN SCTR FOR CBC 1
[2024-11-08 07:03] LABS: Alanine Aminotransferase 20 U/L (0-40); Albumin Level 3.9 g/dL (3.5-5.0); Alkaline Phosphatase 71 U/L (39-117); Anion Gap 18 (12-20); Aspartate Amino Transferase 51 U/L (5-37); Bilirubin Total 3.8 mg/dL (0.0-1.0); Blood Urea Nitrogen 60 mg/dL (9-16); Calcium 9.1 mg/dL (8.4-10.2); Carbon Dioxide 28 mmol/L (22-29); Chloride 107 mmol/L (96-108); Creatinine Clr Calc Pharmacy 22.7; Estimated Glomerular Filt Rate 25; Glucose Random 116 mg/dL (60-115); Magnesium 2.4 mg/dL (1.6-2.6); Phosphorus 6.3 mg/dL (2.7-4.5); Potassium 4.1 mmol/L (3.3-5.1); Sodium 149 mmol/L (135-145)
[2024-11-08] MEDS: fentaNYL citrate/NS 1,000 MCG/100 ML PLAST..BAG 2.5 MCG IVCONT (07:05)
[2024-11-08 07:09] LABS: Prothrombin Time 80.1 SEC (10.9-12.4)
[2024-11-08 07:15] LABS: INTERNATIONAL NORM RATIO 6.9 (0.9-1.1)
[2024-11-08 07:30] LABS: Atypical Lymphs Percent Manual 2 % (0-6); Band Neutrophils Percent 38 % (3-5); Lymphocytes Percent Manual 3 % (20-40); Metamyelocytes Percent 2 %; Monocytes Percent Manual 4 % (2-11); Neutrophils Percent Manual 51 % (45-73)
[2024-11-08 07:32] LABS: RBC Morphology NOTED
[2024-11-08 07:34] LABS: Acanthocytes 2+ (3-5) /OIF; Macrocytosis 1+ (5-14) /OIF; Ovalocytes 1+ (5-14) /OIF
[2024-11-08 07:35] LABS: Basophilic Stippling 1+ (0-2) /OIF; Burr Cells 1+ (0-2) /OIF; Dohle Bodies PRESENT; Polychromasia 1+ (0-2) /OIF
[2024-11-08 07:36] LABS: Schistocytes 1+ (0-2) /OIF
[2024-11-08 07:37] LABS: Large Platelet PRESENT; Platelet Estimate NORMAL (NORMAL); Platelet Morphology Comment NOTED
[2024-11-08 07:38] LABS: Atypical Lymph Absolute Manual 0.3 x10*3/uL; Lymphocytes Absolute Manual 0.5 X10*3/uL (1.2-4.9); Metamyelocytes Absolute 0.3 X10*3/uL; Monocytes Absolute Manual 0.6 X10*3/uL (0.1-1.2); Neutrophils Absolute Manual 13.6 X10*3/uL (2.0-8.3); White Blood Count 15.3 X10*3/uL (4.8-10.8)
--- NOTE | 2024-11-08 09:35 | PM.DDS ---
Discharge Sum: Prov Provider Primary care physician: Rich Amaral DO Discharge Sum: Diag PCOD Cause of : Bacteremia due to methicillin resistant Staphylococcus aureus Contributing Factors (1) Influenza A: (2) Bacteremia due to Staphylococcus: (3) Afib: (4) CHF (congestive heart failure): (5) Septic shock: (6) Acute renal failure: (7) Septic encephalopathy: Discharge Sum: Summary Date and Time Date of admission: 11/05/24 12:52 Date of : 11/08/24 Time of : 08:27 Summary Details: 79-year-old gentleman with underlying history of hypertension, hyperlipidemia, AFib on Coumadin, bioprosthetic AVR, ? severe mitral regurgitation, admitted on 11/05/2024 with dyspnea, cough, and hypoxia secondary to influenza and congestive heart failure exacerbation, initially admitted to the telemetry velez. Hospital course complicated by development of hypotension secondary to superinfection with MRSA bacteremia requiring pressor support and transfer to intensive care unit. Overnight on to 11/08/2024 patient with development of pulmonary aspiration and worsening hypoxia. At that family discussion held with patient's /healthcare proxy and son who decided to switch goals of care to palliation. Code status changed to comfort measures only and patient passed comfortably at 08:27 a.m. on 11/08/2024 Additional Data Confirmation of as documented by pronouncing clinician: no pulse, no respirations and no heart sounds Family: at bedside Attending physician: Weston Garcia MD
== END 2024-11-08 09:15 | disposition expired | DRG 193 ==
LOC: HO.ED 10:36 → HO.EDOVER 12:56 → HO.ICU 11-06 09:56
PROVIDERS: Internal Medicine; Internal Medicine Critical Care Medicine; Nurse Practitioner Family; Physician Assistant Medical; Registered Nurse Community Health; Admitting Provider Nurse Practitioner Acute Care; Emergency Provider Emergency Medicine; PCP Family Medicine; Visit Provider Internal Medicine Pulmonary Disease
DX: J10.00 Influenza due to other identified influenza virus with unspecified type of pneumonia (principal); A41.9 Sepsis, unspecified organism; G92.8 Other toxic encephalopathy; I50.33 Acute on chronic diastolic (congestive) heart failure; J96.01 Acute respiratory failure with hypoxia; R65.21 Severe sepsis with septic shock; E87.21 Acute metabolic acidosis; E87.0 Hyperosmolality and hypernatremia; N17.9 Acute kidney failure, unspecified; E86.0 Dehydration; B95.62 Methicillin resistant Staphylococcus aureus infection as the cause of diseases classified elsewhere; I11.0 Hypertensive heart disease with heart failure; Z66 Do not resuscitate; E87.6 Hypokalemia; D50.9 Iron deficiency anemia, unspecified; Z51.5 Encounter for palliative care; E78.5 Hyperlipidemia, unspecified; I48.91 Unspecified atrial fibrillation; R79.1 Abnormal coagulation profile; I34.0 Nonrheumatic mitral (valve) insufficiency; T50.3X6A Underdosing of electrolytic, caloric and water-balance agents, initial encounter; Z20.822 Contact with and (suspected) exposure to COVID-19; Z95.2 Presence of prosthetic heart valve; Z79.620 Long term (current) use of immunosuppressive biologic; Z79.01 Long term (current) use of anticoagulants; Z79.82 Long term (current) use of aspirin; Z79.899 Other long term (current) drug therapy
CPT/HCPCS: 0241U; 36415; 71045; 80048; 80051; 80053; 81003; 82040; 82272; 82803; 82947; 83540; 83605; 83735; 83880; 84100; 84484; 85007; 85025; 85027; 85610; 86850; 86900; 86901; 87040; 87077; 87186; 87205; 93005; 93306; 94640; 99285; J0131; J0456; J0613; J0696; J1120; J1940; J2060; J2270; J2470; J2543; J2919; J3010; J3370; J3475; J3480; P9047

== ENCOUNTER → 2024-11-05 10:27 | Outpatient (BNV) | payer MEDICARE, OTHER, SELFPAY | PROVIDERS: Admitting Provider Nurse Practitioner Acute Care; Emergency Provider Emergency Medicine; PCP Family Medicine; Visit Provider Internal Medicine | DX: I48.91 Unspecified atrial fibrillation (principal) | CPT/HCPCS: 93010 ==

== ENCOUNTER → 2024-11-05 11:00 | Outpatient (BNV) | payer MEDICARE, OTHER, SELFPAY | PROVIDERS: Emergency Provider Emergency Medicine; PCP Family Medicine; Visit Provider Radiology Diagnostic Radiology | DX: J06.9 Acute upper respiratory infection, unspecified (principal) | CPT/HCPCS: 71045 ==

== ENCOUNTER 2024-11-05 12:52 | Outpatient (BNV) | payer MEDICARE, OTHER, SELFPAY | END 2024-11-07 07:00 | PROVIDERS: Admitting Provider Nurse Practitioner Acute Care; Emergency Provider Emergency Medicine; PCP Family Medicine; Visit Provider Internal Medicine | DX: Z95.2 Presence of prosthetic heart valve (principal); I27.20 Pulmonary hypertension, unspecified | CPT/HCPCS: 93306 ==

== ENCOUNTER 2024-11-05 12:52 | Outpatient (BNV) | payer MEDICARE, OTHER, SELFPAY | END 2024-11-06 01:20 | PROVIDERS: Admitting Provider Nurse Practitioner Acute Care; Emergency Provider Emergency Medicine; PCP Family Medicine; Visit Provider Radiology Diagnostic Radiology | DX: J18.9 Pneumonia, unspecified organism (principal) | CPT/HCPCS: 71045 ==

== ENCOUNTER → 2024-11-05 12:52 | Outpatient (BNV) | payer MEDICARE, OTHER, SELFPAY | PROVIDERS: Admitting Provider Nurse Practitioner Acute Care; Emergency Provider Emergency Medicine; PCP Family Medicine; Visit Provider Internal Medicine Critical Care Medicine | DX: I50.9 Heart failure, unspecified (principal); J18.9 Pneumonia, unspecified organism; J11.1 Influenza due to unidentified influenza virus with other respiratory manifestations | CPT/HCPCS: 99291; 99499 ==

== ENCOUNTER → 2024-11-05 12:52 | Outpatient (BNV) | payer MEDICARE, OTHER, SELFPAY | PROVIDERS: Admitting Provider Nurse Practitioner Acute Care; Emergency Provider Emergency Medicine; PCP Family Medicine; Visit Provider Internal Medicine Pulmonary Disease | DX: J10.1 Influenza due to other identified influenza virus with other respiratory manifestations (principal); R78.81 Bacteremia; B95.8 Unspecified staphylococcus as the cause of diseases classified elsewhere; I48.91 Unspecified atrial fibrillation; I50.9 Heart failure, unspecified; A41.9 Sepsis, unspecified organism; R65.21 Severe sepsis with septic shock; N17.9 Acute kidney failure, unspecified; G93.41 Metabolic encephalopathy | CPT/HCPCS: 99238; 99291 ==

== ENCOUNTER → 2024-11-05 12:52 | Outpatient (BNV) | payer MEDICARE, OTHER, SELFPAY | PROVIDERS: Admitting Provider Nurse Practitioner Acute Care; Emergency Provider Emergency Medicine; PCP Family Medicine; Visit Provider Internal Medicine | DX: J11.1 Influenza due to unidentified influenza virus with other respiratory manifestations (principal); E87.6 Hypokalemia; I50.9 Heart failure, unspecified | CPT/HCPCS: 99223; 99232; 99499 ==